=== PATIENT | female | born 1975 | race Caucasian/White ===

== ENCOUNTER 2020-01-22 18:47 | Emergency (ER) | payer OTHER, SELFPAY ==
--- NOTE | ~2020-01-22 | CT_ITS ---
EXAMINATION: CT abdomen pelvis w con DATE: 01/22/2020 20:21 INDICATION: Low abdominal pain. TECHNIQUE: Computed tomography (CT) of the abdomen and pelvis was performed with 100 mL Omnipaque 350 intravenous contrast. Automated exposure control and iterative reconstruction technique were employe d. The dose-length product was 514.52 mGy-cm. COMPARISON: CT abdomen and pelvis 06/04/2015 FINDINGS: The visualized portions of the lung bases demonstrate minimal atelectasis. A calcified righ t lung nodule is consistent with old granulomatous disease. No pleural effusion. The heart size is no rmal. No pericardial effusion. There is a 7 mm cyst in the liver. The gallbladder, spleen, pancreas, adrenal glands, and kidneys are normal. There are no dilated loops of bowel. There are no dilated loo ps of bowel. The appendix is not visualized. There are no pathologically enlarged lymph nodes. There is no free intraperitoneal fluid. Left ovarian vein is enlarged, consistent with pelvic venous insuff iciency. There is mild lumbar spondylosis. There is a chronic compression fracture of T10 vertebral b devyn. IMPRESSION: 1. Pelvic venous insufficiency. Reviewed, dictated and finalized at location A.
[2020-01-22 18:55] VITALS: BP 155/96; PULSE 95; RESP 18; TEMP 36.9; O2SAT 100
[2020-01-22] MEDS: SODIUM CHLORIDE 0.9% IV 1,000 ML 999 ML IV CONT (19:51)
[2020-01-22 19:52] LABS: Basophils Percent Auto 0.3 % (0.2-1.2); Eosinophils Absolute Auto 0.1 K/mm3 (0-0.3); Eosinophils Percent Auto 0.9 % (0-4.4); Hematocrit 36.6 % (37.0-47.0); Hemoglobin 12.2 g/dL (12.0-15.0); Immature Granulocyte Absolute 0.01 K/mm3 (0.00-0.031); Immature Granulocyte Percent A 0.1 % (0-0.5); Lymphocytes Absolute Auto 3.02 K/mm3 (0.9-3.2); Lymphocytes Percent Auto 35.1 % (18.3-44.2); Mean Corpuscular HGB Conc 33.3 g/dl (32-36); Mean Corpuscular Hemoglobin 28.4 pg (26-34); Mean Corpuscular Volume 85.1 fl (80-100); Mean Platelet Volume 11.6 fl (7.4-10.4); Monocytes Absolute Auto 0.5 K/mm3 (0.1-0.6); Monocytes Percent Auto 6.3 % (2.6-8.5); Neutrophils Absolute Auto 4.9 K/mm3 (1.3-6.7); Neutrophils Percent Auto 57.3 % (45.5-73.1); Platelet Count Result 208 k/mm3 (150-375); Red Cell Distribution Width 13.3 % (11.5-14.5); White Blood Count 8.6 K/mm3 (4.5-10.0)
[2020-01-22 20:02] LABS: INR 1.1; Partial Thromboplastin Time 27.4 SECONDS (22.3-36.8); Prothrombin Time 13.6 Seconds (11.1-14.7)
[2020-01-22 20:03] VITALS: BP 118/91; BP 121/82; BP 128/89; PULSE 84; PULSE 89
--- NOTE | 2020-01-22 20:03 | ED.ABDPAIN ---
HPI - Abdominal Pain General Chief Complaint: Vaginal Bleeding Stated Complaint: vag bleeding Time Seen by Provider: 01/22/20 19:03 History of Present Illness HPI narrative: She is currently on her period. Heavier than usual. Going through pad/tampon every 1.5-2 hours. Feeling weak and dizzy. Additionally reports severe lower abdominal pain and dysuria. Related Data Home Medications Medication Instructions Recorded Confirmed No Home Medications 01/22/20 01/22/20 Allergies Allergy/AdvReac Type Severity Reaction Status Date / Time No Known Allergies Allergy Unknown Verified 01/22/20 19:01 Review of Systems Review of Systems: All systems reviewed & are unremarkable except as noted in HPI and below Constitutional: Constitutional: Denies fever(s) ENT: Reports dizziness Cardiovascular: Cardiovascular: Denies chest pain Respiratory: Respiratory: Reports dyspnea Gastrointestinal: Gastrointestinal: Reports abdominal pain and Reports nausea Genitourinary: Genitourinary: Reports abnormal vaginal bleeding and Reports dysuria Neurologic: Reports dizziness PMFSH Family History Family History Other Diabetes mellitus Family history of alcoholism Family history of malignant neoplasm of male breast Family history of mental disorder Hypertension Social History Social History Smoking status: Never smoker Alcohol intake: current Gender identity (if verbalized by the patient): Female Exam Const: General: healthy appearing, no acute distress and alert Nutritional Appearance: well nourished Orientation/consciousness: patient oriented x3 HENMT: Head: normal to inspection Resp: Effort & Inspection: normal respiratory effort Auscultation: clear to auscultation bilaterally Cardio: Rate: regular rate Rhythm: regular rhythm GI: GI Palp: Yes Soft to palpation and Yes Tenderness to palpation present (GI) (suprapubic) Skin: General skin exam: normal color Neuro: General: patient oriented x3 and CN's II-XI intact bilaterally Speech: normal speech Extrem: General: normal to inspection Course Vital Signs Vital signs: Vital Signs Temperature 36.9 C 01/22/20 18:55 Pulse Rate 95 01/22/20 18:55 Respiratory Rate 18 01/22/20 18:55 Blood Pressure 155/96 H 01/22/20 18:55 Pulse Oximetry 100 01/22/20 18:55 Temperature 36.9 C 01/22/20 18:55 Pulse Rate 64 01/22/20 23:34 Respiratory Rate 18 01/22/20 23:34 Blood Pressure 98/34 L 01/22/20 23:34 Pulse Oximetry 99 01/22/20 23:34 MDM - Abdominal Pain Lab Data Result diagrams: 01/22/20 19:46 01/22/20 19:46 Labs: Lab Results 01/22/20 01/22/20 01/22/20 Range/Units 19:46 19:46 19:46 WBC 8.6 (4.5-10.0) K/mm3 RBC 4.30 (4.2-5.4) M/mm3 Hgb 12.2 (12.0-15.0) g/dL Hct 36.6 L (37.0-47.0) % MCV 85.1 (80-100) fl MCH 28.4 (26-34) pg MCHC 33.3 (32-36) g/dl RDW 13.3 (11.5-14.5) % Plt Count 208 (150-375) k/mm3 MPV 11.6 H (7.4-10.4) fl Immature Gran % (Auto) 0.1 (0-0.5) % Neut % (Auto) 57.3 (45.5-73.1) % Lymph % (Auto) 35.1 (18.3-44.2) % Dane % (Auto) 6.3 (2.6-8.5) % Eos % (Auto) 0.9 (0-4.4) % Baso % (Auto) 0.3 (0.2-1.2) % Lymph # (Auto) 3.02 (0.9-3.2) K/mm3 Dane # (Auto) 0.5 (0.1-0.6) K/mm3 Eos # (Auto) 0.1 (0-0.3) K/mm3 Baso # (Auto) 0.0 (0.0-0.1) K/mm3 Abs Immat Gran (auto) 0.01 (0.00-0.031) K/mm3 Absolute Neuts (auto) 4.9 (1.3-6.7) K/mm3 Absolute Nucleated RBC 0.0 (0.0-0.012) K/mm3 Nucleated RBC % 0.0 (0.0-0.2) % PT 13.6 (11.1-14.7) Seconds INR 1.1 APTT 27.4 (22.3-36.8) SECONDS Sodium 136 L (137-145) mmol/L Potassium 3.8 (3.4-5.0) mmol/L Chloride 106 (98-107) mmol/L Carbon Dioxide 25 (22-30) mmol/L BUN 11 (7-17) mg/dL Creat
[2020-01-22 20:04] LABS: Blood Urea Nitrogen 11 mg/dL (7-17); Calcium 8.9 mg/dL (8.4-10.2); Carbon Dioxide 25 mmol/L (22-30); Chloride 106 mmol/L (98-107); Estimated CRCL calculation 71 ml/min; Estimated Glomerular Filt Rate > 60; Glucose 96 mg/dL (65-105); Potassium 3.8 mmol/L (3.4-5.0); Sodium 136 mmol/L (137-145)
[2020-01-22] MEDS: KETOROLAC 30 MG/ML VIAL (*BKC) IV PUSH (20:07)
[2020-01-22 20:23] LABS: Add Urine Microscopic? YES; Amorphous Sediment Urine Moderate; Appearance Urine Cloudy (Clear); Bacteria Urine 1+ /hpf; Bilirubin Urine Negative (Negative); Blood Urine 2+ (Negative); Color Urine Yellow (Yellow); Glucose Urine UA Negative (Negative); Ketones Urine Negative (Negative); Leukocyte Esterase Ur Trace LEU/UL (Negative); Mucus Urine Rare /lpf; Nitrate Urine Positive (Negative); Protein Urine Negative (Negative); RBC Urine 21-50 /hpf (0-2); Specific Grav Ur 1.018 (1.001-1.035); Squamous Epithelial Cell Urine Few /hpf (Few); Urobilinogen Urine Negative mg/dL (<2.0); WBC Urine 16-20 /hpf
[2020-01-22] MEDS: NITROFURANTOIN MONOHYD MACROCR 100 MG CAP PO (20:51)
[2020-01-22] MEDS: ACETAMINOPHEN 500 MG TABLET 1000 MG PO (23:24)
[2020-01-22] MEDS: PHENAZOPYRIDINE HCL 100 MG TABLET 200 MG PO (23:24)
[2020-01-22 23:34] VITALS: BP 98/34; PULSE 64; RESP 18; O2SAT 99
== END 2020-01-22 23:35 | disposition home or self-care (01) ==
PROVIDERS: Emergency Provider Emergency Medicine
DX: N39.0 Urinary tract infection, site not specified (principal)
CPT/HCPCS: 36415; 74177; 80048; 81001; 81025; 85025; 85610; 85730; 87077; 87086; 87088; 87186; 96361; 96374; 99284; A9270; J1885; J7030; Q9967

== ENCOUNTER 2020-06-30 19:10 | Emergency (ER) | payer OTHER, SELFPAY ==
--- NOTE | ~2020-06-30 | CT_ITS ---
EXAMINATION: CT abdomen pelvis wo con DATE: 06/30/2020 20:39 INDICATION: Right flank pain and right-sided abdominal pain. TECHNIQUE: Computed tomography (CT) of the abdomen and pelvis was performed without intravenous contr ast. Automated exposure control and iterative reconstruction technique were employed. The dose-length product was 484.85 mGy-cm. COMPARISON: 01/22/2020 FINDINGS: Calcified right lower lobe nodule consistent with old granulomatous disease. Heart size is normal. No pericardial or pleural effusion. A couple calcified gallstones in the normal decompressed gallbladde r. No gallbladder wall thickening or pericholecystic inflammatory change to suggest acute cholecystit is. Liver, spleen, pancreas, bilateral adrenal glands and kidneys are normal. No stones seen at the k idneys or along the bilateral ureters. Bladder is normal. Retroverted uterus and bilateral adnexa are unremarkable. Normal appendix. There is mild fatty infiltration of the wall of the terminal ileum wh ich could represent response to chronic inflammation such as in the setting of Crohn's disease. No luis wel obstruction, other evident bowel wall thickening or surrounding inflammatory stranding. Small moe unt of likely physiologic free fluid in the cul-de-sac. No abscess or free intraperitoneal gas. No pa thologically enlarged abdominal or pelvic lymphadenopathy. IMPRESSION: 1. No acute intra-abdominal/pelvic process. 2. Mild fatty infiltration of the wall of the terminal ileum which can be seen as response to chronic inflammation such as in the setting of Crohn's disease. Correlate with clinical history. 3. Cholelithiasis. Reviewed, dictated and finalized at location . ESTATE INVESTOR
[2020-06-30 19:10] VITALS: BP 113/68; PULSE 59; RESP 26; TEMP 36.9; O2SAT 97
--- NOTE | 2020-06-30 19:22 | ED.ABDPAIN ---
HPI - Abdominal Pain General Chief Complaint: Abdominal Pain Stated Complaint: pain in side, and back Time Seen by Provider: 06/30/20 19:12 Source: patient Mode of arrival: ambulatory Limitations: no limitations History of Present Illness HPI narrative: Alpa is a 44F with a PMH of IBS, endometriosis, UTI and an ectopic that required tubal surgery that presented to the ED with right flank and suprapubic pain. She has had pain off and on for 3 days in her flank. Shortly before coming she went to the bathroom and had suprapubic pain. She now has constant suprapubic pain. She admits nausea but no vomiting, diarrhea or constipation. She is currently on her menses but no purulent discharge. Related Data Home Medications Medication Instructions Recorded Confirmed No Home Medications 01/22/20 06/30/20 Allergies Allergy/AdvReac Type Severity Reaction Status Date / Time No Known Allergies Allergy Unknown Verified 01/22/20 19:01 Review of Systems Constitutional: Constitutional: Denies chills, Denies fever(s) and Denies weakness Eyes: Eyes: Reports no additional eye complaints ENT: Reports system reviewed and no additional complaints, except as documented Cardiovascular: Cardiovascular: Denies chest pain and Denies rapid heart rate Respiratory: Respiratory: Reports no additional respiratory complaints Gastrointestinal: Gastrointestinal: Reports abdominal pain, Denies constipation, Denies diarrhea, Reports nausea and Denies vomiting Genitourinary: Genitourinary: Reports as per HPI Musculoskeletal: Musculoskeletal: Reports no additional musculoskeletal complaints Integumentary/Breasts: Skin/Breast: Reports system reviewed and no additional complaints, except as docu Neurologic: Reports system reviewed and no additional complaints, except as documented Psychiatric: Psychiatric: Reports no additional psychiatric complaints Endocrine: Endocrine: Reports no additional endocrine complaints Hematologic/Lymphatic: Hematologic/Lymphatic: Reports no additional hematologic/lymphatic complaints Allergic/Immunologic: Allergic/Immunologic: Reports no additional allergic/immunologic complaints [facility] Family History Family History Other Diabetes mellitus Family history of alcoholism Family history of malignant neoplasm of male breast Family history of mental disorder Hypertension Social History Social History Smoking status: Never smoker Alcohol intake: current Gender identity (if verbalized by the patient): Female Exam Const: Orientation/consciousness: patient oriented x3 Other: In mild to moderate distress HENMT: Head: normal to inspection Other: atraumatic Eyes: Conjunctivae: conjunctivae normal Pupils: Equal, round and reactive pupils present Neck: Neck: normal visual inspection Chest: Chest palpation & inspection: normal inspection of the chest Resp: Effort & Inspection: normal respiratory effort Auscultation: clear to auscultation bilaterally Cardio: Rate: regular rate Rhythm: regular rhythm Heart sounds: no murmurs GI: Inspection: non-distended GI Palp: Yes Soft to palpation, Yes Tenderness to palpation present (GI) (Tender in the RLQ ), No Guarding due to palpation present (GI) and No Rigid due to palpation : Other: No CVA tenderness. Severe suprapubic tenderness was present Skin: General skin exam: normal color Rashes: no rashes Neuro: General: patient oriented x3 and moves all extremities Extrem: General: normal to inspection Psych: Appearance: grossly normal Mental Status: mental status grossly normal Course Course Emergency Course: Alpa was evaluated. She was given 4mg of morphine for pain and 30mg of Toradol. Labs, UA, and urine HCG. EXAMINATION: CT abdomen pelvis wo con DATE: 06/30/2020 20:39 INDICATION: Right flank pain and right-sided abdominal
[2020-06-30] MEDS: ONDANSETRON INJ 4 MG/2 ML VIAL IV PUSH (19:23)
[2020-06-30] MEDS: MORPHINE SULFATE (*CRX) 4 MG/ML INJ IV PUSH ×2 (19:24→21:00)
[2020-06-30] MEDS: KETOROLAC 30 MG/ML VIAL (*BKC) (19:40)
[2020-06-30 19:42] LABS: Basophils Absolute Auto 0.03 K/mm3 (0.00-0.10); Basophils Percent Auto 0.4 % (0.0-1.0); Eosinophils Absolute Auto 0.06 K/mm3 (0.02-0.50); Eosinophils Percent Auto 0.7 % (1.0-6.0); Hematocrit 35.4 % (35.0-49.0); Hemoglobin 11.6 g/dL (12.0-15.0); Immature Granulocyte Absolute 0.02 K/mm3 (0.00-0.00); Immature Granulocyte Percent A 0.2 % (0.0-0.0); Lymphocytes Absolute Auto 2.57 K/mm3 (1.10-4.50); Lymphocytes Percent Auto 30.7 % (18.0-42.0); Mean Corpuscular HGB Conc 32.8 g/dL (32.0-36.0); Mean Corpuscular Hemoglobin 26.7 pg (27.0-31.0); Mean Corpuscular Volume 81.4 fL (78.0-102.0); Mean Platelet Volume 11.7 fl (9.2-11.8); Monocytes Absolute Auto 0.64 K/mm3 (0.10-0.90); Monocytes Percent Auto 7.6 % (2.0-11.0); Neutrophils Absolute Auto 5.1 K/mm3 (1.7-7.2); Neutrophils Percent Auto 60.4 % (50.0-70.0); Platelet Count Result 252 K/mm3 (150-420); Red Blood Count 4.35 M/mm3 (4.20-5.40); Red Cell Distribution Width 14.7 % (11.6-14.4); White Blood Count 8.4 K/mm3 (4.8-10.8)
[2020-06-30 19:54] LABS: INR 1.1; Prothrombin Time 11.4 Seconds (9.64-11.0)
[2020-06-30 20:01] LABS: Lactic Acid Reflex 1.7 mmol/L (0.4-2.0)
[2020-06-30 20:03] LABS: Add Urine Microscopic? YES; Appearance Urine Clear (Clear); Bilirubin Urine Negative (Negative); Blood Urine 3+ (Negative); Color Urine Yellow (Yellow); Glucose Urine UA Negative (Negative); Ketones Urine Negative (Negative); Leukocyte Esterase Ur Negative (Negative); Nitrate Urine Negative (Negative); Protein Urine Negative (Negative); Urobilinogen Urine 0.2 mg/dL (0.2-1.0); pH Urine 7.5 (5.0-8.0)
[2020-06-30 20:08] LABS: Alanine Aminotransferase 18 U/L (14-59); Albumin Level 3.6 g/dL (3.4-5.0); Alkaline Phosphatase 67 U/L (46-116); Anion Gap 13 mmol/L (8-16); Aspartate Amino Transferase 10 U/L (15-37); Bilirubin,Total 0.2 mg/dL (0.00-1.00); Blood Urea Nitrogen 12 mg/dL (7-18); Carbon Dioxide 23 mmol/L (21-32); Chloride 104 mmol/L (98-108); Estimated CRCL calculation 53 ml/min; Estimated Glomerular Filt Rate 55; Glucose 97 mg/dL (70-99); Lipase 136 U/L (73-393); Osmolality Calculated 289 mOsm/kg (285-295); Potassium 3.7 mmol/L (3.5-5.1); Sodium 140 mmol/L (136-145); Total Protein 7.3 g/dL (6.4-8.2)
[2020-06-30 20:11] LABS: Squamous Epithelial Cell Urine Rare /hpf (Few); WBC Urine 0-3 /hpf (0-3)
[2020-06-30 20:12] LABS: Bacteria Urine Trace /hpf; Pregnancy On Board Control Positive; Urine Pregnancy Test Negative
--- NOTE | 2020-06-30 21:49 | PC.NURSE ---
PT INSTRUCTED TO GO TO [facility] FOR ULTRASOUND (SUSPECTED R OVARIAN TORSION) RN GAVE REPORT TO [facility], RN
[2020-06-30 21:51] VITALS: BP 107/63; PULSE 75; RESP 14; O2SAT 100
== END 2020-06-30 21:53 | disposition short-term general hospital (02) ==
PROVIDERS: Emergency Provider Family Medicine
DX: R10.9 Unspecified abdominal pain (principal)
CPT/HCPCS: 36415; 74176; 80053; 81001; 81025; 83605; 83690; 85025; 85610; 86850; 86900; 86901; 96374; 96375; 96376; 99283; 99284; J1885; J2270; J2405

== ENCOUNTER 2020-06-30 23:00 | Inpatient (IN) | payer OTHER, SELFPAY ==
--- NOTE | ~2020-06-30 | US_ITS ---
EXAMINATION: US pelvic complete w TV DATE: 07/01/2020 00:02 INDICATION: Pelvic pain TECHNIQUE: Multiple transabdominal and endovaginal sonographic images of the pelvis were obtained. COMPARISON: CT dated 06/30/2020 FINDINGS: The uterus measures 7.5 x 5.7 x 7.4 cm. The endometrial complex measures 6 mm in thickness. There ar e couple 6 7 7 mm hypoechoic lesions at the left and right uterine fundus which could represent small uterine fibroids. The right ovary measures 2.1 x 1.5 x 1.9 cm. The left ovary measures 3.0 x 1.5 x 2 .3 cm. There is normal vascular flow in the ovaries. There is no free fluid in the pelvis. IMPRESSION: 1. A couple subcentimeter hypoechoic lesions in the uterine fundus most likely uterine fibroids. Othe rwise normal pelvic ultrasound. Reviewed, dictated and finalized at [facility]. E OB IMPRESSION: 1. A couple subcentimeter hypoechoic lesions in the uterine fundus most likely uterine fibroids. Otherwise normal pelvic ultrasound.
--- NOTE | ~2020-06-30 | US_ITS ---
EXAMINATION: US venous doppler LE EXAM DATE: 07/02/2020 11:55 INDICATION: TECHNIQUE: Multiple grayscale, color flow and Doppler images of the lower extremity deep venous syste ms bilaterally were obtained and reviewed. There is no prior study for comparison. FINDINGS: Right side: The right common femoral, femoral and profunda veins demonstrate normal color flow, respi ratory variation, augmentation and compressibility. Compressibility, color flow confirmed within the right popliteal, posterior tibial, peroneal, and greater saphenous veins. Left side: The left common femoral, femoral and profunda veins demonstrate normal color flow, respira tory variation, augmentation and compressibility. Compressibility, color flow confirmed within the l eft popliteal, posterior tibial, peroneal, and greater saphenous veins. IMPRESSION: 1. No lower extremity deep venous thrombosis bilaterally. Reviewed, dictated and finalized at location A. [place] HELPER
--- NOTE | ~2020-06-30 | NM_ITS ---
EXAMINATION: NM hepatobiliary w pharm EXAM DATE: 07/02/2020 15:50 INDICATION: pain, cholelithiasis TECHNIQUE: 5.4 mCi Tc-99m mebrofenin (Choletec) was administered intravenously. Scintigraphic image s of the abdomen were obtained for one hour. At the 1 hour time point, 1.6 mcg sincalide (Kinevac) wa s administered by slow intravenous infusion, and imaging was continued for 30 minutes. Gallbladder ej ection fraction was calculated by the technologist after 1.5 hour delay. Correlation is made to CT ab harvinder 06/30/2020. FINDINGS: There is normal clearance of radiotracer from the blood pool. There is homogeneous tracer u ptake by the liver. Activity progresses to the gallbladder and bowel. The gallbladder ejection fract ion (GBEF) is 8 % (most patients with gallbladder dysfunction have GBEF < 35%, but there is overlap w ith the normal range of 10-90%). IMPRESSION: Gallbladder ejection fraction 8%, consistent with gallbladder dysfunction and/or chronic cholecystitis. Reviewed, dictated and finalized at location A. APPLICATIONS SPECIALIST IMPRESSION: Gallbladder ejection fraction 8%, consistent with gallbladder dysf unction and/or chronic cholecystitis.
--- NOTE | ~2020-06-30 | US_ITS ---
EXAMINATION: US right upper quadrant DATE: 07/01/2020 09:09 INDICATION: Right upper quadrant abdominal pain. TECHNIQUE: Multiple grayscale and Doppler ultrasound images of the abdomen were obtained. COMPARISON: CT abdomen and pelvis 06/30/2020 FINDINGS: The visualized portions of the head, body, and tail of the pancreas are normal. The liver i s normal without focal lesion. There is normal flow in main portal vein. The gallbladder is contracte d and contains gallstones. No gallbladder wall thickening. The common duct is normal and measures 2 m m. Right kidney is normal. IMPRESSION: 1. Cholelithiasis. No evidence of acute cholecystitis. Reviewed, dictated and finalized at location A. NCE BROKER
[2020-06-30 23:05] VITALS: BP 122/64; PULSE 85; RESP 18; TEMP 36; O2SAT 100
--- NOTE | 2020-06-30 23:32 | ED.ABDPAIN ---
HPI - Abdominal Pain General Chief Complaint: Recheck/Abnormal Lab/Rx <Marissa Deleon PA-C - Last Filed: 07/01/20 01:15> Stated Complaint: HERE FOR PELVIC US <ANA MARÍA Steward Last Filed: 07/01/20 01:15> Time Seen by Provider: 06/30/20 23:13 <ANA MARÍA Steward Last Filed: 07/01/20 01:15> Source: patient <ANA MARÍA Steward Last Filed: 07/01/20 01:15> Mode of arrival: ambulatory <ANA MARÍA Steward Last Filed: 07/01/20 01:15> Limitations: no limitations <AAN MARÍA Steward Last Filed: 07/01/20 01:15> History of Present Illness HPI narrative: This is a 44-year-old female that presents to the emergency department for right-sided pelvic pain that started tonight. Reports she has had pelvic cramping for the last 3 days. She has been on her menstrual cycle for the last 5 days. Reports she does have history of endometriosis and heavy periods. She used to see Dr. Ellison, but has not seen him in some time. Reports tonight she started to have worsening pelvic pain on the right side. She was seen at [facility] for this and sent here for further evaluation. Denies fever, vomiting, or dysuria. <ANA MARÍA Steward Last Filed: 07/01/20 01:15> Related Data Home Medications: Home Medications Medication Instructions Recorded Confirmed [id number]-cgo-qtco-FA-vit K 1 tablet PO DAILY 07/01/20 07/01/20 [Adults Multivitamin] <ANA MARÍA Steward Last Filed: 07/01/20 01:15> Allergies/Adverse Reactions: Allergies Allergy/AdvReac Type Severity Reaction Status Date / Time No Known Allergies Allergy Unknown Verified 06/30/20 23:02 <ANA MARÍA Steward Last Filed: 07/01/20 01:15> Review of Systems Review of Systems: Narrative: CONSTITUTIONAL: Denies fever GASTROINTESTINAL: Reports abdominal/pelvic pain, nausea. Denies vomiting GENITOURINARY: Denies dysuria <Marissa Deleon PA-C - Last Filed: 07/01/20 01:15> All systems reviewed & are unremarkable except as noted in HPI and below <Marissa Deleon PA-C - Last Filed: 07/01/20 01:15> COUNT INCLUDES THE [facility] Past Medical History Medical History: Medical History (Updated 07/01/20 @ 00:42 by Marissa Deleon PA-C) History of endometriosis History of irritable bowel syndrome <Marissa Deleon PA-C - Last Filed: 07/01/20 01:15> Family History Family History: Family History Other Diabetes mellitus Family history of alcoholism Family history of malignant neoplasm of male breast Family history of mental disorder Hypertension <Marissa Deleon PA-C - Last Filed: 07/01/20 01:15> Social History Social History: Social History Smoking status: Never smoker Alcohol intake: current Gender identity (if verbalized by the patient): Female <Marissa Deleon PA-C - Last Filed: 07/01/20 01:15> Exam Narrative: Exam Narrative: GENERAL: Well-appearing, well-nourished, and in no acute distress. HEAD: Normocephalic, atraumatic. EYES: EOMI. CHEST: Clear to auscultation. No respiratory distress. No wheezes rales or rhonchi HEART: Regular rate and rhythm. No murmur heard. Normal peripheral pulses. ABDOMEN: Soft, nondistended, normal active bowel sounds. No CVA tenderness. Tender to palpation in the RLQ, without guarding EXTREMITIES: Normal range of motion. No edema. SKIN: Warm, dry, no rash. NEURO: No focal deficits. Alert and oriented x3. PSYCH: Normal mood and affect PELVIC: Normal external genitalia. Normal appearing cervix. Small-moderate amount of dark blood in the vaginal vault. 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
[2020-06-30] MEDS: MORPHINE SULFATE (*CRX) 4 MG/ML INJ IV PUSH (23:40)
[2020-07-01] VITALS (14 sets, daily range): BP systolic 92–121; BP diastolic 55–87; PULSE 65–93; RESP 10–20; TEMP 36.1–37.3; O2SAT 95–100; BMI 29.5
[2020-07-01] MEDS: FAMOTIDINE 20 MG/2 ML VIAL IV PUSH (00:23)
[2020-07-01] MEDS: KETOROLAC 15 MG/ML VIAL (*BKC) IV PUSH (01:42)
[2020-07-01] MEDS: LORazepam INJ (*CRX) 2 MG/ML VIAL 0.5 MG IV PUSH ×2 (01:42→12:45)
--- NOTE | 2020-07-01 02:15 | ADMGEN ---
This patient, Alpa Echevarria, was admitted to Medical Room 249-01. Patient/family oriented to hospital policies and general routines including ID bracelet, bed and alarms, visiting hours, pain management, procedures, bathroom and other care routines, personal items, smoking policy, room service/diet, and visiting hours. Information on how to activate the Rapid Response Team has been discussed. Patient/Family are encouraged to report perceived risks to care and to ask questions if they do not understand what they are told or what they should do.
[2020-07-01] MEDS: MORPHINE SULFATE (*CRX) 4 MG/ML INJ IV PUSH ×2 (02:49→10:51)
--- NOTE | 2020-07-01 07:50 | PM.IMHP ---
H&P: HPI History of Present Illness Date/Time: 07/01/20 07:50 Chief complaint: Pelvic pain Narrative: Alpa Echevarria is a 44 year old female who initially presented to [facility] with sudden onset pelvic pain. Transferred to [place] [facility] for pelvic US evaluation. She states the pain started suddenly after going to have a bowel movement yesterday. Pain initially started in the mid pelvis where it felt like menstrual cramping. She is currently on her period. However, pain radiated over to the right side where it became a sharp stabbing pain both in the lower and upper abdomen, radiating to her back. 10/10 on pain scale. Pain was intermittent and would come and go about every 2 minutes. Pain is worsened by movement. Associated with nausea and diarrhea. She has IBS so she alternates between diarrhea and constipation. Pain is improved this morning, now 1-2/10 at rest. She has had multiple laparoscopies for endometriosis and a history of left ectopic with left salpingectomy. Review of Systems Constitutional: Constitutional: Denies chills, Denies fever(s) and Reports poor appetite Cardiovascular: Cardiovascular: Reports no additional cardiovascular complaints Respiratory: Respiratory: Reports no additional respiratory complaints Gastrointestinal: Gastrointestinal: Reports as per HPI, Reports abdominal pain, Reports diarrhea and Reports nausea Genitourinary: Genitourinary: Reports as per HPI Musculoskeletal: Musculoskeletal: Reports no additional musculoskeletal complaints Neurologic: Reports restless legs Psychiatric: Psychiatric: Reports no additional psychiatric complaints Endocrine: Endocrine: Reports no additional endocrine complaints Hematologic/Lymphatic: Hematologic/Lymphatic: Reports no additional hematologic/lymphatic complaints Allergic/Immunologic: Allergic/Immunologic: Reports no additional allergic/immunologic complaints [facility] Past Medical History Medical History History of endometriosis History of irritable bowel syndrome , ectopic, tubal Surgical History Surgical History History of laparoscopy History of shoulder surgery History of tonsillectomy History of unilateral salpingectomy Family History Family History Father Diabetes mellitus Family history of alcoholism Family history of malignant neoplasm of male breast Family history of mental disorder Mother Hypertension Social History Social History (Reviewed 07/01/20 @ 08:37 by BETTY Salmeron Smoking packs per day: 0.5 Smoking cigarettes per day: 10.0 Years smoked: 30 Smoking pack-years: 15.00 Smoking status: Current every day smoker Tobacco type: cigarettes Alcohol intake: never Substance use: never Gender identity (if verbalized by the patient): Female Spiritual care concerns: No Meds Home Medications and Allergies Home Medications Medication Instructions Recorded Confirmed Type mhvhuifkozth-dmp-vaip-FA-vit K 1 tablet PO DAILY 07/01/20 07/01/20 History [Adults Multivitamin] Allergies Allergy/AdvReac Type Severity Reaction Status Date / Time No Known Allergies Allergy Unknown Verified 07/01/20 02:21 Vital Signs Vital Signs - 24 hr 06/30/20 23:05 07/01/20 01:53 07/01/20 02:24 Temperature 36.0 C L 36.4 C 36.4 C L Pulse Rate 85 74 80 Respiratory Rate 18 18 20 Blood Pressure 122/64 121/76 106/67 Pulse Oximetry 100 99 100 07/01/20 06:00 Temperature 36.3 C L Pulse Rate 79 Respiratory Rate 18 Blood Pressure 101/66 Pulse Oximetry 100 Exam Const: General: cooperative, well developed, alert, awake and uncomfortable Nutritional Appearance: average body habitus Orientation/consciousness: oriented to person, oriented to place, oriented to time and patient oriented x3 HENMT: Head: normal to inspection,
[2020-07-01] MEDS: LACTATED RINGERS 1,000 ML 125 ML IV CONT (10:51)
[2020-07-01] MEDS: NICOTINE (*PBKC) 14 MG PATCH 1 PATCH TRANSDERM (12:07)
--- NOTE | 2020-07-01 13:09 | SUR.PREOP ---
[id number]- CONTACTED DR. BONILLA AND EXPLAINED THAT PT IS CONFUSED D/T ALZHEIMER'S AND DEMENTIA. PT WILL NOT TOLERATE FLUIDS BEING HOOKED TO IV. PT WILL PULL OUT. EXPLAINED PT CAN NOT GET VANCOMYCIN PRE OP. HE ALSO STATED DELAY START TIME. SITTER AT BEDSIDE WITH PT IN PRE OP.
--- NOTE | 2020-07-01 14:13 | WPDHPUPDATE1 ---
History and Physical Update Update Date/Time: 07/01/20 14:13 History and Physical has been reviewed, including an updated exam of the patient. Pain control is still not adequate, pain is back and is 7/10. Discussed diagnostic laparoscopy. Risks, benefits, and alternatives have been discussed and questions answered. Patient agrees to proceed with procedure.
--- NOTE | 2020-07-01 17:17 | WPDANESEPPF ---
Anes - Initial Pre Proc Eval Procedure: Operation Date: 07/01/20 17:00 Proposed Procedures p Diagnostic Laparoscopy - Dino Munoz DO Date/Time: 07/01/20 17:17 Surgeon: Dino Munoz DO Pre Op Diagnosis: Pelvic pain Patient Data Age: 44 Gender: F Height: 5 ft 5 in Weight: 80.3 kg Last Vital Signs Temp 37.3 C 07/01/20 16:48 Pulse 77 07/01/20 16:48 Resp 14 07/01/20 16:48 BP 99/55 L 07/01/20 16:48 Pulse Ox 100 07/01/20 16:48 Allergies Allergy/AdvReac Type Severity Reaction Status Date / Time No Known Allergies Allergy Unknown Verified 07/01/20 02:21 Home Medications Medication Instructions Recorded Confirmed Type blumkjhwzbdk-rvi-hymt-FA-vit K 1 tablet PO DAILY 07/01/20 07/01/20 History [Adults Multivitamin] Laboratory Tests 07/01/20 07/01/20 00:32 00:32 C.trachomatis RNA (TMA) Pending N.gonorrhoeae RNA (TMA) Pending Trichomonas Direct ID Negative (Negative) Patient hx anesthesia problems: post op nausea/vomiting Family hx anesthesia problems: none PMFSH Past Medical History Medical History Anxiety History of endometriosis History of irritable bowel syndrome , ectopic, tubal Smoker Surgical History Surgical History History of laparoscopy History of shoulder surgery History of tonsillectomy History of unilateral salpingectomy Family History Family History Father Diabetes mellitus Family history of alcoholism Family history of malignant neoplasm of male breast Family history of mental disorder Mother Hypertension Social History Social History Smoking packs per day: 0.5 Smoking cigarettes per day: 10.0 Years smoked: 30 Smoking pack-years: 15.00 Smoking status: Current every day smoker Tobacco type: cigarettes Alcohol intake: never Substance use: never Gender identity (if verbalized by the patient): Female Spiritual care concerns: No Anes - Eval Final PreProcedure Day of Procedure 07/01/20 17:17 Patient weight: overweight Heart: regular rate and rhythm Lungs: decreased breath sounds Airway: Mallampati scale class II Neurological: alert and oriented Last oral intake: >/= 8 hours ASA classification: II Emergent: yes Anesthetic plan: proceed Anesthesia type and monitoring: general ETT and standard monitoring Informed Consent: The patient's anesthetic plan and its attendant risks and benefits were discussed with the patient/family/POA. Questions were solicited and answers provided to the satisfaction of the patient/family/POA.
[2020-07-01] MEDS: MIDAZOLAM HCL (*CRX) 2 MG/2 ML VIAL IV PUSH (17:26)
[2020-07-01] MEDS: SCOPOLAMINE 1.5 MG PATCH TRANSDERM (17:26)
[2020-07-01] MEDS: LACTATED RINGERS 1,000 ML 30 ML IV CONT ×2 (17:28→19:49)
--- NOTE | 2020-07-01 19:03 | PM.OP ---
Procedure Note - Brief Procedure Note - Brief Date of procedure: 07/01/20 Pre-op diagnosis: Pelvic pain Pelvic Pain Abdominal Pain Post-op diagnosis: same Description of procedure: Diagnostic Laparoscopy Anesthesia: RUA Surgeon: Dino Munoz DO Estimated blood loss (mL): 5 Urine output (mL): 50 Drains: No Packing: No Pathology: none sent Complications: No immediate complications Condition: stable Disposition: floor Findings: Small amount of blood tinged fluid in posterior cul-de-sac Normal appearing bilateral ovaries - NO ovarian torsion Evidence of past left salpingectomy Filmy adhesions in left adnexa/sidewall Filmy adhesions in right abdominal side wall Normal appearing appendix
--- NOTE | 2020-07-01 19:13 | P.OP_ITS ---
Procedure Note - Detailed Date of procedure: 07/01/20 Pre-op diagnosis: Pelvic pain Pelvic pain Abdominal pain Post-op diagnosis: same Procedure performed: Diagnostic Laparoscopy Description of procedure: The patient was moved to the OR table after adequate anesthesia was established, patient was placed in dorsal lithotomy position with Osbaldo stirrups for support. Patient's abdomen was prepped using chlorhexidine in vagina and perineum prepped using Betadine. The patient was then draped in the usual sterile fashion. A time-out was performed identifying the correct patient and procedure. Attention was turned to the vagina a speculum was inserted into into the vagina the cervix was visualized anterior lip of the cervix was grasped using single-tooth tenaculum. Cervix was then dilated. A Zumi uterine manipulator device was inserted into the uterus. Attention was then turned to the abdomen at the inferior aspect of the umbilicus a small skin incision was made with a scalpel. The laparoscope was inserted into the intra- abdominal cavity under direct visualization using the true laparoscopic trocar. The patient was placed in Trendelenburg position. Another skin incision was made on the left side of her abdomen for another laparoscopic trocar this was inserted under direct visualization. A blunt probe was used to sweep the bowel. Survey of the pelvic cavity was performed no evidence of ovarian torsion on either side was noted. Normal-appearing bilateral ovaries. Evidence of past left salpingectomy noted. There is a small amount of blood-tinged fluid in the posterior cul-de-sac. There was no evidence of endometriosis lesions on the pelvic wall or otherwise. There were some mild filmy adhesions of the left adnexa to the pelvic sidewall on that side. The appendix was visualized and appeared normal. There was also some mild filmy adhesions on the right side of the abdomen which in loosely involved the colon. At this point there was no obvious pathology that would explain her pelvic pain and decision was made to discontinue the procedure. All laparoscopic instruments were removed from the abdomen, CO2 gas was allowed to escape, trocars were removed. The skin was reap proximated using 4 Monocryl and Dermabond. All instrumentation was removed from the uterus and vagina good hemostasis noted. All instrument and sponge counts were correct at the end the procedure and patient tolerated the procedure well was transferred to the recovery room in stable condition. Anesthesia: GETA Surgeon: Dino Munoz DO Estimated blood loss (mL): 5 Urine output (mL): 50 Drains: No Packing: No Pathology: none sent Complications: No immediate complications Condition: stable Disposition: floor Findings: Small amount of blood tinged fluid in posterior cul-de-sac Normal appearing bilateral ovaries - NO ovarian torsion Evidence of past left salpingectomy Filmy adhesions in left adnexa/sidewall Filmy adhesions in right abdominal side wall Normal appearing appendix No evidence of endometriosis lesions
[2020-07-01] MEDS: HYDROmorphone HCL INJ (*CRX) 1 MG/ML SYR 0.5 MG IV PUSH ×2 (19:37→19:49)
--- NOTE | 2020-07-01 20:40 | PC.NURSE ---
Returned from OR per [kelly]. Report received from [Staci CESAR].
[2020-07-01] MEDS: KETOROLAC 30 MG/ML VIAL (*BKC) IV PUSH (21:47)
--- NOTE | 2020-07-01 22:50 | PM.IMCN ---
Assessment and Plan Assessment and plan (1) Pelvic pain: Code(s): R10.2 - Pelvic and perineal pain Status: Acute Assessment and Plan: Patient had laparoscopic surgery today. See her surgical report. She has a history of inflammatory process near the ileum. The patient could possibly have irritable bowel syndrome. I offered her Bentyl. GI consult to follow-up. Patient has tried multiple laxatives without any relief. I also ordered for Mylicon. (2) Cholelithiasis: Code(s): K80.20 - Calculus of gallbladder without cholecystitis without obstruction Status: Acute Assessment and Plan: Without signs and symptoms of cholecystitis. I did consult surgery for future references. She said she is not having any right upper quadrant pain at this time. However she states that she does have bouts of attacks. (3) Irritable bowel syndrome: Code(s): K58.9 - Irritable bowel syndrome without diarrhea Status: Chronic Assessment and Plan: The patient stated that he is she is very anxious at times and that she feels that is due to her nerves in that she had something to relaxer might help her. However her blood pressure is soft at this time. I did order some p.r.n. Ativan but were going to hold her Ativan if her blood pressures less than 100/60. (4) Tobacco abuse: Code(s): Z72.0 - Tobacco use Status: Chronic Assessment and Plan: Is been recommended that the patient stop smoking. She is currently on a nicotine patch. HPI Data of Consult Consult date: 07/01/20 Requesting Physician: Dino Munoz DO Primary Care Provider: STRIPER PHYSICIAN Consult Narrative Narrative: Alpa Echevarria is a 44 year old female who has a history of irritable bowel syndrome and pelvic pain. The patient was seen on 06/30 in the emergency room for abdominal pain. She was complaining of some pelvic pain. She had been seen in the past it looks like in January in the emergency room was treated for UTI. The patient stated that she has been having heavy periods history of endometriosis as well. She did have abdominal pelvis CT on the . Which was read as no acute intra-abdominal pelvic process. Mild fatty infiltration of the wall the terminal ileum which can be seen is responsive chronic inflammatory disease such as Crohn's disease and cholelithiasis. She also had a right upper quadrant ultrasound which was read as cholelithiasis as well. Pelvic transvaginal ultrasound was read as a couple subcentimeter hypo echogenic lesions in the uterine fundus most likely uterine fibroids. Patient states that she deals with constipation. She states that she has gone as far as 3 weeks without having a bowel movement. She has tried various laxatives which did not seem to help her. The patient has had a tubal in the past which led to an oophorectomy. Cervix cultures are still pending. Patient underwent a diagnostic laparoscopic surgery today. The patient told me that she has had several laparoscopic surgeries in the past. The patient still continues to complain of some right lower quadrant abdominal pain. My collaborative stated that he spoke with the OBGYN. It is recommended that the patient see a GI specialist. The patient stated she had a endoscopy upper and lower approximately 15 years ago but did not find anything. Date of consult 07/01/2020 the patient is listed as observation status Review of Systems Review of Systems: All systems reviewed & are unremarkable except as noted in HPI and below Constitutional: Constitutional: Reports as per HPI and Reports no additional constitutional complaints Eyes: Eyes: Reports as per HPI and Reports no additional eye complaints ENT: Reports system reviewed and no additional complaints, except as documented and Reports Normal hearing present Cardiovascular: Cardiovascular: Reports no additional cardiovascular complaints Respiratory: Respiratory: Reports no ad
[2020-07-02] VITALS (8 sets, daily range): BP systolic 90–111; BP diastolic 49–70; PULSE 71–94; RESP 16–20; TEMP 36.1–36.9; O2SAT 98–100
[2020-07-02] MEDS: SODIUM CHLORIDE 0.9% IV 1,000 ML 125 ML IV CONT ×3 (01:30→17:50)
--- NOTE | 2020-07-02 08:28 | PM.CNGS ---
Assessment and Plan Assessment and plan (1) Cholelithiasis: Code(s): K80.20 - Calculus of gallbladder without cholecystitis without obstruction Status: Acute Assessment and Plan: will get HIDA scan for further assessment, can be done as outpt, low fat diet, ok to dc from surgical standpoint c followup as outpt (2) Abdominal pain: Code(s): R10.9 - Unspecified abdominal pain Status: Acute Assessment and Plan: seemingly improved, multifactorial (3) Pelvic pain: Code(s): R10.2 - Pelvic and perineal pain Status: Acute Assessment and Plan: s/p neg lap, largely unchanged (4) Tobacco abuse: Code(s): Z72.0 - Tobacco use Status: Chronic Assessment and Plan: cessation (5) Irritable bowel syndrome: Code(s): K58.9 - Irritable bowel syndrome without diarrhea Status: Chronic Assessment and Plan: GI referral History of Present Illness Consult details Consult date: 07/02/20 Reason for consult: abdominal pain Requesting physician: Appel Carlson NP Narrative: Pt is a 44 y/o F that presented c severe R sided abd/pelvic pain on 07/01. Pt reports she has had similar sx in the past but this was just much worse in severity. Pt reports pain started after eating fried chicken sandwich. Pt reports previous episodes also correlate after eating fried or fatty food. Pt underwent diagnostic laparoscopy yest c essentially negative findings. Pt had U/S c/w cholelithiasis. Pt reports pain is assoc c bloating, nausea. Review of Systems Constitutional: Constitutional: Denies chills, Reports fatigue, Denies fever(s), Denies headache(s), Denies lethargy, Reports malaise, Reports poor appetite, Reports weakness, Denies weight gain and Denies weight loss Eyes: Eyes: Reports no additional eye complaints ENT: Reports system reviewed and no additional complaints, except as documented Cardiovascular: Cardiovascular: Reports no additional cardiovascular complaints Respiratory: Respiratory: Reports no additional respiratory complaints Gastrointestinal: Gastrointestinal: Reports abdominal pain, Reports belching, Reports bloating, Denies change in bowel habits, Denies constipation, Reports GI cramping, Reports early satiety, Reports heartburn, Denies diarrhea, Reports nausea and Denies vomiting Genitourinary: Genitourinary: Reports menorrhagia Musculoskeletal: Musculoskeletal: Reports no additional musculoskeletal complaints Integumentary/Breasts: Skin/Breast: Reports system reviewed and no additional complaints, except as docu Neurologic: Reports system reviewed and no additional complaints, except as documented Psychiatric: Psychiatric: Reports no additional psychiatric complaints Endocrine: Endocrine: Reports no additional endocrine complaints Hematologic/Lymphatic: Hematologic/Lymphatic: Reports no additional hematologic/lymphatic complaints Allergic/Immunologic: Allergic/Immunologic: Reports no additional allergic/immunologic complaints PMFSH Past Medical History Medical History Anxiety History of endometriosis History of irritable bowel syndrome Irritable bowel syndrome Mixed , ectopic, tubal Restless leg syndrome Smoker Tobacco abuse Surgical History Surgical History History of laparoscopy Several last 1 being today 07/01/2020 History of shoulder surgery History of tonsillectomy History of unilateral salpingectomy Family History Family History Father Diabetes mellitus Family history of alcoholism Family history of mental disorder Mother Hypertension Sibling Breast cancer Social History Social History Social History: The patient has 1 daughter. She has had a tubal in the past. She currently is
[2020-07-02] MEDS: NICOTINE (*PBKC) 14 MG PATCH 1 PATCH TRANSDERM (08:42)
[2020-07-02] MEDS: SIMETHICONE 80 MG TAB.CHEW PO ×3 (08:43→20:34)
--- NOTE | 2020-07-02 09:24 | PM.IMPN ---
Progress Note: A&P Assessment and Plan (1) Right sided abdominal pain: Code(s): R10.9 - Unspecified abdominal pain Status: Acute Assessment and Plan: Etiology unclear. She underwent diagnostic laparoscopy 07/[address] Munoz which was unrevealing for an etiology for her pain. CT abd/pelvis demonstrated cholelithiasis and mild fatty infiltration of the wall of the terminal ileum. HIDA was ordered per general surgery and I will order inflammatory bowel disease panel. Lipase was normal at admission and I will repeat this. She also has a hx of constipation-predominant IBS and may benefit from additional treatment if pain is functional due to IBS. GI is following and input is appreciated. Bentyl is available as needed. General surgery is following for cholelithiasis. Await HIDA results. Continue analgesics as needed for pain and antiemetics as needed for nausea/vomiting. (2) Cholelithiasis: Code(s): K80.20 - Calculus of gallbladder without cholecystitis without obstruction Status: Acute Assessment and Plan: The patient reports RUQ abdominal pain. Pain started after eating fried chicken. Pain radiates to the back. RUQ US demonstrated cholelithiasis without wall thickening or other evidence of acute cholecystitis. WBC is normal and she is afebrile. General surgery was consulted and input is appreciated. Plan for HIDA scan today. Management per general surgery. (3) Irritable bowel syndrome: Code(s): K58.9 - Irritable bowel syndrome without diarrhea Status: Chronic Assessment and Plan: Continue supportive care. She is not on any pharmacotherapy at this time. She reports that she generally has constipation-predominant IBS. GI input is appreciated. (4) Tobacco abuse: Code(s): Z72.0 - Tobacco use Status: Chronic Assessment and Plan: The patient needs to stop smoking immediately. Smoking cessation has been encouraged. (5) Leg pain: Code(s): M79.606 - Pain in leg, unspecified Status: Acute Assessment and Plan: Venous doppler US was ordered as pt complains of intermittent leg swelling although she does not have any significant edema on exam today. Subjective Date/time seen: 07/02/20 09:24 Mrs. Echevarria is a 44 y.o. female with PMH significant for IBS, endometriosis, anxiety, restless leg syndrome, and tobacco dependence who is seen in follow-up for right sided abdominal pain for 3 days. She underwent diagnostic laparoscopy by Dr. Munoz 07/01 which was unrevealing for an obvious pathology for her pain. She continues to complain of right upper/mid abdominal pain which radiates to the back. She reports that pain is constant and sharp in nature. Pain started after a fatty meal. Positional changes do not affect pain. She reports no urinary symptoms. She has no chest pain or shortness of breath. She does note occasional leg swelling and venous doppler US was ordered and is pending. She has associated nausea but no vomiting. She reports that she had a loose stool around the time her pain started but generally has constipation. She has not had any bowel movements for 2 days. Review of Systems Review of Systems: All systems reviewed & are unremarkable except as noted in HPI and below Exam Narrative: Exam Narrative: General: Well-developed and well-nourished 44 y.o. female lying supine in bed in no acute distress. HEENT: Normocephalic and atraumatic. Conjunctivae without injection or exudate. EOMI. Oral mucosa tacky. Neck: Supple without lymphadenopathy or masses. Cardiac: Regular rate and rhythm. S1 and S2 normal. No murmur appreciated. Chest: Lungs: Effort normal. Lungs are clear to auscultation bilaterally. Abdomen: 2 Trochar incisions well-approximated and no surrounding erythema. Soft. Bowel sounds are normoactive. Abdomen is soft, mildly distended, and tender throughout with pain primarily localized to the RUQ and epigastrium. She does
--- NOTE | 2020-07-02 10:37 | WPDGICN ---
Assessment and Plan Assessment and plan (1) Right sided abdominal pain: Code(s): R10.9 - Unspecified abdominal pain Status: Acute (2) Cholelithiasis: Code(s): K80.20 - Calculus of gallbladder without cholecystitis without obstruction Status: Acute Assessment and Plan: Patient was identified as having gallstones. She indeed does have right upper quadrant tenderness described today agree with HIDA scan which should be ordered. (3) Abdominal pain: Code(s): R10.9 - Unspecified abdominal pain Status: Acute Assessment and Plan: Patient has various abdominal pains including pelvic suprapubic pain and right upper quadrant pain. Differential diagnosis is quite broad. PID should be considered. I understand cultures are in progress. Because of the concern over irritable bowel some high-fiber diet stool softeners are encouraged as some of these pains could be related to constipation. The present time no other testing anticipated. Although elective colonoscopy and endoscopy could be performed as an outpatient should pain persisted as an outpatient (4) Pelvic pain: Code(s): R10.2 - Pelvic and perineal pain Status: Acute Assessment and Plan: gynecology service following patient for pelvic pain I understand cultures are in progress to exclude PID. She has had endometriosis in past. (5) History of endometriosis: Code(s): Z87.42 - Personal history of other diseases of the female genital tract Status: Chronic GI Consult Note Consult date/time: 07/02/20 10:37 HPI: Alpa Echevarria is a 44 year old female I am asked to see at the request of the hospitalist service. Patient has a history of endometriosis. Has had intermittent abdominal pain for many years. It is felt some of this may be related to irritable bowel syndrome. Because of her history of endometriosis when she complained rather severe suprapubic pain laparoscopic appy was performed yesterday. This revealed some minor adhesions. Patient additionally complains of intermittent right upper quadrant abdominal pain. She states often her various pains are severe but usually brief. Sometimes they will last for several hours. She states that is not necessarily related to diet period and not necessarily related to bowel habits. Her family history is noncontributory. She denies any bleeding or weight loss. She does report constipation and sometimes goes a week or more between bowel movements. Review of Systems Review of Systems: All systems reviewed & are unremarkable except as noted in HPI and below PMFSH Past Medical History Medical History Anxiety History of endometriosis History of irritable bowel syndrome Irritable bowel syndrome Mixed , ectopic, tubal Restless leg syndrome Smoker Tobacco abuse Surgical History Surgical History History of laparoscopy Several last 1 being today 07/01/2020 History of shoulder surgery History of tonsillectomy History of unilateral salpingectomy Family History Family History Father Diabetes mellitus Family history of alcoholism Family history of mental disorder Mother Hypertension Sibling Breast cancer Social History Social History Social History: The patient has 1 daughter. She has had a tubal in the past. She currently is unemployed. She resides with her boyfriend. She does not have a durable power trademark attorney for healthcare but is a full code. She smokes about half pack a cigarettes a day. She does smoke marijuana at night to help her rest. She denies any alcohol or other street drugs. Smoking packs per day: 0.5 Smoking cigarettes per day: 10.0 Years smoked: 30 Smoking pack-years: 15.00 Smoking status
[2020-07-02] MEDS: LORazepam INJ (*CRX) 2 MG/ML VIAL 0.5 MG IV PUSH ×2 (11:06→20:38)
[2020-07-02 11:08] LABS: Lipase 33 U/L (23-300)
--- NOTE | 2020-07-02 11:45 | PC.NURSE ---
Patient to [place] and US per wheelchair.
--- NOTE | 2020-07-02 12:20 | PC.NURSE ---
Patient return from ultrasound
--- NOTE | 2020-07-02 13:30 | PC.NURSE ---
Patient to [facility].
--- NOTE | 2020-07-02 15:49 | PC.NURSE ---
Patient returns from [place].
[2020-07-02] MEDS: MORPHINE SULFATE (*CRX) 4 MG/ML INJ IV PUSH ×2 (16:08→20:32)
[2020-07-02] MEDS: calcium polycarbophiL 625 MG TABLET 1250 MG PO (16:09)
[2020-07-02] MEDS: polyethylene glycoL 3350 17 GM POWD.PACK PO (16:12)
--- NOTE | 2020-07-02 17:12 | WPDANESPN ---
Anes - Prog Note Post-Op Date/Time: 07/02/20 17:12 Cardiovascular status: normal Respiratory status: normal Airway patency: baseline Mental status: baseline Post-Op hydration status: normal Vital Signs: Last Vital Signs Temp 36.9 C 07/02/20 15:55 Pulse 94 07/02/20 15:55 Resp 16 07/02/20 15:55 BP 106/66 07/02/20 15:55 Pulse Ox 98 07/02/20 15:55 Pain Score (VAS): 0 I/O: Intake & Output 07/02/20 07/02/20 07/02/20 07:59 15:59 23:59 Intake Total 450 1000 Output Total 550 50 Balance -100 950 07/02/20 07/02/20 10:29 10:29 Lipase 33 ANCA Screen Pending Proteinase 3 (PR3) Ab Pending Myeloperoxidase Ab Pending S.cerevisiae IgG Ab Pending S.cerevisiae IgA Ab Pending Microbiology 07/01/20 00:32 Cervix Genital Culture - Final Group B Streptococcus isolated Post-procedural complaints: none Patient Feedback: Patient satisfied with anesthetic care.
[2020-07-02] MEDS: DICYCLOMINE HCL 10 MG CAPSULE 20 MG PO (17:50)
[2020-07-02] MEDS: KETOROLAC 30 MG/ML VIAL (*BKC) IV PUSH (22:39)
[2020-07-03] VITALS (7 sets, daily range): BP systolic 81–105; BP diastolic 49–71; PULSE 63–89; RESP 16–22; TEMP 36.5–36.9; O2SAT 94–100
[2020-07-03] MEDS: SODIUM CHLORIDE 0.9% IV 1,000 ML 125 ML IV CONT (02:47)
[2020-07-03 05:53] LABS: Basophils Percent Auto 0.3 % (0.2-1.2); Eosinophils Absolute Auto 0.1 K/mm3 (0-0.3); Eosinophils Percent Auto 0.8 % (0-4.4); Hematocrit 27.7 % (37.0-47.0); Immature Granulocyte Absolute 0.02 K/mm3 (0.00-0.031); Immature Granulocyte Percent A 0.3 % (0-0.5); Lymphocytes Absolute Auto 2.73 K/mm3 (0.9-3.2); Lymphocytes Percent Auto 37.3 % (18.3-44.2); Mean Corpuscular HGB Conc 32.5 g/dl (32-36); Mean Corpuscular Hemoglobin 26.9 pg (26-34); Mean Corpuscular Volume 82.9 fl (80-100); Mean Platelet Volume 11.8 fl (7.4-10.4); Monocytes Absolute Auto 0.4 K/mm3 (0.1-0.6); Neutrophils Percent Auto 55.3 % (45.5-73.1); Platelet Count Result 166 k/mm3 (150-375); Red Blood Count 3.34 M/mm3 (4.2-5.4); Red Cell Distribution Width 15.3 % (11.5-14.5); White Blood Count 7.3 K/mm3 (4.5-10.0)
[2020-07-03 06:08] LABS: Alanine Aminotransferase 16 U/L (4-35); Albumin Level 2.6 g/dL (3.5-5.1); Alkaline Phosphatase 50 U/L (38-126); Anion Gap 2 mmol/L (8-16); Aspartate Amino Transferase 24 U/L (14-36); Bilirubin,Total 0.1 mg/dL (0.2-1.3); Blood Urea Nitrogen 11 mg/dL (7-17); Calcium 7.7 mg/dL (8.4-10.2); Carbon Dioxide 24 mmol/L (22-30); Chloride 112 mmol/L (98-107); Estimated CRCL calculation 83 ml/min; Estimated Glomerular Filt Rate > 60; Glucose 95 mg/dL (65-105); Potassium 3.8 mmol/L (3.4-5.0); Sodium 138 mmol/L (137-145)
--- NOTE | 2020-07-03 06:23 | PC.NURSE ---
0300 unable to get pt something else for pain due to soft BP 104/53. Went in to discuss this with the patient and the pt was sleeping.
--- NOTE | 2020-07-03 08:29 | WPDGIPROGNO ---
Progress Note: A&P Assessment and Plan (1) Right sided abdominal pain: Code(s): R10.9 - Unspecified abdominal pain Status: Acute Assessment and Plan: Patient quite tender in the right upper quadrant. HIDA scan reveals a low ejection fraction consistent with cholecystitis. Given her known gallstones seen on ultrasound would recommend surgical follow-up for possible cholecystectomy. (2) Cholelithiasis: Code(s): K80.20 - Calculus of gallbladder without cholecystitis without obstruction Status: Acute (3) History of endometriosis: Code(s): Z87.42 - Personal history of other diseases of the female genital tract Status: Chronic Subjective Date/time seen: 07/03/20 08:29 Patient continues to complain pain primarily right upper quadrant pain. She states she was unable to sleep much last night. Review of Systems Review of Systems: All systems reviewed & are unremarkable except as noted in HPI and below Exam Narrative: Exam Narrative: On physical exam patient remains tender especially in the right upper quadrant. Currently anicteric. Lungs are clear. Abdomen is otherwise soft tender in the right upper quadrant no masses palpable. Objective Data Vital Signs Vital Signs: Vital Signs - 24 hr 07/02/20 10:00 07/02/20 15:55 07/02/20 18:00 Temperature 98.4 F 98.4 F 98.4 F Pulse Rate 81 94 92 Respiratory Rate 16 16 18 Blood Pressure 101/70 106/66 93/53 L Pulse Oximetry 100 98 100 07/02/20 22:00 07/03/20 02:00 07/03/20 06:00 Temperature 97.3 F L 98.3 F 98.0 F Pulse Rate 90 78 72 Respiratory Rate 20 20 21 H Blood Pressure 111/49 L 104/53 L 96/53 L Pulse Oximetry 99 98 100 Intake/Output Intake/Output: Intake & Output 06/30/20 07/01/20 07/02/20 07/03/20 23:59 23:59 23:59 23:59 Intake Total 500 3370 1400 Output Total 350 800 350 Balance 150 2570 1050 Meds/Results Medications: Active Medications Generic Name Dose Route Start Last Admin Trade Name Freq PRN Reason Stop Dose Admin Calcium Polycarbophil 1,250 mg 07/02/20 17:00 07/02/20 16:09 Calcium Polycarbophil 625 Mg Tablet PO 1,250 mg BID BARRY Administration Dicyclomine HCl 20 mg 07/01/20 22:46 07/02/20 17:50 Dicyclomine Hcl 10 Mg Capsule PO 20 mg QID PRN Administration Abdominal Cramping Ketorolac Tromethamine 30 mg 07/01/20 00:47 07/02/20 22:39 Ketorolac 30 Mg/Ml Vial (*Bkc) IV PUSH 07/06/20 00:48 30 mg Q6H PRN Administration Pain Rated 4-6 Lorazepam 0.5 mg 07/01/20 22:49 07/02/20 20:38 Lorazepam Inj (*Crx) 2 Mg/Ml Vial IV PUSH 0.5 mg Q6H PRN Administration Anxiety Morphine Sulfate 4 mg 07/01/20 00:47 07/02/20 20:32 Morphine Sulfate (*Crx) 4 Mg/Ml Inj IV PUSH 4 mg Q4H PRN Administration Pain Rated 7-10 Nicotine 1 patch 07/01/20 09:00 07/02/20 08:42 Nicotine (*Pbkc) 14 Mg Patch TRANSDERM 1 patch QAM BARRY Administration Ondansetron HCl 4 mg 07/01/20 00:47 Ondansetron Inj 4 Mg/2 Ml Vial IV PUSH Q4H PRN Nausea Polyethylene Glycol 17 gm 07/02/20 10:41 07/02/20 16:12 Polyethylene Glycol 3350 17 Gm Powd.Pack PO 17 gm QAM PRN Administration Constipation Simethicone 80 mg 07/02/20 09:00 07/02/20 20:34 Simethicone 80 Mg Tab.Chew PO 80 mg QID BARRY Administration Radiology Results: ITS Impressions Pelvic/Transvag US 07/01/20 00:09 IMPRESSION: 1. A couple subcentimeter hypoechoic lesions in the uterine fundus most likely uterine fibroids. Otherwise normal pelvic ultrasound. Upper Quadrant Ultrasound 07/01/20 09:10 IMPRESSION: 1. Cholelithiasis. No evidence of acute cholecystitis. Venous Doppler Study 07/02/20 12:01 IMPRESSION: 1. No lower extremity deep venous thrombosis bilaterally. Hepatobiliary Scan Nuclear Medicine 07/02/20 15:52 IMPRESSION: Gallbladder ejection fraction 8%, consistent with gallbladder dysfunction and/or chronic cholecystitis.
[2020-07-03] MEDS: calcium polycarbophiL 625 MG TABLET 1250 MG PO ×2 (08:39→16:32)
[2020-07-03] MEDS: NICOTINE (*PBKC) 14 MG PATCH 1 PATCH TRANSDERM (08:39)
[2020-07-03 08:41] LABS: Iron 16 ug/dL (37-170)
--- NOTE | 2020-07-03 08:41 | PM.IMPN ---
Progress Note: A&P Assessment and Plan (1) Right sided abdominal pain: Code(s): R10.9 - Unspecified abdominal pain Status: Acute Assessment and Plan: Etiology unclear. She underwent diagnostic laparoscopy 07/[address] Munoz which was unrevealing for an etiology for her pain. CT abd/pelvis demonstrated cholelithiasis and mild fatty infiltration of the wall of the terminal ileum. Inflammatory bowel disease panel is pending. Lipase is normal. She also has a hx of constipation-predominant IBS and may benefit from additional treatment if pain is functional due to IBS. GI is following and input is appreciated. Bentyl is available as needed. General surgery is following for cholelithiasis. HIDA was ordered per general surgery and demonstrates gallbladder dysfunction. Continue analgesics as needed for pain and antiemetics as needed for nausea/vomiting. Post-op care per DELIVER DRIVER including post-op pain management, DVT prophylaxis, and incision care. (2) Cholelithiasis: Code(s): K80.20 - Calculus of gallbladder without cholecystitis without obstruction Status: Acute Assessment and Plan: The patient reports RUQ abdominal pain. Pain started after eating fried chicken. Pain radiates to the back. RUQ US demonstrated cholelithiasis without wall thickening or other evidence of acute cholecystitis. HIDA scan demonstrated gallbladder ejection fraction 8%, consistent with gallbladder dysfunction and/or chronic cholecystitis. She continues to have RUQ pain. WBC is normal and she is afebrile. Management per general surgery. (3) Anemia: Code(s): D64.9 - Anemia, unspecified Status: Acute Assessment and Plan: Hb decreased to 9.0 07/03 from 11.6 06/30. She has no evidence of ongoing blood loss. This may be due to blood loss from surgery. Check iron studies, vitamin B12, and folate. Order guaiac stool testing. Continue to monitor. She can have further evaluation and follow-up outpatient per her PCP. (4) Dysfunctional gallbladder: Code(s): K82.8 - Other specified diseases of gallbladder Status: Acute Assessment and Plan: HIDA scan demonstrated gallbladder ejection fraction 8%, consistent with gallbladder dysfunction and/or chronic cholecystitis. Management per general surgery. She continues to have RUQ pain. (5) Irritable bowel syndrome: Code(s): K58.9 - Irritable bowel syndrome without diarrhea Status: Chronic Assessment and Plan: Continue supportive care. She is not on any pharmacotherapy at this time. She reports that she generally has constipation-predominant IBS. GI input is appreciated. (6) Tobacco abuse: Code(s): Z72.0 - Tobacco use Status: Chronic Assessment and Plan: The patient needs to stop smoking immediately. Smoking cessation has been encouraged. (7) Leg pain: Code(s): M79.606 - Pain in leg, unspecified Status: Acute Assessment and Plan: Venous doppler US was ordered as pt complains of intermittent leg swelling and is negative for DVT. Subjective Date/time seen: 07/03/20 08:41 Mrs. Echevarria is a 44 y.o. female with PMH significant for IBS, endometriosis, anxiety, restless leg syndrome, and tobacco dependence who is seen in follow-up for right sided abdominal pain for 3 days. She underwent diagnostic laparoscopy by Dr. Munoz 07/01 which was unrevealing for an obvious pathology for her pain. She continues to complain of right-sided abdominal pain. She ate yesterday and reports no significant issues. She denies nausea and vomiting. She denies subjective fever and chills. She has not had a bowel movement yet. Review of Systems Review of Systems: All systems reviewed & are unremarkable except as noted in HPI and below Exam Narrative: Exam Narrative: General: Well-developed and well-nourished 44 y.o. female lying supine sleeping in no acute distress. HEENT: Normocephalic and atraum
[2020-07-03 08:51] LABS: Percent Iron Saturation 5 % (20-50)
[2020-07-03] MEDS: SIMETHICONE 80 MG TAB.CHEW PO ×4 (09:00→20:56)
[2020-07-03] MEDS: KETOROLAC 30 MG/ML VIAL (*BKC) IV PUSH (09:01)
--- NOTE | 2020-07-03 09:33 | PM.PNGS ---
Progress Note: A&P Assessment and Plan (1) Dysfunctional gallbladder: Onset Date: ~06/2020 Code(s): K82.8 - Other specified diseases of gallbladder Status: Acute Assessment and Plan: If patient's pain can be controlled the plan is to allow her to go home on a low-fat diet followed by follow-up in the office with planned elective laparoscopic cholecystectomy. Ejection fraction was a%. Patient did not have any pain with either injection during the study yesterday. Patient is also significantly constipated not having a bowel movement since entering the hospital and for several days prior to hospitalization. (2) Cholelithiasis: Onset Date: Unknown Code(s): K80.20 - Calculus of gallbladder without cholecystitis without obstruction Status: Acute Assessment and Plan: This is noted on ultrasound without signs of acute cholecystitis. As noted above gallbladder Thatch ejection fraction is abnormal but the gallbladder does fill indicating that there is not acute cholecystitis. (3) Abdominal pain: Onset Date: ~06/2020 Code(s): R10.9 - Unspecified abdominal pain Status: Acute Assessment and Plan: Patient is now abdominal pain continues. Possibly allergy is chronic cholecystitis. She has been able to keep some liquids down. She is on a low-fat diet will try to switch her to oral Fowler alternating with Toradol and have her get up and move. Will check back with her later in the day to see if we can have her be able to be discharged with this regimen and follow-up with Dr. Rubi as an outpatient for planning for her elective laparoscopic cholecystectomy. (4) History of endometriosis: Code(s): Z87.42 - Personal history of other diseases of the female genital tract Status: Chronic (5) Tobacco abuse: Code(s): Z72.0 - Tobacco use Status: Chronic (6) Anemia: Onset Date: Unknown Code(s): D64.9 - Anemia, unspecified Status: Acute Assessment and Plan: Unknown etiology, patient has had a very heavy menstrual period. Further workup with lab tests pending. Subjective Subjective Date/Time Seen: 07/03/20 09:33 Patient lying in bed complaining of mild upper abdominal pain but no nausea when I talked to her. She has been requiring CIS 4 mg of morphine fairly frequently for the nurses overnight. Patient has not had a bowel movement for several days but states this is not unusual for her. Positive flatus occasionally. Patient was able to get up and walk some last night. Review of Systems Constitutional: Constitutional: Reports no additional constitutional complaints ENT: Reports other (Mucous Membranes moist.) Cardiovascular: Cardiovascular: Denies dyspnea Respiratory: Respiratory: Denies pain on inspiration and Denies dyspnea Gastrointestinal: Gastrointestinal: Reports as per HPI, Denies bloating, Denies diarrhea, Denies loose stools and Denies nausea Comments: Patient states that she is often constipated and sometimes goes on his 1 week between bowel movements. Many with our Sheldon or laxatives cause her significant cramping pain, but MiraLax has worked for her in the past. Musculoskeletal: Musculoskeletal: Reports other (No calf swelling or edema) Integumentary/Breasts: Skin/Breast: Reports system reviewed and no additional complaints, except as docu Exam Const: General: cooperative, no acute distress, alert and awake Orientation/consciousness: patient oriented x3 HENMT: Mouth: Yes moist mucous membranes Neck: Neck: normal visual inspection Chest: Chest palpation & inspection: normal inspection of the chest Resp: Effort & Inspection: normal respiratory effort Auscultation: clear to auscultation bilaterally Cardio: Jugular venous distension: no JVD Rate: regular rate Rhythm: regular rhythm GI: Inspection: normal to inspection and incision (Left lower quadrant and periumbilical incisions clean and dry.) GI Palp: N
[2020-07-03] MEDS: polyethylene glycoL 3350 17 GM POWD.PACK PO ×2 (10:34→16:32)
[2020-07-03 11:18] LABS: Folic Acid 11.3 ng/mL (2.76->20)
[2020-07-03] MEDS: HYDROcodone/acetaminophen (*CRX) 5-325 MG TABLET 1 TAB PO ×2 (11:44→18:11)
[2020-07-03] MEDS: PANTOPRAZOLE 40 MG TABLET PO ×2 (11:45→20:56)
[2020-07-03] MEDS: MORPHINE SULFATE (*CRX) 4 MG/ML INJ IV PUSH (14:56)
--- NOTE | 2020-07-03 17:07 | PM.GYNPNOP ---
OPHTHALMIC TECH - A/P Postoperative Procedures: Procedures Further plan at this point will be directed by General surgery in regards to gallbladder. Nothing further acutely from a gynecologic standpoint will be necessary. Long-term we will need to address her heavy bleeding and anemia which we have discussed options for that today. Operation Date: 07/01/20 17:00 Actual Procedures Side Surgeon p Diagnostic Laparoscopy Dino Munoz DO Postoperative day: 2 Postoperative status: doing well Postoperative plan: routine post-op care Time Spent With Patient Time: Total time spent is greater than 50% in coordination of care (as documented) at patient's floor/unit and/or counseling patient: Time with patient: 15 - 25 minutes OPHTHALMIC TECH- PN:Subj Post-Op Subjective Date/time seen: 07/03/20 17:07 Patient still complains of a significant amount of right upper quadrant abdominal pain. Is able to tolerate diet without vomiting though is still mildly nauseous. Urine and stool without difficulty. States that discomfort from original laparoscopy has resolved other than itching of the left lateral incision with itching. Review of Systems Review of Systems: All systems reviewed & are unremarkable except as noted in HPI and below Gastrointestinal: Gastrointestinal: Reports abdominal pain, Reports belching and Reports bloating Exam Const: General: cooperative and healthy appearing GI: Inspection: other (Incision well healed) GI Palp: Yes abdominal tenderness (Right upper quadrant) OPHTHALMIC TECH - PN: Obj Data Vital Signs Vital Signs: Vital Signs - 24 hr 07/02/20 18:00 07/02/20 22:00 07/03/20 02:00 Temperature 36.9 C 36.3 C L 36.8 C Pulse Rate 92 90 78 Respiratory Rate 18 20 20 Blood Pressure 93/53 L 111/49 L 104/53 L Pulse Oximetry 100 99 98 07/03/20 06:00 07/03/20 10:05 07/03/20 14:05 Temperature 36.7 C 36.9 C 36.9 C Pulse Rate 72 84 89 Respiratory Rate 21 H 18 16 Blood Pressure 96/53 L 105/71 100/64 Pulse Oximetry 100 99 99 Intake/Output Intake/Output: Intake & Output 06/30/20 07/01/20 07/02/20 07/03/20 23:59 23:59 23:59 23:59 Intake Total 500 3370 1760 Output Total 350 800 350 Balance 150 2570 1410 Meds/Results Medications: Active Medications Generic Name Dose Route Start Last Admin Trade Name Freq PRN Reason Stop Dose Admin Acetaminophen 650 mg 07/03/20 08:43 Acetaminophen 325 Mg Tablet PO Q4H PRN Mild Pain (1-3) or Fever Hydrocodone Bitart/Acetaminophen 1 tab 07/03/20 09:26 07/03/20 11:44 Hydrocodone/Acetaminophen (*Crx) 5-325 Mg Tablet PO 1 tab Q6H PRN Administration Pain Rated 4-6 Bisacodyl 10 mg 07/03/20 09:26 Bisacodyl 10 Mg Suppository RECTAL QAM PRN Constipation Calcium Polycarbophil 1,250 mg 07/02/20 17:00 07/03/20 16:32 Calcium Polycarbophil 625 Mg Tablet PO 1,250 mg BID BARRY Administration Dicyclomine HCl 20 mg 07/01/20 22:46 07/02/20 17:50 Dicyclomine Hcl 10 Mg Capsule PO 20 mg QID PRN Administration Abdominal Cramping Ketorolac Tromethamine 30 mg 07/01/20 00:47 07/03/20 09:01 Ketorolac 30 Mg/Ml Vial (*Bkc) IV PUSH 07/06/20 00:48 30 mg Q6H PRN Administration BREAKTHROUGH PAIN 4-6 Ketorolac Tromethamine 10 mg 07/03/20 09:26 Ketorolac 10 Mg Tablet PO Q6H PRN BREAKTHROUGH PAIN 4-6 Lorazepam 0.5 mg 07/01/20 22:49 07/02/20 20:38 Lorazepam Inj (*Crx) 2 Mg/Ml Vial IV PUSH 0.5 mg Q6H PRN Administration Anxiety Morphine Sulfate 4 mg 07/01/20 00:47 07/03/20 14:56 Morphine Sulfate (*Crx) 4 Mg/Ml Inj IV PUSH 4 mg Q4H PRN Administration Pain Rated 7-10 Nicotine 1 patch 07/01/20 09:00 07/03/20 08:39 Nicotine (*Pbkc) 14 Mg Patch TRANSDERM 1 patch QAM BARRY Administration Ondansetron HCl 4 mg 07/01/20 00:47 Ondansetron Inj 4 Mg/2 Ml Vial IV PUSH Q4H PRN Nausea Pantoprazole Sodium 40 mg 07/03/20 09:00 07/03/20 11:45 Pantoprazole 40 Mg Tablet PO
[2020-07-03] MEDS: LORazepam INJ (*CRX) 2 MG/ML VIAL 0.5 MG IV PUSH (18:13)
[2020-07-03] MEDS: KETOROLAC 10 MG TABLET PO (20:55)
[2020-07-04] VITALS (7 sets, daily range): BP systolic 92–122; BP diastolic 56–79; PULSE 83–90; RESP 16–22; TEMP 36.3–36.7; O2SAT 96–100
[2020-07-04] MEDS: LORazepam INJ (*CRX) 2 MG/ML VIAL 0.5 MG IV PUSH ×2 (06:32→18:11)
[2020-07-04] MEDS: MORPHINE SULFATE (*CRX) 4 MG/ML INJ IV PUSH ×3 (06:33→21:27)
--- NOTE | 2020-07-04 08:45 | WPDGIPROGNO ---
Progress Note: A&P Assessment and Plan (1) Right sided abdominal pain: Code(s): R10.9 - Unspecified abdominal pain Status: Acute Assessment and Plan: Patient has pain in the right upper quadrant. Also ultrasound reveals gallstones. HIDA scan suggest cholecystitis. Surgical follow-up for anticipated cholecystectomy. It is uncertain whether this will be done before discharge or after discharge. Other abdominal pain has abated. Is difficult to assess for irritable bowel syndrome while she has active cholecystitis. (2) Cholelithiasis: Onset Date: Unknown Code(s): K80.20 - Calculus of gallbladder without cholecystitis without obstruction Status: Acute (3) Anemia: Onset Date: Unknown Code(s): D64.9 - Anemia, unspecified Status: Acute Assessment and Plan: Patient has chronic anemia. Likely related to menstrual blood loss. Gynecological service is following. (4) Constipation: Code(s): K59.00 - Constipation, unspecified Status: Acute Assessment and Plan: Patient has had a tendency to constipation. Stool softeners are advised. MiraLax suggested daily as needed. Subjective Date/time seen: 07/04/20 08:45 Patient continues to complain of right upper quadrant pain. States that continues to be rather uncomfortable. Denies any additional pain at this time. Review of Systems Review of Systems: All systems reviewed & are unremarkable except as noted in HPI and below Exam Narrative: Exam Narrative: Physical exam reveals patient to be alert. Her vital signs are stable. Currently afebrile and anicteric. Lungs are clear. Heart without murmur. Abdomen bowel sounds are present soft tender in the right upper quadrant. Objective Data Vital Signs Vital Signs: Vital Signs - 24 hr 07/03/20 10:05 07/03/20 14:05 07/03/20 18:00 Temperature 98.5 F 98.5 F 97.8 F Pulse Rate 84 89 82 Respiratory Rate 18 16 18 Blood Pressure 105/71 100/64 100/66 Pulse Oximetry 99 99 99 07/03/20 20:00 07/03/20 20:20 07/04/20 02:00 Temperature 97.7 F 97.7 F 97.3 F L Pulse Rate 63 80 84 Respiratory Rate 22 H 20 18 Blood Pressure 81/49 L 92/52 L 100/62 Pulse Oximetry 97 94 96 07/04/20 06:00 Temperature 97.8 F Pulse Rate 86 Respiratory Rate 18 Blood Pressure 113/79 Pulse Oximetry 96 Intake/Output Intake/Output: Intake & Output 07/01/20 07/02/20 07/03/20 07/04/20 23:59 23:59 23:59 23:59 Intake Total 500 3370 2250 650 Output Total 944 510 5655 800 Balance 150 2570 850 -150 Meds/Results Medications: Active Medications Generic Name Dose Route Start Last Admin Trade Name Freq PRN Reason Stop Dose Admin Acetaminophen 650 mg 07/03/20 08:43 Acetaminophen 325 Mg Tablet PO Q4H PRN Mild Pain (1-3) or Fever Hydrocodone Bitart/Acetaminophen 1 tab 07/03/20 09:26 07/03/20 18:11 Hydrocodone/Acetaminophen (*Crx) 5-325 Mg Tablet PO 1 tab Q6H PRN Administration Pain Rated 4-6 Bisacodyl 10 mg 07/03/20 09:26 Bisacodyl 10 Mg Suppository RECTAL QAM PRN Constipation Calcium Polycarbophil 1,250 mg 07/02/20 17:00 07/03/20 16:32 Calcium Polycarbophil 625 Mg Tablet PO 1,250 mg BID BARRY Administration Dicyclomine HCl 20 mg 07/01/20 22:46 07/02/20 17:50 Dicyclomine Hcl 10 Mg Capsule PO 20 mg QID PRN Administration Abdominal Cramping Ferrous Sulfate 324 mg 07/04/20 09:00 Ferrous Sulfate 324 Mg Tablet PO DAILY BARRY Ketorolac Tromethamine 30 mg 07/01/20 00:47 07/03/20 09:01 Ketorolac 30 Mg/Ml Vial (*Bkc) IV PUSH 07/06/20 00:48 30 mg Q6H PRN Administration BREAKTHROUGH PAIN 4-6 Ketorolac Tromethamine 10 mg 07/03/20 09:26 07/03/20 20:55 Ketorolac 10 Mg Tablet PO 10 mg Q6H PRN Administration BREAKTHROUGH PAIN 4-6 Lorazepam 0.5 mg 07/01/20 22:49 07/04/20 06:32 Lorazepam Inj (*Crx) 2 Mg/Ml Vial IV PUSH 0.5 mg Q6H PRN Administration Anxiety
--- NOTE | 2020-07-04 09:12 | PM.IMPN ---
Progress Note: A&P Assessment and Plan (1) Right sided abdominal pain: Code(s): R10.9 - Unspecified abdominal pain Status: Acute Assessment and Plan: Etiology unclear. She underwent diagnostic laparoscopy 07/[address] Munoz which was unrevealing for an etiology for her pain. CT abd/pelvis demonstrated cholelithiasis and mild fatty infiltration of the wall of the terminal ileum. Inflammatory bowel disease panel is pending. Lipase is normal. She also has a hx of constipation-predominant IBS and may benefit from additional treatment if pain is functional due to IBS. GI is following and input is appreciated. Bentyl is available as needed. General surgery is following for cholelithiasis. HIDA was ordered per general surgery and demonstrates gallbladder dysfunction. Continue analgesics as needed for pain and antiemetics as needed for nausea/vomiting. Post-op care per MICROCOMPUTER TECHNICIAN including post-op pain management, DVT prophylaxis, and incision care. (2) Cholelithiasis: Onset Date: Unknown Code(s): K80.20 - Calculus of gallbladder without cholecystitis without obstruction Status: Acute Assessment and Plan: The patient reports RUQ abdominal pain. Pain started after eating fried chicken. Pain radiates to the back. RUQ US demonstrated cholelithiasis without wall thickening or other evidence of acute cholecystitis. HIDA scan demonstrated gallbladder ejection fraction 8%, consistent with gallbladder dysfunction and/or chronic cholecystitis. She continues to have RUQ pain. Management per general surgery. Appreciate input. (3) Anemia: Onset Date: Unknown Code(s): D64.9 - Anemia, unspecified Status: Acute Assessment and Plan: Hb decreased to 9.0 07/03 from 11.6 06/30. She has no evidence of ongoing blood loss. She is currently on her menstrual cycle and reports menorrhagia. She will follow-up with MICROCOMPUTER TECHNICIAN for long-term management. Iron studies demonstrate iron deficiency and iron will be supplemented with PO ferrous sulfate. Vitamin B12 is on the lower limit of normal and will be supplemented with PO cyanocobalamin. Folate is normal. Stool guaiac testing ordered and pending. Repeat CBC is pending for today. Continue to monitor and recommend outpatient follow-up. (4) Dysfunctional gallbladder: Onset Date: ~06/2020 Code(s): K82.8 - Other specified diseases of gallbladder Status: Acute Assessment and Plan: HIDA scan demonstrated gallbladder ejection fraction 8%, consistent with gallbladder dysfunction and/or chronic cholecystitis. Management per general surgery. She continues to have RUQ pain. (5) Irritable bowel syndrome: Code(s): K58.9 - Irritable bowel syndrome without diarrhea Status: Chronic Assessment and Plan: Continue supportive care. She is not on any pharmacotherapy at this time. She reports that she generally has constipation-predominant IBS. GI input is appreciated. (6) Tobacco abuse: Code(s): Z72.0 - Tobacco use Status: Chronic Assessment and Plan: The patient needs to stop smoking immediately. Smoking cessation has been encouraged. (7) Leg pain: Code(s): M79.606 - Pain in leg, unspecified Status: Acute Assessment and Plan: Venous doppler US was ordered as pt complains of intermittent leg swelling and is negative for DVT. Subjective Date/time seen: 07/04/20 09:12 Mrs. Echevarria is a 44 y.o. female with PMH significant for IBS, endometriosis, anxiety, restless leg syndrome, and tobacco dependence who is seen in follow-up for right sided abdominal pain for 3 days. She underwent diagnostic laparoscopy by Dr. Munoz 07/01 which was unrevealing for an obvious pathology for her pain. She has cholelithiasis with gallbladder dysfunction and EF 8% on HIDA. General surgery is following. She continues to complain of RUQ pain. She states that she did not eat much yesterday due to t
[2020-07-04] MEDS: NICOTINE (*PBKC) 14 MG PATCH 1 PATCH TRANSDERM (09:33)
[2020-07-04] MEDS: PANTOPRAZOLE 40 MG TABLET PO ×2 (09:34→21:04)
[2020-07-04] MEDS: calcium polycarbophiL 625 MG TABLET 1250 MG PO ×2 (09:34→16:33)
[2020-07-04] MEDS: SIMETHICONE 80 MG TAB.CHEW PO ×4 (09:34→21:04)
[2020-07-04] MEDS: polyethylene glycoL 3350 17 GM POWD.PACK PO ×2 (09:35→16:33)
[2020-07-04] MEDS: HYDROcodone/acetaminophen (*CRX) 5-325 MG TABLET 1 TAB PO (09:38)
[2020-07-04] MEDS: CYANOCOBALAMIN 1,000 MCG TABLET 1000 MCG PO (09:54)
--- NOTE | 2020-07-04 10:13 | PM.PNGS ---
Progress Note: A&P Assessment and Plan (1) Dysfunctional gallbladder: Onset Date: ~06/2020 Code(s): K82.8 - Other specified diseases of gallbladder Status: Acute Assessment and Plan: She has reviewed the information regarding laparoscopic cholecystectomy and is willing to proceed since she is not improving does not seem to be able to get off of art IV narcotics I believe we should probably proceed with the procedure during this hospitalization. Will try to schedule her for tomorrow afternoon. The risks, benefits and possible complications of a laparoscopic cholecystectomy with intraoperative cholangiogram have been discussed with her and she seems understand wished to proceed if possible tomorrow. (2) Cholelithiasis: Onset Date: Unknown Code(s): K80.20 - Calculus of gallbladder without cholecystitis without obstruction Status: Acute (3) Abdominal pain: Onset Date: ~06/2020 Code(s): R10.9 - Unspecified abdominal pain Status: Acute (4) Tobacco abuse: Code(s): Z72.0 - Tobacco use Status: Chronic (5) Constipation: Code(s): K59.00 - Constipation, unspecified Status: Acute Subjective Subjective Date/Time Seen: 07/04/20 10:13 Patient is still miserable. Complaining of right upper quadrant pain. No bowel movement yet. I encouraged her to take a Dulcolax suppository today. She did take MiraLax twice yesterday and will take again this morning. She did have small amount of food for a low-fat diet yesterday and this did not seem to extubate her pain. She is complaining that none of the pain medicines tried including oral narcotics and IV narcotics a Yasmin along with Toradol are not helping. I will try put in her on IV Tylenol Q 6 hours as backup or baseline pain medication and still let her take the [place] or morphine. She has reviewed the information regarding laparoscopic cholecystectomy and is willing to proceed since she is not improving does not seem to be able to get off of art IV narcotics I believe we should probably proceed with the procedure during this hospitalization. Will try to schedule her for tomorrow afternoon. Review of Systems Constitutional: Constitutional: Reports no additional constitutional complaints, Denies chills, Reports fatigue, Denies fever(s), Denies headache(s), Denies lethargy, Reports malaise, Reports poor appetite, Reports weakness, Denies weight gain and Denies weight loss Eyes: Eyes: Reports no additional eye complaints ENT: Reports system reviewed and no additional complaints, except as documented, Denies headache(s) and Reports other (Mucous Membranes moist.) Cardiovascular: Cardiovascular: Reports no additional cardiovascular complaints and Denies dyspnea Respiratory: Respiratory: Reports no additional respiratory complaints, Denies pain on inspiration and Denies dyspnea Gastrointestinal: Gastrointestinal: Reports as per HPI, Reports abdominal pain, Reports belching, Denies bloating, Denies change in bowel habits, Denies constipation, Reports GI cramping, Reports early satiety, Reports heartburn (Slightly improved with Protonix), Denies diarrhea, Denies loose stools, Denies nausea and Denies vomiting Comments: Still without a bowel movement since entering the hospital. Perhaps will try a Dulcolax suppository today. Genitourinary: Genitourinary: Reports menorrhagia Musculoskeletal: Musculoskeletal: Reports no additional musculoskeletal complaints and Reports other (No calf swelling or edema) Integumentary/Breasts: Skin/Breast: Reports system reviewed and no additional complaints, except as docu Neurologic: Reports system reviewed and no additional complaints, except as documented, Denies headache(s) and Reports weakness Psychiatric: Psychiatric: Reports no additional psychiatric complaints Endocrine: Endocrine: Reports no additional endocrine complaints and Reports fatigue Hematologic/Lymphatic: Hematologic
[2020-07-04 10:23] LABS: Hematocrit 30.4 % (37.0-47.0); Hemoglobin 9.9 g/dL (12.0-15.0); Mean Corpuscular HGB Conc 32.6 g/dl (32-36); Mean Corpuscular Hemoglobin 26.7 pg (26-34); Mean Corpuscular Volume 81.9 fl (80-100); Mean Platelet Volume 11.4 fl (7.4-10.4); Platelet Count Result 170 k/mm3 (150-375); Red Blood Count 3.71 M/mm3 (4.2-5.4); Red Cell Distribution Width 14.8 % (11.5-14.5)
[2020-07-04 10:40] LABS: Alanine Aminotransferase 38 U/L (4-35); Albumin Level 3.1 g/dL (3.5-5.1); Alkaline Phosphatase 58 U/L (38-126); Anion Gap 5 mmol/L (8-16); Aspartate Amino Transferase 33 U/L (14-36); Bilirubin,Total 0.2 mg/dL (0.2-1.3); Blood Urea Nitrogen 9 mg/dL (7-17); Calcium 8.2 mg/dL (8.4-10.2); Carbon Dioxide 27 mmol/L (22-30); Chloride 108 mmol/L (98-107); Estimated CRCL calculation 83 ml/min; Estimated Glomerular Filt Rate > 60; Glucose 89 mg/dL (65-105); Potassium 3.9 mmol/L (3.4-5.0); Sodium 140 mmol/L (137-145)
[2020-07-04] MEDS: ONDANSETRON INJ 4 MG/2 ML VIAL IV PUSH ×2 (14:19→18:14)
--- NOTE | 2020-07-04 16:06 | PM.GYNPNOP ---
MICROWAVE ENGINEER - A/P Postoperative Procedures: 1. Nothing significant had from a gynecologic perspective 2. Upon discharge will follow up in office to further evaluate any gynecologic issues. 3. Further plan at this point to be directed by General surgery who has patient scheduled for a cholecystectomy tomorrow. Time Spent With Patient Time: Total time spent is greater than 50% in coordination of care (as documented) at patient's floor/unit and/or counseling patient: Time with patient: less than 15 minutes MICROWAVE ENGINEER- PN:Subj Post-Op Subjective Date/time seen: 07/04/20 16:06 Patient is still a fair amount of abdominal discomfort and headache. Note from General surgery noted and planned removal of gallbladder for tomorrow. MICROWAVE ENGINEER - PN: Obj Data Vital Signs Vital Signs: Vital Signs - 24 hr 07/03/20 18:00 07/03/20 20:00 07/03/20 20:20 Temperature 36.6 C 36.5 C 36.5 C Pulse Rate 82 63 80 Respiratory Rate 18 22 H 20 Blood Pressure 100/66 81/49 L 92/52 L Pulse Oximetry 99 97 94 07/04/20 02:00 07/04/20 06:00 07/04/20 09:44 Temperature 36.3 C L 36.6 C 36.6 C Pulse Rate 84 86 90 Respiratory Rate 18 18 16 Blood Pressure 100/62 113/79 114/77 Pulse Oximetry 96 96 98 07/04/20 13:43 Temperature 36.7 C Pulse Rate 89 Respiratory Rate 16 Blood Pressure 98/56 L Pulse Oximetry 100 Intake/Output Intake/Output: Intake & Output 07/01/20 07/02/20 07/03/20 07/04/20 23:59 23:59 23:59 23:59 Intake Total 500 3370 2250 890 Output Total 567 255 8788 800 Balance 150 2570 850 90 Meds/Results Medications: Active Medications Generic Name Dose Route Start Last Admin Trade Name Freq PRN Reason Stop Dose Admin Acetaminophen 650 mg 07/03/20 08:43 Acetaminophen 325 Mg Tablet PO Q4H PRN Mild Pain (1-3) or Fever Hydrocodone Bitart/Acetaminophen 1 tab 07/03/20 09:26 07/04/20 09:38 Hydrocodone/Acetaminophen (*Crx) 5-325 Mg Tablet PO 1 tab Q6H PRN Administration Pain Rated 4-6 Hydrocodone Bitart/Acetaminophen 1 tab 07/04/20 10:00 Hydrocodone/Acetaminophen (*Crx) 7.5-325 Mg Tablet PO Q6H PRN Pain Rated 7-10 Bisacodyl 10 mg 07/03/20 09:26 Bisacodyl 10 Mg Suppository RECTAL QAM PRN Constipation Calcium Polycarbophil 1,250 mg 07/02/20 17:00 07/04/20 09:34 Calcium Polycarbophil 625 Mg Tablet PO 1,250 mg BID BARRY Administration Cyanocobalamin 1,000 mcg 07/04/20 09:15 07/04/20 09:54 Cyanocobalamin 1,000 Mcg Tablet PO 1,000 mcg QAM BARRY Administration Dicyclomine HCl 20 mg 07/01/20 22:46 07/02/20 17:50 Dicyclomine Hcl 10 Mg Capsule PO 20 mg QID PRN Administration Abdominal Cramping Enoxaparin Sodium 40 mg 07/04/20 21:00 Enoxaparin 40 Mg/0.4 Ml Syringe SUB-Q HS BARRY Lorazepam 0.5 mg 07/01/20 22:49 07/04/20 06:32 Lorazepam Inj (*Crx) 2 Mg/Ml Vial IV PUSH 0.5 mg Q6H PRN Administration Anxiety Morphine Sulfate 4 mg 07/01/20 00:47 07/04/20 12:10 Morphine Sulfate (*Crx) 4 Mg/Ml Inj IV PUSH 4 mg Q4H PRN Administration Pain Rated 7-10 Morphine Sulfate 2 mg 07/04/20 10:00 Morphine Sulfate (*Crx) 2 Mg/Ml Inj IV PUSH Q4H PRN Pain Rated 4-6 Nicotine 1 patch 07/01/20 09:00 07/04/20 09:33 Nicotine (*Pbkc) 14 Mg Patch TRANSDERM 1 patch QAM BARRY Administration Ondansetron HCl 4 mg 07/01/20 00:47 07/04/20 14:19 Ondansetron Inj 4 Mg/2 Ml Vial IV PUSH 4 mg Q4H PRN Administration Nausea Pantoprazole Sodium 40 mg 07/03/20 09:00 07/04/20 09:34 Pantoprazole 40 Mg Tablet PO 40 mg Q12HR BARRY Administration Polyethylene Glycol 17 gm 07/02/20 10:41 07/02/20 16:12 Polyethylene Glycol 3350 17 Gm Powd.Pack PO 17 gm QAM PRN Administration Constipation Polyethylene Glycol 17 gm 07/03/20 09:00 07/04/20 09:35 Polyethylene Glycol 3350 17 Gm Powd.Pack PO 17 gm BID BARRY Administration Simethicone 80 mg 07/02/20 09:00 07/04/20 12:10 Simethicone
--- NOTE | 2020-07-04 16:40 | PC.NURSE ---
Patient crying stating her head is pounding, shes nauseated and wants Ativan. Checked BP and it is currently 92/56. Per parameters, ativan only to be given with pressures above 100/60. Educated patient again in regards to this and the effects of narcotics/ativan. Patient keeps her eyes closed when trying to converse and educate her. Offered patient ice for her neck/head, and tylenol. Patient agreeable at this time to tylenol. However, when I went to give it to her she states she won't be able to swallow and is requesting a dose IV. Called to hospitalist to obtain order. Received order for X1 Ofirmev dose from Dr. Oliver. Patient still crying, tearful at bedside. Unmotivated and unwilling to be receptive to staff education. Patient still has not had a BM today regardless of medications administered. I have discussed multiple times with her that having a BM may improve her abdominal cramping she is experiencing. However, she refuses to get out of the bed and ambulate, refuses to finish all of Miralax that was administered. Offered to obtain order for suppository in which she could administer to herself if willing, she refuses. Will continue to try to educate patient.
--- NOTE | 2020-07-04 18:29 | PC.NURSE ---
Spoke with patient in regards to suppository in order to try and have BM prior to surgery tomorrow as discussed with Dr. Ybarra. Patient refusing suppository at this time. She would like to try evening dose of miralax and see how it helps.
--- NOTE | 2020-07-04 20:09 | WPDANESEPP ---
Anes - Eval Pre Procedure Procedure: Operation Date: 07/01/20 17:00 Proposed Procedures Laparoscopic cholecystectomy Date/Time: 07/04/20 20:09 Pre Op Diagnosis: Cholecystitis Patient Data Age: 44 Gender: F Height: 5 ft 5 in Weight: 80.3 kg Last Vital Signs Temp 97.7 F 07/04/20 17:00 Pulse 83 07/04/20 17:00 Resp 22 H 07/04/20 17:00 BP 103/65 07/04/20 18:05 Pulse Ox 98 07/04/20 17:00 Allergies Allergy/AdvReac Type Severity Reaction Status Date / Time No Known Allergies Allergy Unknown Verified 07/01/20 02:21 Home Medications Medication Instructions Recorded Confirmed Type [id number] K 1 tablet PO DAILY 07/01/20 07/01/20 History [Adults Multivitamin] Laboratory Tests 07/01/20 07/04/20 07/04/20 00:32 10:09 10:09 WBC 8.0 K/mm3 K/mm3 (4.5-10.0) RBC 3.71 M/mm3 L M/mm3 (4.2-5.4) Hgb 9.9 g/dL L g/dL (12.0-15.0) Hct 30.4 % L % (37.0-47.0) MCV 81.9 fl fl (80-100) MCH 26.7 pg pg (26-34) MCHC 32.6 g/dl g/dl (32-36) RDW 14.8 % H % (11.5-14.5) Plt Count 170 k/mm3 k/mm3 (150-375) MPV 11.4 fl H fl (7.4-10.4) Sodium 140 mmol/L mmol/L (137-145) Potassium 3.9 mmol/L mmol/L (3.4-5.0) Chloride 108 mmol/L H mmol/L (98-107) Carbon Dioxide 27 mmol/L mmol/L (22-30) Anion Gap 5 mmol/L L mmol/L (8-16) BUN 9 mg/dL mg/dL (7-17) Creatinine 0.80 mg/dL mg/dL (0.7-1.0) Estim Creat Clear Calc 83 ml/min ml/min Estimated GFR > 60 (59 - ) Glucose 89 mg/dL mg/dL (65-105) Calcium 8.2 mg/dL L mg/dL (8.4-10.2) Total Bilirubin 0.2 mg/dL mg/dL (0.2-1.3) Direct Bilirubin 0.0 mg/dL mg/dL (0-0.3) AST 33 U/L U/L (14-36) ALT 38 U/L H U/L (4-35) Alkaline Phosphatase 58 U/L U/L (38-126) Total Protein 6.0 g/dL L g/dL (6.3-8.2) Albumin 3.1 g/dL L g/dL (3.5-5.1) C.trachomatis RNA (TMA) Not detected (Not Detected) N.gonorrhoeae RNA (TMA) Not detected (Not Detected) Patient hx anesthesia problems: post op nausea/vomiting Family hx anesthesia problems: none PMFSH Past Medical History Medical History (Updated 07/04/20 @ 20:11 by Domingo Brown CRNA) Anxiety Cholelithiasis (Unknown) Constipation Dysfunctional gallbladder (~06/2020) History of endometriosis History of irritable bowel syndrome Irritable bowel syndrome Mixed Leg pain Marijuana smoker , ectopic, tubal Restless leg syndrome Right sided abdominal pain Smoker Tobacco abuse Surgical History Surgical History History of laparoscopy Several last 1 being today 07/01/2020 History of shoulder surgery History of tonsillectomy History of unilateral salpingectomy Family History Family History Father Diabetes mellitus Family history of alcoholism Family history of mental disorder Mother Hypertension Sibling Breast cancer Social History Social History Social History: The patient has 1 daughter. She has had a tubal in the past. She currently is unemployed. She resides with her boyfriend. 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 She smokes about half pack a cigarettes a day. She does smoke marijuana at night to help her rest. She denies any alcohol or other street drugs. Smoking packs per day: 0.5 Smoking cigarettes per day: 10.0 Years smoked: 30 Smoking pack-years: 15.00 Smoking status: Current every day smoker Tobacco type: cigarettes Alcohol intake: never Substance use: current Substance use type: marijuana Living arrangements: with
[2020-07-04] MEDS: ENOXAPARIN 40 MG/0.4 ML SYRINGE SUB-Q (21:05)
[2020-07-05] VITALS (15 sets, daily range): BP systolic 98–119; BP diastolic 60–89; PULSE 77–98; RESP 11–20; TEMP 36.4–37; O2SAT 92–99
[2020-07-05] MEDS: MORPHINE SULFATE (*CRX) 4 MG/ML INJ IV PUSH ×3 (02:30→20:50)
[2020-07-05 05:15] LABS: Alanine Aminotransferase 36 U/L (4-35); Alkaline Phosphatase 63 U/L (38-126); Anion Gap 4 mmol/L (8-16); Aspartate Amino Transferase 28 U/L (14-36); Bilirubin,Total 0.2 mg/dL (0.2-1.3); Blood Urea Nitrogen 8 mg/dL (7-17); Calcium 8.4 mg/dL (8.4-10.2); Carbon Dioxide 27 mmol/L (22-30); Chloride 108 mmol/L (98-107); Estimated CRCL calculation 74 ml/min; Estimated Glomerular Filt Rate > 60; Glucose 89 mg/dL (65-105); Lipase 30 U/L (23-300); Potassium 3.8 mmol/L (3.4-5.0); Sodium 139 mmol/L (137-145)
[2020-07-05] MEDS: CHLORHEXIDINE GLUCONATE 4% SOL 120 ML BTL 1 APPLIC TOPICAL (05:40)
--- NOTE | 2020-07-05 08:10 | WPDGIPROGNO ---
Progress Note: A&P Additional Plan Patient continues to complain of right upper quadrant pain. Anxious to have surgery anticipated today. Physical exam reveals patient to be alert. Vital signs stable. She is anicteric. Lungs are clear. Heart without murmur. Abdomen soft mild tenderness in the right upper quadrant. No masses elicited. Impression 1. Right upper quadrant pain. 2. Cholelithiasis. Abnormal HIDA scan suggest cholecystitis. Agree with plans for surgical resection of gallbladder. Subjective Date/time seen: 07/05/20 08:10 Objective Data Vital Signs Vital Signs: Vital Signs - 24 hr 07/04/20 09:44 07/04/20 13:43 07/04/20 17:00 Temperature 97.8 F 98.0 F 97.7 F Pulse Rate 90 89 83 Respiratory Rate 16 16 22 H Blood Pressure 114/77 98/56 L 92/59 L Pulse Oximetry 98 100 98 07/04/20 18:05 07/04/20 22:00 07/05/20 02:00 Temperature 98.0 F 97.8 F Pulse Rate 90 77 Respiratory Rate 20 20 Blood Pressure 103/65 122/69 107/66 Pulse Oximetry 98 99 07/05/20 06:00 Temperature 97.5 F L Pulse Rate 81 Respiratory Rate 20 Blood Pressure 105/72 Pulse Oximetry 98 Intake/Output Intake/Output: Intake & Output 07/02/20 07/03/20 07/04/20 07/05/20 23:59 23:59 23:59 23:59 Intake Total 3370 2250 1505 Output Total 800 1400 1900 1200 Balance 2570 178 -395 1200 Meds/Results Medications: Active Medications Generic Name Dose Route Start Last Admin Trade Name Freq PRN Reason Stop Dose Admin Hydrocodone Bitart/Acetaminophen 1 tab 07/03/20 09:26 07/04/20 09:38 Hydrocodone/Acetaminophen (*Crx) 5-325 Mg Tablet PO 1 tab Q6H PRN Administration Pain Rated 4-6 Hydrocodone Bitart/Acetaminophen 1 tab 07/04/20 10:00 Hydrocodone/Acetaminophen (*Crx) 7.5-325 Mg Tablet PO Q6H PRN Pain Rated 7-10 Bisacodyl 10 mg 07/03/20 09:26 Bisacodyl 10 Mg Suppository RECTAL QAM PRN Constipation Calcium Polycarbophil 1,250 mg 07/02/20 17:00 07/04/20 16:33 Calcium Polycarbophil 625 Mg Tablet PO 1,250 mg BID BARRY Administration Cyanocobalamin 1,000 mcg 07/04/20 09:15 07/04/20 09:54 Cyanocobalamin 1,000 Mcg Tablet PO 1,000 mcg QAM BARRY Administration Dicyclomine HCl 20 mg 07/01/20 22:46 07/02/20 17:50 Dicyclomine Hcl 10 Mg Capsule PO 20 mg QID PRN Administration Abdominal Cramping Enoxaparin Sodium 40 mg 07/04/20 21:00 07/04/20 21:05 Enoxaparin 40 Mg/0.4 Ml Syringe SUB-Q 40 mg HS BARRY Administration Acetaminophen 650 mg in 65 mls @ 260 mls/hr 07/04/20 23:00 07/05/20 05:38 Ofirmev 650 Mg Ivpb IVPB 07/05/20 23:01 250 mls/hr Q6H BARRY Administration Sodium Chloride 1,000 mls @ 100 mls/hr 07/05/20 05:40 Normal Saline Iv IV CONT .Q10H BARRY Lorazepam 0.5 mg 07/01/20 22:49 07/04/20 18:11 Lorazepam Inj (*Crx) 2 Mg/Ml Vial IV PUSH 0.5 mg Q6H PRN Administration Anxiety Morphine Sulfate 4 mg 07/01/20 00:47 07/05/20 02:30 Morphine Sulfate (*Crx) 4 Mg/Ml Inj IV PUSH 4 mg Q4H PRN Administration Pain Rated 7-10 Morphine Sulfate 2 mg 07/04/20 10:00 Morphine Sulfate (*Crx) 2 Mg/Ml Inj IV PUSH Q4H PRN Pain Rated 4-6 Nicotine 1 patch 07/01/20 09:00 07/04/20 09:33 Nicotine (*Pbkc) 14 Mg Patch TRANSDERM 1 patch QAM BARRY Administration Ondansetron HCl 4 mg 07/01/20 00:47 07/04/20 18:14 Ondansetron Inj 4 Mg/2 Ml Vial IV PUSH 4 mg Q4H PRN Administration Nausea Pantoprazole Sodium 40 mg 07/03/20 09:00 07/04/20 21:04 Pantoprazole 40 Mg Tablet PO 40 mg Q12HR BARRY Administration Polyethylene Glycol 17 gm 07/02/20 10:41 07/02/20 16:12 Polyethylene Glycol 3350 17 Gm Powd.Pack PO 17 gm QAM PRN Administration Constipation Polyethylene Glycol 17 gm 07/03/20 09:00 07/04/20 16:33 Polyethylene Glycol 3350 17 Gm Powd.Pack PO 17 gm BID BARRY Administration Simethicone 80 mg 07/02/20 09:00 07/04/20 21:04 Simethicone 80 Mg Ta
[2020-07-05] MEDS: SODIUM CHLORIDE 0.9% IV 1,000 ML 100 ML IV CONT (08:23)
[2020-07-05] MEDS: NICOTINE (*PBKC) 14 MG PATCH 1 PATCH TRANSDERM (08:31)
--- NOTE | 2020-07-05 08:59 | WPDHPUPDATE1 ---
History and Physical Update Update Date/Time: 07/05/20 08:59 History and Physical has been reviewed, including an updated exam of the patient. There are changes in the patient's condition. The pt. continues to have RUQ abdominal pain that is requiring significant pain medications to control the pain. Her HIDA scan on last Sun. was abnormal with only a 8 % ejection fraction. Risks, benefits, and alternatives of a laparoscopic cholecystectomy, possible intra-operative cholangiogram, open cholecystetomy have been discussed and questions answered. Patient agrees to proceed with procedure.
--- NOTE | 2020-07-05 09:33 | PM.IMPN ---
Progress Note: A&P Assessment and Plan (1) Right sided abdominal pain: Code(s): R10.9 - Unspecified abdominal pain Status: Acute Assessment and Plan: Etiology unclear. She underwent diagnostic laparoscopy 07/[address] Munoz which was unrevealing for an etiology for her pain. CT abd/pelvis demonstrated cholelithiasis and mild fatty infiltration of the wall of the terminal ileum. Inflammatory bowel disease panel is pending. Lipase is normal. She also has a hx of constipation-predominant IBS and may benefit from additional treatment if pain is functional due to IBS. GI is following and input is appreciated. Bentyl is available as needed. General surgery is following for cholelithiasis. HIDA was ordered per general surgery and demonstrates gallbladder dysfunction. Continue analgesics as needed for pain and antiemetics as needed for nausea/vomiting. Post-op care per ACID OPERATOR including post-op pain management, DVT prophylaxis, and incision care. Cholecystectomy is planned for today. (2) Cholelithiasis: Onset Date: Unknown Code(s): K80.20 - Calculus of gallbladder without cholecystitis without obstruction Status: Acute Assessment and Plan: The patient reports RUQ abdominal pain. Pain started after eating fried chicken. Pain radiates to the back. RUQ US demonstrated cholelithiasis without wall thickening or other evidence of acute cholecystitis. HIDA scan demonstrated gallbladder ejection fraction 8%, consistent with gallbladder dysfunction and/or chronic cholecystitis. She continues to have RUQ pain. Cholecystectomy is planned for today. (3) Anemia: Onset Date: Unknown Code(s): D64.9 - Anemia, unspecified Status: Acute Assessment and Plan: Hb decreased to 9.0 07/03 from 11.6 06/30. She has no evidence of ongoing blood loss. She is currently on her menstrual cycle and reports menorrhagia. She will follow-up with ACID OPERATOR for long-term management. Iron studies demonstrate iron deficiency and iron can be supplemented post-op. Iron will be held for now given anticipated surgery and constipation. Vitamin B12 is on the lower limit of normal and will be supplemented with PO cyanocobalamin which she can continue at discharge. Folate is normal. Stool guaiac testing ordered and pending. Continue to monitor and recommend outpatient follow-up with ACID OPERATOR for menorrhagia. (4) Dysfunctional gallbladder: Onset Date: ~06/2020 Code(s): K82.8 - Other specified diseases of gallbladder Status: Acute Assessment and Plan: HIDA scan demonstrated gallbladder ejection fraction 8%, consistent with gallbladder dysfunction and/or chronic cholecystitis. Management per general surgery. She continues to have RUQ pain. Plan is for cholecystectomy today. (5) Irritable bowel syndrome: Code(s): K58.9 - Irritable bowel syndrome without diarrhea Status: Chronic Assessment and Plan: Continue supportive care. She is not on any pharmacotherapy at this time. She reports that she generally has constipation-predominant IBS. GI input is appreciated. (6) Tobacco abuse: Code(s): Z72.0 - Tobacco use Status: Chronic Assessment and Plan: The patient needs to stop smoking immediately. Smoking cessation has been encouraged. Nicoderm patch is available while inpatient. I discussed adverse effects including adverse cardiovascular outcomes and risk for cancer. She verbalized understanding. I discussed that she could continue nicoderm patch at discharge. She is going to consider this. (7) Leg pain: Code(s): M79.606 - Pain in leg, unspecified Status: Acute Assessment and Plan: Venous doppler US was ordered as pt complains of intermittent leg swelling and was negative for DVT. Subjective Date/time seen: 07/05/20 09:33 Mrs. Echevarria is a 44 y.o. female with PMH significant for IBS, endometriosis, anxiety, restless leg syndrome
[2020-07-05] MEDS: LORazepam INJ (*CRX) 2 MG/ML VIAL 0.5 MG IV PUSH ×2 (09:41→22:15)
--- NOTE | 2020-07-05 12:44 | PM.GYNPNOP ---
HISTOLOGY SPECIALIST - A/P Assessment and plan (1) Pelvic pain: Code(s): R10.2 - Pelvic and perineal pain Status: Acute Assessment and Plan: s/p Diagnostic lap, no acid plant helper pathology noted (2) Abdominal pain: Onset Date: ~06/2020 Code(s): R10.9 - Unspecified abdominal pain Status: Acute Assessment and Plan: History of IBS. CT shows mild fatty infiltration of terminal ileum. (3) Cholelithiasis: Onset Date: Unknown Code(s): K80.20 - Calculus of gallbladder without cholecystitis without obstruction Status: Acute (4) Dysfunctional gallbladder: Onset Date: ~06/2020 Code(s): K82.8 - Other specified diseases of gallbladder Status: Acute Assessment and Plan: Scheduled for cholecystectomy with gen surg today Postoperative Procedures: Procedures Operation Date: 07/01/20 17:00 Actual Procedures Side Surgeon p Diagnostic Laparoscopy Dino Munoz DO Operation Date: 07/05/20 16:00 <No data on this case meets the specified criteria> Time Spent With Patient Time: Total time spent is greater than 50% in coordination of care (as documented) at patient's floor/unit and/or counseling patient: Time with patient: 15 - 25 minutes HISTOLOGY SPECIALIST- PN:Subj Post-Op Subjective Date/time seen: 07/05/20 12:44 Patient scheduled for cholecystectomy this afternoon. She continues to have abdominal pain. Incisional pain from diagnostic lap is ok, some soreness when she moved around to take a shower this morning. Exam Const: General: cooperative, healthy appearing, well developed, alert, awake and uncomfortable Nutritional Appearance: average body habitus Orientation/consciousness: oriented to person, oriented to place, oriented to time and patient oriented x3 HENMT: Head: normal to inspection, normocephalic and atraumatic Resp: Effort & Inspection: normal respiratory effort, able to speak in complete sentences, normal respiratory pattern, no audible wheezes, no cough and respiratory effort not decreased Cardio: Rate: regular rate Rhythm: regular rhythm Heart sounds: S1 normal heart sound present and S2 normal heart sound present GI: Inspection: normal to inspection, non-distended and other (Incision well healed) Auscultation: normal bowel sounds Skin: General skin exam: normal color and no rashes or lesions noted Neuro: General: oriented to person, oriented to place, oriented to time and patient oriented x3 Speech: normal speech Psych: Appearance: grossly normal Mental Status: mental status grossly normal Affect: normal affect Attitude: cooperative Thought process: Normal thought process present HISTOLOGY SPECIALIST - PN: Obj Data Vital Signs Vital Signs: Vital Signs - 24 hr 07/04/20 13:43 07/04/20 17:00 07/04/20 18:05 Temperature 36.7 C 36.5 C Pulse Rate 89 83 Respiratory Rate 16 22 H Blood Pressure 98/56 L 92/59 L 103/65 Pulse Oximetry 100 98 07/04/20 22:00 07/05/20 02:00 07/05/20 06:00 Temperature 36.7 C 36.6 C 36.4 C L Pulse Rate 90 77 81 Respiratory Rate 20 20 20 Blood Pressure 122/69 107/66 105/72 Pulse Oximetry 98 99 98 07/05/20 08:00 07/05/20 12:00 Temperature 36.6 C 36.8 C Pulse Rate 84 86 Respiratory Rate 16 18 Blood Pressure 119/89 111/64 Pulse Oximetry 98 95 Intake/Output Intake/Output: Intake & Output 07/02/20 07/03/20 07/04/20 07/05/20 23:59 23:59 23:59 23:59 Intake Total 3370 2250 1505 65 Output Total 800 1400 1900 1200 Balance 5580 433 -448 -1086 Meds/Results Medications: Active Medications Generic Name Dose Route Start Last Admin Trade Name Freq PRN Reason Stop Dose Admin Hydrocodone Bitart/Acetaminophen 1 tab 07/03/20 09:26 07/04/20 09:38 Hydrocodone/Acetaminophen (*Crx) 5-325 Mg Tablet PO 1 tab Q6H PRN Administration Pain Rated 4-6 Hydrocodone Bitart/Acetaminophen 1 tab 07/04/20 10:00 Hydrocodone/Acetaminophen (*Crx) 7.5-325 Mg Tablet PO Q6H PRN Pain Rated 7-10 Bisacodyl 10 mg 07/03/20 09:
[2020-07-05] MEDS: LACTATED RINGERS 1,000 ML 30 ML IV CONT ×2 (13:30→17:10)
--- NOTE | 2020-07-05 14:19 | WPDANESEFPP ---
Anes - Eval Final PreProcedure Day of Procedure 07/05/20 14:19 Patient weight: overweight Heart: regular rate and rhythm Lungs: clear to auscultation Airway: Mallampati scale class II Neurological: alert and oriented Last oral intake: >/= 8 hours ASA classification: III Emergent: no Anesthetic plan: proceed Anesthesia type and monitoring: general ETT and standard monitoring Informed Consent: The patient's anesthetic plan and its attendant risks and benefits were discussed with the patient/family/POA. Questions were solicited and answers provided to the satisfaction of the patient/family/POA.
[2020-07-05] MEDS: MIDAZOLAM HCL (*CRX) 2 MG/2 ML VIAL IV PUSH (14:29)
[2020-07-05] MEDS: fentaNYL CITRATE INJ (*CRX) 100 MCG/2 ML VIAL 25 MCG IV PUSH ×9 (14:29→17:52)
--- NOTE | 2020-07-05 14:46 | SUR.PREOP ---
Offered patient a chance to use the bathroom. She declined. Denies any benefit from pain medication or versed.
--- NOTE | 2020-07-05 15:04 | SUR.PREOP ---
Up to bathroom.
[2020-07-05] MEDS: ceFAZolin 2 GM/D5W 50 ML 2 GM/50 ML BAG IVPB (15:12)
--- NOTE | 2020-07-05 17:04 | PM.PROC ---
Procedure Note - Detailed Date of procedure: 07/05/20 Pre-op diagnosis: Cholecystitis Subacute cholecystitis overlying chronic cholecystitis with cholelithiasis Post-op diagnosis: same Procedure performed: Laparoscopic cholecystectomy Description of procedure: Patient was seen preoperatively in the holding area and risks, benefits and alternatives confirmed. Patient was taken to the operating room and general anesthesia was induced. A time out was then preformed with the surgery team confirming patient and site of surgery. The abdomen was prepped and draped in the usual sterile fashion. Incision was made just below the umbilicus with an 11 blade knife. I placed 2 stay sutures of O- Vicryl on either side of the mid-line fascia beneath the umbilicus and was then able to slide in the Santacruz cannula through the fascial defect into the peritoneum. First under low flow and then under high flow the abdomen was insufflated with carbon dioxide never exceeding a pressure of 14. Three 5 mm trocars were then introduced under direct vision. The following trocars were introduced under direct vision: a 5 mm in the epigastrium and two 5 mm trocars along the right costal margin laterally in the subcostal area. There were no significant adhesions to the gallbladder except in the area of the triangle of Calot. I then carefully used the L-shaped cautery, lap scissors, and the [place] dissector to dissect out the triangle of Calot. I then was able to dissect out both the cystic duct and cystic artery and identify a window of safety. In this situation there was also an anterior lying branch of the cystic artery that we could easily be seen going right up onto the gallbladder. The gall bladder was grasped and the cystic duct and artery were dissected free and clipped with an 5 mm endo-clip olericulturist. The aforementioned anterior branch of the cystic artery was also clipped with 2 clips on the patient's side 1 on the gallbladder side and then cut. The cystic duct and artery were clipped with use of 2 clips on the patient's side 1 on the gallbladder side utilizing a 5 mm endoclip-olericulturist. The cystic duct was then transected. The posteroir branch of the cystic artery was also transected at this point. The gall bladder was removed using electrocautery and then removed from the abdomen using a large 10 mm grasper via the umbilical incision. In order to get the large stone out of the abdomen within the gallbladder I did make the fascial defect slightly larger with Marshall scissors. The trocars were removed visualizing hemostasis and the remaining gas evacuated. The large trocar site at the umbilicus was closed with use of the 2 stay sutures of 0 Vicryl mentioned above and also a figure of eight O-Vicryl suture. The 2 stay sutures mentioned above on either side of the fascia were also tied together to help approximate this midline fascia. I also placed 1 subcutaneous 2 0 Vicryl suture to better approximate the subcu tissues under the transverse umbilical incision. Further local anesthetic was placed into each incision for postop pain control. The skin incisions were closed with subcuticular suture of 4-0 Monocryl. Surgical glue then was applied to all the incisions. Patient tolerated the procedure well was taken to the recovery room in good condition. Anesthesia: RUA Surgeon: Shawn Ybarra MD Simulation Analyst: Julio C CESAR, OR first aid trainer Estimated blood loss (mL): 25 Drains: No Packing: No Pathology: yes (Gallbladder) Complications: No immediate complications Condition: stable Disposition: PACU Findings: Gallbladder was whitish blue in color that was densely adhered to the liver bed on the backside. Upon removal there were 2 palpable stones within the gallbladder. A small amount of bile was spilled from the gallbladder as we removed it from the umbilicus. The perineum was irrigated and rinsed with approximately a L of saline at the end of the procedure to dilute any bile the drip
[2020-07-05] MEDS: HYDROmorphone HCL INJ (*CRX) 1 MG/ML SYR 0.5 MG IV PUSH ×4 (17:50→18:10)
[2020-07-05] MEDS: HYDROcodone/acetaminophen (*CRX) 7.5-325 MG TABLET 1 TAB PO (19:32)
[2020-07-05] MEDS: calcium polycarbophiL 625 MG TABLET 1250 MG PO (19:33)
[2020-07-05] MEDS: SIMETHICONE 80 MG TAB.CHEW PO ×2 (19:33→20:51)
[2020-07-05] MEDS: polyethylene glycoL 3350 17 GM POWD.PACK PO (19:34)
[2020-07-05] MEDS: PANTOPRAZOLE 40 MG TABLET PO (20:51)
[2020-07-06] VITALS (12 sets, daily range): BP systolic 86–120; BP diastolic 54–76; PULSE 85–99; RESP 16–22; TEMP 36.6–37.2; O2SAT 93–99
[2020-07-06] MEDS: MORPHINE SULFATE (*CRX) 4 MG/ML INJ IV PUSH ×2 (01:37→09:06)
[2020-07-06] MEDS: HYDROcodone/acetaminophen (*CRX) 7.5-325 MG TABLET 1 TAB PO ×2 (05:33→11:28)
[2020-07-06 05:55] LABS: Hematocrit 30.8 % (37.0-47.0); Hemoglobin 10.3 g/dL (12.0-15.0); Mean Corpuscular HGB Conc 33.4 g/dl (32-36); Mean Corpuscular Hemoglobin 26.8 pg (26-34); Mean Platelet Volume 12.1 fl (7.4-10.4); Platelet Count Result 198 k/mm3 (150-375); Red Blood Count 3.85 M/mm3 (4.2-5.4); Red Cell Distribution Width 14.6 % (11.5-14.5); White Blood Count 11.5 K/mm3 (4.5-10.0)
[2020-07-06 06:11] LABS: Alanine Aminotransferase 90 U/L (4-35); Albumin Level 3.3 g/dL (3.5-5.1); Alkaline Phosphatase 74 U/L (38-126); Anion Gap 5 mmol/L (8-16); Aspartate Amino Transferase 97 U/L (14-36); Bilirubin,Total 0.3 mg/dL (0.2-1.3); Blood Urea Nitrogen 9 mg/dL (7-17); Calcium 8.5 mg/dL (8.4-10.2); Carbon Dioxide 27 mmol/L (22-30); Chloride 106 mmol/L (98-107); Estimated CRCL calculation 74 ml/min; Estimated Glomerular Filt Rate > 60; Glucose 93 mg/dL (65-105); Potassium 4.3 mmol/L (3.4-5.0); Sodium 138 mmol/L (137-145)
[2020-07-06] MEDS: LORazepam INJ (*CRX) 2 MG/ML VIAL 0.5 MG IV PUSH ×3 (07:25→18:58)
[2020-07-06] MEDS: NICOTINE (*PBKC) 14 MG PATCH 1 PATCH TRANSDERM (09:05)
[2020-07-06] MEDS: calcium polycarbophiL 625 MG TABLET 1250 MG PO ×2 (09:05→16:49)
[2020-07-06] MEDS: ENOXAPARIN 40 MG/0.4 ML SYRINGE SUB-Q (09:05)
[2020-07-06] MEDS: CYANOCOBALAMIN 1,000 MCG TABLET 1000 MCG PO (09:05)
[2020-07-06] MEDS: SIMETHICONE 80 MG TAB.CHEW PO ×4 (09:06→20:35)
[2020-07-06] MEDS: PANTOPRAZOLE 40 MG TABLET PO ×2 (09:06→20:35)
[2020-07-06] MEDS: polyethylene glycoL 3350 17 GM POWD.PACK PO ×2 (09:13→16:50)
--- NOTE | 2020-07-06 10:20 | PM.IMPN ---
Progress Note: A&P Assessment and Plan (1) Chronic cholecystitis: Code(s): K81.1 - Chronic cholecystitis Status: Acute Assessment and Plan: Noted on HIDA scan -ejection fraction was 8% -Underwent surgery 07/05 with no complications -she is eating and drinking well and passing gas. No acute abdominal exam findings -pain out of proportion of exam. I spoke with the nursing staff who is going to give her more pain medication to see if this helps -await surgeries recommendations (2) Right sided abdominal pain: Code(s): R10.9 - Unspecified abdominal pain Status: Acute Assessment and Plan: Likely due to above -underwent an exploratory laparoscopy 07/[address] Munoz which was unrevealing for an etiology for her pain - CT abd/pelvis demonstrated cholelithiasis and mild fatty infiltration of the wall of the terminal ileum. Inflammatory bowel disease panel is pending. -Lipase is normal. She also has a hx of constipation-predominant IBS and may benefit from additional treatment if pain is functional due to IBS. -GI is following and input is appreciated. Bentyl is available as needed. -HIDA scan showing chronic cholecystitis (3) Cholelithiasis: Onset Date: Unknown Code(s): K80.20 - Calculus of gallbladder without cholecystitis without obstruction Status: Acute Assessment and Plan: Noted on imaging and in sx -no obstructing stone suspected as the bilirubin is normal -liver enzymes slightly elevated, likely due to recent surgery (4) Anemia: Onset Date: Unknown Code(s): D64.9 - Anemia, unspecified Status: Acute Assessment and Plan: Hemoglobin today 10.3 -will need iron and B12 at discharge -likely iron deficient due to menorrhagia (5) Dysfunctional gallbladder: Onset Date: ~06/2020 Code(s): K82.8 - Other specified diseases of gallbladder Status: Acute Assessment and Plan: As above (6) Irritable bowel syndrome: Code(s): K58.9 - Irritable bowel syndrome without diarrhea Status: Chronic Assessment and Plan: Continue supportive care. She is not on any pharmacotherapy at this time. She reports that she generally has constipation-predominant IBS. GI input is appreciated. (7) Tobacco abuse: Code(s): Z72.0 - Tobacco use Status: Chronic Assessment and Plan: The patient needs to stop smoking as it is better health. Smoking cessation has been encouraged and nicotine patch available as needed. I discussed adverse effects including adverse cardiovascular outcomes and risk for cancer. She verbalized understanding. (8) Leg pain: Code(s): M79.606 - Pain in leg, unspecified Status: Acute Assessment and Plan: Improved -no signs of DVT Time Spent With Patient Time with patient: 25 - 35 minutes Subjective Date/time seen: 07/06/20 10:20 Interval history: Pt is a 44-year-old female here with abdominal pain likely due to chronic cholecystitis. Patient was seen today and states she is having significant pain. She rates her pain a 9/10 and states she was not given pain medication throughout the night. Consistently and had trouble with her IV. She is not happy with the nursing staff. She states the abdominal pain is all over and cannot pinpoint 1 area. She is been able to eat and is passing gas. She denies chest pain, shortness of breath, fever, chills, nausea, vomiting or leg swelling. Review of Systems Review of Systems: All systems reviewed & are unremarkable except as noted in HPI and below Exam Narrative: Exam Narrative: General: Well developed well nourished patient in NAD HEENT: normocephalic Neck: supple Neuro: Alert and oriented x4 CV:RRR Resp:CTA Abd: Soft, non distended. Pain to palpation with light and deep palpation to all areas of the abdomen. Incision sites clean and dry without dehiscence, bleeding, or discharge
--- NOTE | 2020-07-06 10:57 | WPDGIPROGNO ---
Progress Note: A&P Assessment and Plan (1) Chronic cholecystitis: Code(s): K81.1 - Chronic cholecystitis Status: Acute Assessment and Plan: Patient stat status post lap choly yesterday. Continues to have abdominal discomfort today. Surgical follow-up anticipated. This likely postoperative discomfort. (2) Abdominal pain: Onset Date: ~06/2020 Code(s): R10.9 - Unspecified abdominal pain Status: Acute Assessment and Plan: Patient is a long history of intermittent abdominal pain attributed to endometriosis. Irritable bowel syndrome cannot be excluded. She is status post acute cholecystitis and cholecystectomy yesterday. Continue supportive care for now. (3) History of endometriosis: Code(s): Z87.42 - Personal history of other diseases of the female genital tract Status: Chronic Subjective Date/time seen: 07/06/20 10:57 Patient complains of abdominal bloating diffuse discomfort this morning. Had lap choly yesterday. Review of Systems Review of Systems: All systems reviewed & are unremarkable except as noted in HPI and below Exam Narrative: Exam Narrative: Physical exam reveals patient to be somewhat anxious this morning HEENT exam reveals no icterus. Lungs are clear. Heart without murmur. Abdomen bowel sounds are present soft some incisional tenderness noted. Objective Data Vital Signs Vital Signs: Vital Signs - 24 hr 07/05/20 12:00 07/05/20 13:48 07/05/20 17:10 Temperature 98.2 F 98.5 F 98.3 F Pulse Rate 86 80 91 Respiratory Rate 18 16 14 Blood Pressure 111/64 108/75 101/61 Pulse Oximetry 95 97 94 07/05/20 17:25 07/05/20 17:40 07/05/20 17:55 Temperature 98.4 F 98.3 F 98.3 F Pulse Rate 98 91 81 Respiratory Rate 17 13 11 L Blood Pressure 112/71 108/65 103/60 Pulse Oximetry 96 95 92 07/05/20 18:10 07/05/20 18:26 07/05/20 18:41 Temperature 98 F 97.7 F 98.6 F Pulse Rate 83 84 80 Respiratory Rate 16 16 16 Blood Pressure 98/63 L 108/67 108/64 Pulse Oximetry 98 97 99 07/05/20 19:11 07/05/20 20:00 07/05/20 20:11 Temperature 98.5 F 98.5 F 98.4 F Pulse Rate 85 85 88 Respiratory Rate 18 18 18 Blood Pressure 116/67 116/67 113/67 Pulse Oximetry 97 97 97 07/06/20 00:00 07/06/20 00:11 07/06/20 04:00 Temperature 98.7 F 98.7 F 98.4 F Pulse Rate 85 85 87 Respiratory Rate 18 18 20 Blood Pressure 106/67 106/67 105/63 Pulse Oximetry 93 93 96 07/06/20 04:11 07/06/20 09:03 Temperature 98.4 F Pulse Rate 87 Respiratory Rate 20 Blood Pressure 105/63 120/76 Pulse Oximetry 96 Intake/Output Intake/Output: Intake & Output 07/03/20 07/04/20 07/05/20 07/06/20 23:59 23:59 23:59 23:59 Intake Total 2250 1505 1265 360 Output Total 1400 1900 1675 400 Balance 850 -395 -410 -40 Meds/Results Medications: Active Medications Generic Name Dose Route Start Last Admin Trade Name Freq PRN Reason Stop Dose Admin Acetaminophen 500 mg 07/05/20 18:26 Acetaminophen 500 Mg Tablet PO Q6H PRN Mild Pain (1-3) or Fever Hydrocodone Bitart/Acetaminophen 1 tab 07/03/20 09:26 07/04/20 09:38 Hydrocodone/Acetaminophen (*Crx) 5-325 Mg Tablet PO 1 tab Q6H PRN Administration Pain Rated 4-6 Hydrocodone Bitart/Acetaminophen 1 tab 07/04/20 10:00 07/06/20 05:33 Hydrocodone/Acetaminophen (*Crx) 7.5-325 Mg Tablet PO 1 tab Q6H PRN Administration Pain Rated 7-10 Bisacodyl 10 mg 07/03/20 09:26 Bisacodyl 10 Mg Suppository RECTAL QAM PRN Constipation Calcium Polycarbophil 1,250 mg 07/02/20 17:00 07/06/20 09:05 Calcium Polycarbophil 625 Mg Tablet PO 1,250 mg BID BARRY Administration Cyanocobalamin 1,000 mcg 07/04/20 09:15 07/06/20 09:05 Cyanocobalamin 1,000 Mcg Tablet PO 1,000 mcg QAM BARRY Administration Diphenhydramine HCl 25 mg 07/05/20 18:26 Diphenhydramine Hcl Inj 50 Mg/Ml Vial IV PUSH Q6H PRN Itching Enoxaparin Sodium 40 mg 07/06/20 09:00 07/06/20 09:0
--- NOTE | 2020-07-06 11:01 | WPDANESPN ---
Anes - Prog Note Post-Op Date/Time: 07/06/20 11:01 Cardiovascular status: normal Respiratory status: normal Airway patency: baseline Mental status: baseline Post-Op hydration status: normal Vital Signs: Last Vital Signs Temp 36.9 C 07/06/20 04:11 Pulse 87 07/06/20 04:11 Resp 20 07/06/20 04:11 BP 120/76 07/06/20 09:03 Pulse Ox 96 07/06/20 04:11 Pain Score (VAS): 6 I/O: Intake & Output 07/05/20 07/06/20 07/06/20 23:59 07:59 15:59 Intake Total 1200 120 240 Output Total 475 400 Balance 725 -280 240 Laboratory Tests 07/06/20 05:23 07/06/20 05:23 07/06/20 07/06/20 05:23 05:23 WBC 11.5 H RBC 3.85 L Hgb 10.3 L Hct 30.8 L MCV 80.0 MCH 26.8 MCHC 33.4 RDW 14.6 H Plt Count 198 MPV 12.1 H Sodium 138 Potassium 4.3 Chloride 106 Carbon Dioxide 27 Anion Gap 5 L BUN 9 Creatinine 0.90 Estim Creat Clear Calc 74 Estimated GFR > 60 Glucose 93 Calcium 8.5 Total Bilirubin 0.3 AST 97 H ALT 90 H Alkaline Phosphatase 74 Total Protein 6.0 L Albumin 3.3 L Post-procedural complaints: none Patient Feedback: Patient satisfied with anesthetic care.
--- NOTE | 2020-07-06 13:47 | PM.PNGS ---
Progress Note: A&P Assessment and Plan (1) Dysfunctional gallbladder: Onset Date: ~06/2020 Code(s): K82.8 - Other specified diseases of gallbladder Status: Acute Assessment and Plan: POD#1 after laparoscopic cholecystectomy and patient is having issues with pain control. I discussed with Dr. Ybarra and will adjust her Dickson, discontinue the IV Morphine, and add oral Toradol to alternate with the Dickson. VS stable and her labs today are unremarkable. Some of her upper mid back pain could be due to post-operative gas pains from the CO2 insufflation. I instructed the patient to try walking the halls when she is able to tolerate this. Her abdominal pain is likely post-op related and seems to be exacerbated by her anxiety. If her pain is controlled with oral medications later this afternoon, then it is okay from a surgical standpoint to discharge the patient home. She states she is comfortable with discharge. Would have her follow-up in our office with Dr. Ybarra in two weeks and call sooner with any concerns. We recommend continuing the oral Protonix for 2 weeks. (2) Cholelithiasis: Onset Date: Unknown Code(s): K80.20 - Calculus of gallbladder without cholecystitis without obstruction Status: Acute (3) Abdominal pain: Onset Date: ~06/2020 Code(s): R10.9 - Unspecified abdominal pain Status: Acute (4) Tobacco abuse: Code(s): Z72.0 - Tobacco use Status: Chronic (5) Constipation: Code(s): K59.00 - Constipation, unspecified Status: Acute Additional Plan Discussed the patient's case and plan of care with Dr. Ybarra. Subjective Subjective Date/Time Seen: 07/06/20 12:05 Post Op day: 1 (lap saima) Patient reports: still having pain, tolerating a regular diet, voiding w/o difficulty and flatus Interval history: Patient seen and examined. Reports she is still having abdominal pain in the RUQ, which is now near her incisions. She reports that it is no longer the Sharp pain she was experiencing prior to surgery but now a soreness . She has received Morphine today for pain along with the hydrocodone 7.5 mg tablet, with little relief. She reports that her pain was uncontrolled through the night but has improved this morning. She also states she is very anxious because she has not slept and cannot get comfortable. She also reports some mid upper back/neck pain. Denies shortness of breath, chest pain, or other complaints. Review of Systems Review of Systems: All systems reviewed & are unremarkable except as noted in HPI and below Constitutional: Constitutional: Reports as per HPI, Reports no additional constitutional complaints, Reports body ache(s), Reports chills and Denies fever(s) Cardiovascular: Cardiovascular: Reports as per HPI, Reports no additional cardiovascular complaints, Denies chest pain and Denies pedal edema Respiratory: Respiratory: Reports as per HPI, Reports no additional respiratory complaints, Denies cough and Denies dyspnea on exertion Gastrointestinal: Gastrointestinal: Reports as per HPI and Reports no additional gastrointestinal complaints Exam Const: General: no acute distress, alert, awake and uncomfortable Orientation/consciousness: patient oriented x3 Resp: Effort & Inspection: normal respiratory effort and able to speak in complete sentences Auscultation: clear to auscultation bilaterally Cardio: Rate: regular rate Rhythm: regular rhythm GI: Inspection: non-distended and incision (Trochar incisions clean/dry with surgical glue intact, no drainage) GI Palp: Yes Soft to palpation, Yes Tenderness to palpation present (GI) (in RUQ near incisions), No Guarding due to palpation present (GI), No Hernia present and No Rebound tenderness present Auscultation: normal bowel sounds Skin: General skin exam: normal color Rashes: no rashes Neuro: General: patient oriented x3 and moves all extremities Cranial nerves: Yes CN's II-XII intact
[2020-07-06] MEDS: HYDROcodone/acetaminophen (*CRX) 10-325 MG TABLET 1 TAB PO (16:48)
[2020-07-06] MEDS: KETOROLAC 10 MG TABLET PO (17:59)
--- NOTE | 2020-07-06 18:08 | PC.NURSE ---
Patient crying and stating she is in pain. States she feels like she can't catch her breath because of the pain. VSS - Temp 98.1, HR 95, pulse ox 99% on room air, B/P (manual) 102/58. Assessment unchanged otherwise. Gave patient po Toradol as ordered. Offered emotional support and a wet washcloth. Will continue to monitor.
[2020-07-06 20:40] LABS: ANCA Screen Negative (Negative); Myeloperoxidase Ab <1.0 AI (<1.0); Proteinase-3 Ab <1.0 AI (<1.0); S cerevisiae Ab (IgA) 6.7 U (<=20.0); S cerevisiae Ab (IgG) 16.1 U (<=20.0)
[2020-07-07] MEDS: HYDROcodone/acetaminophen (*CRX) 10-325 MG TABLET 1 TAB PO ×2 (01:52→07:28)
[2020-07-07] MEDS: LORazepam INJ (*CRX) 2 MG/ML VIAL 0.5 MG IV PUSH (01:56)
[2020-07-07 06:00] VITALS: BP 110/64; PULSE 85; RESP 16; TEMP 36.7; O2SAT 94
--- NOTE | 2020-07-07 08:08 | PM.DS ---
DS: Admitting Diagnosis Admitting Diagnosis Admitting Diagnosis: Pelvic Pain Abdominal Pain DS: Discharge Diagnosis Discharge Diagnosis (1) Chronic cholecystitis: Code(s): K81.1 - Chronic cholecystitis Status: Acute (2) Right sided abdominal pain: Code(s): R10.9 - Unspecified abdominal pain Status: Acute (3) Leg pain: Code(s): M79.606 - Pain in leg, unspecified Status: Acute (4) Cholelithiasis: Onset Date: Unknown Code(s): K80.20 - Calculus of gallbladder without cholecystitis without obstruction Status: Acute (5) Dysfunctional gallbladder: Onset Date: ~06/2020 Code(s): K82.8 - Other specified diseases of gallbladder Status: Acute (6) Constipation: Code(s): K59.00 - Constipation, unspecified Status: Acute (7) Anemia: Onset Date: Unknown Code(s): D64.9 - Anemia, unspecified Status: Acute (8) Irritable bowel syndrome: Code(s): K58.9 - Irritable bowel syndrome without diarrhea Status: Chronic (9) Tobacco abuse: Code(s): Z72.0 - Tobacco use Status: Chronic (10) History of endometriosis: Code(s): Z87.42 - Personal history of other diseases of the female genital tract Status: Chronic (11) Restless leg syndrome: Code(s): G25.81 - Restless legs syndrome Status: Chronic (12) Abdominal pain: Onset Date: ~06/2020 Code(s): R10.9 - Unspecified abdominal pain Status: Acute (13) Pelvic pain: Code(s): R10.2 - Pelvic and perineal pain Status: Acute DS: Summary Hospital Course Reason for hospitalization: Pelvic and abdominal pain Hospital Course: Patient was initially transferred from [facility] ER for right sided pelvic pain with concerns for ovarian torsion on 11. Pelvic US at [place] showed bilateral blood flow to ovaries, no edematous ovaries. She was kept for pain control and observation. CT showed cholelithiasis without acute cholecystitis and inflammatory changes at the distal ileum. On HD#1, she continued to have severe right sided pelvic and abdominal pain, so decision was made to proceed with diagnostic laparoscopy which was uneventful from a [employer] standpoint. Bilateral ovaries appeared normal without torsion, no endometriosis deposits. On HD#2, Hospitalist, General Surgery, and GI were consulted. She has bouts of diarrhea and constipation and she was constipated during her stay and was placed on a bowel regimen. She also had issues with anxiety, which was partly due to her frustration with her boyfriend not being able to visit due to COVID restrictions. HIDA scan was done and showed a gallbladder EF of about 8%. General surgery performed a laparoscopic cholecystectomy on HD#5. Postoperative pain control was difficult on postop day #1, but she did continue to improve. Pain is improved, she is ambulating, tolerating a diet, and is having BMs. Time spent discussing smoking cessation with patient: more than 10 minutes Status at Discharge Functional status at discharge: independent ambulation Overall status at discharge: patient is progressing back to baseline Time Spent with Patient Time attestation: Total time spent providing and/or coordinating discharge services: Exam Const: General: cooperative, healthy appearing, comfortable, no acute distress, well developed, alert and awake Nutritional Appearance: average body habitus Orientation/consciousness: oriented to person, oriented to place, oriented to time and patient oriented x3 HENMT: Head: normal to inspection, normocephalic and atraumatic Resp: Effort & Inspection: normal respiratory effort, able to speak in complete sentences, normal respiratory pattern, no audible wheezes, no cough and respiratory effort not decreased Cardio: Rate: regular rate Rhythm: regular rhythm Heart sounds: S1 normal heart sound present and S2 normal heart sound present GI: Inspection: normal to i
[2020-07-07] MEDS: CYANOCOBALAMIN 1,000 MCG TABLET 1000 MCG PO (08:13)
[2020-07-07] MEDS: calcium polycarbophiL 625 MG TABLET 1250 MG PO (08:13)
[2020-07-07] MEDS: SIMETHICONE 80 MG TAB.CHEW PO (08:13)
[2020-07-07] MEDS: ENOXAPARIN 40 MG/0.4 ML SYRINGE SUB-Q (08:14)
[2020-07-07] MEDS: PANTOPRAZOLE 40 MG TABLET PO (08:14)
[2020-07-07] MEDS: polyethylene glycoL 3350 17 GM POWD.PACK PO (08:15)
--- NOTE | 2020-07-07 09:02 | PM.IMPN ---
Progress Note: A&P Assessment and Plan (1) Chronic cholecystitis: Code(s): K81.1 - Chronic cholecystitis Status: Acute Assessment and Plan: Noted on HIDA scan -ejection fraction was 8% -Underwent surgery 07/05 with no complications -she is eating and drinking well and passing gas. No acute abdominal exam findings -pain more well controlled, okay with discharge (2) Right sided abdominal pain: Code(s): R10.9 - Unspecified abdominal pain Status: Acute Assessment and Plan: Likely due to above -underwent an exploratory laparoscopy 07/[address] Munoz which was unrevealing for an etiology for her pain - CT abd/pelvis demonstrated cholelithiasis and mild fatty infiltration of the wall of the terminal ileum. Inflammatory bowel disease panel is pending. -Lipase is normal. She also has a hx of constipation-predominant IBS and may benefit from additional treatment if pain is functional due to IBS. -GI is following and input is appreciated. Bentyl is available as needed. -HIDA scan showing chronic cholecystitis (3) Cholelithiasis: Onset Date: Unknown Code(s): K80.20 - Calculus of gallbladder without cholecystitis without obstruction Status: Acute Assessment and Plan: Noted on imaging and in sx -no obstructing stone suspected as the bilirubin is normal -liver enzymes slightly elevated, likely due to recent surgery (4) Anemia: Onset Date: Unknown Code(s): D64.9 - Anemia, unspecified Status: Acute Assessment and Plan: Hemoglobin stable -will need iron and B12 at discharge -likely iron deficient due to menorrhagia (5) Dysfunctional gallbladder: Onset Date: ~06/2020 Code(s): K82.8 - Other specified diseases of gallbladder Status: Acute Assessment and Plan: As above (6) Irritable bowel syndrome: Code(s): K58.9 - Irritable bowel syndrome without diarrhea Status: Chronic Assessment and Plan: Continue supportive care. She is not on any pharmacotherapy at this time. She reports that she generally has constipation-predominant IBS. Follow-up with primary care physician or GI (7) Tobacco abuse: Code(s): Z72.0 - Tobacco use Status: Chronic Assessment and Plan: The patient needs to stop smoking as it is better health. Smoking cessation has been encouraged and nicotine patch available as needed. I discussed adverse effects including adverse cardiovascular outcomes and risk for cancer. She verbalized understanding. (8) Leg pain: Code(s): M79.606 - Pain in leg, unspecified Status: Acute Assessment and Plan: Improved -no signs of DVT (9) Anxiety: Code(s): F41.9 - Anxiety disorder, unspecified Status: Acute Assessment and Plan: Chronic and ongoing -as stated above, the patient requested Ativan. She has no primary care physician and has no follow-up. I do not think it is a good idea to give addictive medications someone who has no follow-up. I have given her [facility] information. They are a primary care service who specializes in anxiety and other mental health disorders. They can usually get patients in the same day or next day and I encouraged her to reach out. She is to call 911 and come back to emergency room for any suicidal or homicidal ideations Subjective Date/time seen: 07/07/20 09:02 Interval history: Pt is a 44-year-old female here with abdominal pain likely due to chronic cholecystitis. Patient was seen today and states her pain is much better and the pain medications are helping. She is ready to go home. She asked for Ativan since she has anxiety. She says she has battled anxiety her whole life. She has no thoughts of harming herself or others. The OBGYN she sees said no but the surgeon said yes and she would like some. I explained to her that she does not have a primary care physic
--- NOTE | 2020-07-07 13:12 | PM.PNGS ---
Progress Note: A&P Assessment and Plan (1) Dysfunctional gallbladder: Onset Date: ~06/2020 Code(s): K82.8 - Other specified diseases of gallbladder Status: Acute Assessment and Plan: POD#2 after laparoscopic cholecystectomy and patient is no longer having issues with pain control. She feels like her anxiety is still sort of ramped up. Her abdominal pain is likely post-op related and seems to be exacerbated by her anxiety. I will let the hospitalist service discuss possible short-term use of oral lorazepam poor this anxiety as an outpatient or referral to a mental health specialist. It is okay from a surgical standpoint to discharge the patient home. She states she is comfortable with discharge. Would have her follow-up in our office with Dr. Ybarra in two weeks and call sooner with any concerns. We recommend continuing the oral Protonix for 2 weeks. (2) Cholelithiasis: Onset Date: Unknown Code(s): K80.20 - Calculus of gallbladder without cholecystitis without obstruction Status: Acute Assessment and Plan: This is resolved at this time and pathology is pending. (3) Abdominal pain: Onset Date: ~06/2020 Code(s): R10.9 - Unspecified abdominal pain Status: Acute (4) Tobacco abuse: Code(s): Z72.0 - Tobacco use Status: Chronic (5) Constipation: Code(s): K59.00 - Constipation, unspecified Status: Acute Assessment and Plan: Would encourage use of MiraLax p.r.n. if needed. Additional Plan I did see Dr. Tammy mirza today and discussed her situation with him. Subjective Subjective Date/Time Seen: 07/07/20 13:12 Post Op day: 2 ( Significantly improved from yesterday.) Patient reports: other ( Feels like her anxiety is worse than her pain now.) Interval history: Patient is sitting up getting ready breakfast when I came by this morning. She states her pain is well controlled at this time. She states that she was able to sleep some last night but still is anxious. Feels like she is doing well if she alternates between pain medication and lorazapam. She states she did have 2 bowel movements in the last 24 hours. Review of Systems Review of Systems: All systems reviewed & are unremarkable except as noted in HPI and below Constitutional: Constitutional: Reports as per HPI, Reports no additional constitutional complaints, Reports body ache(s), Reports chills, Reports fatigue, Denies fever(s), Denies headache(s), Denies lethargy, Reports malaise, Reports poor appetite, Reports weakness, Denies weight gain and Denies weight loss Eyes: Eyes: Reports no additional eye complaints ENT: Reports system reviewed and no additional complaints, except as documented, Denies headache(s) and Reports other (Mucous Membranes moist.) Cardiovascular: Cardiovascular: Reports as per HPI, Reports no additional cardiovascular complaints, Denies chest pain, Denies pedal edema, Denies dyspnea and Denies dyspnea on exertion Respiratory: Respiratory: Reports as per HPI, Reports no additional respiratory complaints, Denies cough, Denies pain on inspiration, Denies dyspnea and Denies dyspnea on exertion Gastrointestinal: Gastrointestinal: Reports as per HPI, Reports no additional gastrointestinal complaints, Reports abdominal pain, Reports belching, Denies bloating, Denies change in bowel habits, Denies constipation, Reports GI cramping, Reports early satiety, Reports heartburn (Slightly improved with Protonix), Denies diarrhea, Denies loose stools, Denies nausea and Denies vomiting Genitourinary: Genitourinary: Reports menorrhagia Musculoskeletal: Musculoskeletal: Reports no additional musculoskeletal complaints and Reports other (No calf swelling or edema) Integumentary/Breasts: Skin/Breast: Reports system reviewed and no additional complaints, except as docu Exam Const: General: cooperative, no acute distress, alert, awake, Physically active and uncomforta
== END 2020-07-07 09:48 | disposition home or self-care (01) | DRG 263 ==
LOC: ANHED 07-01 00:42 → ANH2MED 07-01 01:32
PROVIDERS: Physician Assistant; Admitting Provider Surgery; Emergency Provider Emergency Medicine; Visit Provider Obstetrics & Gynecology
PROC: 0WJJ4ZZ Inspection of Pelvic Cavity, Percutaneous Endoscopic Approach (ICD-10-PCS; CPT 49320; principal; 2020-07-01 17:00)
PROC: 0FT44ZZ Resection of Gallbladder, Percutaneous Endoscopic Approach (ICD-10-PCS; CPT 47562; principal; 2020-07-05 16:00)
DX: K80.10 Calculus of gallbladder with chronic cholecystitis without obstruction (principal); K82.8 Other specified diseases of gallbladder; R10.2 Pelvic and perineal pain; D64.9 Anemia, unspecified; K58.1 Irritable bowel syndrome with constipation; F17.210 Nicotine dependence, cigarettes, uncomplicated; F41.9 Anxiety disorder, unspecified; M79.606 Pain in leg, unspecified; G25.81 Restless legs syndrome; Z87.42 Personal history of other diseases of the female genital tract; Z90.79 Acquired absence of other genital organ(s)
CPT/HCPCS: 36415; 76705; 76830; 76856; 78227; 80053; 82248; 82607; 82728; 82746; 83540; 83550; 83690; 85025; 85027; 86021; 86671; 86850; 86900; 86901; 87070; 87147; 87491; 87591; 87808; 88304; 93970; 96361; 96365; 96374; 96375; 96376; 99285; A9270; A9537; G0378; G0379; J0131; J0330; J0690; J1100; J1170; J1650; J1885; J2060; J2250; J2270; J2405; J2704; J2805; J3010; J7030; J7120

== ENCOUNTER 2021-01-23 12:02 | Emergency (ER) | payer OTHER, SELFPAY ==
--- NOTE | ~2021-01-23 | CT_ITS ---
EXAMINATION: CT abdomen pelvis w con EXAM DATE: 01/23/2021 14:08 INDICATION: Rebound tenderness with low abdominal pain. TECHNIQUE: Spiral CT of the abdomen and pelvis was performed following intravenous injection of 100 m L Omnipaque 350. Axial, coronal and sagittal images of the abdomen and pelvis were reviewed. The do se-length product (DLP) for this examination was 475.51 mGy-cm. The exposure was tailored according to patient size (auto mA exposure control), and iterative reconstruction (ASIR) was used as additiona l dose reduction technique. Comparison is made to prior examination from 06/30/2020. FINDINGS: The liver, spleen, adrenal glands and pancreas are unremarkable. There are cholecystectomy clips. Portal and splenic veins are patent. Kidneys enhance symmetrically. There is no hydronephr osis. The uterus is retroverted and ovaries are morphologically normal. Trace free pelvic fluid li solitario recently ruptured ovarian follicle. The bladder is unremarkable. There is no retroperitoneal or pelvic lymphadenopathy. Possible identification of an unremarkable appendix. No pericecal inflammation. The stomach and smal l bowel are unremarkable. There is expected amount of colonic stool. No free intraperitoneal gas. The heart is normal in size. There are no pericardial or pleural effusions. The lung bases are un remarkable. There are no osteoblastic or osteolytic lesions identified. IMPRESSION: 1. No acute intra-abdominal findings. 2. Trace physiologic free pelvic fluid, probably from recently ruptured ovarian follicle. Ovaries ar e morphologically normal. Reviewed, dictated and finalized at location A. IMPRESSION: 1. No acute intra-abdominal findings. 2. Trace physiologic free pelvic fluid, probably from recently ruptured ovaria n follicle. Ovaries are morphologically normal.
[2021-01-23 12:10] VITALS: BP 115/89; PULSE 76; RESP 20; TEMP 36.5; O2SAT 98
--- NOTE | 2021-01-23 12:54 | ED.ABDPAIN ---
HPI - Abdominal Pain General Chief Complaint: Abdominal Pain Stated Complaint: leg pain and abdomen pain Time Seen by Provider: 01/23/21 12:45 Source: patient, family and other (notified of patient arrival at 12:45) Mode of arrival: ambulatory Limitations: no limitations History of Present Illness HPI narrative: Patient present with abdominal pain, ongoing for the past few hours. This has been crampy, sharp, colicky, moderately severe to severe, and ongoing. she denies fever and chills. She is currently on her period and thinks part of her pain is from this. She has a history of endometriosis and believes she has pain from this. MD elicited complaint: abdominal pain Pertinent past history: other (endometriosis) Onset (ago): day(s) Pain Consistency: intermittent and colicky Location: diffuse Severity: moderate Quality: cramping Migration to: other (diffuse into abdomen) Relieving factors: nothing Context: confirms other Associated symptoms: denies other symptoms Treatments prior to arrival: NSAIDs Related Data Allergies Allergy/AdvReac Type Severity Reaction Status Date / Time No Known Allergies Allergy Unknown Verified 07/22/20 15:11 Review of Systems Constitutional: Constitutional: Reports no additional constitutional complaints Eyes: Eyes: Reports no additional eye complaints ENT: Reports system reviewed and no additional complaints, except as documented Cardiovascular: Cardiovascular: Reports no additional cardiovascular complaints Respiratory: Respiratory: Reports no additional respiratory complaints Gastrointestinal: Gastrointestinal: Reports abdominal pain Genitourinary: Genitourinary: Reports pelvic pain Comments: menstrual pain Musculoskeletal: Musculoskeletal: Reports myalgias Integumentary/Breasts: Skin/Breast: Reports system reviewed and no additional complaints, except as docu Neurologic: Reports system reviewed and no additional complaints, except as documented Psychiatric: Psychiatric: Reports depression Endocrine: Endocrine: Reports no additional endocrine complaints Hematologic/Lymphatic: Hematologic/Lymphatic: Reports no additional hematologic/lymphatic complaints Allergic/Immunologic: Allergic/Immunologic: Reports no additional allergic/immunologic complaints [facility] Past Medical History Medical History (Updated 01/23/21 @ 15:15 by Julio C Tucker MD) Anxiety Cholelithiasis (Unknown) Constipation Dysfunctional gallbladder (~06/2020) History of endometriosis History of irritable bowel syndrome Irritable bowel syndrome Mixed Leg pain Marijuana smoker , ectopic, tubal Restless leg syndrome Right sided abdominal pain Smoker Tobacco abuse Surgical History Surgical History (Updated 01/23/21 @ 12:56 by Julio C Tucker MD) History of cholecystectomy History of laparoscopy Several last 1 being today 07/01/2020 History of shoulder surgery History of tonsillectomy History of unilateral salpingectomy Family History Family History Father Diabetes mellitus Family history of alcoholism Family history of mental disorder Mother Hypertension Sibling Breast cancer Social History Social History Social History: The patient has 1 daughter. She has had a tubal in the past. She currently is unemployed. She resides with her boyfriend. She does not have a durable power contracts attorney for healthcare but is a full code. She smokes about half pack a cigarettes a day. She does smoke marijuana at night to help her rest. She denies any alcohol or other street drugs. Smoking packs per day: 0.5 Smoking cigarettes per day: 10.0 Years smoked: 30 Smoking pack-years: 15.00 Smoking status: Current every day smoker Tobacco type: cigarettes Alcohol intake: never Substance use: current Substance use type: marijuana Gender identity (if verbalized by the patient
[2021-01-23] MEDS: HYDROmorphone HCL INJ (*CRX) 2 MG/ML VIAL 0.5 MG IV PUSH ×2 (12:58→13:19)
[2021-01-23] MEDS: ONDANSETRON INJ 4 MG/2 ML VIAL IV PUSH (12:59)
[2021-01-23] MEDS: SODIUM CHLORIDE 0.9% IV 1,000 ML 250 ML IV CONT (12:59)
[2021-01-23 13:08] LABS: Basophils Absolute Auto 0.04 K/mm3 (0.00-0.10); Basophils Percent Auto 0.5 % (0.0-1.0); Eosinophils Absolute Auto 0.11 K/mm3 (0.02-0.50); Eosinophils Percent Auto 1.3 % (1.0-6.0); Hematocrit 30.9 % (35.0-49.0); Hemoglobin 9.7 g/dL (12.0-15.0); Immature Granulocyte Absolute 0.04 K/mm3 (0.00-0.00); Immature Granulocyte Percent A 0.5 % (0.0-0.0); Lymphocytes Absolute Auto 1.57 K/mm3 (1.10-4.50); Lymphocytes Percent Auto 18.3 % (18.0-42.0); Mean Corpuscular HGB Conc 31.4 g/dL (32.0-36.0); Mean Corpuscular Hemoglobin 23.1 pg (27.0-31.0); Mean Corpuscular Volume 73.6 fL (78.0-102.0); Mean Platelet Volume 12.2 fl (9.2-11.8); Monocytes Absolute Auto 0.48 K/mm3 (0.10-0.90); Monocytes Percent Auto 5.6 % (2.0-11.0); Neutrophils Absolute Auto 6.3 K/mm3 (1.7-7.2); Neutrophils Percent Auto 73.8 % (50.0-70.0); Platelet Count Result 226 K/mm3 (150-420); Red Cell Distribution Width 15.5 % (11.6-14.4); White Blood Count 8.6 K/mm3 (4.8-10.8)
[2021-01-23 13:18] LABS: Appearance Urine Clear (Clear); Bilirubin Urine Negative (Negative); Blood Urine 3+ (Negative); Glucose Urine UA Negative (Negative); Ketones Urine Negative (Negative); Leukocyte Esterase Ur Negative LEU/UL (Negative); Nitrate Urine Negative (Negative); Protein Urine Negative (Negative); Specific Grav Ur <= 1.005 (1.010-1.020); Urobilinogen Urine 0.2 mg/dL (0.2-1.0); pH Urine 6.5 (5.0-8.0)
[2021-01-23 13:24] LABS: Alanine Aminotransferase 12 U/L (14-59); Albumin Level 3.4 g/dL (3.4-5.0); Alkaline Phosphatase 76 U/L (46-116); Amylase 60 U/L (25-115); Anion Gap 11 mmol/L (8-16); Aspartate Amino Transferase 13 U/L (15-37); Bilirubin,Total 0.2 mg/dL (0.00-1.00); Blood Urea Nitrogen 9 mg/dL (7-18); Calcium 8.9 mg/dL (8.5-10.1); Carbon Dioxide 23 mmol/L (21-32); Chloride 104 mmol/L (98-108); Estimated Glomerular Filt Rate > 60; Glucose 96 mg/dL (70-99); Lipase 70 U/L (73-393); Osmolality Calculated 284 mOsm/kg (285-295); Potassium 3.9 mmol/L (3.5-5.1); Sodium 138 mmol/L (136-145); Total Protein 7.6 g/dL (6.4-8.2)
[2021-01-23 13:24] LABS: Add Urine Microscopic? YES; Color Urine Straw (Yellow)
[2021-01-23 13:25] LABS: Bacteria Urine Trace /hpf; Squamous Epithelial Cell Urine Rare /hpf (Few); WBC Urine 0-3 /hpf (0-3)
[2021-01-23 13:27] LABS: D Dimer 0.76 mg/L (0.19-0.50)
[2021-01-23 13:29] LABS: Lactic Acid Reflex 0.7 mmol/L (0.4-2.0)
[2021-01-23 13:37] LABS: Pregnancy On Board Control Positive; Urine Pregnancy Test Negative
[2021-01-23] MEDS: KETOROLAC 30 MG/ML VIAL (*BKC) IV PUSH (13:48)
[2021-01-23] MEDS: DICYCLOMINE HCL INJ 20 MG/2 ML VIAL IM (15:06)
[2021-01-23 15:35] VITALS: BP 104/58; PULSE 84; O2SAT 100
== END 2021-01-23 15:40 | disposition home or self-care (01) ==
PROVIDERS: Emergency Provider Emergency Medicine
DX: N83.209 Unspecified ovarian cyst, unspecified side (principal); L03.90 Cellulitis, unspecified
CPT/HCPCS: 36415; 74177; 80053; 81001; 81025; 82150; 83605; 83690; 85025; 85380; 87040; 96361; 96365; 96372; 96375; 99283; 99284; J0500; J0696; J1170; J1885; J2405; J7030; Q9967

== ENCOUNTER 2021-09-17 04:27 | Emergency (ER) | payer OTHER, SELFPAY ==
--- NOTE | ~2021-09-17 | CT_ITS ---
EXAMINATION: CT abdomen pelvis w con DATE: 09/17/2021 06:26 INDICATION: Left flank pain TECHNIQUE: Computed tomography (CT) of the abdomen and pelvis was performed with 100 cc Omnipaque 350 intravenous contrast. The dose-length product was 604.24 mGy-cm. Automated exposure control and iterative reconstruction technique were employed. COMPARISON: CT dated 01/23/2021. FINDINGS: There is bibasilar dependent atelectasis. No significant pleural or pericardial effusion. N o free air or free fluid. Status post cholecystectomy. Nonobstructive bowel gas pattern. The liver, spleen, pancreas, adrenal glands and kidneys are unremarkable. No free air or free fluid. Uterus is enlarged and heterogeneous, likely due to fibroid changes. No significant vascular abnormal ity. No lymphadenopathy. IMPRESSION: 1. No acute abdominal abnormality. Reviewed, dictated and finalized at location A. [employer] MANAGER
--- NOTE | 2021-09-17 04:45 | ECG_ITS ---
Measurements Intervals [place] Rate: 71 P: 26 NC: 110 QRS: 63 QRSD: 85 T: 49 QT: 414 QTc: 453 Interpretive Statements SINUS RHYTHM WITH SHORT NC INTERVAL MINIMAL Q WAVES- ANTEROLAT/INF LEADS BORDERLINE T WAVE ABNORMALITY- ANTERIOR LEADS BASELINE ARTIFACT- V3 BORDERLINE ECG Electronically Signed On 09-17-2021 7:13:27 [employer] by Brice Garcia D.O.
[2021-09-17] MEDS: SODIUM CHLORIDE 0.9% IV 1,000 ML 999 ML IV CONT (04:56)
[2021-09-17] MEDS: PANTOPRAZOLE SODIUM IV 40 MG VIAL IV PUSH (04:56)
[2021-09-17] MEDS: KETOROLAC 30 MG/ML VIAL (*BKC) IV PUSH (04:56)
[2021-09-17 04:58] VITALS: BP 119/70; PULSE 92; RESP 20; TEMP 36.6; O2SAT 96
--- NOTE | 2021-09-17 05:03 | ED.ABDPAIN ---
HPI - Abdominal Pain General Chief Complaint: Abdominal Pain Stated Complaint: abd/back pain Time Seen by Provider: 09/17/21 04:29 Source: patient, family and RN notes reviewed Mode of arrival: ambulatory Limitations: no limitations History of Present Illness MD elicited complaint: abdominal pain Pertinent past history: constipation Onset (ago): hour(s) (24) Pain Consistency: constant and colicky Location: L flank and suprapubic Severity: moderate Pain scale (0-10): 8 Quality: cramping, aching and fullness Migration to: no migration Exacerbating factors: nothing Relieving factors: nothing Associated symptoms: nausea and constipation Related Data Home Medications Medication Instructions Recorded Confirmed triamterene-hydrochlorothiazid See Rx Instructions .ROUTE .COMPLEX 09/17/21 09/17/21 Allergies Allergy/AdvReac Type Severity Reaction Status Date / Time No Known Allergies Allergy Unknown Verified 07/22/20 15:11 Review of Systems Review of Systems: All systems reviewed & are unremarkable except as noted in HPI and below Gastrointestinal: Gastrointestinal: Reports abdominal pain PMFSH Past Medical History Medical History Anxiety Cholelithiasis (Unknown) Constipation Dysfunctional gallbladder (~06/2020) History of endometriosis History of irritable bowel syndrome Irritable bowel syndrome Mixed Leg pain Marijuana smoker , ectopic, tubal Restless leg syndrome Right sided abdominal pain Smoker Tobacco abuse Surgical History Surgical History History of cholecystectomy History of laparoscopy Several last 1 being today 07/01/2020 History of shoulder surgery History of tonsillectomy History of unilateral salpingectomy Family History Family History Father Diabetes mellitus Family history of alcoholism Family history of mental disorder Mother Hypertension Sibling Breast cancer Social History Social History Social History: The patient has 1 daughter. She has had a tubal in the past. She currently is unemployed. She resides with her boyfriend. She does not have a durable power title attorney for healthcare but is a full code. She smokes about half pack a cigarettes a day. She does smoke marijuana at night to help her rest. She denies any alcohol or other street drugs. Smoking packs per day: 0.5 Smoking cigarettes per day: 10.0 Years smoked: 30 Smoking pack-years: 15.00 Smoking status: Current every day smoker Tobacco type: cigarettes Alcohol intake: never Substance use: current Substance use type: marijuana Gender identity (if verbalized by the patient): Female Spiritual care concerns: No Exam Const: General: no acute distress and alert Nutritional Appearance: well nourished Orientation/consciousness: patient oriented x3 Limitations: no limitations HENMT: Head: normal to inspection Ears: external ears normal, TM's normal bilaterally and EAC's normal General nose exam: Normal external nose present and Normal nares present Face and sinus: normal facial exam and sinuses nontender Mouth: Yes lip normal and Yes moist mucous membranes Teeth and gingiva: dentition normal Throat: posterior oropharynx normal Eyes: Conjunctivae: conjunctivae normal Pupils: Equal, round and reactive pupils present EOM: EOMs intact bilaterally Neck: Neck: normal visual inspection Chest: Chest palpation & inspection: normal inspection of the chest Resp: Effort & Inspection: normal respiratory effort Auscultation: clear to auscultation bilaterally Cardio: Rate: regular rate Rhythm: regular rhythm GI: GI Palp: Yes Soft to palpation and Yes Tenderness to palpation present (GI) (minimally tender left flank to suprapubic abdomen. no acute CVA te
[2021-09-17 05:13] LABS: Basophils Absolute Auto 0.02 K/mm3 (0.00-0.10); Basophils Percent Auto 0.4 % (0.0-1.0); Eosinophils Absolute Auto 0.09 K/mm3 (0.02-0.50); Eosinophils Percent Auto 1.6 % (1.0-6.0); Hematocrit 29.6 % (35.0-49.0); Hemoglobin 8.7 g/dL (12.0-15.0); Immature Granulocyte Absolute 0.01 K/mm3 (0.00-0.00); Immature Granulocyte Percent A 0.2 % (0.0-0.0); Lymphocytes Percent Auto 39.3 % (18.0-42.0); Mean Corpuscular HGB Conc 29.4 g/dL (32.0-36.0); Mean Corpuscular Hemoglobin 20.7 pg (27.0-31.0); Mean Corpuscular Volume 70.5 fL (78.0-102.0); Mean Platelet Volume 10.9 fl (9.2-11.8); Monocytes Absolute Auto 0.54 K/mm3 (0.10-0.90); Monocytes Percent Auto 9.6 % (2.0-11.0); Neutrophils Absolute Auto 2.7 K/mm3 (1.7-7.2); Neutrophils Percent Auto 48.9 % (50.0-70.0); Platelet Count Result 246 K/mm3 (150-420); Red Cell Distribution Width 17.4 % (11.6-14.4); White Blood Count 5.6 K/mm3 (4.8-10.8)
[2021-09-17 05:29] LABS: Alanine Aminotransferase 17 U/L (14-59); Albumin Level 3.2 g/dL (3.4-5.0); Alkaline Phosphatase 70 U/L (46-116); Anion Gap 11 mmol/L (8-16); Aspartate Amino Transferase 11 U/L (15-37); Bilirubin,Total 0.2 mg/dL (0.00-1.00); Blood Urea Nitrogen 10 mg/dL (7-18); Calcium 8.7 mg/dL (8.5-10.1); Carbon Dioxide 25 mmol/L (21-32); Chloride 101 mmol/L (98-108); Estimated CRCL calculation 65 ml/min; Estimated Glomerular Filt Rate > 60; Glucose 97 mg/dL (70-99); Osmolality Calculated 283 mOsm/kg (285-295); Potassium 3.2 mmol/L (3.5-5.1); Sodium 137 mmol/L (136-145); Total Protein 6.8 g/dL (6.4-8.2)
[2021-09-17 05:31] LABS: SARS-CoV-2 Ag Negative (Negative)
[2021-09-17 05:33] LABS: Lactic Acid Reflex 2.4 mmol/L (0.4-2.0)
[2021-09-17 05:50] VITALS: BP 118/70; PULSE 88; RESP 20; O2SAT 97
[2021-09-17 05:53] LABS: Add Urine Microscopic? YES; Appearance Urine Clear (Clear); Bilirubin Urine Negative (Negative); Blood Urine 2+ (Negative); Color Urine Light Yellow (Yellow); Glucose Urine UA Negative (Negative); Ketones Urine Negative (Negative); Leukocyte Esterase Ur Negative LEU/UL (Negative); Nitrate Urine Negative (Negative); Protein Urine Negative (Negative); Specific Grav Ur 1.025 (1.010-1.020); Urobilinogen Urine 0.2 mg/dL (0.2-1.0)
[2021-09-17 05:55] LABS: Pregnancy On Board Control Positive; Urine Pregnancy Test Negative
[2021-09-17 06:00] LABS: Bacteria Urine 1+ /hpf; Squamous Epithelial Cell Urine Few /hpf (Few); WBC Urine 0-3 /hpf (0-3)
[2021-09-17 06:55] VITALS: BP 118/70; PULSE 90; RESP 20; TEMP 36.1; O2SAT 98
[2021-09-17] MEDS: POTASSIUM CHLORIDE 20 MEQ TABLET 40 MEQ PO (07:49)
--- NOTE | 2021-09-17 07:50 | PC.NURSE ---
Pt states at this time she is still having abd pain and SINGER. RN will ask ERP for more medication. Pt is recieved IV abx infusion then will be d/c'd.
[2021-09-17 08:10] LABS: Reflex Lactic Acid Yes or No Add Lactic
[2021-09-17 08:38] VITALS: BP 102/65; PULSE 78; RESP 18; O2SAT 99
[2021-09-17 08:46] LABS: Lactic Acid 0.6 mmol/L (0.4-2.0)
== END 2021-09-17 08:35 | disposition home or self-care (01) ==
PROVIDERS: Emergency Provider Emergency Medicine
DX: E87.6 Hypokalemia (principal); R10.32 Left lower quadrant pain; D25.9 Leiomyoma of uterus, unspecified; N39.0 Urinary tract infection, site not specified; Z20.822 Contact with and (suspected) exposure to COVID-19
CPT/HCPCS: 36415; 74177; 80053; 81001; 81025; 83605; 85025; 87426; 93005; 96361; 96365; 96375; 99284; A9270; C9113; C9803; J0696; J1885; J7030; Q9967

== ENCOUNTER 2021-12-02 17:18 | Emergency (ER) | payer OTHER, SELFPAY ==
[2021-12-02 17:30] VITALS: BP 107/61; PULSE 88; RESP 20; TEMP 36.5; O2SAT 97
[2021-12-02 18:21] LABS: Basophils Absolute Auto 0.03 K/mm3 (0.00-0.10); Basophils Percent Auto 0.3 % (0.0-1.0); Eosinophils Absolute Auto 0.09 K/mm3 (0.02-0.50); Hematocrit 28.3 % (35.0-49.0); Hemoglobin 8.4 g/dL (12.0-15.0); Immature Granulocyte Absolute 0.04 K/mm3 (0.00-0.00); Immature Granulocyte Percent A 0.5 % (0.0-0.0); Lymphocytes Absolute Auto 2.62 K/mm3 (1.10-4.50); Lymphocytes Percent Auto 30.2 % (18.0-42.0); Mean Corpuscular HGB Conc 29.7 g/dL (32.0-36.0); Mean Corpuscular Hemoglobin 20.3 pg (27.0-31.0); Mean Corpuscular Volume 68.5 fL (78.0-102.0); Mean Platelet Volume 11.3 fl (9.2-11.8); Monocytes Absolute Auto 0.76 K/mm3 (0.10-0.90); Monocytes Percent Auto 8.8 % (2.0-11.0); Neutrophils Absolute Auto 5.1 K/mm3 (1.7-7.2); Neutrophils Percent Auto 59.2 % (50.0-70.0); Platelet Count Result 245 K/mm3 (150-420); Red Blood Count 4.13 M/mm3 (4.20-5.40); White Blood Count 8.7 K/mm3 (4.8-10.8)
[2021-12-02] MEDS: ENOXAPARIN 100 MG/ML SYRINGE (18:23)
[2021-12-02] MEDS: IBUPROFEN 400 MG TABLET 800 MG PO (18:27)
[2021-12-02 18:39] LABS: Lactic Acid Reflex 0.6 mmol/L (0.4-2.0)
[2021-12-02 18:45] LABS: Alanine Aminotransferase 14 U/L (14-59); Albumin Level 3.2 g/dL (3.4-5.0); Alkaline Phosphatase 77 U/L (46-116); Anion Gap 6 mmol/L (8-16); Aspartate Amino Transferase 12 U/L (15-37); Bilirubin,Total 0.1 mg/dL (0.00-1.00); Blood Urea Nitrogen 11 mg/dL (7-18); Calcium 8.5 mg/dL (8.5-10.1); Carbon Dioxide 26 mmol/L (21-32); Chloride 105 mmol/L (98-108); Estimated CRCL calculation 61 ml/min; Estimated Glomerular Filt Rate > 60; Glucose 89 mg/dL (70-99); Osmolality Calculated 282 mOsm/kg (285-295); Potassium 3.3 mmol/L (3.5-5.1); Sodium 137 mmol/L (136-145); Total Protein 7.1 g/dL (6.4-8.2)
[2021-12-02] MEDS: FUROSEMIDE INJ 100 MG/10 ML VIAL 80 MG IV PUSH (18:52)
--- NOTE | 2021-12-02 18:56 | ED.EXTPRO ---
HPI - Extremity Problem General Chief complaint: Extremity Problem,Nontraumatic Stated complaint: swelling in legs, red and itchy Time Seen by Provider: 12/02/21 17:20 Source: patient and RN notes reviewed Mode of arrival: ambulatory Limitations: no limitations History of Present Illness Complaint: extremity swelling Onset (ago): week(s) (1) Pain Consistency: constant and other Location: left and lower extremity Severity scale (1-10): 4 Quality: aching and dull Radiation: none Relieving factors: nothing Exacerbating factors: nothing Associated symptoms: denies other symptoms Related Data Home Medications Medication Instructions Recorded Confirmed No Home Medications 12/02/21 12/02/21 Allergies Allergy/AdvReac Type Severity Reaction Status Date / Time No Known Allergies Allergy Unknown Verified 07/22/20 15:11 Review of Systems Review of Systems: All systems reviewed & are unremarkable except as noted in HPI and below PMFSH Past Medical History Medical History Anxiety Cellulitis Cholelithiasis (Unknown) Constipation Dysfunctional gallbladder (~06/2020) Edema History of endometriosis History of irritable bowel syndrome Irritable bowel syndrome Mixed Leg pain Marijuana smoker , ectopic, tubal Restless leg syndrome Right sided abdominal pain Smoker Tobacco abuse Surgical History Surgical History History of cholecystectomy History of laparoscopy Several last 1 being today 07/01/2020 History of shoulder surgery History of tonsillectomy History of unilateral salpingectomy Family History Family History Father Diabetes mellitus Family history of alcoholism Family history of mental disorder Mother Hypertension Sibling Breast cancer Social History Social History Social History: The patient has 1 daughter. She has had a tubal in the past. She currently is unemployed. She resides with her boyfriend. She does not have a durable power security installer for healthcare but is a full code. She smokes about half pack a cigarettes a day. She does smoke marijuana at night to help her rest. She denies any alcohol or other street drugs. Smoking packs per day: 0.5 Smoking cigarettes per day: 10.0 Years smoked: 30 Smoking pack-years: 15.00 Smoking status: Current every day smoker Tobacco type: cigarettes Alcohol intake: never Substance use: current Substance use type: marijuana Gender identity (if verbalized by the patient): Female Spiritual care concerns: No Exam Const: General: no acute distress and alert Nutritional Appearance: well nourished Orientation/consciousness: patient oriented x3 Limitations: no limitations HENMT: Head: normal to inspection Ears: external ears normal, TM's normal bilaterally and EAC's normal General nose exam: Normal external nose present and Normal nares present Face and sinus: normal facial exam and sinuses nontender Eyes: Conjunctivae: conjunctivae normal Pupils: Equal, round and reactive pupils present EOM: EOMs intact bilaterally Neck: Neck: normal visual inspection and no lymphadenopathy Chest: Chest palpation & inspection: normal inspection of the chest Resp: Effort & Inspection: normal respiratory effort Auscultation: clear to auscultation bilaterally Cardio: Rate: regular rate Rhythm: regular rhythm GI: GI Palp: Yes Soft to palpation and No Tenderness to palpation present (GI) Auscultation: normal bowel sounds : General: Yes bladder normal to palpation and Yes no CVA tenderness Back/Spine/Pelvis: Back: no CVA tenderness Skin: General skin exam: normal color Neuro: General: patient oriented x3, moves all extremities, no meningeal signs, no focal motor deficits and CN's II-XI intac
--- NOTE | 2021-12-02 19:23 | PC.NURSE ---
appt for ultrasound arranged at [facility] at 730 am on 12.03.21. pt agrees. order and facesheet sent with pt and faxed to radiology dept at number [phone].
--- NOTE | 2021-12-02 19:27 | PC.NURSE ---
report to TALI chao
[2021-12-02 19:34] VITALS: BP 122/80; PULSE 72; RESP 18; TEMP 37; O2SAT 94
[2021-12-02] MEDS: POTASSIUM CHLORIDE 20 MEQ TABLET 40 MEQ PO (19:39)
--- NOTE | 2021-12-05 14:45 | PC.NURSE ---
[facility] CALLED STATES PATIENT HAS NOT SHOWN UP FOR VENOUS DOPPLER, PCP MADE AWARE.
== END 2021-12-02 19:44 ==
PROVIDERS: Emergency Provider Emergency Medicine; PCP Family Medicine
DX: M79.605 Pain in left leg (principal); R60.0 Localized edema; I82.409 Acute embolism and thrombosis of unspecified deep veins of unspecified lower extremity
CPT/HCPCS: 36415; 80053; 83605; 85025; 96365; 96372; 96375; 99284; A9270; J0696; J1650; J1940

== ENCOUNTER 2022-07-10 00:29 | Emergency (ER) | payer OTHER, SELFPAY ==
--- NOTE | ~2022-07-10 | US_ITS ---
EXAMINATION: US venous doppler [facility] DATE: 07/10/2022 07:57 INDICATION: Lower limb pain and swelling. TECHNIQUE: Grayscale ultrasound images without and with compression and Doppler ultrasound images of the bilateral lower extremity veins were obtained. COMPARISON: Ultrasound 07/02/2020 FINDINGS: The visualized portions of right common femoral vein, profunda (deep) femoral vein, femoral vein, pop liteal vein, peroneal veins, posterior tibial veins, and greater saphenous vein outflow are patent. The visualized portions of left common femoral vein, profunda femoral vein, femoral vein, popliteal v ein, peroneal veins, posterior tibial veins, and greater saphenous vein outflow are patent. IMPRESSION: 1. No deep venous thrombosis. Reviewed, dictated and finalized at location A. SORTER PROCESSOR
--- NOTE | ~2022-07-10 | XR_ITS ---
EXAMINATION: XR chest 2V DATE: 07/10/2022 06:37 INDICATION: Shortness of breath. Cough. TECHNIQUE: Frontal and lateral views of the chest were obtained. COMPARISON: Chest 2 views 05/14/2017 FINDINGS: The chest demonstrates clear lungs without pneumonia, pleural effusion, or pneumothorax. Th e heart size is normal. IMPRESSION: 1. No acute cardiopulmonary disease. Reviewed, dictated and finalized at location A. RAFT RIVETER
[2022-07-10 00:35] VITALS: BP 124/72; PULSE 95; RESP 18; TEMP 36.6; O2SAT 100
[2022-07-10 03:55] VITALS: BP 108/81; PULSE 82; RESP 16; O2SAT 100
[2022-07-10 05:02] VITALS: PULSE 78; RESP 16; O2SAT 100
--- NOTE | 2022-07-10 05:26 | ED.GENADULT ---
HPI - General Adult General Chief complaint: Extremity Problem,Nontraumatic <Sirena Garza MD - Last Filed: 07/13/22 20:03> Stated complaint: Bilateral ankle swelling <Sirena Garza MD - Last Filed: 07/13/22 20:03> Time Seen by Provider: 07/10/22 04:57 <Sirena Garza MD - Last Filed: 07/13/22 20:03> History of Present Illness HPI narrative: Patient is a 46-year-old female presenting with lower extremity swelling. Patient states that for the last couple of years she has had intermittent bilateral lower extremity swelling. States that it seemed to be doing better until about 3 days ago and they again became swollen and very painful. States that they are very tender to the touch. States that they also look slightly red and feel warm. Patient also complains of a cough and some shortness of breath. She denies chest pain. Reports subjective fevers. Patient also complains that she has had very heavy menstrual periods for the last several years. States that sometimes she feels lightheaded. No headache, numbness, weakness, diarrhea, dysuria. <Sirena Garza MD - Last Filed: 07/13/22 20:03> Related Data Home medications: Home Medications Medication Instructions Recorded Confirmed No Home Medications 12/02/21 12/02/21 <Sirena Garza MD - Last Filed: 07/13/22 20:03> Allergies/adverse reactions: Allergies Allergy/AdvReac Type Severity Reaction Status Date / Time No Known Allergies Allergy Unknown Verified 07/10/22 03:38 <Sirena Garza MD - Last Filed: 07/13/22 20:03> Review of Systems Review of Systems: All systems reviewed & are unremarkable except as noted in HPI and below <Sirena Garza MD - Last Filed: 07/13/22 20:03> PMF Past Medical History Medical History: Medical History Anxiety Cellulitis Cholelithiasis (Unknown) Constipation Dysfunctional gallbladder (~06/2020) Edema History of endometriosis History of irritable bowel syndrome Irritable bowel syndrome Mixed Leg pain Marijuana smoker , ectopic, tubal Restless leg syndrome Right sided abdominal pain Smoker Tobacco abuse <Sirena Garza MD - Last Filed: 07/13/22 20:03> Surgical History Surgical History: Surgical History History of cholecystectomy History of laparoscopy Several last 1 being today 07/01/2020 History of shoulder surgery History of tonsillectomy History of unilateral salpingectomy <Sirena Garza MD - Last Filed: 07/13/22 20:03> Family History Family History: Family History Father Diabetes mellitus Family history of alcoholism Family history of mental disorder Mother Hypertension Sibling Breast cancer <Sirena Garza MD - Last Filed: 07/13/22 20:03> Social History Social History: Social History Social History: The patient has 1 daughter. She has had a tubal in the past. She currently is unemployed. She resides with her boyfriend. She does not have a durable power contract attorney for healthcare but is a full code. She smokes about half pack a cigarettes a day. She does smoke marijuana at night to help her rest. She denies any alcohol or other street drugs. Smoking packs per day: 0.5 Smoking cigarettes per day: 10.0 Years smoked: 30 Smoking pack-years: 15.00 Smoking status: Current every day smoker Tobacco type: cigarettes Alcohol intake: never Substance use: current Substance use type: marijuana Gender identity (if verbalized by the patient): Female Spiritual care concerns: No <Sirena Garza MD - Last Filed: 07/13/22 20:03> Exam Narrative: GENERAL: Well-appearing, well-nourished, and in no acute distress. HEAD: Normocephalic, atra
--- NOTE | 2022-07-10 05:29 | ECG_ITS ---
Measurements Intervals [place] Rate: 67 P: 19 VA: 121 QRS: 67 QRSD: 80 T: 49 QT: 404 QTc: 427 Interpretive Statements SINUS RHYTHM NORMAL ECG COMPARED TO ECG 09/17/2021 05:24:44 NO SIGNIFICANT CHANGES Electronically Signed On 07-10-2022 10:49:41 ULTRASOUND APPLICATIONS SPECIALIST by Brice Garcia D.O.
[2022-07-10] MEDS: SODIUM CHLORIDE 0.9% IV 1,000 ML 999 ML IV CONT ×2 (05:43→07:57)
[2022-07-10] MEDS: KETOROLAC 15 MG/ML VIAL (*BKC) IV PUSH (05:44)
[2022-07-10 05:53] LABS: Basophils Percent Auto 0.7 % (0.2-1.2); Eosinophils Absolute Auto 0.1 K/mm3 (0-0.3); Eosinophils Percent Auto 2.2 % (0-4.4); Hematocrit 26.4 % (37.0-47.0); Hemoglobin 7.5 g/dL (12.0-15.0); Immature Granulocyte Absolute 0.01 K/mm3 (0.00-0.031); Immature Granulocyte Percent A 0.2 % (0-0.5); Lymphocytes Percent Auto 32.7 % (18.3-44.2); Mean Corpuscular HGB Conc 28.4 g/dl (32-36); Mean Corpuscular Hemoglobin 20.2 pg (26-34); Mean Platelet Volume 11.6 fl (7.4-10.4); Monocytes Absolute Auto 0.6 K/mm3 (0.1-0.6); Monocytes Percent Auto 10.4 % (2.6-8.5); Neutrophils Percent Auto 53.8 % (45.5-73.1); Platelet Count Result 265 k/mm3 (150-375); Red Blood Count 3.72 M/mm3 (4.2-5.4); Red Cell Distribution Width 17.4 % (11.5-14.5); White Blood Count 5.5 K/mm3 (4.5-10.0)
[2022-07-10 05:57] LABS: Appearance Urine Clear (Clear); Bilirubin Urine Negative (Negative); Blood Urine Trace-lysed (Negative); Color Urine Yellow (Yellow); Glucose Urine UA Negative (Negative); Ketones Urine Negative (Negative); Leukocyte Esterase Ur 1+ LEU/UL (Negative); Nitrate Urine Negative (Negative); Protein Urine Negative (Negative); Urobilinogen Urine 0.2 mg/dL (<2.0); pH Urine 6.5 (5.0-9.0)
[2022-07-10 06:00] LABS: Mucus Urine Rare /lpf; RBC Urine 0-2 /hpf (0-2); Squamous Epithelial Cell Urine Rare /hpf (Few); WBC Urine 0-3 /hpf
[2022-07-10 06:01] LABS: Pregnancy On Board Control Positive; Urine Pregnancy Test Negative
[2022-07-10 06:02] LABS: Add Urine Microscopic? YES
[2022-07-10 06:06] LABS: Alanine Aminotransferase 14 U/L (6-35); Albumin Level 3.9 g/dL (3.5-5.1); Alkaline Phosphatase 64 U/L (38-126); Anion Gap 8 mmol/L (8-16); Aspartate Amino Transferase 20 U/L (14-36); Bilirubin,Total 0.2 mg/dL (0.2-1.3); Blood Urea Nitrogen 10 mg/dL (7-17); Calcium 8.8 mg/dL (8.4-10.2); Carbon Dioxide 27 mmol/L (22-30); Chloride 104 mmol/L (98-107); Estimated Glomerular Filt Rate > 60; Glucose 101 mg/dL (65-110); Potassium 3.9 mmol/L (3.4-5.0); Sodium 139 mmol/L (137-145)
[2022-07-10 06:15] LABS: Platelet Estimate Adequate (Adequate)
[2022-07-10 06:16] LABS: Anisocytosis 2+ (NORMAL); Hypochromasia 2+ (NORMAL); Ovalocytes 2+ (NORMAL); Schistocytes None Seen (NORMAL); Stomatocytes 1+ (NORMAL); Tear Drop Cells 1+ (NORMAL)
[2022-07-10 06:20] LABS: NT Pro B Type Natriuretic Pept 54 pg/mL (5-100); Troponin I < 0.012 ng/mL (0.000-0.034)
[2022-07-10 06:36] LABS: Influenza A QL RT-PCR Negative (Negative); Influenza B QL RT-PCR Negative (Negative); SARS-CoV-2 RNA PCR Negative
[2022-07-10 08:01] VITALS: BP 93/60; PULSE 77; RESP 18; O2SAT 100
[2022-07-10 09:02] VITALS: BP 100/68; PULSE 71; RESP 18; O2SAT 99
[2022-07-10 09:23] LABS: Troponin I < 0.012 ng/mL (0.000-0.034)
== END 2022-07-10 09:20 | disposition home or self-care (01) ==
PROVIDERS: Emergency Medicine; Emergency Provider Family Medicine
DX: R60.0 Localized edema (principal); D50.0 Iron deficiency anemia secondary to blood loss (chronic); Z20.822 Contact with and (suspected) exposure to COVID-19; K58.2 Mixed irritable bowel syndrome; N80.9 Endometriosis, unspecified; G25.81 Restless legs syndrome; Z90.79 Acquired absence of other genital organ(s); F17.210 Nicotine dependence, cigarettes, uncomplicated
CPT/HCPCS: 36415; 71046; 80053; 81001; 81025; 83880; 84484; 85025; 85380; 87636; 93005; 93970; 96361; 96374; 99284; J1885; J7030

== ENCOUNTER 2022-07-30 02:11 | Emergency (ER) | payer OTHER, SELFPAY ==
--- NOTE | ~2022-07-30 | CT_ITS ---
EXAMINATION: CT abdomen pelvis w con INDICATION: Abdominal pain TECHNIQUE: Computed tomographic images of the abdomen and pelvis were obtained after the administrati on of 100 cc of Omnipaque 350 intravenous contrast. The dose-length product (DLP) was 558.34 mGy-cm. Automated exposure control and iterative reconstruction technique were employed. COMPARISON: 09/17/2021 FINDINGS: The lung bases are clear. The heart size is normal. The gallbladder is surgically absent. T here is a 9 mm cyst left hepatic lobe. Punctate calcifications in an otherwise normal spleen likely r epresent healed granulomatous disease. The pancreas, and adrenal glands are normal the kidneys are un remarkable. No pathologically enlarged abdominal or pelvic lymph nodes are identified. There is a lar ge volume of stool in the cecum. The terminal ileum is upper limits of normal in caliber. There is a small volume of free fluid in the pelvis, physiologic. There is no free intraperitoneal gas. Trace fo ci of gas are present in the urinary bladder. IMPRESSION: 1. Large volume of impacted stool in the cecum. Reviewed, dictated and finalized at location A. O FLOATER
[2022-07-30 02:11] VITALS: BP 125/80; PULSE 97; RESP 20; TEMP 36.7; O2SAT 100
--- NOTE | 2022-07-30 02:17 | ED.ABDPAIN ---
HPI - Abdominal Pain General Chief Complaint: Abdominal Pain Stated Complaint: Severe Cramping Time Seen by Provider: 07/30/22 02:17 Source: patient Mode of arrival: ambulatory History of Present Illness HPI narrative: 41-year-old female marijuana use endometriosis status post multiple diagnostic laparoscopy, people pregnancies status post tubal ligation, cholecystitis/ gallstones status post cholecystectomy, IBS, chronic leg swelling, chronic anemia presents to the ER with an 8 hour history of -- lower abdominal pain. The pain is a continuous without any exacerbating or relieving factors. No dysuria or hematuria. -- Multiple loose stools over the past one day. No fever. No nausea/ vomiting. MD elicited complaint: abdominal pain Onset (ago): hour(s) ( Started 8 hours ago with some resolution. Pain recurred 2 hours ago.) Pain Consistency: constant Location: diffuse and suprapubic Severity: severe Quality: aching Radiation: suprapubic Migration to: no migration Exacerbating factors: nothing Relieving factors: nothing Associated symptoms: nausea and diarrhea Related Data Date of Last Menstrual Period: 07/29/22 Patient : No Allergies Allergy/AdvReac Type Severity Reaction Status Date / Time No Known Allergies Allergy Unknown Verified 07/30/22 02:16 Review of Systems Review of Systems: All systems reviewed & are unremarkable except as noted in HPI and below Constitutional: Constitutional: Reports as per HPI and Reports no additional constitutional complaints Eyes: Eyes: Reports as per HPI and Reports no additional eye complaints ENT: Reports system reviewed and no additional complaints, except as documented and Reports as per HPI Cardiovascular: Cardiovascular: Reports as per HPI and Reports no additional cardiovascular complaints Respiratory: Respiratory: Reports as per HPI and Reports no additional respiratory complaints Gastrointestinal: Gastrointestinal: Reports as per HPI, Reports no additional gastrointestinal complaints, Reports abdominal pain, Reports diarrhea and Reports nausea Genitourinary: Genitourinary: Reports no additional female genitourinary complaints and Reports as per HPI Musculoskeletal: Musculoskeletal: Reports no additional musculoskeletal complaints and Reports as per HPI Integumentary/Breasts: Skin/Breast: Reports system reviewed and no additional complaints, except as docu and Reports as per HPI Neurologic: Reports system reviewed and no additional complaints, except as documented and Reports as per HPI Psychiatric: Psychiatric: Reports no additional psychiatric complaints and Reports as per HPI Endocrine: Endocrine: Reports no additional endocrine complaints and Reports as per HPI Hematologic/Lymphatic: Hematologic/Lymphatic: Reports no additional hematologic/lymphatic complaints and Reports as per HPI Allergic/Immunologic: Allergic/Immunologic: Reports no additional allergic/immunologic complaints and Reports as per HPI PMFSH Past Medical History Medical History Anxiety Cellulitis Cholelithiasis (Unknown) Constipation Dysfunctional gallbladder (~06/2020) Edema History of endometriosis History of irritable bowel syndrome Irritable bowel syndrome Mixed Leg pain Marijuana smoker , ectopic, tubal Restless leg syndrome Right sided abdominal pain Smoker Tobacco abuse Surgical History Surgical History History of cholecystectomy History of laparoscopy Several last 1 being today 07/01/2020 History of shoulder surgery History of tonsillectomy History of unilateral salpingectomy Family History Family History Father Diabetes mellitus Family history of alcoholism Family history of mental disorder Mother Hypertension Sibling Breast cancer Social History Social History (Reviewed 07/13
[2022-07-30] MEDS: LACTATED RINGERS 1,000 ML 999 ML IV CONT (02:45)
[2022-07-30] MEDS: HYDROmorphone HCL INJ (*CRX) 2 MG/ML VIAL 0.5 MG IV PUSH ×2 (02:47→04:05)
[2022-07-30] MEDS: ONDANSETRON INJ 4 MG/2 ML VIAL IV PUSH (02:48)
[2022-07-30 02:52] LABS: Basophils Absolute Auto 0.04 K/mm3 (0.00-0.10); Basophils Percent Auto 0.4 % (0.0-1.0); Eosinophils Absolute Auto 0.13 K/mm3 (0.02-0.50); Eosinophils Percent Auto 1.3 % (1.0-6.0); Hematocrit 25.4 % (35.0-49.0); Hemoglobin 7.3 g/dL (12.0-15.0); Immature Granulocyte Absolute 0.04 K/mm3 (0.00-0.00); Immature Granulocyte Percent A 0.4 % (0.0-0.0); Lymphocytes Percent Auto 24.1 % (18.0-42.0); Mean Corpuscular HGB Conc 28.7 g/dL (32.0-36.0); Mean Corpuscular Hemoglobin 19.9 pg (27.0-31.0); Mean Corpuscular Volume 69.2 fL (78.0-102.0); Mean Platelet Volume 11.7 fl (9.2-11.8); Monocytes Absolute Auto 0.83 K/mm3 (0.10-0.90); Neutrophils Absolute Auto 6.9 K/mm3 (1.7-7.2); Neutrophils Percent Auto 65.8 % (50.0-70.0); Platelet Count Result 255 K/mm3 (150-420); Red Blood Count 3.67 M/mm3 (4.20-5.40); Red Cell Distribution Width 16.6 % (11.6-14.4); White Blood Count 10.4 K/mm3 (4.8-10.8)
[2022-07-30 03:03] LABS: Prothrombin Time 11.4 Seconds (9.50-12.10)
[2022-07-30 03:09] LABS: Alanine Aminotransferase 12 U/L (14-59); Albumin Level 3.2 g/dL (3.4-5.0); Alkaline Phosphatase 62 U/L (46-116); Anion Gap 8 mmol/L (8-16); Aspartate Amino Transferase < 10 U/L (15-37); Bilirubin,Total 0.2 mg/dL (0.00-1.00); Blood Urea Nitrogen 9 mg/dL (7-18); Calcium 8.1 mg/dL (8.5-10.1); Carbon Dioxide 24 mmol/L (21-32); Chloride 106 mmol/L (98-108); Estimated CRCL calculation 69 ml/min; Estimated Glomerular Filt Rate > 60; Glucose 116 mg/dL (70-99); Lipase 73 U/L (16-77); Osmolality Calculated 285 mOsm/kg (285-295); Potassium 3.6 mmol/L (3.5-5.1); Sodium 138 mmol/L (136-145); Total Protein 6.8 g/dL (6.4-8.2)
[2022-07-30 03:10] LABS: Troponin I < 4.0 ng/L (0.00-60.4)
[2022-07-30 03:34] LABS: Add Urine Microscopic? YES; Appearance Urine Clear (Clear); Bilirubin Urine Negative (Negative); Blood Urine 2+ (Negative); Color Urine Light Yellow (Yellow); Glucose Urine UA Negative (Negative); Ketones Urine Negative (Negative); Leukocyte Esterase Ur Trace LEU/UL (Negative); Nitrate Urine Negative (Negative); Protein Urine Negative (Negative); Urobilinogen Urine 0.2 mg/dL (0.2-1.0)
[2022-07-30 03:43] VITALS: BP 106/74; PULSE 73; RESP 18; O2SAT 99
[2022-07-30 03:44] LABS: Amorphous Sediment Urine Few; Bacteria Urine 1+ /hpf; Mucus Urine Moderate /lpf; Squamous Epithelial Cell Urine Many /hpf (Few); WBC Urine 0-3 /hpf (0-3)
--- NOTE | 2022-07-30 03:59 | PC.NURSE ---
X-ray tech called asking for a test. Pt states she had a tubal to her left side but not her right side. RN calls ERP. ERP orders a urine test. RN confirms order and places.
[2022-07-30 04:09] LABS: Pregnancy On Board Control Positive; Urine Pregnancy Test Negative
[2022-07-30 05:08] VITALS: BP 107/70; PULSE 75; RESP 20; TEMP 36.3; O2SAT 98
== END 2022-07-30 05:12 | disposition home or self-care (01) ==
PROVIDERS: Emergency Provider Internal Medicine Critical Care Medicine
DX: D50.8 Other iron deficiency anemias (principal); R10.30 Lower abdominal pain, unspecified; N80.9 Endometriosis, unspecified; F17.210 Nicotine dependence, cigarettes, uncomplicated; Z90.49 Acquired absence of other specified parts of digestive tract
CPT/HCPCS: 36415; 74177; 80053; 81001; 81025; 83605; 83690; 84484; 85025; 85610; 96361; 96374; 96375; 96376; 99284; J1170; J2405; J7120; Q9967

== ENCOUNTER 2023-02-08 11:45 | Outpatient (CLI) | payer OTHER, SELFPAY ==
[2023-02-08 12:00] LABS: Basophils Absolute Auto 0.07 K/mm3 (0.00-0.10); Basophils Percent Auto 0.9 % (0.0-1.0); Eosinophils Absolute Auto 0.35 K/mm3 (0.02-0.50); Eosinophils Percent Auto 4.4 % (1.0-6.0); Hematocrit 29.8 % (35.0-49.0); Hemoglobin 8.4 g/dL (12.0-15.0); Immature Granulocyte Absolute 0.02 K/mm3 (0.00-0.00); Immature Granulocyte Percent A 0.3 % (0.0-0.0); Lymphocytes Absolute Auto 1.78 K/mm3 (1.10-4.50); Lymphocytes Percent Auto 22.5 % (18.0-42.0); Mean Corpuscular HGB Conc 28.2 g/dL (32.0-36.0); Mean Corpuscular Hemoglobin 19.8 pg (27.0-31.0); Mean Corpuscular Volume 70.3 fL (78.0-102.0); Mean Platelet Volume 10.8 fl (9.2-11.8); Monocytes Percent Auto 6.3 % (2.0-11.0); Neutrophils Absolute Auto 5.2 K/mm3 (1.7-7.2); Neutrophils Percent Auto 65.6 % (50.0-70.0); Platelet Count Result 313 K/mm3 (150-420); Red Blood Count 4.24 M/mm3 (4.20-5.40); Red Cell Distribution Width 19.1 % (11.6-14.4); White Blood Count 7.9 K/mm3 (4.8-10.8)
[2023-02-08 12:29] LABS: Creatinine Urine 166.64 mg/dL (40-278); MALB Creatinine Ratio 13.6 mg/g (0-30); Microalbumin Urine Random 22.8 mg/L
[2023-02-08 12:58] LABS: Alanine Aminotransferase 17 U/L (14-59); Alkaline Phosphatase 63 U/L (46-116); Anion Gap 10 mmol/L (8-16); Aspartate Amino Transferase 18 U/L (15-37); Bilirubin,Total 0.2 mg/dL (0.00-1.00); Blood Urea Nitrogen 11 mg/dL (7-18); Calcium 8.6 mg/dL (8.5-10.1); Carbon Dioxide 25 mmol/L (21-32); Chloride 105 mmol/L (98-108); Estimated Glomerular Filt Rate > 60; Ferritin 3 ng/mL (8-252); Glucose 100 mg/dL (70-99); Iron 11 ug/dL (50-170); Osmolality Calculated 289 mOsm/kg (285-295); Percent Iron Saturation 3 % (12-57); Potassium 3.9 mmol/L (3.5-5.1); Sodium 140 mmol/L (136-145); Total Protein 8.2 g/dL (6.4-8.2)
== END 2023-02-08 11:46 | disposition home or self-care (01) ==
LOC: CHSLAB 11:47
PROVIDERS: PCP Family Medicine; Visit Provider Family Medicine
DX: R60.0 Localized edema (principal); D50.0 Iron deficiency anemia secondary to blood loss (chronic)
CPT/HCPCS: 36415; 80053; 82043; 82728; 83540; 83550; 85025

== ENCOUNTER 2023-02-21 13:48 | Outpatient (CLI) | payer OTHER, SELFPAY ==
--- NOTE | 2023-02-21 13:55 | PC.NURSE ---
Here for OP iron infusion, taken to 202, call light given
[2023-02-21 14:00] VITALS: BP 109/66; PULSE 80; RESP 18; TEMP 36.2; O2SAT 95
[2023-02-21] MEDS: IRON SUCROSE COMPLEX 200 MG in SODIUM CHLORIDE 0.9% IV 250 ML 250 MG IVPB (14:07)
--- NOTE | 2023-02-21 14:10 | PC.NURSE ---
iron infusion, running at lower rate per patient choice, states worried if goes in too fast, advised we would monitor her for any reactions
--- NOTE | 2023-02-21 16:59 | PC.NURSE ---
Patient sleeping soundly in chair when nurse came in to check on her and IV fluids running. IV fluids completed. IV site flushed without difficulty. IV removed intact. Pressure applied to site until no active bleeding observed. Dressing applied to site and instructions on care given. Patient ambulated to car without difficulty.
== END 2023-02-21 13:49 | disposition home or self-care (01) ==
LOC: CHSTREATRM 13:49
PROVIDERS: PCP Family Medicine; Visit Provider Family Medicine
DX: D50.9 Iron deficiency anemia, unspecified (principal)
CPT/HCPCS: 96365; 96366; J1756; J7050

== ENCOUNTER 2023-02-26 13:29 | Outpatient (CLI) | payer OTHER, SELFPAY ==
--- NOTE | 2023-02-26 13:41 | PC.NURSE ---
Here for op infusion, to room 202
[2023-02-26 13:49] VITALS: BP 106/64; PULSE 70; RESP 18; TEMP 36.1; O2SAT 95
[2023-02-26] MEDS: IRON SUCROSE COMPLEX 200 MG in SODIUM CHLORIDE 0.9% IV 250 ML 250 MG IVPB (14:00)
[2023-02-26 14:06] VITALS: BMI 26.0
--- NOTE | 2023-02-26 17:12 | PC.NURSE ---
IV infusion completed. IV discontinued intact, no redness, swelling observed. Patient tolerated well. Ambulated without difficulty to vehicle.
== END 2023-02-26 13:30 | disposition home or self-care (01) ==
LOC: CHSLAB 13:32 → CHSTREATRM 13:34
PROVIDERS: PCP Family Medicine; Visit Provider Family Medicine
DX: D50.9 Iron deficiency anemia, unspecified (principal)
CPT/HCPCS: 96365; J1756; J7050

== ENCOUNTER 2023-03-03 03:07 | Emergency (ER) | payer OTHER, SELFPAY ==
[2023-03-03 03:07] VITALS: BP 140/92; PULSE 100; RESP 20; TEMP 36.6; O2SAT 99
--- NOTE | 2023-03-03 03:23 | ED.DENTAL ---
HPI - Dental/Oral General Chief complaint: Dental/Oral Stated complaint: pain Time Seen by Provider: 03/03/23 03:23 Source: patient and RN notes reviewed Mode of arrival: ambulatory Limitations: no limitations History of Present Illness Complaint: tooth pain Location: Tooth # (27, 28) Onset (ago): day(s) (2) Duration: constant Severity: moderate Relieving factors: nothing Exacerbating factors: chewing Context: history of dental caries Associated symptoms: gum swelling Treatment prior to arrival: none Related Data Allergies Allergy/AdvReac Type Severity Reaction Status Date / Time No Known Allergies Allergy Unknown Verified 02/08/23 07:57 Review of Systems Review of Systems: All systems reviewed & are unremarkable except as noted in HPI and below PMFSH Past Medical History Medical History Anxiety Cellulitis Cholelithiasis (Unknown) Constipation Dysfunctional gallbladder (~06/2020) Edema History of endometriosis History of irritable bowel syndrome Irritable bowel syndrome Mixed Leg pain Marijuana smoker , ectopic, tubal Restless leg syndrome Right sided abdominal pain Smoker Tobacco abuse Surgical History Surgical History History of cholecystectomy History of laparoscopy Several last 1 being today 07/01/2020 History of shoulder surgery History of tonsillectomy History of unilateral salpingectomy Family History Family History Father Diabetes mellitus Family history of alcoholism Family history of mental disorder Mother Hypertension Sibling Breast cancer Social History Social History Social History: The patient has 1 daughter. She has had a tubal in the past. She currently is unemployed. She resides with her boyfriend. She does not have a durable power securities attorney for healthcare but is a full code. She smokes about half pack a cigarettes a day. She does smoke marijuana at night to help her rest. She denies any alcohol or other street drugs. Smoking packs per day: 0.5 Smoking cigarettes per day: 10.0 Years smoked: 30 Smoking pack-years: 15.00 Smoking status: Current every day smoker Tobacco type: cigarettes Alcohol intake: never Substance use: current Substance use type: marijuana Living arrangements: with friend(s) Occupation/Education: unemployed Gender identity (if verbalized by the patient): Female Spiritual care concerns: No Exam Const: General: healthy appearing Nutritional Appearance: well nourished and obese Orientation/consciousness: patient oriented x3 Limitations: no limitations Other: female nurse in room during examination. HENMT: Head: normal to inspection Ears: external ears normal Face/Nose/Sinus: Normal external nose present and edema ( Right mandible) Mouth: Yes moist mucous membranes Teeth and gingiva: caries and poor dentition Teeth image: 1. broken teeth with dental caries surrounding edema of the gumline 2. broken tooth with surrounding edema erythema no abscess collection Throat: posterior oropharynx normal Eyes: Conjunctivae: conjunctivae normal Pupils: Equal, round and reactive pupils present EOM: EOMs intact bilaterally Neck: Neck: normal visual inspection and no lymphadenopathy Resp: Effort & Inspection: normal respiratory effort Auscultation: clear to auscultation bilaterally Cardio: Rate: regular rate Rhythm: regular rhythm GI: Auscultation: normal bowel sounds Back/Spine/Pelvis: Cervical Spine: cervical ROM normal Thoracic/Lumbar Spine: thoraco-lumbar ROM normal Skin: General skin exam: normal color Rashes: no rashes Neuro: General: patient oriented x3, moves all extremities, no focal motor deficits and CN's II-XI intact bilaterally Speech: normal speech Gait e
[2023-03-03] MEDS: AMOXICILLIN 500 MG CAPSULE PO (03:25)
[2023-03-03] MEDS: KETOROLAC (*BKC) 60 MG/2 ML VIAL IM (03:25)
[2023-03-03 03:43] VITALS: BP 140/78; PULSE 88; RESP 20; TEMP 37.2; O2SAT 96
== END 2023-03-03 03:44 | disposition home or self-care (01) ==
PROVIDERS: Emergency Provider Emergency Medicine; PCP Family Medicine
DX: K04.7 Periapical abscess without sinus (principal)
CPT/HCPCS: 96372; 99283; A9270; J1885

== ENCOUNTER 2023-04-02 07:49 | Outpatient (CLI) | payer OTHER, SELFPAY ==
--- NOTE | 2023-04-02 07:53 | ECHO_ITS ---
Patient Info Name: Alpa Echevarria Age: 47 years : 1975 Gender: Female Ht: 65 in Wt: 155 lbs BSA: 1.81 m2 HR: 69 bpm BP: 117 / 75 mmHg Heart Rhythm: Sinus Rhythm Technical Quality: Fair Exam Date: 04/02/2023 7:45 AM Exam Location: [facility] Patient Status: Outpatient Admit Date: 04/02/2023 Staff Ordering Physician: Robert Dodge DO Cashier Payments Received: Alis Faye RDCS Attending Provider: Robert Dodge DO Referring Physician: Echo CHILDS; Exam Type: CA echo doppler color flow Study Info Indications - other cardiac sounds Complete two-dimensional, color flow and Doppler transthoracic echocardiogram is performed. Summary 1. Complete two-dimensional, color flow and Doppler transthoracic echocardiogram is performed. 2. Left ventricular chamber dimension is normal. 3. Left ventricular systolic function is normal, estimated at 60-65%. 4. The left ventricular diastolic function is normal. 5. E/e' 9 is minimally elevated. 6. There is trace tricuspid valve regurgitation. 7. No pulmonary hypertension, estimated pulmonary arterial systolic pressure is 21 mmHg. Left Ventricle E/e' 9 is minimally elevated. Left ventricular chamber dimension is normal. Left ventricular systolic function is normal, estimated at 60-65%. The left ventricular diastolic function is normal. Right Ventricle Right ventricular systolic function is normal and with normal TAPSE 2.2 cm. Right ventricular chamber dimension is normal. Left Atria Left atrial chamber dimension is normal. Right Atria Right atrial chamber dimension is normal. Aortic Valve The aortic valve is trileaflet. There is no aortic valve stenosis. There is no aortic valve regurgitation. Pulmonic Valve There is no pulmonic regurgitation. Mitral Valve There is no mitral valve stenosis. There is no mitral valve regurgitation. Tricuspid Valve There is trace tricuspid valve regurgitation. No pulmonary hypertension, estimated pulmonary arterial systolic pressure is 21 mmHg. Pericardium/Pleural There is no pericardial effusion. Inferior Vena Cava Normal inferior vena cava with >50% collapse upon inspiration consistent with normal right atrial pressure, 5 mmHg. Aorta The aortic root size at the sinus of Valsalva is normal. Left Ventricular Outflow Tract Name Value Normal LVOT 2D LVOT Diameter 2.0 cm LVOT Doppler LVOT Peak Velocity 117 cm/s LVOT Peak Gradient 5 mmHg LVOT Mean Gradient 3 mmHg LVOT VTI 23 cm LVOT VTI/AV VTI Ratio 0.8 LVOT Stroke Volume 70 ml Pulmonic Valve Name Value Normal RVOT Doppler RVOT Peak Gradient 2 mmHg PV Doppler PV Peak Velocity 85 cm/s PV Peak Grad
== END 2023-04-02 07:50 | disposition home or self-care (01) ==
LOC: CHSIMG 07:50
PROVIDERS: PCP Family Medicine; Visit Provider Family Medicine
DX: R01.2 Other cardiac sounds (principal)
CPT/HCPCS: 93306

== ENCOUNTER 2023-10-29 23:35 | Emergency (ER) | payer OTHER, SELFPAY ==
[2023-10-29 23:50] VITALS: BP 115/68; PULSE 88; RESP 16; TEMP 36.3; O2SAT 100
[2023-10-30 01:03] LABS: Basophils Percent Auto 0.6 % (0.2-1.2); Eosinophils Absolute Auto 0.1 K/mm3 (0-0.3); Eosinophils Percent Auto 1.3 % (0-4.4); Hematocrit 31.2 % (37.0-47.0); Hemoglobin 8.8 g/dL (12.0-15.0); Immature Granulocyte Absolute 0.02 K/mm3 (0.00-0.031); Immature Granulocyte Percent A 0.3 % (0-0.5); Immature Platelet Fraction Pct 8.9 % (0.9-11.2); Lymphocytes Absolute Auto 2.05 K/mm3 (0.9-3.2); Lymphocytes Percent Auto 30.6 % (18.3-44.2); Mean Corpuscular HGB Conc 28.2 g/dl (32-36); Mean Corpuscular Volume 67.4 fl (80-100); Monocytes Absolute Auto 0.6 K/mm3 (0.1-0.6); Monocytes Percent Auto 8.3 % (2.6-8.5); Neutrophils Percent Auto 58.9 % (45.5-73.1); Platelet Count Result 254 k/mm3 (150-375); Red Blood Count 4.63 M/mm3 (4.2-5.4); Red Cell Distribution Width 18.7 % (11.5-14.5); White Blood Count 6.7 K/mm3 (4.5-10.0)
[2023-10-30 01:11] LABS: Anion Gap 4 mmol/L (8-16); Blood Urea Nitrogen 13 mg/dL (7-17); Calcium 9.3 mg/dL (8.4-10.2); Carbon Dioxide 27 mmol/L (22-30); Chloride 106 mmol/L (98-107); Estimated CRCL calculation 77 ml/min; Estimated Glomerular Filt Rate > 60; Glucose 102 mg/dL (65-110); Sodium 137 mmol/L (137-145)
[2023-10-30 01:16] LABS: INR 1.1
[2023-10-30 01:29] LABS: Hypochromasia 1+; Large Platelets Present; Ovalocytes 1+; Platelet Estimate Adequate (Adequate); Poikilocytosis 1+; Schistocytes None Seen
[2023-10-30 01:30] LABS: D Dimer 0.29 ug/mL (<0.48)
--- NOTE | 2023-10-30 02:24 | ED.EXTPRO ---
HPI - Extremity Problem General Chief complaint: Extremity Problem,Nontraumatic Stated complaint: right leg swelling/warmth/pain Time Seen by Provider: 10/30/23 02:13 Source: patient Mode of arrival: ambulatory Limitations: no limitations History of Present Illness HPI Narrative: This is a 48-year-old female with PMH of endometriosis, anemia who presents to the ED with chief complaint of right lower extremity redness and swelling for the past couple of days. Reports she had cellulitis in past this feels similar. She is here to make sure it is. Reports redness that is spreading the lateral ankle to the [place] calf. States the area is quite tender and to touch. Denies fevers, chills, nausea, vomiting, chest pain, shortness of breath. Related Data Allergies Allergy/AdvReac Type Severity Reaction Status Date / Time No Known Allergies Allergy Unknown Verified 05/11/23 10:49 Review of Systems Review of Systems: All systems as dictated in HPI PMFSH Past Medical History Medical History Anxiety Cellulitis Cholelithiasis (Unknown) Constipation Dysfunctional gallbladder (~06/2020) Edema History of endometriosis History of irritable bowel syndrome Irritable bowel syndrome Mixed Leg pain Marijuana smoker , ectopic, tubal Restless leg syndrome Right sided abdominal pain Smoker Tobacco abuse Surgical History Surgical History H/O LEEP History of cholecystectomy History of hysteroscopy (06/17/15) History of laparoscopy Several last 1 being today 07/01/2020/ 05/13/2015 Laparoscopy - endocx polyp, right ovarian cys History of shoulder surgery (04/13/13) right shoulder History of tonsillectomy History of unilateral salpingectomy Family History Family History Father Diabetes mellitus Family history of alcoholism Family history of mental disorder Mother Hypertension Sibling Breast cancer Social History Social History (Updated 05/11/23 @ 10:53 by EVE Gonzalez) Social History: The patient has 1 daughter. She has had a tubal in the past. She currently is unemployed. She resides with her boyfriend. She does not have a durable power assistant county attorney for healthcare but is a full code. She smokes about half pack a cigarettes a day. She does smoke marijuana at night to help her rest. She denies any alcohol or other street drugs. Smoking packs per day: 0.5 Smoking cigarettes per day: 10.0 Years smoked: 30 Smoking pack-years: 15.00 Smoking status: Current every day smoker Tobacco type: cigarettes Alcohol intake: never Substance use: current Substance use type: marijuana Lack of Transportation: No Lack of Food: Sometimes True Current Housing: I Do Not Have Housing Concerned About Future Housing: No Difficulty Paying Gas/Electric Bills: YES Difficulty Paying for Meds: No Currently Unemployed: YES Education: High School Diploma/GED Difficulty w/ Childcare or Family Care: No Living arrangements: with friend(s) Additional living arrangements comments: single Occupation/Education: unemployed Gender identity (if verbalized by the patient): Female Sexual Orientation (if Verbalized by the Patient): Straight or Heterosexual Spiritual care concerns: No Exam Narrative: GENERAL: Well-appearing, well-nourished, and in no acute distress. HEAD: Normocephalic, atraumatic. EYES: PERRLA and EOMI. ENT: Nares clear, no rhinorrhea or epistaxis. Mucous membranes moist. Oropharynx without tonsillar hypertrophy exudate or other lesions. NECK: Supple. No adenopathy or masses. CHEST: No respiratory distress. Clear to auscultation. No wheezes rales or rhonchi HEART: Regular rate and rhythm. No murmur heard. Normal peripheral pulses. ABDOMEN: Soft, nontender, nondistended, normal active bowel soun
[2023-10-30] MEDS: CEPHALEXIN 500 MG CAPSULE PO (02:58)
[2023-10-30] MEDS: DOXYCYCLINE HYCLATE 100 MG TABLET PO (02:58)
[2023-10-30 03:23] VITALS: BP 114/72; PULSE 85; RESP 14; O2SAT 99
== END 2023-10-30 03:25 | disposition home or self-care (01) ==
PROVIDERS: Emergency Medicine; Emergency Provider Physician Assistant; PCP Family Medicine
DX: L03.115 Cellulitis of right lower limb (principal); K58.9 Irritable bowel syndrome, unspecified; K58.2 Mixed irritable bowel syndrome; G25.81 Restless legs syndrome; F17.210 Nicotine dependence, cigarettes, uncomplicated; Z90.79 Acquired absence of other genital organ(s); Z90.49 Acquired absence of other specified parts of digestive tract
CPT/HCPCS: 36415; 80048; 85025; 85055; 85380; 85610; 85730; 99283; A9270

== ENCOUNTER 2024-01-22 18:56 | Outpatient (CLI) | payer OTHER, SELFPAY ==
[2024-01-22 19:11] LABS: Basophils Absolute Auto 0.03 K/mm3 (0.00-0.10); Basophils Percent Auto 0.5 % (0.0-1.0); Eosinophils Absolute Auto 0.06 K/mm3 (0.02-0.50); Hematocrit 26.8 % (35.0-49.0); Hemoglobin 7.4 g/dL (12.0-15.0); Immature Granulocyte Absolute 0.01 K/mm3 (0.00-0.00); Immature Granulocyte Percent A 0.2 % (0.0-0.0); Immature Platelet Fraction Pct 5.5 % (1.0-7.0); Lymphocytes Absolute Auto 2.22 K/mm3 (1.10-4.50); Lymphocytes Percent Auto 35.4 % (18.0-42.0); Mean Corpuscular HGB Conc 27.6 g/dL (32-36); Mean Corpuscular Hemoglobin 18.4 pg (27.0-31.0); Mean Corpuscular Volume 66.5 fL (78.0-102.0); Mean Platelet Volume 10.8 fl (9.2-11.8); Monocytes Absolute Auto 0.55 K/mm3 (0.10-0.90); Monocytes Percent Auto 8.8 % (2.0-11.0); Neutrophils Absolute Auto 3.41 K/mm3 (1.70-7.20); Neutrophils Percent Auto 54.1 % (50.0-70.0); Platelet Count Result 287 K/mm3 (150-420); Red Blood Count 4.03 M/mm3 (4.20-5.40); Red Cell Distribution Width 17.8 % (11.6-14.4); White Blood Count 6.3 K/mm3 (4.8-10.8)
[2024-01-22 20:06] LABS: Appearance Urine Clear (Clear); Bilirubin Urine Negative (Negative); Blood Urine 2+ (Negative); Color Urine Light Yellow (Yellow); Glucose Urine UA Negative (Negative); Ketones Urine Negative (Negative); Leukocyte Esterase Ur Negative (Negative); Nitrate Urine Negative (Negative); Protein Urine Negative (Negative); Urobilinogen Urine 0.2 mg/dL (0.2-1.0); pH Urine 6.5 (5.0-8.0)
[2024-01-22 20:12] LABS: Creatinine Urine 103.34 mg/dL (40-278); MALB Creatinine Ratio 12.5 mg/g (0-30); Microalbumin Urine Random < 13.0 mg/L
[2024-01-22 20:15] LABS: Add Urine Microscopic? YES; RBC Urine 0-2 /hpf (0-2); Squamous Epithelial Cell Urine Rare /hpf (Few); WBC Urine 0-3 /hpf (0-3)
[2024-01-22 20:16] LABS: Bacteria Urine Trace /hpf
[2024-01-22 20:20] LABS: Alanine Aminotransferase 17 U/L (14-59); Albumin Level 3.3 g/dL (3.4-5.0); Alkaline Phosphatase 67 U/L (46-116); Anion Gap 5 mmol/L (4-12); Aspartate Amino Transferase 13 U/L (15-37); Bilirubin,Total 0.2 mg/dL (0.00-1.00); Blood Urea Nitrogen 15 mg/dL (7-18); Calcium 8.7 mg/dL (8.5-10.1); Carbon Dioxide 31 mmol/L (21-32); Chloride 102 mmol/L (98-108); Estimated Glomerular Filt Rate > 60; Ferritin 4 ng/mL (8-252); Glucose 91 mg/dL (70-99); Iron 14 ug/dL (50-170); Osmolality Calculated 286 mOsm/kg (285-295); Percent Iron Saturation 4 % (12-57); Potassium 4.2 mmol/L (3.5-5.1); Sodium 138 mmol/L (136-145); Total Protein 7.1 g/dL (6.4-8.2)
[2024-01-25 10:54] LABS: ANA Cascade Screen NEGATIVE (NEGATIVE)
== END 2024-01-22 18:57 | disposition home or self-care (01) ==
PROVIDERS: PCP Family Medicine; Visit Provider Family Medicine
DX: D50.9 Iron deficiency anemia, unspecified (principal); R60.0 Localized edema; M79.642 Pain in left hand; M79.641 Pain in right hand
CPT/HCPCS: 36415; 80053; 81001; 82043; 82728; 83516; 83540; 83550; 85025; 85055; 86038; 86225; 86235

== ENCOUNTER 2024-02-07 08:38 | Outpatient (CLI) | payer OTHER, SELFPAY ==
[2024-02-07 08:50] VITALS: BP 121/72; PULSE 78; RESP 18; TEMP 36.1; O2SAT 95
--- NOTE | 2024-02-07 08:59 | PC.NURSE ---
Here for OP services for IV iron infusion, states at work and noted tooth pain at 0300, pain is a 9/10, hasn't had time to find a dentist yet, no other complaints noted
[2024-02-07 09:01] VITALS: BMI 25.7
[2024-02-07] MEDS: IRON SUCROSE COMPLEX 100 MG in SODIUM CHLORIDE 0.9% IV 100 ML IVPB (09:16)
--- NOTE | 2024-02-07 09:22 | PC.NURSE ---
iron infusing, warm blanket given, napping at times, site clear
[2024-02-07 10:20] VITALS: BP 109/66; TEMP 36.1; O2SAT 95
--- NOTE | 2024-02-07 10:26 | PC.NURSE ---
discharge home with discharge instructions, reviewed side effects of medication, printed sheet given, leeann schmid oriented and understood instrucrtions given
== END 2024-02-07 10:21 | disposition home or self-care (01) ==
PROVIDERS: PCP Family Medicine; Visit Provider Family Medicine
DX: D50.9 Iron deficiency anemia, unspecified (principal)
CPT/HCPCS: 96365; J1756

== ENCOUNTER 2024-02-12 08:42 | Outpatient (CLI) | payer OTHER, SELFPAY ==
[2024-02-12 08:53] VITALS: BP 118/76; PULSE 77; RESP 16; TEMP 36; O2SAT 99; BMI 26.7
[2024-02-12] MEDS: IRON SUCROSE COMPLEX 100 MG in SODIUM CHLORIDE 0.9% IV 100 ML IVPB (09:13)
[2024-02-12 10:19] VITALS: BP 100/78; PULSE 66; RESP 16; TEMP 36.1; O2SAT 100
--- NOTE | 2024-02-12 10:25 | PC.NURSE ---
Patient ambulated from room without difficulty and to the elevator. Discharge completed.
== END 2024-02-12 08:43 | disposition home or self-care (01) ==
LOC: CHSTREATRM 08:44
PROVIDERS: PCP Family Medicine; Visit Provider Family Medicine
DX: D50.9 Iron deficiency anemia, unspecified (principal)
CPT/HCPCS: 96365; J1756

== ENCOUNTER 2024-02-15 10:12 | Outpatient (CLI) | payer OTHER, SELFPAY ==
[2024-02-15 10:25] VITALS: BP 105/65; PULSE 84; RESP 16; TEMP 35.8; O2SAT 100; BMI 26.7
[2024-02-15] MEDS: IRON SUCROSE COMPLEX 100 MG in SODIUM CHLORIDE 0.9% IV 100 ML IVPB (10:41)
[2024-02-15 11:35] VITALS: BP 113/70; PULSE 70; RESP 18; TEMP 35.9; O2SAT 95
[2024-02-15 12:23] LABS: Thyroid Stimulating Hormone Reflex 1.28 u/IU/mL (0.36-3.74)
== END 2024-02-15 11:40 | disposition home or self-care (01) ==
PROVIDERS: PCP Family Medicine; Visit Provider Family Medicine
DX: D50.9 Iron deficiency anemia, unspecified (principal); E03.9 Hypothyroidism, unspecified
CPT/HCPCS: 36415; 84443; 96365; J1756

== ENCOUNTER 2024-04-02 17:40 | Emergency (ER) | payer OTHER, SELFPAY ==
[2024-04-02 17:45] VITALS: BP 128/74; PULSE 90; RESP 20; TEMP 36.4; O2SAT 100
--- NOTE | 2024-04-02 18:23 | ED.FEMALEGU ---
HPI - Female Genitourinary General Chief complaint: Vaginal Bleeding Stated complaint: Menstrual Cramping/Heavy Bleeding Time Seen by Provider: 04/02/24 18:24 Focused HPI: Pt is a 48-year-old female who presents to the ER with heavy menstrual bleeding and cramping. She reports this pain is the worst it's ever been. Pt reports she has an OBGYN and they are trying to get her in for hysterectomy. She reports she has a history of a fibroid tumor and endometriosis. Pt has never had an ablation, but had endometrial surgery with the last one being in 2020. She endorses bloating. Pt uses tampons and pads. She reports she has been bleeding through at least two pads/hour. Pt denies any other urinary symptoms. She reports she has a history of low hgb and recently had an iron infusion. GENERAL: Well-appearing, well-nourished, and in no acute distress. HEAD: Normocephalic, atraumatic. CHEST: Clear to auscultation. ?No respiratory distress. HEART: Regular rate and rhythm.? ABDOMEN: Pt is guarding and tender with palpation, L side is more tender than R, BS x 4 quadrants NEURO: ?Alert and oriented x3. Patient screened in triage and initial orders placed.? ?Additional care and disposition to be based upon?diagnostic testing and treatment. Related Data Allergies Allergy/AdvReac Type Severity Reaction Status Date / Time No Known Allergies Allergy Unknown Verified 01/17/24 07:03 [facility] Past Medical History Medical History Anxiety Cellulitis Cholelithiasis (Unknown) Constipation Dysfunctional gallbladder (~06/2020) Edema History of endometriosis History of irritable bowel syndrome Irritable bowel syndrome Mixed Leg pain Marijuana smoker , ectopic, tubal Restless leg syndrome Right sided abdominal pain Smoker Tobacco abuse Surgical History Surgical History H/O LEEP History of cholecystectomy History of hysteroscopy (06/17/15) History of laparoscopy Several last 1 being today 07/01/2020/ 05/13/2015 Laparoscopy - endocx polyp, right ovarian cys History of shoulder surgery (04/13/13) right shoulder History of tonsillectomy History of unilateral salpingectomy Family History Family History Father Diabetes mellitus Family history of alcoholism Family history of mental disorder Mother Hypertension Sibling Breast cancer Social History Social History (Updated 05/11/23 @ 10:53 by EVE Gonzalez) Social History: The patient has 1 daughter. She has had a tubal in the past. She currently is unemployed. She resides with her boyfriend. She does not have a durable power real estate associate attorney for healthcare but is a full code. She smokes about half pack a cigarettes a day. She does smoke marijuana at night to help her rest. She denies any alcohol or other street drugs. Smoking packs per day: 0.5 Smoking cigarettes per day: 10.0 Years smoked: 30 Smoking pack-years: 15.00 Smoking status: Current every day smoker Tobacco type: cigarettes Alcohol intake: never Substance use: current Substance use type: marijuana Lack of Transportation: No Lack of Food: Sometimes True Current Housing: I Do Not Have Housing Concerned About Future Housing: No Difficulty Paying Gas/Electric Bills: YES Difficulty Paying for Meds: No Currently Unemployed: YES Education: High School Diploma/GED Difficulty w/ Childcare or Family Care: No Living arrangements: with friend(s) Additional living arrangements comments: single Occupation/Education: unemployed Gender identity (if verbalized by the patient): Female Sexual Orientation (if Verbalized by the Patient): Straight or Heterosexual Spiritual care concerns: No Course Vital Signs Vital signs: Vital Signs Temperature 36.4 C L 04/02/24 17:45 Pulse Rate 90
--- NOTE | 2024-04-02 20:50 | PC.NURSE ---
PT NOT FOUND IN WAITING ROOM WHEN CALLED.
--- NOTE | 2024-04-02 21:00 | PC.NURSE ---
PT NOT IN WAITING ROOM
--- NOTE | 2024-04-02 21:15 | PC.NURSE ---
PT NOT IN WAITING ROOM.
== END 2024-04-02 20:50 | disposition left against medical advice (07) ==
LOC: ANHED 04-03 05:33
PROVIDERS: Emergency Provider Registered Nurse; PCP Family Medicine
DX: N93.9 Abnormal uterine and vaginal bleeding, unspecified (principal); N80.9 Endometriosis, unspecified; K58.2 Mixed irritable bowel syndrome; G25.81 Restless legs syndrome; F17.210 Nicotine dependence, cigarettes, uncomplicated; Z90.49 Acquired absence of other specified parts of digestive tract; Z90.79 Acquired absence of other genital organ(s)
CPT/HCPCS: 99281

== ENCOUNTER 2024-04-10 05:09 | Emergency (ER) | payer OTHER, SELFPAY ==
[2024-04-10 05:11] VITALS: BP 135/90; PULSE 98; RESP 18; TEMP 36.3; O2SAT 100
--- NOTE | 2024-04-10 05:18 | ED.EAR ---
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 Decreased hearing. The patient has put water, peroxide and tried to clean out her ear. No ear discharge. the patient had leftover Augmentin which she has been taking for the past 2 days. -- has chills without any fever -- Has increased vaginal discharge which has improved but continues to have some vaginal discharge. She had iron deficiency anemia from the discharge and received injectable iron. no cough or shortness of breath no nausea/vomiting. Had minimal diarrhea. MD Complaint: ear pain and decreased hearing Location: right ear Duration: constant Severity: mild Relieving factors: nothing Exacerbating factors: nothing Discharge from ear: Reports no Associated symptoms ear: decreased hearing Treatment prior to arrival: eardrops, attempt at ear wax removal and oral analgesic Related Data Allergies Allergy/AdvReac Type Severity Reaction Status Date / Time No Known Allergies Allergy Unknown Verified 01/17/24 07:03 Review of Systems Review of Systems: All systems reviewed & are unremarkable except as noted in HPI and below Constitutional: Constitutional: Reports as per HPI and Reports no additional constitutional complaints Eyes: Eyes: Reports as per HPI and Reports no additional eye complaints ENT: Reports nasal congestion Comments: right ear pain with decreased hearing Cardiovascular: Cardiovascular: Reports as per HPI and Reports no additional cardiovascular complaints Respiratory: Respiratory: Reports as per HPI and Reports no additional respiratory complaints Gastrointestinal: Gastrointestinal: Reports as per HPI and Reports no additional gastrointestinal complaints Genitourinary: Genitourinary: Reports no additional female genitourinary complaints, Reports as per HPI and Reports abnormal vaginal bleeding Comments: ongoing vaginal bleeding. Patient has a history of fibroid and she stated that she had endometriosis Musculoskeletal: Musculoskeletal: Reports no additional musculoskeletal complaints and Reports as per HPI Integumentary/Breasts: Skin/Breast: Reports system reviewed and no additional complaints, except as docu and Reports as per HPI Neurologic: Reports system reviewed and no additional complaints, except as documented and Reports as per HPI Psychiatric: Psychiatric: Reports no additional psychiatric complaints and Reports as per HPI Endocrine: Endocrine: Reports no additional endocrine complaints and Reports as per HPI Hematologic/Lymphatic: Hematologic/Lymphatic: Reports no additional hematologic/lymphatic complaints and Reports as per HPI Allergic/Immunologic: Allergic/Immunologic: Reports no additional allergic/immunologic complaints and Reports as per HPI [facility] Past Medical History Medical History Anxiety Cellulitis Cholelithiasis (Unknown) Constipation Dysfunctional gallbladder (~06/2020) Edema History of endometriosis History of irritable bowel syndrome Irritable bowel syndrome Mixed Leg pain Marijuana smoker , ectopic, tubal Restless leg syndrome Right sided abdominal pain Smoker Tobacco abuse Surgical History Surgical History H/O LEEP History of cholecystectomy History of hysteroscopy (06/17/15) History of laparoscopy Several last 1 being today 07/01/2020/ 05/13/2015 Laparoscopy - endocx polyp, right ovarian cys History of shoulder surgery (04/13/13) right shoulder Hist
--- NOTE | 2024-04-10 05:23 | PC.NURSE ---
Dr Polanco at the bedside
--- NOTE | 2024-04-10 05:46 | PC.NURSE ---
covid swab taken to lab by robert wong. patient in the bathroom giving urine sample.
[2024-04-10] MEDS: LORATADINE 10 MG TABLET PO (05:51)
[2024-04-10] MEDS: AMOXICILLIN/CLAVULANATE K 875-125 MG TAB 1 TABLET PO (05:51)
--- NOTE | 2024-04-10 05:54 | PC.NURSE ---
lab on the way down to draw blood.
[2024-04-10 05:56] LABS: Add Urine Microscopic? YES; Appearance Urine Clear (Clear); Bilirubin Urine Negative (Negative); Blood Urine 3+ (Negative); Color Urine Yellow (Yellow); Glucose Urine UA Negative (Negative); Ketones Urine Negative (Negative); Leukocyte Esterase Ur Negative LEU/UL (Negative); Nitrate Urine Negative (Negative); Protein Urine 2+ (Negative); Specific Grav Ur >= 1.030 (1.010-1.020); Urobilinogen Urine 0.2 mg/dL (0.2-1.0)
[2024-04-10 06:01] LABS: Bacteria Urine 1+ /hpf; Squamous Epithelial Cell Urine Moderate /hpf (Few); WBC Urine 0-3 /hpf (0-3)
[2024-04-10 06:02] LABS: Mucus Urine Heavy /lpf; Pregnancy On Board Control Positive; Urine Pregnancy Test Negative
[2024-04-10 06:09] LABS: Basophils Absolute Auto 0.02 K/mm3 (0.00-0.10); Basophils Percent Auto 0.3 % (0.0-1.0); Eosinophils Absolute Auto 0.01 K/mm3 (0.02-0.50); Eosinophils Percent Auto 0.2 % (1.0-6.0); Hematocrit 26.8 % (35.0-49.0); Hemoglobin 7.8 g/dL (12.0-15.0); Immature Granulocyte Absolute 0.02 K/mm3 (0.00-0.00); Immature Granulocyte Percent A 0.3 % (0.0-0.0); Lymphocytes Absolute Auto 1.36 K/mm3 (1.10-4.50); Lymphocytes Percent Auto 20.8 % (18.0-42.0); Mean Corpuscular HGB Conc 29.1 g/dL (32-36); Mean Corpuscular Hemoglobin 19.5 pg (27.0-31.0); Mean Corpuscular Volume 66.8 fL (78.0-102.0); Mean Platelet Volume 10.6 fl (9.2-11.8); Monocytes Absolute Auto 0.55 K/mm3 (0.10-0.90); Monocytes Percent Auto 8.4 % (2.0-11.0); Neutrophils Absolute Auto 4.59 K/mm3 (1.70-7.20); Platelet Count Result 220 K/mm3 (150-420); Red Blood Count 4.01 M/mm3 (4.20-5.40); Red Cell Distribution Width 18.9 % (11.6-14.4); White Blood Count 6.6 K/mm3 (4.8-10.8)
[2024-04-10 06:20] LABS: INR 1.1; Partial Thromboplastin Time 26.9 Sec (23.9-30.70); Prothrombin Time 12.1 Seconds (9.50-12.1)
[2024-04-10 06:25] LABS: Influenza A QL RT-PCR Negative (Negative); Influenza B QL RT-PCR Negative (Negative); RSV RNA, RT-PCR Negative (Negative); SARS-CoV-2 RNA PCR Positive (Negative)
[2024-04-10 06:27] LABS: Lactic Acid Reflex 0.8 mmol/L (0.4-2.0)
[2024-04-10 06:33] LABS: Alanine Aminotransferase 11 U/L (14-59); Albumin Level 3.2 g/dL (3.4-5.0); Alkaline Phosphatase 61 U/L (46-116); Anion Gap 9 mmol/L (4-12); Aspartate Amino Transferase < 10 U/L (15-37); Bilirubin,Total 0.3 mg/dL (0.00-1.00); Blood Urea Nitrogen 13 mg/dL (7-18); Calcium 8.9 mg/dL (8.5-10.1); Carbon Dioxide 28 mmol/L (21-32); Chloride 100 mmol/L (98-108); Estimated CRCL calculation 73 ml/min; Estimated Glomerular Filt Rate > 60; Glucose 102 mg/dL (70-99); Lipase 22 U/L (16-77); Osmolality Calculated 284 mOsm/kg (285-295); Potassium 3.1 mmol/L (3.5-5.1); Sodium 137 mmol/L (136-145); Total Protein 7.1 g/dL (6.4-8.2)
[2024-04-10 06:58] VITALS: BP 132/80; PULSE 88; RESP 16; O2SAT 98
== END 2024-04-10 06:58 | disposition home or self-care (01) ==
PROVIDERS: Emergency Provider Internal Medicine Critical Care Medicine; PCP Family Medicine
DX: U07.1 COVID-19 (principal); D50.0 Iron deficiency anemia secondary to blood loss (chronic); H66.90 Otitis media, unspecified, unspecified ear; N92.1 Excessive and frequent menstruation with irregular cycle; F17.210 Nicotine dependence, cigarettes, uncomplicated
CPT/HCPCS: 36415; 80053; 81001; 81025; 83605; 83690; 85025; 85055; 85610; 85730; 87637; 99283; A9270

== ENCOUNTER 2024-04-29 11:22 | Emergency (ER) | payer OTHER, SELFPAY ==
--- NOTE | ~2024-04-29 | CT_ITS ---
CT abdomen pelvis w con Ordering provider: Sarmad Barroso MD History: 48 years Female with . pelvic cramping, vaginal bleeding X 4 days . Comparison: None. Technique: CT abdomen and pelvis with IV and without oral contrast. Automated exposure control and it erative reconstruction technique were employed. The dose-length product was 374.20 mGy-cm. 100 mL Omn ipaque 350 was given IV. Findings: VISUALIZED LOWER CHEST: Normal. UPPER ABDOMINAL ORGANS: Liver: Tiny cyst measuring 1 cm in the left lobe posteriorly Gallbladder: Status post cholecystectomy. Spleen: Normal. Stomach/duodenum: Normal. Pancreas: Normal. Adrenals: Normal. Kidneys: Normal. PELVIC ORGANS: The bladder is underfilled. Bulky uterus. Hypodensity in the uterine cavity is seen wh ich may be blood clot. BOWEL AND MESENTERY: Colon: No evidence of diverticulitis. Normal appendix. Small Bowel: Normal. No obstruction. Peritoneum/mesentery: No free air. Minimal free fluid seen in the pelvis. No mesenteric lymphadenopat hy. RETROPERITONEUM: Normal aorta. No retroperitoneal lymphadenopathy. Lymph nodes with the largest measuring 1.1 cm. MUSCULOSKELETAL: Superficial soft tissues: The superficial soft tissues are normal. Bones: Normal spine. IMPRESSION: 1. Bulky uterus with hypodensity in the uterine cavity which may be blood clot. Clinical and further evaluation advised. 2. Minimal fluid in the pelvis. Fracture cyst is possible. Reviewed, dictated and finalized at location A. IMPRESSION: 1. Bulky uterus with hypodensity in the uterine cavity which may be blood clot . Clinical and further evaluation advised. 2. Minimal fluid in the pelvis. Fracture cyst is possible.
[2024-04-29 11:30] VITALS: BP 139/90; PULSE 77; RESP 22; TEMP 36.3; O2SAT 100
--- NOTE | 2024-04-29 11:44 | ED.ABDPAIN ---
HPI - Abdominal Pain General Chief Complaint: Abdominal Pain Stated Complaint: abd pain Time Seen by Provider: 04/29/24 11:25 Source: patient Mode of arrival: ambulatory Limitations: no limitations History of Present Illness HPI narrative: 48 year old female presents to the Emergency Department complaining of pain to left lower abdomen/ suprapubic region. Patient states began 5 days ago. Has heavy vaginal bleeding. Patient was seen at [facility] Emergency Department 04/25 and diagnosed with endometriosis. Has history of same. Was supposed to follow up with [employer], but has not called. States going through a tampon every hour. MD elicited complaint: abdominal pain Pertinent past history: other (endometriosis, vaginal bleeding) Onset (ago): day(s) (5) Pain Consistency: constant Location: LLQ Severity: severe Quality: cramping Radiation: none Exacerbating factors: nothing Relieving factors: nothing Related Data Patient : No Allergies Allergy/AdvReac Type Severity Reaction Status Date / Time No Known Allergies Allergy Unknown Verified 04/29/24 11:33 Review of Systems Review of Systems: All systems reviewed & are unremarkable except as noted in HPI and below Constitutional: Constitutional: Reports as per HPI Eyes: Eyes: Reports as per HPI ENT: Reports system reviewed and no additional complaints, except as documented Cardiovascular: Cardiovascular: Reports as per HPI and Denies chest pain Respiratory: Respiratory: Reports as per HPI and Denies dyspnea Gastrointestinal: Gastrointestinal: Reports as per HPI and Reports abdominal pain Genitourinary: Genitourinary: Reports no additional female genitourinary complaints and Reports abnormal vaginal bleeding Musculoskeletal: Musculoskeletal: Reports no additional musculoskeletal complaints Integumentary/Breasts: Skin/Breast: Reports system reviewed and no additional complaints, except as docu Neurologic: Reports system reviewed and no additional complaints, except as documented [facility] Past Medical History Medical History Anxiety Cellulitis Cholelithiasis (Unknown) Constipation Dysfunctional gallbladder (~06/2020) Edema History of endometriosis History of irritable bowel syndrome Irritable bowel syndrome Mixed Leg pain Marijuana smoker , ectopic, tubal Restless leg syndrome Right sided abdominal pain Smoker Tobacco abuse Surgical History Surgical History H/O LEEP History of cholecystectomy History of hysteroscopy (11/05/15) History of laparoscopy Several last 1 being today 07/01/2020/ 05/13/2015 Laparoscopy - endocx polyp, right ovarian cys History of shoulder surgery (04/13/13) right shoulder History of tonsillectomy History of unilateral salpingectomy Family History Family History Father Diabetes mellitus Family history of alcoholism Family history of mental disorder Mother Hypertension Sibling Breast cancer Social History Social History Social History: The patient has 1 daughter. She has had a tubal in the past. She currently is unemployed. She resides with her boyfriend. She does not have a durable power workers compensation attorney for healthcare but is a full code. She smokes about half pack a cigarettes a day. She does smoke marijuana at night to help her rest. She denies any alcohol or other street drugs. Smoking packs per day: 0.5 Smoking cigarettes per day: 10.0 Years smoked: 30 Smoking pack-years: 15.00 Smoking status: Current every day smoker Tobacco type: cigarettes Alcohol intake: never Substance use: current Substance use type: marijuana Lack of Transportation: No Lack of Food: Sometimes True Current Housing: I Do Not Have Housing Concerned About Future Housing: No
[2024-04-29 11:49] LABS: Basophils Absolute Auto 0.02 K/mm3 (0.00-0.10); Basophils Percent Auto 0.2 % (0.0-1.0); Eosinophils Absolute Auto 0.06 K/mm3 (0.02-0.50); Eosinophils Percent Auto 0.7 % (1.0-6.0); Hematocrit 28.1 % (35.0-49.0); Immature Granulocyte Absolute 0.03 K/mm3 (0.00-0.00); Immature Granulocyte Percent A 0.3 % (0.0-0.0); Lymphocytes Absolute Auto 1.54 K/mm3 (1.10-4.50); Lymphocytes Percent Auto 17.1 % (18.0-42.0); Mean Corpuscular HGB Conc 28.5 g/dL (32-36); Mean Corpuscular Hemoglobin 19.2 pg (27.0-31.0); Mean Corpuscular Volume 67.5 fL (78.0-102.0); Mean Platelet Volume 10.5 fl (9.2-11.8); Monocytes Absolute Auto 0.41 K/mm3 (0.10-0.90); Monocytes Percent Auto 4.5 % (2.0-11.0); Neutrophils Absolute Auto 6.97 K/mm3 (1.70-7.20); Neutrophils Percent Auto 77.2 % (50.0-70.0); Platelet Count Result 294 K/mm3 (150-420); Red Blood Count 4.16 M/mm3 (4.20-5.40); Red Cell Distribution Width 18.4 % (11.6-14.4)
[2024-04-29 11:50] LABS: Add Urine Microscopic? YES; Bilirubin Urine Negative (Negative); Blood Urine 3+ (Negative); Color Urine Red (Yellow); Glucose Urine UA Negative (Negative); Ketones Urine Negative (Negative); Leukocyte Esterase Ur Negative (Negative); Nitrate Urine Negative (Negative); Protein Urine 2+ (Negative); Specific Grav Ur >= 1.030 (1.010-1.020); Urobilinogen Urine 0.2 mg/dL (0.2-1.0); pH Urine 5.5 (5.0-8.0)
[2024-04-29] MEDS: KETOROLAC 30 MG/ML VIAL (*BKC) IV PUSH (11:52)
[2024-04-29 11:54] LABS: Pregnancy On Board Control Positive; Urine Pregnancy Test Negative
[2024-04-29 11:56] LABS: Appearance Urine Cloudy (Clear); Bacteria Urine Trace /hpf; RBC Urine >75 /hpf (0-2); Squamous Epithelial Cell Urine Rare /hpf (Few); WBC Urine None seen /hpf (0-3)
[2024-04-29 12:11] LABS: Alanine Aminotransferase 15 U/L (14-59); Albumin Level 3.4 g/dL (3.4-5.0); Alkaline Phosphatase 69 U/L (46-116); Amylase 41 U/L (25-115); Anion Gap 12 mmol/L (4-12); Aspartate Amino Transferase < 10 U/L (15-37); Bilirubin,Total 0.3 mg/dL (0.00-1.00); Blood Urea Nitrogen 10 mg/dL (7-18); Calcium 8.4 mg/dL (8.5-10.1); Carbon Dioxide 22 mmol/L (21-32); Chloride 104 mmol/L (98-108); Estimated CRCL calculation 67 ml/min; Estimated Glomerular Filt Rate > 60; Glucose 103 mg/dL (70-99); Lipase 25 U/L (16-77); Osmolality Calculated 285 mOsm/kg (285-295); Potassium 3.4 mmol/L (3.5-5.1); Sodium 138 mmol/L (136-145); Total Protein 7.1 g/dL (6.4-8.2)
[2024-04-29 12:14] LABS: Lactic Acid Reflex 1.2 mmol/L (0.4-2.0)
[2024-04-29 12:20] VITALS: BP 136/88; PULSE 101; RESP 20; O2SAT 100
--- NOTE | 2024-04-29 12:20 | PC.NURSE ---
Spoke with HIM at [facility] to have records from visit on 04/25/24 at [place] sent over. Release of information obtained.
[2024-04-29] MEDS: HYDROmorphone HCL INJ (*CRX) 2 MG/ML VIAL 1 MG IV PUSH (12:36)
[2024-04-29] MEDS: ONDANSETRON INJ 4 MG/2 ML VIAL IV PUSH (12:36)
[2024-04-29 13:10] VITALS: BP 121/70; PULSE 82; RESP 18; O2SAT 99
[2024-04-29 13:45] VITALS: BP 119/68; PULSE 80; RESP 20; TEMP 36.5; O2SAT 99
== END 2024-04-29 13:45 | disposition home or self-care (01) ==
PROVIDERS: Emergency Provider Emergency Medicine; PCP Family Medicine
DX: R10.32 Left lower quadrant pain (principal); N93.9 Abnormal uterine and vaginal bleeding, unspecified; F17.210 Nicotine dependence, cigarettes, uncomplicated
CPT/HCPCS: 36415; 74177; 80053; 81001; 81025; 82150; 83605; 83690; 85025; 96374; 96375; 99284; J1170; J1885; J2405; Q9967

== ENCOUNTER 2024-11-17 20:50 | Observation (INO) | payer OTHER, SELFPAY ==
--- NOTE | ~2024-11-17 | CT_ITS ---
CT of the Abdomen and Pelvis: Indication: Vaginal bleeding, fibroids Technique: 2.5 mm axial scans were obtained through the abdomen and pelvis following intravenous adm inistration of 100 cc of Omnipaque 350. Dose reduction technique was used on this scan by utilizing a utomated exposure control and iterative reconstruction technique. The dose-length product (DLP) was 3 71.45 mGy-cm. COMPARISON: 04/29/2024 Findings: Scans through the lung bases are unremarkable. Small left hepatic lobe cyst present. Cholecystectomy clips are present. The spleen, pancreas, adrena ls and kidneys are within normal limits. No evidence of aortic aneurysm. No lymphadenopathy. No bowel obstruction or bowel wall thickening. There is no evidence to suggest acute appendicitis. Images through the pelvis were performed. Urinary bladder unremarkable. Possible central fibroid ernst uring approximately 6 cm in diameter. Small amount of pelvic ascites present. Impression: Probable 6 cm uterine fibroid. Small amount of pelvic ascites. Reviewed, dictated and finalized at [facility]. Impression: Probable 6 cm uterine fibroid. Small amount of pelvic ascites.
--- OUTSIDE RECORDS SUMMARY | 2024-11-17 20:52 | XMS_ITS | Clinical Summary ---
Author Organization [facility] [employer] Address [address] [place] [address] Care Team Providers Care Welder Plastic Name Role Phone Unavailable Primary Care Provider Unavailabl e Source Comments [facility],non-owned Affiliates and Associated Physician Practices is amultiple site organization consisting of ambulatory clinics and hospital sitesin [place], [place], [place] and [place]. This disclosure is being madepursuant to the Care Everywhere program and may not contain all information available regarding this patient. Last updated 18.[facility] [employer] Allergies No known active allergies Medications * Be aware that medications may not be up to date on this document. Alwaysverify current medications with the patient. Medication Sig Dispensed Refills Start Date End Date Status Cefdinir (OMNICEF PO) Take by mouth. Active Active Problems Problem Noted Date Diagnosed Date Neck pain 03/15/2010 Social History Tobacco Use Types Packs/Day Years Used Date Smoking Tobacco: Never Alcohol Use Standard Drinks/Week Comments Yes 0 (1 standard drink = 0.6 oz pur e alcohol) occasional Sex and Gender Information Value Date Recorded Sex Assigned at Not on file Gender Identity Not on file Sexual Orientation Not on file Last Filed Vital Signs Vital Sign Reading Time Taken Comments Blood Pressure 93/56 02/03/2013 6:00 PM CDT Pulse 66 02/03/2013 6:00 PM CDT Temperature 36.8 C (98.3 F) 02/03/2013 1:12 PM CDT Respiratory Rate 12 02/03/2013 1:12 PM CDT Oxygen Saturation 98% 02/03/2013 1:12 PM CDT Inhaled Oxygen Concentration - - Weight 72.6 kg (160 lb) 02/03/2013 1:12 PM CDT Height 165.1 cm (5' 5 ) 02/03/2013 1:12 PM CDT Body Mass Index 26.63 02/03/2013 1:12 PM CDT Plan of Treatment Health Maintenance Due Date Last Done Comments COLOGUARD (AGES 45-75) - COL ON CA SCREENING 1976 COLON MONITORING 1976 COLONOSCOPY - COLON CA SCREENING 1976 CT COLONOGRAPHY - COLON CA SCREENING 1976 Colorectal Cancer Screening 1976 FIT - COLON CA SCREENING 1976 FLEX SIG - COLON CA SCREENING 1976 LIPID TESTING 1976 MAMMOGRAM 1976 PAP SMEAR 1976 HIV SCREENING 1991 HEPATITIS C SCREENING 10/04/1994 DTAP/TDAP/TD VACCINES (1 - Tdap) 1995 HEPATITIS B VACCINE (1 of 3 - 19+ 3-dose series) 1995 COVID-19 VACCINE (1 - 2023-2 5 season) 2024 DEPRESSION SCREENING 08/13/2024 INFLUENZA VACCINE (Season Ended) 2025 ZOSTER VACCINE (1 of 2) 2026 HIB VACCINE Aged Out No longer eligi ble based on patient's age to complete this topic HPV VACCINE Aged Out No longer eligi ble based on patient's age to complete this topic MENINGOCOCCAL (Group B) VACC INE SHARED DECISION-MAKING Aged Out No longer eligibl e based on patient's age to complete this topic MENINGOCOCCAL GROUPS A/C/Y/W VACCINE Aged Out No longer eligible b ased on patient's age to complete this topic PNEUMOCOCCAL VACCINE Aged Out No long er eligible based on patient's age to complete this topic
--- OUTSIDE RECORDS SUMMARY | 2024-11-17 20:52 | XMS_ITS | Continuity of Care Document ---
Author Organization [facility] Address [address] [place] [id number] Phone Care Team Providers Care Bottom Liquor Attendant Name Role Phone Van Caraballo MD Unavailable Unavailable Advance Directives Directive Yes / No Effective Date File Name No Information Encounters Encounter Description Practice Location Reason(s) For Visit Diagnoses Date Provider Providers Copied on Encounter [facility], [address] [place], [place], [address], tel:[phone] Van Caraballo No Information Ilya Araujo. [address] [place] [address], [address], [place]. tel:[phone] Referring Provider: Lauro Workman, [address], [place], [id number]. tel:[phone] Family History Family Member Type Diagnosis Age At Onset No Information Payers Payer name Insurance type Covered alliance party ID Authoriza titay(s) [facility] CI [id number] Social History Type Description Quantity Date Captured Comments Sex Female Smoking Status No Information Chief Complaint And Reason For Visit No Information History Of Present Illness Encounter Date Complaint History Of Prese nt Illness No Information Instructions Date Instruction Additional Infor mation No Information Assessments Type Assessment Date No Information
--- OUTSIDE RECORDS SUMMARY | 2024-11-17 20:52 | XMS_ITS | Patient Health Record ---
Author Organization [facility] Address [address] [place] [address] Care Team Providers Care Vegetable Loader Name Role Phone Mark Pickard Primary Care Provider Allergies No Known Allergies Reason For Referral No Information Social History Tobacco Use: Social History Observation Description Date Details (start date - stop date) Current Smoker NA - NA Tobacco Use/Smoking Question Answer Notes Are you a current smoker Plan Of Treatment No Information Insurance Providers Payer Name Payer Address Payer Phone Subscriber Number Group Number Insured Name Patient Relationship to Insured Coverage Start Date Coverage End Date [employer] [address] [address] [place] [phone] [id number] Alpa Echevarria Self - patient is the insured Medical (General) History Medical History History ICD Code anemia fainting/dizzy spells endometriosis sever anxiety Surgical History Surgery Date(Month/Year) gall bladder removed 2020 tonsilectomy
--- OUTSIDE RECORDS SUMMARY | 2024-11-17 20:52 | XMS_ITS | Clinical Summary ---
Author Organization [facility] Address [address] [place] [address] Care Team Providers Care Director Call Name Role Phone Robert Dodge DO Primary Care Provider [phone] Allergies No known active allergies Medications ibuprofen (MOTRIN) 600 MG tablet Take 1 tablet (600 mg total) by mouth every 6 (six) hours as needed for Pain. 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 Gender Identity Not on file Sexual Orientation Not on file Last Filed Vital Signs Vital Sign Reading Time Taken Comments Blood Pressure 104/64 05/20/2024 5:35 PM CDT Pulse 77 05/20/2024 2:35 PM CDT Temperature 36.3 C (97.4 F) 05/20/2024 2:35 PM CDT Respiratory Rate 16 05/20/2024 5:35 PM CDT Oxygen Saturation 100% 05/20/2024 5:35 PM CDT Inhaled Oxygen Concentration - - Weight 68 kg (150 lb) 05/20/2024 2:35 PM CDT Height 165.1 cm (5' 5 ) 05/20/2024 2:35 PM CDT Body Mass Index 24.96 05/20/2024 2:35 PM CDT Plan of Treatment Health Maintenance Due Date Last Done Comments Colorectal Cancer Screening Colonoscopy (10 Years) 1976 Annual Physical 1979 Pneumococcal Vaccine: Pediat rics (0 to 5 Years) and At-Risk Patients (6 to 64 Years) (1 of 2 - PCV) 1982 Hepatitis C 1994 DTaP, Tdap and Td Vaccines ( 1 - Tdap) 1995 Hepatitis B Vaccines (1 of 3 - 19+ 3-dose series) 1995 Cervical Cancer Screening Pa p Smear (Age 30 to 64) Every 3 Years 06/23/2011 06/23/2008 Cervical Cancer Screening Pa p with HPV Testing (Age 30 to 64) Every 5 Years 06/23/2013 06/23/2008 Cervical Cancer Screening with HPV 06/23/2013 Mammogram Screening 2016 COVID-19 Vaccine (2023-2 5 season) 2024 Influenza Adult (#1) 2024 06/27/2017 Meningococcal B Vaccine Aged Out No l onger eligible based on patient's age to complete this topic Meningococcal Vaccine Aged Out No trace gregg eligible based on patient's age to complete this topic RSV Immunizations Under 20 Months Aged Out No longer eligible based on patient's age to complete this topic Insurance Care Teams Director Call Relationship Specialty Start Date End Date Robert Dodge DO [address] [place] [address] PCP - General FAMILY PRACTICE 04/26/24
--- OUTSIDE RECORDS SUMMARY | 2024-11-17 20:52 | XMS_ITS | Encounter Summary ---
Author Organization [facility] Address [address] [place] [address] Care Team Providers Care Recycling Technician Name Role Phone None, Provider Primary Care Provider Sean riley Non-Staff, Provider Primary Care Provider Robert Wheeler DO Primary Care Provider [phone] Encounter Details Date Type Department Care Team (Late st Contact Info) Description 01/18/2019 Abstract SFL CONVERSION [address] [place] [address] , Generic Conversion, Social History Tobacco Use Types Packs/Day Years Used Date Smoking Tobacco: Never Assessed Comments Unknown Sex and Gender Information Value Date Recorded Sex Assigned at Not on file 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
[2024-11-17 20:58] VITALS: BP 125/87; PULSE 85; RESP 18; TEMP 37.1; O2SAT 100
--- NOTE | 2024-11-17 21:52 | PC.NURSE ---
Patient reporting pain and bleeding getting worse. bun icer aware
[2024-11-17 22:45] VITALS: BP 119/63; PULSE 77; RESP 20; O2SAT 100
[2024-11-17 23:00] LABS: Alanine Aminotransferase 14 U/L (6-35); Albumin Level 4.2 g/dL (3.5-5.1); Alkaline Phosphatase 85 U/L (38-126); Anion Gap 10 mmol/L (4-12); Aspartate Amino Transferase 19 U/L (14-36); Bilirubin,Total 0.3 mg/dL (0.2-1.3); Blood Urea Nitrogen 11 mg/dL (7-17); Calcium 8.6 mg/dL (8.4-10.2); Carbon Dioxide 22 mmol/L (22-30); Chloride 103 mmol/L (98-107); Estimated CRCL calculation 75 ml/min; Estimated Glomerular Filt Rate > 60; Glucose 91 mg/dL (65-110); Potassium 3.2 mmol/L (3.4-5.0); Sodium 135 mmol/L (137-145)
[2024-11-17 23:24] LABS: Basophils Absolute Auto 0.1 K/mm3 (0.0-0.1); Basophils Percent Auto 0.5 % (0.2-1.2); Eosinophils Absolute Auto 0.1 K/mm3 (0-0.3); Hematocrit 28.9 % (37.0-47.0); Hemoglobin 7.7 g/dL (12.0-15.0); Immature Granulocyte Absolute 0.05 K/mm3 (0.00-0.031); Immature Granulocyte Percent A 0.5 % (0-0.5); Lymphocytes Absolute Auto 2.19 K/mm3 (0.9-3.2); Lymphocytes Percent Auto 19.8 % (18.3-44.2); Mean Corpuscular HGB Conc 26.6 g/dl (32-36); Mean Corpuscular Hemoglobin 17.9 pg (26-34); Mean Corpuscular Volume 67.4 fl (80-100); Monocytes Absolute Auto 0.6 K/mm3 (0.1-0.6); Monocytes Percent Auto 5.7 % (2.6-8.5); Neutrophils Percent Auto 72.5 % (45.5-73.1); Platelet Count Result 302 k/mm3 (150-375); Red Blood Count 4.29 M/mm3 (4.2-5.4); Red Cell Distribution Width 19.7 % (11.5-14.5); White Blood Count 11.1 K/mm3 (4.5-10.0)
[2024-11-17 23:28] LABS: Anisocytosis 1+; Hypochromasia 1+; Large Platelets Present; Ovalocytes 1+; Platelet Estimate Adequate (Adequate); Schistocytes Rare
[2024-11-18] VITALS (17 sets, daily range): BP systolic 91–126; BP diastolic 50–80; PULSE 62–80; RESP 12–19; TEMP 36.2–36.7; O2SAT 97–100; BMI 26.9
--- OUTSIDE RECORDS SUMMARY | 2024-11-18 00:38 | XMS_ITS | Encounter Summary ---
Author Organization [facility] Address [address] [place] [address] Care Team Providers Care Vp Information Technology Name Role Phone None, Provider Primary Care Provider Sean riley Non-Staff, Provider Primary Care Provider Robert Wheeler DO Primary Care Provider [phone] Encounter Details Date Type Department Care Team (Late st Contact Info) Description 01/18/2019 Abstract SFL CONVERSION [address] [place] [address] , Generic Conversion, Social History Tobacco Use Types Packs/Day Years Used Date Smoking Tobacco: Never Assessed Comments Unknown Sex and Gender Information Value Date Recorded Sex Assigned at Not on file 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
--- OUTSIDE RECORDS SUMMARY | 2024-11-18 00:38 | XMS_ITS | Patient Health Record ---
Author Organization [facility] Address [address] [place] [address] Care Team Providers Care Bed Laborer Name Role Phone Mark Pickard Primary Care [...] Coverage End Date [employer] [address] [address] [place] [address] [id number] Alpa Echevarria Self - patient is the insured Medical (General) History Medical History History ICD Code anemia fainting/dizzy spells endometriosis sever anxiety Surgical History Surgery Date(Month/Year) gall bladder removed 2020 tonsilectomy
--- OUTSIDE RECORDS SUMMARY | 2024-11-18 00:38 | XMS_ITS | Continuity of Care Document ---
Author Organization [facility] Address [address] [place] [address] Phone Care Team Providers Care Color Strainer Name Role Phone Van Caraballo MD Unavailable Unavailable Advance Directives Directive Yes / No Effective Date File Name No Information Encounters Encounter Description Practice Location Reason(s) For Visit Diagnoses Date Provider Providers Copied on Encounter [facility], [address], [place], [address], tel:[phone] Van Caraballo No Information Ilya Araujo. [address] [place] [address], [address], [place]. tel:[phone] Referring Provider: Lauro Workman, [address], [place], [id number]. tel:[phone] Family History Family Member Type Diagnosis Age At Onset No Information Payers Payer name Insurance type Covered constitution party ID Authoriza titay(s) [facility] CI [id number] Social History Type Description Quantity Date Captured Comments Sex Female Smoking Status No Information Chief Complaint And Reason For Visit No Information History Of Present Illness Encounter Date Complaint History Of Prese nt Illness No Information Instructions Date Instruction Additional Infor mation No Information Assessments Type Assessment Date No Information
--- OUTSIDE RECORDS SUMMARY | 2024-11-18 00:38 | XMS_ITS | Clinical Summary ---
Author Organization [facility] Address [address] [place] [address] Care Team Providers Care Early Childhood Worker Name Role Phone Unavailable Primary Care Provider Unavailabl e Source Comments [facility], formerly [facility],non-owned Affiliates and Associated Physician Practices is amultiple site organization consisting of ambulatory clinics and hospital sitesin [place], [place], [place] and [place]. This disclosure is being madepursuant to the Care Everywhere program and may not contain all information available regarding this patient. Last updated 18.[facility] Allergies No known active allergies Medications * [...]
--- OUTSIDE RECORDS SUMMARY | 2024-11-18 00:38 | XMS_ITS | Clinical Summary ---
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
[2024-11-18] MEDS: MORPHINE SULFATE (*CRX) 4 MG/ML INJ IV PUSH (00:54)
[2024-11-18] MEDS: ONDANSETRON INJ 4 MG/2 ML VIAL IV PUSH (00:54)
[2024-11-18 01:33] LABS: INR 1.2; Prothrombin Time 15.3 Seconds (11.1-14.7)
[2024-11-18] MEDS: HYDROmorphone HCL INJ (*CRX) 1 MG/ML SYR 0.5 MG IV PUSH ×2 (01:53→05:16)
--- NOTE | 2024-11-18 02:43 | ED_ITS ---
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 The patient states she has had bleeding like this off and on for the past several months. She states she was previously advised by her sales trainee to pursue hysterectomy though decided to delay. She denies bleeding from elsewhere. She complains of fatigue, dyspnea on exertion and lightheadedness. She has no other complaints at this time. Related Data Allergies Allergy/AdvReac Type Severity Reaction Status Date / Time No Known Allergies Allergy Unknown Verified 11/17/24 20:51 Review of Systems 2 Review of Systems: All systems reviewed & are unremarkable except as noted in HPI and below PMFSH Past Medical History Medical History Edema Cellulitis Marijuana smoker Constipation Dysfunctional gallbladder (~06/2020) Right sided abdominal pain Leg pain Irritable bowel syndrome Mixed Tobacco abuse Restless leg syndrome Anxiety Smoker Cholelithiasis (Unknown) , ectopic, tubal History of irritable bowel syndrome History of endometriosis Surgical History Surgical History History of hysteroscopy (06/17/15) H/O LEEP History of cholecystectomy History of shoulder surgery (04/13/13) right shoulder History of unilateral salpingectomy History of tonsillectomy History of laparoscopy Several last 1 being today 07/01/2020/ 05/13/2015 Laparoscopy - endocx polyp, right ovarian cys Family History Family History Father Diabetes mellitus Family history of alcoholism Family history of mental disorder Mother Hypertension Sibling Breast cancer Social History Social History Social History: The patient has 1 daughter. She has had a tubal in the past. She currently is unemployed. She resides with her boyfriend. She does not have a durable power assistant prosecuting attorney for healthcare but is a full code. She smokes about half pack a cigarettes a day. She does smoke marijuana at night to help her rest. She denies any alcohol or other street drugs. Smoking packs per day: 0.5 Smoking cigarettes per day: 10.0 Years smoked: 30 Smoking pack-years: 15.00 Smoking status: Current every day smoker Tobacco type: cigarettes Alcohol intake: never Substance use: current Substance use type: marijuana Lack of Transportation: No Lack of Food: Sometimes True Current Housing: I Do Not Have Housing Concerned About Future Housing: No Difficulty Paying Gas/Electric Bills: YES Difficulty Paying for Meds: No Currently Unemployed: YES Education: High School Diploma/GED Difficulty w/ Childcare or Family Care: No Living arrangements: with friend(s) Additional living arrangements comments: single Occupation/Education: unemployed Gender identity (if verbalized by the patient): Female Sexual Orientation (if Verbalized by the Patient): Straight or Heterosexual Spiritual care concerns: No Exam 2 Narrative: GENERAL: Well-developed, well-nourished, and in no acute distress. Pale HEAD: Normocephalic, atraumatic. EYES: PERRLA and EOMI. ENT: Conjunctival pallor. Nares clear, no rhinorrhea or epistaxis. Mucous membranes moist. Oropharynx without tonsillar hypertrophy exudate or other lesions. CHEST: Clear to auscultation. No respiratory distress. No wheezes rales or rhonchi HEART: Regular rate and rhythm. No murmur heard. Normal peripheral pulses. ABDOMEN: Soft, [id number] tenderness in the suprapubic region without mass, rebound or guarding, nondistended, normal active bowel sounds. EXTREMITIES: Normal range of motion. No edema. SKIN: Warm, dry, no rash. NEURO: Alert and oriented x3. No focal deficit. Moving all 4 limbs spontaneously PSYCH: Normal mood and affect. Course Course Emergency Course: 02:21 - CBC demonstrates white blood cell count of 11.1 with hemoglobin of 7.7. Coags demonstrates slightly elevated PT of 15.3 but a normal INR. Chemistries demonstrate mild hyponatremia sodium of 135 and mild hypokalemia with potassium of 3.2 but is otherwise unremarkable. CT abdomen pelvis by STAT Rad interpretation demonstrates ?some free fluid noted in the pelvis. Uterus is enlarged and in homogeneous.? I discussed the patient with electrical installer Dr. Bernard who recommends IV TXA, transfusion as indicated and accepts admission. Repeat hemoglobin pending. 03:00 - Repeat hemoblogin 6.8. Will transfuse. Vital Signs Vital signs: Vital Signs Temperature 98.7 F 11/17/24 20:58 Pulse Rate 85 11/17/24 20:58 Respiratory Rate 18 11/17/24 20:58 Blood Pressure 125/87 11/17/24 20:58 Pulse Oximetry 100 11/17/24 20:58 Oxygen Delivery Room Air 11/17/24 20:58 Temperature 98.7 F 11/17/24 20:58 Pulse Rate 80 11/18/24 01:36 Respiratory Rate 15 11/18/24 01:36 Blood Pressure 111/66 11/18/24 01:36 Pulse Oximetry 99 11/18/24 01:36 Oxygen Delivery Room Air 11/17/24 20:58 MDM - Female Genitourinary MDM Narrative Medical decision making narrative: Plan: Labs, pain control, imaging, Gynecology consultation, reassess Differential Diagnosis Differential diagnosis: Likely dysmenorrhea and other (Uterine fibroids, coagulopathy, anemia, other) Lab Data 11/18/24 02:45 11/17/24 22:25 Labs: Lab Results 11/17/24 11/18/24 Range/Units 22:25 02:45 WBC 11.1 H (4.5-10.0) K/mm3 RBC 4.29 (4.2-5.4) M/mm3 Hgb 7.7 L 6.8 L* (12.0-15.0) g/dL Hct 28.9 L 25.8 L (37.0-47.0) % MCV 67.4 L (80-100) fl MCH 17.9 L (26-34) pg MCHC 26.6 L (32-36) g/dl RDW 19.7 H (11.5-14.5) % Plt Count 302 (150-375) k/mm3 MPV TNP Immature Gran % (Auto) 0.5 (0-0.5) % Neut % (Auto) 72.5 (45.5-73.1) % Lymph % (Auto) 19.8 (18.3-44.2) % [place] % (Auto) 5.7 (2.6-8.5) % Eos % (Auto) 1.0 (0-4.4) % Baso % (Auto) 0.5 (0.2-1.2) % Lymph # (Auto) 2.19 (0.9-3.2) K/mm3 [place] # (Auto) 0.6 (0.1-0.6) K/mm3 Eos # (Auto) 0.1 (0-0.3) K/mm3 Baso # (Auto) 0.1 (0.0-0.1) K/mm3 Abs Immat Gran (auto) 0.05 H (0.00-0.031) K/mm3 Absolute Neuts (auto) 8.0 H (1.3-6.7) K/mm3 Absolute Nucleated RBC 0.000 (0.0-0.012) K/mm3 Band Neutrophils % Not Reportable Nucleated RBC % 0.0 (0.0-0.2) % Platelet Estimate Adequate (Adequate) Large Platelets Present Hypochromasia 1+ Anisocytosis 1+ Ovalocytes 1+ Schistocytes Rare PT 15.3 H (11.1-14.7) Seconds INR 1.2 Sodium 135 L (137-145) mmol/L Potassium 3.2 L (3.4-5.0) mmol/L Chloride 103 (98-107) mmol/L Carbon Dioxide 22 (22-30) mmol/L Anion Gap 10 (4-12) mmol/L BUN 11 (7-17) mg/dL Creatinine 0.71 (0.7-1.0) mg/dL Estim Creat Clear Calc 75 ml/min Estimated GFR > 60 (59 - ) Glucose 91 (65-110) mg/dL Calcium 8.6 (8.4-10.2) mg/dL Total Bilirubin 0.3 (0.2-1.3) mg/dL AST 19 (14-36) U/L ALT 14 (6-35) U/L Alkaline Phosphatase 85 (38-126) U/L Total Protein 8.0 (6.3-8.2) g/dL Albumin 4.2 (3.5-5.1) g/dL Blood Type A Negative Antibody Screen Negative Discharge Plan Discharge Clinical Impression: Abnormal vaginal bleeding, Anemia, Abdominal pain, suprapubic, Acute hypokalemia Patient Disposition: Still a Patient Condition: Serious Patient Language: New Zealander Follow-up/Referrals: Keon Vanegas APRN [Primary Care Provider] -
[2024-11-18 02:57] LABS: Hematocrit 25.8 % (37.0-47.0)
[2024-11-18 02:59] LABS: Hemoglobin 6.8 g/dL (12.0-15.0)
[2024-11-18] MEDS: TRANEXAMIC ACID 1,000MG/ISO100 1,000 MG/100 ML BAG 200 MG IVPB (03:06)
[2024-11-18] MEDS: TUBING, BLOOD SET 1 EACH XX (03:59)
[2024-11-18] MEDS: SODIUM CHLORIDE 0.9% IV 250 ML 30 ML IV CONT (03:59)
--- NOTE | 2024-11-18 05:27 | PC.NURSE ---
RBC transfusion number one complete. No reaction noted. Patient states she feels better, patient and significant other notice more color in patient's face.
--- NOTE | 2024-11-18 05:49 | ADMGEN ---
This patient, Alpa Echevarria, was admitted to [facility] Surg Room 327-01. Patient/family oriented to hospital policies and general routines including ID bracelet, bed and alarms, visiting hours, pain management, procedures, bathroom and other care routines, personal items, smoking policy, room service/diet, and visiting hours. Information on how to activate the Rapid Response Team has been discussed. Patient/Family are encouraged to report perceived risks to care and to ask questions if they do not understand what they are told or what they should do.
[2024-11-18] MEDS: KETOROLAC 15 MG/ML VIAL (*BKC) IV PUSH (10:43)
[2024-11-18] MEDS: HYDROcodone/acetaminophen (*CRX) 5-325 MG TABLET 1 TAB PO ×2 (12:20→16:28)
[2024-11-18 12:21] LABS: Hematocrit 32.9 % (37.0-47.0); Hemoglobin 9.4 g/dL (12.0-15.0)
--- NOTE | 2024-11-18 15:48 | P.HP_ITS ---
H&P: HPI History of Present Illness Date/Time: 11/18/24 15:48 49-year-old 0111 female with known history of fibroids, bleeding, and anemia presents from the emergency room with further complaints of pelvic pain and bleeding. Found to be anemic and admitted. on admission feeling lightheaded and dizzy, and significant amount of discomfort and cramping. CT scan does reveal enlarged uterus with fibroid, which she has had for an extended period of time. Has not been able to have hysterectomy schedule the we have discussed this in the past. Chief Complaint: Menometrorrhagia Review of Systems Review of Systems: All systems reviewed & are unremarkable except as noted in HPI and below [facility] Past Medical History Medical History Edema Cellulitis Marijuana smoker Constipation Dysfunctional gallbladder (~06/2020) Right sided abdominal pain Leg pain Irritable bowel syndrome Mixed Tobacco abuse Restless leg syndrome Anxiety Smoker Cholelithiasis (Unknown) , ectopic, tubal History of irritable bowel syndrome History of endometriosis Surgical History Surgical History History of hysteroscopy (06/17/15) H/O LEEP History of cholecystectomy History of shoulder surgery (04/13/13) right shoulder History of unilateral salpingectomy History of tonsillectomy History of laparoscopy Several last 1 being today 07/01/2020/ 05/13/2015 Laparoscopy - endocx polyp, right ovarian cys Family History Family History Father Diabetes mellitus Family history of alcoholism Family history of mental disorder Mother Hypertension Sibling Breast cancer Social History Social History Social History: The patient has 1 daughter. She has had a tubal in the past. She currently is unemployed. She resides with her boyfriend. She does not have a durable power family law attorney for healthcare but is a full code. She smokes about half pack a cigarettes a day. She does smoke marijuana at night to help her rest. She denies any alcohol or other street drugs. Smoking packs per day: 0.5 Smoking cigarettes per day: 10.0 Years smoked: 30 Smoking pack-years: 15.00 Smoking status: Current every day smoker Tobacco type: cigarettes Alcohol intake: never Substance use: current Substance use type: marijuana Do You Feel Safe in your Home?: Yes Lack of Transportation: No Lack of Food: Sometimes True Current Housing: I Have Housing Concerned About Future Housing: No Difficulty Paying Gas/Electric Bills: YES Difficulty Paying for Meds: YES Currently Unemployed: No Education: Associate Degree Difficulty w/ Childcare or Family Care: No Living arrangements: with friend(s) Additional living arrangements comments: single Occupation/Education: unemployed Gender identity (if verbalized by the patient): Female Sexual Orientation (if Verbalized by the Patient): Straight or Heterosexual Spiritual care concerns: No Meds Home Medications and Allergies Home Medications ?Medication ?Instructions ?Recorded ?Confirmed ?Type hydrocodone 5 mg-acetaminophen 325 1 tablet PO Q4H PRN Pain Rated 4-6 11/18/24 Rx mg tablet #20 tabs Allergies Allergy/AdvReac Type Severity Reaction Status Date / Time No Known Allergies Allergy Unknown Verified 11/17/24 20:51 Vital Signs Vital Signs - 24 hr 11/17/24 20:58 11/17/24 22:45 11/18/24 00:30 Temperature 98.7 F Pulse Rate 85 77 79 Respiratory Rate 18 20 16 Blood Pressure 125/87 119/63 111/65 Pulse Oximetry 100 100 100 Oxygen Delivery Room Air 11/18/24 01:36 11/18/24 03:30 11/18/24 03:58 Temperature 97.6 F Pulse Rate 80 70 70 Respiratory Rate 15 15 16 Blood Pressure 111/66 99/62 L 93/50 L Pulse Oximetry 99 99 99 Oxygen Delivery 11/18/24 04:04 11/18/24 04:09 11/18/24 04:14 Temperature 98.1 F 97.9 F 97.8 F Pulse Rate 69 69 67 Respiratory Rate 15 15 14 Blood Pressure 96/50 L 97/54 L 98/55 L Pulse Oximetry 99 100 100 Oxygen Delivery 11/18/24 04:59 11/18/24 05:14 11/18/24 06:00 Temperature 98 F 98.1 F 98.1 F Pulse Rate 66 70 62 Respiratory Rate 16 12 19 Blood Pressure 109/76 126/80 122/76 Pulse Oximetry 99 100 100 Oxygen Delivery 11/18/24 07:19 11/18/24 07:22 11/18/24 07:38 Temperature 97.3 F L 97.3 F L 97.1 F L Pulse Rate 75 68 68 Respiratory Rate 16 16 16 Blood Pressure 91/56 L 91/56 L 101/50 L Pulse Oximetry 98 97 98 Oxygen Delivery 11/18/24 08:00 11/18/24 08:38 11/18/24 09:38 Temperature 97.1 F L 97.2 F L Pulse Rate 79 65 Respiratory Rate 16 18 Blood Pressure 103/64 106/63 Pulse Oximetry 99 99 Oxygen Delivery Room Air 11/18/24 10:38 11/18/24 14:00 Temperature 97.2 F L 97.2 F L Pulse Rate 72 64 Respiratory Rate 18 18 Blood Pressure 117/75 106/64 Pulse Oximetry 100 100 Oxygen Delivery Exam Narrative: Abdomen: positive bowel sounds soft. Pelvic exam deferred H&P: Results Labs Labs: Short CBC 11/17/24 11/18/24 11/18/24 Range/Units 22:25 02:45 12:09 WBC 11.1 H (4.5-10.0) K/mm3 Hgb 7.7 L 6.8 L* 9.4 L (12.0-15.0) g/dL Hct 28.9 L 25.8 L 32.9 L (37.0-47.0) % Plt Count 302 (150-375) k/mm3 BMP 11/17/24 22:25 Sodium 135 L Potassium 3.2 L Chloride 103 Carbon Dioxide 22 BUN 11 Creatinine 0.71 Glucose 91 Calcium 8.6 Liver Function 11/17/24 Range/Units 22:25 Total Bilirubin 0.3 (0.2-1.3) mg/dL AST 19 (14-36) U/L ALT 14 (6-35) U/L Alkaline Phosphatase 85 (38-126) U/L Albumin 4.2 (3.5-5.1) g/dL Assessment and Plan Assessment and plan (1) Menometrorrhagia: Code(s): N92.1 - Excessive and frequent menstruation with irregular cycle Status: Acute (2) Mass of uterus: Code(s): N85.8 - Other specified noninflammatory disorders of uterus Status: Acute (3) Anemia: Onset Date: Unknown Qualifiers: Anemia type: iron deficiency Iron deficiency anemia type: chronic blood loss Qualified Code(s): D50.0 - Iron deficiency anemia secondary to blood loss (chronic) Code(s): D64.9 - Anemia, unspecified Status: Acute (4) Pelvic pain: Code(s): R10.2 - Pelvic and perineal pain Status: Acute (5) History of endometriosis: Code(s): Z87.42 - Personal history of other diseases of the female genital tract Status: Chronic Plan 1. Patient admitted for TXA for her bleeding, as well as will receive 2units packed red blood cells
--- NOTE | 2024-11-25 11:18 | P.DS_ITS ---
DS: Admitting Diagnosis Discharge Date 11/18/24 Admitting Diagnosis Menometrorrhagia DS: Discharge Diagnosis Discharge Diagnosis (1) Menometrorrhagia: Code(s): N92.1 - Excessive and frequent menstruation with irregular cycle Status: Acute DS: Summary Hospital Course Reason for hospitalization: 49-year-old female admitted for menometrorrhagia and anemia. TXA resolved bleeding, transfused x2 with good response. Patient discharged home and will follow up in the office to schedule hysterectomy. Hospital Course: See above Time Spent with Patient Time attestation: Total time spent providing and/or coordinating discharge services: Discharge Plan Discharge Consulting providers: Myke Cisse Discharging Clinician: Donato Ellison Patient Disposition: Home Activity: no straining, follow weight bearing status and pelvic rest Diet: as tolerated Discharge Instructions: call office 11/19/2024 AM to schedule hysterectomy Patient Language: South Sudanese Follow-up/Referrals: Donato Ellison MD [Physician] - 1 Week Discharge Medications: New ibuprofen 800 mg tablet 800 mg PO TID Qty: 30 0RF hydrocodone-acetaminophen 5-325 mg Tablet 1 tablet PO Q4H PRN (Reason: Pain Rated 4-6) Qty: 20 0RF No Action tranexamic acid 650 mg tablet 1,300 mg PO Q8H Qty: 30 0RF Date of admission: 11/18/24 02:55 Primary Care Provider: Robert Dodge Admitting Provider: Marylou Bernard Attending physician on admission: Donato Ellison Condition: Stable
== END 2024-11-18 17:30 | disposition home or self-care (01) ==
LOC: ANHED 11-18 02:44 → ANH3MEDSUR 11-18 13:51
PROVIDERS: Family Medicine; Admitting Provider Obstetrics & Gynecology; Emergency Provider Preventive Medicine Aerospace Medicine; PCP Family Medicine; Visit Provider Obstetrics & Gynecology
DX: N92.1 Excessive and frequent menstruation with irregular cycle (principal); D50.0 Iron deficiency anemia secondary to blood loss (chronic); N85.8 Other specified noninflammatory disorders of uterus; D25.9 Leiomyoma of uterus, unspecified; Z87.42 Personal history of other diseases of the female genital tract; E87.6 Hypokalemia; F17.210 Nicotine dependence, cigarettes, uncomplicated; K58.2 Mixed irritable bowel syndrome; Z90.49 Acquired absence of other specified parts of digestive tract; Z90.79 Acquired absence of other genital organ(s)
CPT/HCPCS: 36415; 36430; 74177; 80053; 85014; 85018; 85025; 85610; 86850; 86900; 86901; 86923; 96365; 96375; 99285; A9270; G0379; J1171; J1885; J2270; J2405; J7050; P9016; Q9967

== ENCOUNTER 2024-12-10 03:07 | Emergency (ER) | payer OTHER, SELFPAY ==
--- OUTSIDE RECORDS SUMMARY | 2024-12-10 03:10 | XMS_ITS | Clinical Summary ---
Author Organization [facility] Address [address] [place] [address] Care Team Providers Care Systems Librarian Name Role Phone Unavailable Primary Care Provider Unavailabl e Source Comments [facility],non-owned Affiliates and Associated Physician Practices is amultiple site organization consisting of ambulatory clinics and hospital sitesin [place], [place], [place] and [place]. This disclosure is being madepursuant to the Care Everywhere program and may not contain all information available regarding this patient. Last updated 18.[facility] Allergies No known active allergies Medications * Be aware that medications may not be up to date on this document. Alwaysverify current medications with the patient. Cefdinir (OMNICEF PO) Take by mouth. 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
--- OUTSIDE RECORDS SUMMARY | 2024-12-10 03:10 | XMS_ITS | Encounter Summary ---
Author Organization [facility] Address [address] [place] [address] Care Team Providers Care Principal Consultant Name Role Phone None, Provider Primary Care Provider Sean riley Non-Staff, Provider Primary Care Provider Robert Wheeler DO Primary Care Provider [phone] Encounter Details Date Type Department Care Team (Late st Contact Info) Description 01/18/2019 Abstract [facility] CONVERSION [address] [place] [address] , Generic Conversion, Social History Tobacco Use Types Packs/Day Years Used Date Smoking Tobacco: Never Assessed Comments Unknown Sex and Gender Information Value Date Recorded Sex Assigned at Not on file 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
--- OUTSIDE RECORDS SUMMARY | 2024-12-10 03:10 | XMS_ITS | Clinical Summary ---
Author Organization 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
--- OUTSIDE RECORDS SUMMARY | 2024-12-10 03:10 | XMS_ITS | Patient Health Record ---
Author Organization [facility] Address [address] [place] [address] Care Team Providers Care Food Manager Name Role Phone Mark Pickard Primary Care [...] Coverage End Date [employer] [address] [address] [place] [address] [phone] [id number] Alpa Echevarria Self - patient is the insured Medical (General) History Medical History History ICD Code anemia fainting/dizzy spells endometriosis sever anxiety Surgical History Surgery Date(Month/Year) gall bladder removed 2020 tonsilectomy
--- NOTE | 2024-12-10 03:20 | PC.NURSE ---
Pt saturated through her underwear and pants. Chux placed on bed and pt given mesh panty and pad.
[2024-12-10 03:26] VITALS: BP 112/78; PULSE 78; RESP 16; TEMP 37; O2SAT 100
[2024-12-10] MEDS: SODIUM CHLORIDE 0.9% IV 1,000 ML 999 ML IV CONT (03:39)
--- NOTE | 2024-12-10 03:39 | ED_ITS ---
HPI - Female Genitourinary General Chief complaint: Vaginal Bleeding Stated complaint: vaginal bleeding Time Seen by Provider: 12/10/24 03:08 History of Present Illness HPI Narrative: 49-year-old female with a history of menometrorrhagia and anemia. Patient presents to the emergency department for evaluation of persistent vaginal bleeding. Patient has been having this symptom for several weeks and was admitted from the emergency department on 11/18/2024 for severe anemia requiring 2 unit blood transfusion and admission with OBGYN. She follows with Dr. Ellison and is scheduled for elective hysterectomy tomorrow. Patient states that she is having worsening bleeding. Her OBGYN prescribed her progesterone after her insurance declined TXA for her persistent bleeding. She took a single dose with this afternoon. She has been having worsening bleeding, nauseousness and lower abdominal pain that feels similar to when she was admitted last time. Endorses lightheadedness but no syncope. No chest pain or shortness of breath. No new abdominal pain or pelvic pain. States that she is passing large clots numerous times throughout the day. Having to change her pads multiple times throughout the day and soaking through quickly. Patient was told by her OBGYN that if she has any worsening bleeding to proceed to the emergency department. Related Data Allergies Allergy/AdvReac Type Severity Reaction Status Date / Time No Known Allergies Allergy Unknown Verified 12/02/24 09:47 Review of Systems 2 Review of Systems: As reviewed above in HPI [facility] Past Medical History Medical History Uterine fibroid Screening mammogram, encounter for Edema Cellulitis Marijuana smoker Constipation Dysfunctional gallbladder (~06/2020) Right sided abdominal pain Leg pain Irritable bowel syndrome Mixed Tobacco abuse Restless leg syndrome Anxiety Smoker Cholelithiasis (Unknown) , ectopic, tubal History of irritable bowel syndrome History of endometriosis Surgical History Surgical History History of hysteroscopy (06/17/15) H/O LEEP History of cholecystectomy History of shoulder surgery (04/13/13) right shoulder History of unilateral salpingectomy History of tonsillectomy History of laparoscopy Several last 1 being today 07/01/2020/ 05/13/2015 Laparoscopy - endocx polyp, right ovarian cys Family History Family History Father Diabetes mellitus Family history of alcoholism Family history of mental disorder Mother Hypertension Sibling Breast cancer Social History Social History Social History: The patient has 1 daughter. She has had a tubal in the past. She currently is unemployed. She resides with her boyfriend. She does not have a durable power trust and estates attorney for healthcare but is a full code. She smokes about half pack a cigarettes a day. She does smoke marijuana at night to help her rest. She denies any alcohol or other street drugs. Smoking packs per day: 0.5 Smoking cigarettes per day: 10.0 Years smoked: 15 Smoking pack-years: 7.50 Smoking status: Current every day smoker Tobacco type: cigarettes Alcohol intake: never Substance use: current Substance use type: marijuana Other substance usage details: occasional gummy/smoke marijuana for RLS at night Do You Feel Safe in your Home?: Yes Lack of Transportation: No Lack of Food: Sometimes True Current Housing: I Have Housing Concerned About Future Housing: No Difficulty Paying Gas/Electric Bills: YES Difficulty Paying for Meds: YES Currently Unemployed: No Education: Associate Degree Difficulty w/ Childcare or Family Care: No Living arrangements: with friend(s) Additional living arrangements comments: Lives with boyfriend and his sister Occupation/Education: unemployed Gender identity (if verbalized by the patient): Female Sexual Orientation (if Verbalized by the Patient): Straight or Heterosexual Spiritual care concerns: No Exam 2 Narrative: GENERAL: [Well-appearing, well-nourished, and in no acute distress.] HEAD: [Normocephalic, atraumatic.] EYES: [PERRLA and EOMI.] Conjunctiva pallor bilaterally ENT: Nares clear, no rhinorrhea or epistaxis. Mucous membranes dry NECK: Supple. CHEST: [Clear to auscultation. No respiratory distress.] HEART: [Regular rate and rhythm]. No murmur heard. [Normal peripheral pulses.] ABDOMEN: [Soft, nondistended], [nontender], [No rigidity or guarding] EXTREMITIES: Normal range of motion. [No edema.] SKIN: Mottling is seen in the bilateral knees otherwise warm and dry extremities NEURO: [No focal deficits]. Alert and oriented [x3.] PSYCH: [Normal mood and affect.] Course Vital Signs Vital signs: Vital Signs Temperature 37.0 C 12/10/24 03:26 Pulse Rate 78 12/10/24 03:26 Respiratory Rate 16 12/10/24 03:26 Blood Pressure 112/78 12/10/24 03:26 Pulse Oximetry 100 12/10/24 03:26 Temperature 37.0 C 12/10/24 03:26 Pulse Rate 87 12/10/24 04:03 Respiratory Rate 16 12/10/24 04:03 Blood Pressure 117/81 12/10/24 04:03 Pulse Oximetry 100 12/10/24 04:03 MDM - Female Genitourinary MDM Narrative Medical decision making narrative: 49-year-old female with a history of menometrorrhagia and anemia. She is scheduled for a hysterectomy with her OBGYN tomorrow. She states that she is having worsening bleeding. Bleeding has been going on for several weeks and she was admitted 3 weeks ago to OBGYN services after requiring transfusion secondary to significant blood loss anemia. She is not any acute distress but does appear uncomfortable. She has mottling to her knees and lower extremities, conjunctival pallor, appears weak. She reports soaking through her pads frequently and quickly endorses large blood clot passage. Workup was done previously that showed fibroid uterus as the likely source. Will repeat laboratory studies including CBC, CMP. Coag studies and a type and screen ordered. She is given IV TXA, fluid bolus, morphine and Zofran for symptom control. Placed on facility designer and re-evaluated. Based on laboratory studies suspicion is for ongoing hemorrhage, acute anemia, dehydration, electrolyte imbalances and hypokalemia. No present ultrasound capabilities. Workup is very reassuring. No leukocytosis, hemoglobin is stable at 9.0, no interval change compared to her prior levels upon discharge several weeks ago which is reassuring that she is able to compensate for any of the blood loss from her vaginal bleeding. Platelets are normal. Normal coagulation panel. Electrolytes are unremarkable. Normal renal function, normal glucose and LFTs. Patient responded nicely to medications here in the ED and TXA. No present ongoing hemorrhage. Patient can be safely discharged at this time with her scheduled outpatient procedure tomorrow. Patient encouraged to contact her OBGYN this morning to let them know about the ER visit and she was given return precautions which she verbalized understanding. Medical Records Attestation: I reviewed the patient's medical records. Lab Data Attestation: I reviewed the patient's lab results. 12/10/24 03:40 12/10/24 03:40 Labs: Lab Results 12/10/24 Range/Units 03:40 WBC 7.7 (4.5-10.0) K/mm3 RBC 4.40 (4.2-5.4) M/mm3 Hgb 9.0 L (12.0-15.0) g/dL Hct 31.7 L (37.0-47.0) % MCV 72.0 L (80-100) fl MCH 20.5 L (26-34) pg MCHC 28.4 L (32-36) g/dl RDW 23.9 H (11.5-14.5) % Plt Count 238 (150-375) k/mm3 MPV TNP Immature Gran % (Auto) 0.1 (0-0.5) % Neut % (Auto) 60.0 (45.5-73.1) % Lymph % (Auto) 31.8 (18.3-44.2) % [place] % (Auto) 6.4 (2.6-8.5) % Eos % (Auto) 1.2 (0-4.4) % Baso % (Auto) 0.5 (0.2-1.2) % Lymph # (Auto) 2.44 (0.9-3.2) K/mm3 [place] # (Auto) 0.5 (0.1-0.6) K/mm3 Eos # (Auto) 0.1 (0-0.3) K/mm3 Baso # (Auto) 0.0 (0.0-0.1) K/mm3 Abs Immat Gran (auto) 0.01 (0.00-0.031) K/mm3 Absolute Neuts (auto) 4.6 (1.3-6.7) K/mm3 Absolute Nucleated RBC 0.000 (0.0-0.012) K/mm3 Band Neutrophils % 0 (0-6) % Nucleated RBC % 0.0 (0.0-0.2) % Platelet Estimate Adequate (Adequate) % Immature Plt Fraction 7.8 (0.9-11.2) % Ovalocytes 1+ Schistocytes None seen PT 14.1 (11.1-14.7) Seconds INR 1.1 APTT 27.8 (22.3-36.8) Seconds Sodium 138 (137-145) mmol/L Potassium 3.5 (3.4-5.0) mmol/L Chloride 106 (98-107) mmol/L Carbon Dioxide 24 (22-30) mmol/L Anion Gap 8 (4-12) mmol/L BUN 15 (7-17) mg/dL Creatinine 0.89 (0.7-1.0) mg/dL Estim Creat Clear Calc 61 ml/min Estimated GFR > 60 (59 - ) Glucose 114 H (65-110) mg/dL Calcium 8.7 (8.4-10.2) mg/dL Total Bilirubin 0.2 (0.2-1.3) mg/dL AST 16 (14-36) U/L ALT 13 (6-35) U/L Alkaline Phosphatase 69 (38-126) U/L Total Protein 8.0 (6.3-8.2) g/dL Albumin 4.1 (3.5-5.1) g/dL Discharge Plan Discharge Clinical Impression: Menometrorrhagia, Vaginal bleeding Patient Disposition: Home Condition: Stable Instructions: Antibiotic Form Additional Instructions: Your hemoglobin is 9.0 and stable. Follow-up with your OBGYN and your scheduled surgery tomorrow. Return with any emergent concerns such as worsening bleeding, lightheadedness, syncope, worsening pain or symptoms. Contact your OBGYN for other recommendations this morning. Patient Language: Monegasque Prescriptions: No Action progesterone micronized [Prometrium] 200 mg capsule 200 mg PO QHS 30 Days Qty: 30 0RF Patient Comments: provider said to start taking if spotting ibuprofen 800 mg tablet 800 mg PO TID Qty: 30 0RF tranexamic acid 650 mg tablet 1,300 mg PO Q8H Qty: 30 0RF Patient Comments: provider said to start taking if spotting Follow-up/Referrals: Robert Dodge DO [Primary Care Provider] - Time of Disposition: 04:45
[2024-12-10 03:49] LABS: Basophils Percent Auto 0.5 % (0.2-1.2); Eosinophils Absolute Auto 0.1 K/mm3 (0-0.3); Eosinophils Percent Auto 1.2 % (0-4.4); Hematocrit 31.7 % (37.0-47.0); Immature Granulocyte Absolute 0.01 K/mm3 (0.00-0.031); Immature Granulocyte Percent A 0.1 % (0-0.5); Immature Platelet Fraction Pct 7.8 % (0.9-11.2); Lymphocytes Absolute Auto 2.44 K/mm3 (0.9-3.2); Lymphocytes Percent Auto 31.8 % (18.3-44.2); Mean Corpuscular HGB Conc 28.4 g/dl (32-36); Mean Corpuscular Hemoglobin 20.5 pg (26-34); Monocytes Absolute Auto 0.5 K/mm3 (0.1-0.6); Monocytes Percent Auto 6.4 % (2.6-8.5); Neutrophils Absolute Auto 4.6 K/mm3 (1.3-6.7); Platelet Count Result 238 k/mm3 (150-375); Red Cell Distribution Width 23.9 % (11.5-14.5); White Blood Count 7.7 K/mm3 (4.5-10.0)
[2024-12-10] MEDS: MORPHINE SULFATE (*CRX) 4 MG/ML INJ IV PUSH (03:53)
[2024-12-10] MEDS: ONDANSETRON INJ 4 MG/2 ML VIAL IV PUSH (03:54)
[2024-12-10 03:57] LABS: Alanine Aminotransferase 13 U/L (6-35); Albumin Level 4.1 g/dL (3.5-5.1); Alkaline Phosphatase 69 U/L (38-126); Anion Gap 8 mmol/L (4-12); Aspartate Amino Transferase 16 U/L (14-36); Bilirubin,Total 0.2 mg/dL (0.2-1.3); Blood Urea Nitrogen 15 mg/dL (7-17); Calcium 8.7 mg/dL (8.4-10.2); Carbon Dioxide 24 mmol/L (22-30); Chloride 106 mmol/L (98-107); Estimated CRCL calculation 61 ml/min; Estimated Glomerular Filt Rate > 60; Glucose 114 mg/dL (65-110); Potassium 3.5 mmol/L (3.4-5.0); Sodium 138 mmol/L (137-145)
[2024-12-10] MEDS: TRANEXAMIC ACID 1,000MG/ISO100 1,000 MG/100 ML BAG 200 MG IVPB (03:57)
[2024-12-10 04:03] VITALS: BP 117/81; PULSE 87; RESP 16; O2SAT 100
[2024-12-10 04:09] LABS: INR 1.1; Prothrombin Time 14.1 Seconds (11.1-14.7)
[2024-12-10 04:11] LABS: Partial Thromboplastin Time 27.8 Seconds (22.3-36.8)
[2024-12-10 04:18] LABS: Band Neutrophils Percent 0 % (0-6); Platelet Estimate Adequate (Adequate)
--- OUTSIDE RECORDS SUMMARY | 2024-12-10 04:18 | XMS_ITS | Clinical Summary ---
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
--- OUTSIDE RECORDS SUMMARY | 2024-12-10 04:18 | XMS_ITS | Clinical Summary ---
Author Organization [facility] Address [address] [place] [address] Care Team Providers Care Manager Retail Name Role Phone Unavailable Primary Care Provider Unavailabl e Source Comments [facility],non-owned Affiliates and Associated Physician Practices is amultiple site organization consisting of ambulatory clinics and hospital sitesin [place], [place], [place] and [place]. This disclosure is being madepursuant to the Care Everywhere program and may not contain all information available regarding this patient. 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
--- OUTSIDE RECORDS SUMMARY | 2024-12-10 04:18 | XMS_ITS | Encounter Summary ---
Author Organization [facility] Address [address] [place] [address] Care Team Providers Care Data Center Project Manager Name Role Phone None, Provider Primary Care Provider Sean riley Non-Staff, Provider Primary Care Provider Robert Wheeler DO Primary Care Provider [phone] Encounter Details Date Type Department Care Team (Late st Contact Info) Description 01/18/2019 Abstract SFL CONVERSION [address] [place] [address] , Generic Conversion, Social History Tobacco Use Types Packs/Day Years Used Date Smoking Tobacco: Never Assessed Comments Unknown Sex and Gender Information Value Date Recorded Sex Assigned at Not on file 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
[2024-12-10 04:24] LABS: Schistocytes None Seen
[2024-12-10 04:25] LABS: Ovalocytes 1+
[2024-12-10 05:09] VITALS: BP 101/64; PULSE 75; RESP 16; TEMP 36.9; O2SAT 100
--- NOTE | 2024-12-10 05:11 | PC.NURSE ---
Pt given additional mesh panty, pad and paper scrub bottoms to go home in.
== END 2024-12-10 05:14 | disposition home or self-care (01) ==
PROVIDERS: Emergency Provider Student in an Organized Health Care Education/Training Program; PCP Family Medicine
DX: N92.1 Excessive and frequent menstruation with irregular cycle (principal); N80.9 Endometriosis, unspecified; K58.2 Mixed irritable bowel syndrome; G25.81 Restless legs syndrome; F41.9 Anxiety disorder, unspecified; F17.210 Nicotine dependence, cigarettes, uncomplicated; Z90.49 Acquired absence of other specified parts of digestive tract; Z90.79 Acquired absence of other genital organ(s)
CPT/HCPCS: 36415; 80053; 85025; 85055; 85610; 85730; 86850; 86900; 86901; 96365; 96375; 99284; J2270; J2405; J7030

== ENCOUNTER 2024-12-10 16:13 | Observation (INO) | payer OTHER, SELFPAY ==
[2024-12-02 09:53] VITALS: BMI 25.8
--- NOTE | 2024-12-02 10:24 | PC.NURSE ---
Report to the Outpatient Waiting Room, entrance under the green pavilion located off [facility], at time ___729___ on date ___12/11/24___. Planned Procedure Time: ___929___.? Time changes happen often and if your time is changed the preop area will call you the afternoon before. - You and your visitor will be asked to self-screen and do not enter if you have any COVID symptoms. Please call surgeon if you need to reschedule. - A mask is optional within the hospital at this time. Patients may have clear liquids (water, carbonated beverages, clear teas, apple juice) until 3 hours prior to surgery with a maximum of 20 ounces. - No food from midnight until time of surgery and no smoking, or chewing tobacco (or any form of nicotine). No chewing gum, candy or mints. Take only the following medications with a SIP of water on the morning of surgery: ____None DO NOT STOP ANY OF YOUR OTHER PRESCRIPTION MEDICATIONS PRIOR TO SURGERY EXCEPT THE FOLLOWING Hold all vitamins and supplements for 3 days per anesthesiologist. Medications to discontinue per physician please HOLD ibuprofen per surgeon Please no make-up, nail bengali, hairspray, perfume, deodorant, or body powder the day of surgery.? No jewelry (including any body piercings) or valuables the day of surgery, leave them at home.? Please take a shower or bath the night before, or the morning of, surgery with an antibacterial soap.? Wear comfortable, loose fitting clothing.? - Jewelry must be removed prior to entering the operating room.? Rings and piercings that are not removed may be cut off. - The hospital will not accept responsibility for valuables.? - Please leave all valuables, including medications, at home the day of surgery. If you are going home after surgery, a licensed parts delivery driver must drive you home.? - NO public transportation without another adult if you receive anesthesia. - We recommend that an adult stay with you for 24 hours following discharge. - We also recommend that you do not drive, make important decision, drink alcoholic beverages, or take any drugs that were not prescribed by your health care provider for at least 24 hours after your discharge time. Follow any additional instructions given to you from your surgeon. Telephone instructions given to ____Judy____and asked if any additional questions and then verbalized understanding. Patient advised to call surgeon office or pre surgery nurse liaison [phone] if any additional questions.
--- NOTE | ~2024-12-10 | US_ITS ---
US pelvic complete Ordering provider: Karey Alvarenga APRN History: . vaginal bleeding, OB request, hysterectomy tomorro . Comparison: None. Technique: Transabdominal ultrasound of the pelvis (Doppler ultrasound interrogation techniques used as needed for this exam.) FINDINGS: CERVIX: Normal. UTERUS: Measures 13.4x 6.4x 8.6 cm in length which is within normal limits and is anteverted. Fibroi d is noted measuring 6.6 x 5.1 x 6.4 cm.. ENDOMETRIUM: Distorted. CUL DE SAC: No free fluid. RIGHT OVARY: Normal in size measuring 4.4x 1.7x 2.2 cm. Normal echotexture. Doppler vascular flow pre sent. LEFT OVARY: Normal in size measuring 3.5x 2.1x 2.1 cm. Normal echotexture. Doppler vascular flow pres ent. ADNEXA: Normal. No mass. IMPRESSION: Fibroid uterus. Otherwise, normal pelvic ultrasound. Reviewed, dictated and finalized at location A.
--- NOTE | 2024-12-10 14:48 | P.PNAN_ITS ---
Anes - Initial Pre Proc Eval Procedure: Operation Date: 12/11/24 09:30 Proposed Procedures p Robotic Assisted Total Laparoscopic Hysterectomy with Bilateral Salpingectomy - Donato Ellison MD Date/Time: 12/10/24 14:48 Surgeon: Donato Ellison MD Pre Op Diagnosis: uterine fibroids Patient Data Age: 49 Gender: F Height: 1.65 m Weight: 70.5 kg Allergies Allergy/AdvReac Type Severity Reaction Status Date / Time No Known Allergies Allergy Unknown Verified 12/02/24 09:47 Home Medications ?Medication ?Instructions ?Recorded ?Confirmed ?Type ibuprofen 800 mg tablet 800 mg PO TID #30 tabs 11/18/24 12/02/24 Rx tranexamic acid 650 mg tablet 1,300 mg (2 x 650 mg) PO Q8H #30 11/19/24 12/02/24 Rx tabs progesterone micronized 200 mg 200 mg PO QHS 30 days #30 caps 11/26/24 12/02/24 Rx capsule (Prometrium) Results Review: All pre-operative results and documents have been reviewed as part of the pre- operative evaluation. [facility] Past Medical History Medical History (Updated 12/10/24 @ 14:48 by Kevyn Marsh, ) GERD (gastroesophageal reflux disease) Uterine fibroid Screening mammogram, encounter for Edema Cellulitis Marijuana smoker Constipation Dysfunctional gallbladder (~06/2020) Right sided abdominal pain Leg pain Irritable bowel syndrome Mixed Tobacco abuse Restless leg syndrome Anxiety Smoker Cholelithiasis (Unknown) , ectopic, tubal History of irritable bowel syndrome History of endometriosis Surgical History Surgical History History of hysteroscopy (06/17/15) H/O LEEP History of cholecystectomy History of shoulder surgery (04/13/13) right shoulder History of unilateral salpingectomy History of tonsillectomy History of laparoscopy Several last 1 being today 07/01/2020/ 05/13/2015 Laparoscopy - endocx polyp, right ovarian cys Family History Family History Father Diabetes mellitus Family history of alcoholism Family history of mental disorder Mother Hypertension Sibling Breast cancer Social History Social History Social History: The patient has 1 daughter. She has had a tubal in the past. She currently is unemployed. She resides with her boyfriend. She does not have a durable power trademark attorney for healthcare but is a full code. She smokes about half pack a cigarettes a day. She does smoke marijuana at night to help her rest. She denies any alcohol or other street drugs. Smoking packs per day: 0.5 Smoking cigarettes per day: 10.0 Years smoked: 15 Smoking pack-years: 7.50 Smoking status: Current every day smoker Tobacco type: cigarettes Alcohol intake: never Substance use: current Substance use type: marijuana Other substance usage details: occasional gummy/smoke marijuana for RLS at night Do You Feel Safe in your Home?: Yes Lack of Transportation: No Lack of Food: Sometimes True Current Housing: I Have Housing Concerned About Future Housing: No Difficulty Paying Gas/Electric Bills: YES Difficulty Paying for Meds: YES Currently Unemployed: No Education: Associate Degree Difficulty w/ Childcare or Family Care: No Living arrangements: with friend(s) Additional living arrangements comments: Lives with boyfriend and his sister Occupation/Education: unemployed Gender identity (if verbalized by the patient): Female Sexual Orientation (if Verbalized by the Patient): Straight or Heterosexual Spiritual care concerns: No Anes - Eval Final PreProcedure Day of Procedure 12/10/24 14:48 Results Review: All pre-operative results and documents have been reviewed as part of the pre- operative evaluation. Informed Consent: The patient's anesthetic plan and its attendant risks and benefits were discussed with the patient/family/POA. Questions were solicited and answers provided to the satisfaction of the patient/family/POA.
[2024-12-10 16:20] VITALS: BP 120/69; PULSE 79; RESP 18; TEMP 36.6; O2SAT 100
--- OUTSIDE RECORDS SUMMARY | 2024-12-10 16:38 | XMS_ITS | Clinical Summary ---
Author Organization [facility] Address [address] [place] [address] Care Team Providers Care Skein Bleacher Name Role Phone Unavailable Primary Care Provider Unavailabl e Source Comments [facility],non-owned Affiliates and Associated Physician Practices is amultiple site organization consisting of ambulatory clinics and hospital sitesin [place], [place], [place] and [place]. This disclosure is being madepursuant to the Care Everywhere program and may not contain all information available regarding this patient. 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
--- OUTSIDE RECORDS SUMMARY | 2024-12-10 16:38 | XMS_ITS | Clinical Summary ---
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
--- OUTSIDE RECORDS SUMMARY | 2024-12-10 16:38 | XMS_ITS | Encounter Summary ---
Author Organization [facility] Address [address] [place] [address] Care Team Providers Care Small Parts Shaper Operator Name Role Phone None, Provider Primary Care Provider Sean riley Non-Staff, Provider Primary Care Provider Robert Wheeler DO Primary Care Provider [phone] Encounter Details Date Type Department Care Team (Late st Contact Info) Description 01/18/2019 Abstract SFL CONVERSION [address] [place] [address] , Generic Conversion, Social History Tobacco Use Types Packs/Day Years Used Date Smoking Tobacco: Never Assessed Comments Unknown Sex and Gender Information Value Date Recorded Sex Assigned at Not on file 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
--- NOTE | 2024-12-10 18:07 | ED.ABDPAIN ---
HPI - Abdominal Pain General Chief Complaint: Abdominal Pain <Karey Alvarenga APRN - Last Filed: 12/10/24 19:42> Stated Complaint: abd pain, vaginal bleeding <Karey Alvarenga APRN - Last Filed: 12/10/24 19:42> Time Seen by Provider: 12/10/24 18:00 <Karey Alvarenga APRN - Last Filed: 12/10/24 19:42> Focused HPI: Patient is a 49-year-old female who presents to the ER with vaginal bleeding. She reports she was here last night and was given TXA to help stop the bleeding. Patient reports the TXA did not help and she is ?still gushing. She reports she is passing clots that look like chicken wings. Patient reports around 2:00 p.m. this afternoon she started experiencing intense pain. Patient reports the pain is a band across her lower abdomen. She is scheduled for hysterectomy tomorrow but is worried about going home due to the pain and heavy bleeding. Patient denies any urinary symptoms, recent fevers, shortness of breath, or chest pain. She endorses a history of anemia. GENERAL: Ill-appearing, well-nourished, and in mild distress d/t pain. HEAD: Normocephalic, atraumatic. CHEST: Clear to auscultation. ?No respiratory distress. HEART: Regular rate and rhythm.? NEURO: ?Alert and oriented x3. Patient screened in triage and initial orders placed.? ?Additional care and disposition to be based upon?diagnostic testing and treatment. <Karey Alvarenga APRN - Last Filed: 12/10/24 19:42> History of Present Illness HPI narrative: Patient 49-year-old female who presents emergency department chief complaint of vaginal bleeding. Patient reports she was seen in the emergency department earlier this morning where she was still having bleeding and passing clots that look like chicken wings patient reports she was continued to have bleeding patient is scheduled for hysterectomy tomorrow <Umer Molina MD - Last Filed: 12/10/24 19:40> Related Data Allergies/Adverse Reactions: Allergies Allergy/AdvReac Type Severity Reaction Status Date / Time No Known Allergies Allergy Unknown Verified 12/02/24 09:47 <Karey Alvarenga APRN - Last Filed: 12/10/24 19:42> Review of Systems Review of Systems: A 10 system review of systems was completed on the patient and is negative except for what is stated in the HPI. Nursing and ancillary documentation was reviewed. <Umer Molina MD - Last Filed: 12/10/24 19:40> [facility] Past Medical History Medical History: Medical History GERD (gastroesophageal reflux disease) Uterine fibroid Screening mammogram, encounter for Edema Cellulitis Marijuana smoker Constipation Dysfunctional gallbladder (~06/2020) Right sided abdominal pain Leg pain Irritable bowel syndrome Mixed Tobacco abuse Restless leg syndrome Anxiety Smoker Cholelithiasis (Unknown) , ectopic, tubal History of irritable bowel syndrome History of endometriosis <Karey Alvarenga APRN - Last Filed: 12/10/24 19:42> Surgical History Surgical History: Surgical History History of hysteroscopy (06/17/15) H/O LEEP History of cholecystectomy History of shoulder surgery (04/13/13) right shoulder History of unilateral salpingectomy History of tonsillectomy History of laparoscopy Several last 1 being today 07/01/2020/ 05/13/2015 Laparoscopy - endocx polyp, right ovarian cys <Karey Alvaernga APRN - Last Filed: 12/10/24 19:42> Family History Family History: Family History Father Diabetes mellitus Family history of alcoholism Family history of mental disorder Mother Hypertension Sibling Breast cancer <Karey Alvarenga APRN - Last Filed: 12/10/24 19:42> Social History Social History: Social History Social History: The patient has 1 daughter. She has had a tubal in the past. She currently is unemployed. She resides with her boyfriend. She does not have a durable power patent attorney for healthcare but is a full code. She smokes about half pack a cigarettes a day. She does smoke marijuana at night to help her rest. She denies any alcohol or other street drugs. Smoking packs per day: 0.5 Smoking cigarettes per day: 10.0 Years smoked: 15 Smoking pack-years: 7.50 Smoking status: Current every day smoker Tobacco type: cigarettes Alcohol intake: never Substance use: current Substance use type: marijuana Other substance usage details: occasional gummy/smoke marijuana for RLS at night Do You Feel Safe in your Home?: Yes Lack of Transportation: No Lack of Food: Sometimes True Current Housing: I Have Housing Concerned About Future Housing: No Difficulty Paying Gas/Electric Bills: YES Difficulty Paying for Meds: YES Currently Unemployed: No Education: Associate Degree Difficulty w/ Childcare or Family Care: No Living arrangements: with friend(s) Additional living arrangements comments: Lives with boyfriend and his sister Occupation/Education: unemployed Gender identity (if verbalized by the patient): Female Sexual Orientation (if Verbalized by the Patient): Straight or Heterosexual Spiritual care concerns: No <Karey Alvarenga APRN - Last Filed: 12/10/24 19:42> Exam Narrative: GENERAL: Well-appearing, well-nourished, and in no acute distress. HEAD: Normocephalic, atraumatic. EYES: PERRLA and EOMI. ENT: Nares clear, no rhinorrhea or epistaxis. Mucous membranes moist. NECK: Supple. CHEST: Clear to auscultation. No respiratory distress. HEART: Regular rate and rhythm. No murmur heard. Normal peripheral pulses. ABDOMEN: Soft, nontender, nondistended, normal active bowel sounds. EXTREMITIES: Normal range of motion. No edema. SKIN: Warm, dry, no rash. NEURO: No focal deficits. Alert and oriented x3. PSYCH: Normal mood and affect. <Umer Molina MD - Last Filed: 12/10/24 19:40> Course Vital Signs Vital signs: Vital Signs Temperature 36.6 C 12/10/24 16:20 Pulse Rate 79 12/10/24 16:20 Respiratory Rate 18 12/10/24 16:20 Blood Pressure 120/69 12/10/24 16:20 Pulse Oximetry 100 12/10/24 16:20 Temperature 36.6 C 12/10/24 16:20 Pulse Rate 79 12/10/24 16:20 Respiratory Rate 18 12/10/24 16:20 Blood Pressure 120/69 12/10/24 16:20 Pulse Oximetry 100 12/10/24 16:20 <Karey Alvarenga APRN - Last Filed: 12/10/24 19:42> Vital Signs Temperature 36.6 C 12/10/24 16:20 Pulse Rate 79 12/10/24 16:20 Respiratory Rate 18 12/10/24 16:20 Blood Pressure 120/69 12/10/24 16:20 Pulse Oximetry 100 12/10/24 16:20 Temperature 36.6 C 12/10/24 16:20 Pulse Rate 79 12/10/24 16:20 Respiratory Rate 18 12/10/24 16:20 Blood Pressure 120/69 12/10/24 16:20 Pulse Oximetry 100 12/10/24 16:20 <Umer Molina MD - Last Filed: 12/10/24 19:40> MDM - Abdominal Pain MDM Narrative Medical decision making narrative: 1800-Call placed to Dr. Hinojosa who would like a pelvic ultrasound performed. He reports patient can stay overnight hospital for pain control, if needed. Dr. Hinojosa would like pt's complete blood count re-drawn to compare values from yesterday. 1930- Call placed to Dr. Hinojosa. He was in agreement with plan for admitting pt under his service. Dr. Hinojosa requested pt be NPO at midnight. He would like pt to receive LR @ 125/hour. Dr. Hinojosa reports they can call his service if other pain orders or bleeding orders are needed. Plan is for pt to have her scheduled hysterectomy tomorrow morning. <Karey Alvarenga APRN - Last Filed: 12/10/24 19:42> Differential Diagnosis Differential diagnosis: Likely other (Uterine fibroid, vaginal bleeding, anemia, urinary tract infection) <Karey Alvarenga APRN - Last Filed: 12/10/24 19:42> Lab Data Result diagrams: 12/10/24 18:08 12/10/24 18:09 <Karey Alvarenga APRN - Last Filed: 12/10/24 19:42> Labs: Lab Results 04/30/25 04/30/25 Range/Units 18:08 18:09 WBC 10.7 H (4.5-10.0) K/mm3 RBC 4.23 (4.2-5.4) M/mm3 Hgb 8.7 L (12.0-15.0) g/dL Hct 31.1 L (37.0-47.0) % MCV 73.5 L (80-100) fl MCH 20.6 L (26-34) pg MCHC 28.0 L (32-36) g/dl RDW 24.1 H (11.5-14.5) % Plt Count 236 (150-375) k/mm3 MPV TNP Immature Gran % (Auto) 0.4 (0-0.5) % Neut % (Auto) 75.5 H (45.5-73.1) % Lymph % (Auto) 18.7 (18.3-44.2) % [place] % (Auto) 4.3 (2.6-8.5) % Eos % (Auto) 0.7 (0-4.4) % Baso % (Auto) 0.4 (0.2-1.2) % Lymph # (Auto) 2.01 (0.9-3.2) K/mm3 [place] # (Auto) 0.5 (0.1-0.6) K/mm3 Eos # (Auto) 0.1 (0-0.3) K/mm3 Baso # (Auto) 0.0 (0.0-0.1) K/mm3 Abs Immat Gran (auto) 0.04 H (0.00-0.031) K/mm3 Absolute Neuts (auto) 8.1 H (1.3-6.7) K/mm3 Absolute Nucleated RBC 0.000 (0.0-0.012) K/mm3 Band Neutrophils % Not Reportable Nucleated RBC % 0.0 (0.0-0.2) % Platelet Estimate Adequate (Adequate) % Immature Plt Fraction 8.1 (0.9-11.2) % Anisocytosis 1+ Ovalocytes 1+ Schistocytes None seen PT 14.2 (11.1-14.7) Seconds INR 1.1 APTT 27.3 (22.3-36.8) Seconds Sodium 138 (137-145) mmol/L Potassium 3.7 (3.4-5.0) mmol/L Chloride 109 H (98-107) mmol/L Carbon Dioxide 24 (22-30) mmol/L Anion Gap 5 (4-12) mmol/L BUN 13 (7-17) mg/dL Creatinine 0.73 (0.7-1.0) mg/dL Estim Creat Clear Calc 73 ml/min Estimated GFR > 60 (59 - ) Glucose 132 H (65-110) mg/dL Calcium 8.3 L (8.4-10.2) mg/dL Total Bilirubin 0.3 (0.2-1.3) mg/dL AST 18 (14-36) U/L ALT 13 (6-35) U/L Alkaline Phosphatase 71 (38-126) U/L Total Protein 7.0 (6.3-8.2) g/dL Albumin 3.7 (3.5-5.1) g/dL <Karey Alvarenga, GROUND SCHOOL INSTRUCTOR - Last Filed: 12/10/24 19:42> Lab Results 12/10/24 12/10/24 Range/Units 18:08 18:09 WBC 10.7 H (4.5-10.0) K/mm3 RBC 4.23 (4.2-5.4) M/mm3 Hgb 8.7 L (12.0-15.0) g/dL Hct 31.1 L (37.0-47.0) % MCV 73.5 L (80-100) fl MCH 20.6 L (26-34) pg MCHC 28.0 L (32-36) g/dl RDW 24.1 H (11.5-14.5) % Plt Count 236 (150-375) k/mm3 MPV TNP Immature Gran % (Auto) 0.4 (0-0.5) % Neut % (Auto) 75.5 H (45.5-73.1) % Lymph % (Auto) 18.7 (18.3-44.2) % [place] % (Auto) 4.3 (2.6-8.5) % Eos % (Auto) 0.7 (0-4.4) % Baso % (Auto) 0.4 (0.2-1.2) % Lymph # (Auto) 2.01 (0.9-3.2) K/mm3 [place] # (Auto) 0.5 (0.1-0.6) K/mm3 Eos # (Auto) 0.1 (0-0.3) K/mm3 Baso # (Auto) 0.0 (0.0-0.1) K/mm3 Abs Immat Gran (auto) 0.04 H (0.00-0.031) K/mm3 Absolute Neuts (auto) 8.1 H (1.3-6.7) K/mm3 Absolute Nucleated RBC 0.000 (0.0-0.012) K/mm3 Band Neutrophils % Not Reportable Nucleated RBC % 0.0 (0.0-0.2) % Platelet Estimate Adequate (Adequate) % Immature Plt Fraction 8.1 (0.9-11.2) % Anisocytosis 1+ Ovalocytes 1+ Schistocytes None seen PT 14.2 (11.1-14.7) Seconds INR 1.1 APTT 27.3 (22.3-36.8) Seconds Sodium 138 (137-145) mmol/L Potassium 3.7 (3.4-5.0) mmol/L Chloride 109 H (98-107) mmol/L Carbon Dioxide 24 (22-30) mmol/L Anion Gap 5 (4-12) mmol/L BUN 13 (7-17) mg/dL Creatinine 0.73 (0.7-1.0) mg/dL Estim Creat Clear Calc 73 ml/min Estimated GFR > 60 (59 - ) Glucose 132 H (65-110) mg/dL Calcium 8.3 L (8.4-10.2) mg/dL Total Bilirubin 0.3 (0.2-1.3) mg/dL AST 18 (14-36) U/L ALT 13 (6-35) U/L Alkaline Phosphatase 71 (38-126) U/L Total Protein 7.0 (6.3-8.2) g/dL Albumin 3.7 (3.5-5.1) g/dL <Umer Molina MD - Last Filed: 12/10/24 19:40> Imaging Data Radiologist's impression: ITS Impressions Pelvis Ultrasound 12/10/24 19:02 IMPRESSION: Fibroid uterus. Otherwise, normal pelvic ultrasound. <Karey Alvarenga APRN - Last Filed: 12/10/24 19:42> ITS Impressions Pelvis Ultrasound 12/10/24 19:02 IMPRESSION: Fibroid uterus. Otherwise, normal pelvic ultrasound. <Umer Molina MD - Last Filed: 12/10/24 19:40> Discharge Plan Discharge Clinical Impression: Vaginal bleeding <Karey Alvarenga APRN - Last Filed: 12/10/24 19:42> Patient Disposition: Still a Patient <Karey Alvarenga APRN - Last Filed: 12/10/24 19:42> Condition: Stable <Karey Alvarenga APRN - Last Filed: 12/10/24 19:42> Instructions: Antibiotic Form <Karey Alvarenga APRN - Last Filed: 12/10/24 19:42> Patient Language: Serbian <Karey Alvarenga APRN - Last Filed: 12/10/24 19:42> Prescriptions: No Action progesterone micronized [Prometrium] 200 mg capsule 200 mg PO QHS 30 Days Qty: 30 0RF Patient Comments: provider said to start taking if spotting ibuprofen 800 mg tablet 800 mg PO TID Qty: 30 0RF tranexamic acid 650 mg tablet 1,300 mg PO Q8H Qty: 30 0RF Patient Comments: provider said to start taking if spotting <Karey Alvarenga APRN - Last Filed: 12/10/24 19:42> Follow-up/Referrals: Robert Dodge, [Primary Care Provider] - <Karey Alvarenga APRN - Last Filed: 12/10/24 19:42> Time of Disposition: 19:40 <Karey Alvarenga APRN - Last Filed: 12/10/24 19:42> 19:40 <Umer Molina MD - Last Filed: 12/10/24 19:40>
[2024-12-10] MEDS: HYDROcodone/acetaminophen (*CRX) 5-325 MG TABLET 1 TAB PO (18:13)
[2024-12-10 18:16] LABS: Basophils Percent Auto 0.4 % (0.2-1.2); Eosinophils Absolute Auto 0.1 K/mm3 (0-0.3); Eosinophils Percent Auto 0.7 % (0-4.4); Hematocrit 31.1 % (37.0-47.0); Hemoglobin 8.7 g/dL (12.0-15.0); Immature Granulocyte Absolute 0.04 K/mm3 (0.00-0.031); Immature Granulocyte Percent A 0.4 % (0-0.5); Immature Platelet Fraction Pct 8.1 % (0.9-11.2); Lymphocytes Absolute Auto 2.01 K/mm3 (0.9-3.2); Lymphocytes Percent Auto 18.7 % (18.3-44.2); Mean Corpuscular Hemoglobin 20.6 pg (26-34); Mean Corpuscular Volume 73.5 fl (80-100); Monocytes Absolute Auto 0.5 K/mm3 (0.1-0.6); Monocytes Percent Auto 4.3 % (2.6-8.5); Neutrophils Absolute Auto 8.1 K/mm3 (1.3-6.7); Neutrophils Percent Auto 75.5 % (45.5-73.1); Platelet Count Result 236 k/mm3 (150-375); Red Blood Count 4.23 M/mm3 (4.2-5.4); Red Cell Distribution Width 24.1 % (11.5-14.5); White Blood Count 10.7 K/mm3 (4.5-10.0)
[2024-12-10 18:30] LABS: Alanine Aminotransferase 13 U/L (6-35); Albumin Level 3.7 g/dL (3.5-5.1); Alkaline Phosphatase 71 U/L (38-126); Anion Gap 5 mmol/L (4-12); Aspartate Amino Transferase 18 U/L (14-36); Bilirubin,Total 0.3 mg/dL (0.2-1.3); Blood Urea Nitrogen 13 mg/dL (7-17); Calcium 8.3 mg/dL (8.4-10.2); Carbon Dioxide 24 mmol/L (22-30); Chloride 109 mmol/L (98-107); Estimated CRCL calculation 73 ml/min; Estimated Glomerular Filt Rate > 60; Glucose 132 mg/dL (65-110); Potassium 3.7 mmol/L (3.4-5.0); Sodium 138 mmol/L (137-145)
[2024-12-10 18:32] LABS: INR 1.1; Partial Thromboplastin Time 27.3 Seconds (22.3-36.8); Prothrombin Time 14.2 Seconds (11.1-14.7)
[2024-12-10 18:55] LABS: Anisocytosis 1+; Ovalocytes 1+; Platelet Estimate Adequate (Adequate); Schistocytes None Seen
--- OUTSIDE RECORDS SUMMARY | 2024-12-10 19:28 | XMS_ITS | Clinical Summary ---
Author Organization [facility] Address [address] [place] [address] Care Team Providers Care [employer] Advisor Name Role Phone Unavailable Primary Care Provider Unavailabl e Source Comments [facility],non-owned Affiliates and Associated Physician Practices is amultiple site organization consisting of ambulatory clinics and hospital sitesin [place], [place], [place] and [place]. This disclosure is being madepursuant to the Care Everywhere program and may not contain all information available regarding this patient. Last updated 18.[facility] Allergies No known active allergies Medications * [...] on file Legal Sex Female 9:[address] Gender Identity Not on file Sexual Orientation [...] patient's age to complete this topic Insurance [facility]
--- OUTSIDE RECORDS SUMMARY | 2024-12-10 19:28 | XMS_ITS | Clinical Summary ---
Author Organization 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
--- OUTSIDE RECORDS SUMMARY | 2024-12-10 19:28 | XMS_ITS | Encounter Summary ---
Author Organization [facility] Address [address] [place] [address] Care Team Providers Care Prepper Name Role Phone None, Provider Primary Care Provider Sean riley Non-Staff, Provider Primary Care Provider Robert Wheeler DO Primary Care Provider [phone] Encounter Details Date Type Department Care Team (Late st Contact Info) Description 01/18/2019 Abstract SFL CONVERSION [address] [place] [address] , Generic Conversion, Social History Tobacco Use Types Packs/Day Years Used Date Smoking Tobacco: Never Assessed Comments Unknown Sex and Gender Information Value Date Recorded Sex Assigned at Not on file 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
[2024-12-10] MEDS: ONDANSETRON INJ 4 MG/2 ML VIAL IV PUSH (19:48)
[2024-12-10] MEDS: MORPHINE SULFATE (*CRX) 4 MG/ML INJ IV PUSH (19:49)
[2024-12-10] MEDS: SODIUM CHLORIDE 0.9% IV 1,000 ML 999 ML IV CONT (19:49)
[2024-12-10 19:53] VITALS: BP 105/73; PULSE 66; RESP 64; TEMP 36.7; O2SAT 100
[2024-12-10] MEDS: LACTATED RINGERS 1,000 ML 125 ML IV CONT (23:06)
[2024-12-10 23:07] VITALS: BP 91/59; PULSE 62; RESP 14; O2SAT 100
[2024-12-10 23:30] VITALS: BMI 28.0
--- NOTE | 2024-12-10 23:32 | ADMGEN ---
This patient, Alpa Echevarria, was admitted to [facility] Surg Room 320-01. Patient/family oriented to hospital policies and general routines including ID bracelet, bed and alarms, visiting hours, pain management, procedures, bathroom and other care routines, personal items, smoking policy, room service/diet, and visiting hours. Information on how to activate the Rapid Response Team has been discussed. Patient/Family are encouraged to report perceived risks to care and to ask questions if they do not understand what they are told or what they should do.
[2024-12-11] VITALS (21 sets, daily range): BP systolic 93–143; BP diastolic 48–89; PULSE 54–93; RESP 12–18; TEMP 36.2–37.2; O2SAT 94–100
[2024-12-11] MEDS: SODIUM CHLORIDE 0.9% IV 250 ML 30 ML IV CONT (00:20)
[2024-12-11] MEDS: MORPHINE SULFATE (*CRX) 4 MG/ML INJ IV PUSH ×3 (00:23→14:12)
--- OUTSIDE RECORDS SUMMARY | 2024-12-11 02:38 | XMS_ITS | Clinical Summary ---
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
--- OUTSIDE RECORDS SUMMARY | 2024-12-11 02:38 | XMS_ITS | Clinical Summary ---
Author Organization [facility] Address [address] [place] [address] Care Team Providers Care Metallurgical Engineer Name Role Phone Unavailable Primary Care Provider Unavailabl e Source Comments [facility],non-owned Affiliates and Associated Physician Practices is amultiple site organization consisting of ambulatory clinics and hospital sitesin [place], [place], [place] and [place]. This disclosure is being madepursuant to the Care Everywhere program and may not contain all information available regarding this patient. 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
--- OUTSIDE RECORDS SUMMARY | 2024-12-11 02:38 | XMS_ITS | Encounter Summary ---
Author Organization [facility] Address [address] [place] [address] Care Team Providers Care Automation Manager Name Role Phone None, Provider Primary Care Provider Sean riley Non-Staff, Provider Primary Care Provider Robert Wheeler DO Primary Care Provider [phone] Encounter Details Date Type Department Care Team (Late st Contact Info) Description 01/18/2019 Abstract SFL CONVERSION [address] [place] [address] , Generic Conversion, Social History Tobacco Use Types Packs/Day Years Used Date Smoking Tobacco: Never Assessed Comments Unknown Sex and Gender Information Value Date Recorded Sex Assigned at Not on file 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
--- OUTSIDE RECORDS SUMMARY | 2024-12-11 02:39 | XMS_ITS | Patient Health Record ---
Author Organization [facility] Address [address] [place] [address] Care Team Providers Care Bread Stacker Name Role Phone Mark Pickard Primary Care [...] Coverage End Date [employer] [address] [address] [place] [address] [id number] Alpa Echevarria Self - patient is the insured Medical (General) History Medical History History ICD Code anemia fainting/dizzy spells endometriosis sever anxiety Surgical History Surgery Date(Month/Year) gall bladder removed 2020 tonsilectomy
[2024-12-11] MEDS: SODIUM CHLORIDE 0.9% IV 250 ML 30 ML (03:15)
[2024-12-11] MEDS: TUBING, BLOOD PLUM PUMP TUBING 1 EACH XX (06:27)
--- NOTE | 2024-12-11 07:21 | PM.IMHP ---
H&P: HPI History of Present Illness Date/Time: 12/10/24 18:30 Chief Complaint: Abnormal uterine bleeding fibroid uterus Narrative: 49-year-old female who ppresents to the ED with abnormal uterine bleeding. Patient has known uterine fibroids and is scheduled for hysterectomy on 12/11/2024. Patient had presented to the ER the night before with the same complaint. Hemoglobin was noted to be at 9. She was treated with TXA discharged. Patient states she continues to bleed despite TXA. Patient's hemoglobin had dropped to 8. Decision was made to admit patient overnight with pending surgery in the morning. Review of Systems Cardiovascular: Cardiovascular: Denies chest pain, Denies leg edema, Denies palpitations, Denies dyspnea and Denies dyspnea on exertion Respiratory: Respiratory: Denies cough, Denies dyspnea and Denies dyspnea on exertion Gastrointestinal: Gastrointestinal: Denies abdominal pain, Denies constipation, Denies diarrhea, Denies nausea and Denies vomiting Genitourinary: Genitourinary: Denies hematuria, Denies urinary frequency, Denies dysuria, Denies pelvic pain, Denies urinary incontinence and Denies vaginal discharge Neurologic: Reports system reviewed and no additional complaints, except as documented Psychiatric: Psychiatric: Reports no additional psychiatric complaints Endocrine: Endocrine: Denies palpitations [facility] Past Medical History Medical History (Updated 12/11/24 @ 07:24 by Chidi Hinojosa MD) Uterine fibroid GERD (gastroesophageal reflux disease) Screening mammogram, encounter for Edema Cellulitis Marijuana smoker Constipation Dysfunctional gallbladder (~06/2020) Right sided abdominal pain Leg pain Irritable bowel syndrome Mixed Tobacco abuse Restless leg syndrome Anxiety Smoker Cholelithiasis (Unknown) , ectopic, tubal History of irritable bowel syndrome History of endometriosis Surgical History Surgical History History of hysteroscopy (06/17/15) H/O LEEP History of cholecystectomy History of shoulder surgery (04/13/13) right shoulder History of unilateral salpingectomy History of tonsillectomy History of laparoscopy Several last 1 being today 07/01/2020/ 05/13/2015 Laparoscopy - endocx polyp, right ovarian cys Family History Family History Father Diabetes mellitus Family history of alcoholism Family history of mental disorder Mother Hypertension Sibling Breast cancer Social History Social History Social History: The patient has 1 daughter. She has had a tubal in the past. She currently is unemployed. She resides with her boyfriend. She does not have a durable power assistant attorney general for healthcare but is a full code. She smokes about half pack a cigarettes a day. She does smoke marijuana at night to help her rest. She denies any alcohol or other street drugs. Smoking packs per day: 0.5 Smoking cigarettes per day: 10.0 Years smoked: 15 Smoking pack-years: 7.50 Smoking status: Current every day smoker Tobacco type: cigarettes Alcohol intake: never Substance use: current Substance use type: marijuana Other substance usage details: occasional gummy/smoke marijuana for RLS at night Do You Feel Safe in your Home?: Yes Lack of Transportation: No Lack of Food: Never True Current Housing: I Have Housing Concerned About Future Housing: No Difficulty Paying Gas/Electric Bills: No Difficulty Paying for Meds: No Currently Unemployed: No Education: Don't Know Difficulty w/ Childcare or Family Care: No Living arrangements: with friend(s) Additional living arrangements comments: Lives with boyfriend and his sister Occupation/Education: unemployed Gender identity (if verbalized by the patient): Female Sexual Orientation (if Verbalized by the Patient): Straight or Heterosexual Spiritual care concerns: No Meds Home Medications and Allergies Home Medications ?Medication ?Instructions ?Recorded ?Confirmed ?Type ibuprofen 800 mg tablet 800 mg PO TID #30 tabs 11/18/24 12/10/24 Rx tranexamic acid 650 mg tablet 1,300 mg (2 x 650 mg) PO Q8H #30 11/19/24 12/10/24 Rx tabs progesterone micronized 200 mg 200 mg PO QHS 30 days #30 caps 11/26/24 12/10/24 Rx capsule (Prometrium) Allergies Allergy/AdvReac Type Severity Reaction Status Date / Time No Known Allergies Allergy Unknown Verified 12/02/24 09:47 Vital Signs Vital Signs - 24 hr 12/10/24 16:20 12/10/24 19:53 12/10/24 23:07 Temperature 97.8 F 98.1 F Pulse Rate 79 66 62 Respiratory Rate 18 64 H 14 Blood Pressure 120/69 105/73 91/59 L Pulse Oximetry 100 100 100 Oxygen Delivery 12/11/24 00:17 12/11/24 00:31 12/11/24 00:35 Temperature 97.2 F L 97.5 F L Pulse Rate 66 64 Respiratory Rate 16 16 Blood Pressure 102/50 L 102/48 L Pulse Oximetry 100 100 Oxygen Delivery Room Air 12/11/24 01:35 12/11/24 03:36 12/11/24 03:53 Temperature 97.7 F 97.4 F L 97.7 F Pulse Rate 59 L 93 60 Respiratory Rate 16 16 16 Blood Pressure 102/48 L 108/60 102/60 Pulse Oximetry 100 100 100 Oxygen Delivery 12/11/24 05:58 12/11/24 06:00 Temperature 97.7 F 98 F Pulse Rate 58 L 57 L Respiratory Rate 18 16 Blood Pressure 110/62 99/68 L Pulse Oximetry 100 100 Oxygen Delivery Exam Const: General: no acute distress Eyes: EOM: EOMs intact bilaterally Neck: Neck: supple Thyroid: thyroid normal Chest: Breast/axilla inspection: normal inspection of the breasts Breast/axilla palpation: normal palpation of the breasts, normal palpation of the axillae and no axillary lymphadenopathy Resp: Effort & Inspection: normal respiratory effort Auscultation: clear to auscultation bilaterally Cardio: Rate: regular rate Rhythm: regular rhythm GI: Inspection: non-distended GI Palp: Yes Soft to palpation, No Tenderness to palpation present (GI) and No Guarding due to palpation present (GI) Auscultation: normal bowel sounds : General: No bladder normal to palpation External Female Exam: normal external appearance Speculum Exam - Vagina: normal vaginal discharge and No vaginal bleeding Speculum Exam - Cervix: nontender Bimanual exam- vagina & uterus: No bladder normal to palpation and No Cervical tenderness present OB/external & speculum: No vaginal bleeding Skin: General skin exam: normal color and no rashes or lesions noted Neuro: Cognition (Neuro): normal cognition Speech: normal speech Extrem: General: normal to inspection and no edema Psych: Mental Status: mental status grossly normal Affect: normal affect H&P: Results Labs Labs: Short CBC 12/10/24 Range/Units 18:08 WBC 10.7 H (4.5-10.0) K/mm3 Hgb 8.7 L (12.0-15.0) g/dL Hct 31.1 L (37.0-47.0) % Plt Count 236 (150-375) k/mm3 BMP 12/10/24 18:09 Sodium 138 Potassium 3.7 Chloride 109 H Carbon Dioxide 24 BUN 13 Creatinine 0.73 Glucose 132 H Calcium 8.3 L Liver Function 12/10/24 Range/Units 18:09 Total Bilirubin 0.3 (0.2-1.3) mg/dL AST 18 (14-36) U/L ALT 13 (6-35) U/L Alkaline Phosphatase 71 (38-126) U/L Albumin 3.7 (3.5-5.1) g/dL Assessment and Plan Assessment and plan (1) Abnormal vaginal bleeding: Code(s): N93.9 - Abnormal uterine and vaginal bleeding, unspecified Status: Acute Assessment and Plan: 49-year-old female who presents to the ED with abnormal bleeding Patient with known uterine fibroid Hemoglobin 8.7 Patient reports continued bleeding despite TXA Will admit patient overnight for monitoring Will transfuse 2 units of packed red blood cells Patient to be NPO at midnight Patient has scheduled robotic hysterectomy in the morning (2) Uterine fibroid: Qualifiers: Uterine leiomyoma location: unspecified location Qualified Code(s): D25.9 - Leiomyoma of uterus, unspecified Code(s): D25.9 - Leiomyoma of uterus, unspecified Status: Acute (3) Pelvic pain: Code(s): R10.2 - Pelvic and perineal pain Status: Acute
--- NOTE | 2024-12-11 07:48 | PC.NURSE ---
To OR per [ ], IV [ ]. Report given to [MICHELLE ].
[2024-12-11] MEDS: KETOROLAC 15 MG/ML VIAL (*BKC) IV PUSH (08:25)
[2024-12-11] MEDS: ACETAMINOPHEN 500 MG TABLET 1000 MG PO ×3 (08:25→23:34)
[2024-12-11 08:39] LABS: Appearance Urine Turbid (Clear); RBC Urine >100 /hpf (0-2)
[2024-12-11 08:40] LABS: Color Urine Red (Yellow)
[2024-12-11 08:41] LABS: Bilirubin Urine Trace (Negative); Blood Urine 4+ (Negative); Glucose Urine UA Negative (Negative); Ketones Urine Negative (Negative); Nitrate Urine Negative (Negative); Protein Urine 3+ mg/dL (Negative); Specific Grav Ur 1.005 (1.001-1.035)
[2024-12-11 08:42] LABS: Add Urine Microscopic? YES; Bacteria Urine None Seen /hpf; Leukocyte Esterase Ur Trace LEU/UL (Negative); Squamous Epithelial Cell Urine None seen /hpf (Few); Urobilinogen Urine 0.2 mg/dL (<2.0); WBC Urine 0-3 /hpf (0-3)
[2024-12-11] MEDS: fentaNYL CITRATE INJ (*CRX) 100 MCG/2 ML VIAL 25 MCG IV PUSH ×12 (08:50→13:35)
--- NOTE | 2024-12-11 08:54 | P.PNAN_ITS ---
Anes - Initial Pre Proc Eval Procedure: Operation Date: 12/11/24 09:30 Proposed Procedures p Robotic Assisted Total Laparoscopic Hysterectomy with Bilateral Salpingectomy - Donato Ellison MD Date/Time: 12/11/24 08:54 Surgeon: Chidi Hinojosa MD Pre Op Diagnosis: Vaginal bleeding, Abdominal pain Patient Data Age: 49 Gender: F Height: 1.65 m Weight: 76.4 kg Last Vital Signs Temp 36.6 C 12/11/24 06:00 Pulse 57 L 12/11/24 06:00 Resp 16 12/11/24 06:00 BP 99/68 L 12/11/24 06:00 Pulse Ox 100 12/11/24 06:00 O2 Del Method Room Air 12/11/24 00:31 Allergies Allergy/AdvReac Type Severity Reaction Status Date / Time No Known Allergies Allergy Unknown Verified 12/02/24 09:47 Home Medications ?Medication ?Instructions ?Recorded ?Confirmed ?Type ibuprofen 800 mg tablet 800 mg PO TID #30 tabs 11/18/24 12/10/24 Rx tranexamic acid 650 mg tablet 1,300 mg (2 x 650 mg) PO Q8H #30 11/19/24 12/10/24 Rx tabs progesterone micronized 200 mg 200 mg PO QHS 30 days #30 caps 11/26/24 12/10/24 Rx capsule (Prometrium) Laboratory Tests 12/10/24 12/10/24 12/11/24 18:08 18:09 08:02 WBC 10.7 H K/mm3 (4.5-10.0) RBC 4.23 M/mm3 (4.2-5.4) Hgb 8.7 L g/dL (12.0-15.0) Hct 31.1 L % (37.0-47.0) MCV 73.5 L fl (80-100) MCH 20.6 L pg (26-34) MCHC 28.0 L g/dl (32-36) RDW 24.1 H % (11.5-14.5) Plt Count 236 k/mm3 (150-375) MPV TNP Immature Gran % (Auto) 0.4 % (0-0.5) Neut % (Auto) 75.5 H % (45.5-73.1) Lymph % (Auto) 18.7 % (18.3-44.2) [place] % (Auto) 4.3 % (2.6-8.5) Eos % (Auto) 0.7 % (0-4.4) Baso % (Auto) 0.4 % (0.2-1.2) Lymph # (Auto) 2.01 K/mm3 (0.9-3.2) [place] # (Auto) 0.5 K/mm3 (0.1-0.6) Eos # (Auto) 0.1 K/mm3 (0-0.3) Baso # (Auto) 0.0 K/mm3 (0.0-0.1) Abs Immat Gran (auto) 0.04 H K/mm3 (0.00-0.031) Absolute Neuts (auto) 8.1 H K/mm3 (1.3-6.7) Absolute Nucleated RBC 0.000 K/mm3 (0.0-0.012) Band Neutrophils % Not Reportable Nucleated RBC % 0.0 % (0.0-0.2) Platelet Estimate Adequate (Adequate) % Immature Plt Fraction 8.1 % (0.9-11.2) Anisocytosis 1+ Ovalocytes 1+ Schistocytes None seen PT 14.2 Seconds (11.1-14.7) INR 1.1 APTT 27.3 Seconds (22.3-36.8) Sodium 138 mmol/L (137-145) Potassium 3.7 mmol/L (3.4-5.0) Chloride 109 H mmol/L (98-107) Carbon Dioxide 24 mmol/L (22-30) Anion Gap 5 mmol/L (4-12) BUN 13 mg/dL (7-17) Creatinine 0.73 mg/dL (0.7-1.0) Estim Creat Clear Calc 73 ml/min Estimated GFR > 60 (59 - ) Glucose 132 H mg/dL (65-110) Calcium 8.3 L mg/dL (8.4-10.2) Total Bilirubin 0.3 mg/dL (0.2-1.3) AST 18 U/L (14-36) ALT 13 U/L (6-35) Alkaline Phosphatase 71 U/L (38-126) Total Protein 7.0 g/dL (6.3-8.2) Albumin 3.7 g/dL (3.5-5.1) Urine Color Red H (Yellow) Urine Appearance Turbid H (Clear) Urine pH 6.0 (5.0-9.0) Ur Specific Russell 1.005 (1.001-1.035) Urine Protein 3+ H mg/dL (Negative) Urine Glucose (UA) Negative mg/dL (Negative) Urine Ketones Negative mg/dL (Negative) Ur Blood (Man) 4+ H (Negative) Urine Nitrate Negative (Negative) Urine Bilirubin Trace H (Negative) Urine Urobilinogen 0.2 mg/dL (<2.0) Leukocyte Esterase Rfl Trace H GERMÁN/UL (Negative) Urine RBC >100 H /hpf (0-2) Urine WBC 0-3 /hpf (0-3) Ur Squamous Epith Cells None seen /hpf (Few) Urine Bacteria None seen /hpf Crossmatch See Detail Patient hx anesthesia problems: post op nausea/vomiting Family hx anesthesia problems: none Results Review: All pre-operative results and documents have been reviewed as part of the pre- operative evaluation. [facility] Past Medical History Medical History (Updated 12/11/24 @ 07:24 by Chidi Hinojosa MD) GERD (gastroesophageal reflux disease) Uterine fibroid Screening mammogram, encounter for Edema Cellulitis Marijuana smoker Constipation Dysfunctional gallbladder (~06/2020) Right sided abdominal pain Leg pain Irritable bowel syndrome Mixed Tobacco abuse Restless leg syndrome Anxiety Smoker Cholelithiasis (Unknown) , ectopic, tubal History of irritable bowel syndrome History of endometriosis Surgical History Surgical History History of hysteroscopy (06/17/15) H/O LEEP History of cholecystectomy History of shoulder surgery (04/13/13) right shoulder History of unilateral salpingectomy History of tonsillectomy History of laparoscopy Several last 1 being today 07/01/2020/ 05/13/2015 Laparoscopy - endocx polyp, right ovarian cys Family History Family History Father Diabetes mellitus Family history of alcoholism Family history of mental disorder Mother Hypertension Sibling Breast cancer Social History Social History Social History: The patient has 1 daughter. She has had a tubal in the past. She currently is unemployed. She resides with her boyfriend. She does not have a durable power personal injury attorney for healthcare but is a full code. She smokes about half pack a cigarettes a day. She does smoke marijuana at night to help her rest. She denies any alcohol or other street drugs. Smoking packs per day: 0.5 Smoking cigarettes per day: 10.0 Years smoked: 15 Smoking pack-years: 7.50 Smoking status: Current every day smoker Tobacco type: cigarettes Alcohol intake: never Substance use: current Substance use type: marijuana Other substance usage details: occasional gummy/smoke marijuana for RLS at night Do You Feel Safe in your Home?: Yes Lack of Transportation: No Lack of Food: Never True Current Housing: I Have Housing Concerned About Future Housing: No Difficulty Paying Gas/Electric Bills: No Difficulty Paying for Meds: No Currently Unemployed: No Education: Don't Know Difficulty w/ Childcare or Family Care: No Living arrangements: with friend(s) Additional living arrangements comments: Lives with boyfriend and his sister Occupation/Education: unemployed Gender identity (if verbalized by the patient): Female Sexual Orientation (if Verbalized by the Patient): Straight or Heterosexual Spiritual care concerns: No Anes - Eval Final PreProcedure Day of Procedure 12/11/24 08:54 Patient weight: overweight Heart: regular rate and rhythm Lungs: clear to auscultation Airway: Mallampati scale class II Neurological: alert and oriented Last oral intake: >/= 8 hours ASA classification: II Emergent: no Anesthetic plan: proceed Anesthesia type and monitoring: general ETT and standard monitoring Results Review: All pre-operative results and documents have been reviewed as part of the pre- operative evaluation. Informed Consent: The patient's anesthetic plan and its attendant risks and benefits were discussed with the patient/family/POA. Questions were solicited and answers provided to the satisfaction of the patient/family/POA.
[2024-12-11] MEDS: SCOPOLAMINE 1 MG PATCH 1 PATCH TRANSDERM ×2 (09:07→09:10)
[2024-12-11 09:32] LABS: BEDSIDEPREGUCG Negative (Negative)
--- NOTE | 2024-12-11 09:38 | WPDHPUPDATE1 ---
History and Physical Update Update Date/Time: 12/11/24 09:38 Since last seen in the office has been in the emergency room twice again with bleeding pain. Generally her labs have been stable though last night she did have a continued drop in her H&H therefore was given 2units packed cells and kept as observation until surgery today. Also ultrasound was finally performed yesterday, which we asked patient to an outpatient basis for she had not done. This did show 13-14cm uterus with large fibroid. We will proceed with robotic assisted total laparoscopic hysterectomy with bilateral salpingectomy. Possibility of open procedure was also discussed patient. History and Physical has been reviewed, including an updated exam of the patient. There are NO changes in the patient's condition. Risks, benefits, and alternatives have been discussed and questions answered. Patient agrees to proceed with procedure.
--- NOTE | 2024-12-11 11:34 | P.OP_ITS ---
Procedure Note - Detailed Date of Procedure 12/11/24 Pre-op Diagnosis 1. Menometrorrhagia 2. Anemia 3. Fibroid uterus Post-op Diagnosis Same Procedure Performed Robotic assisted total laparoscopic hysterectomy with right salpingectomy (left fallopian tube surgically absent) Surgeon Donato Ellison MD Anesthesia General Findings Enlarged globular uterus with weight of 290grams. Ovaries without abnormality. Left fallopian tube surgically absent. Description of Procedure Patient prepped draped usual manner for this procedure. Cervical in for placed for uterine mobility throughout the case. Abdominal trocar sites were then mar ked and placed under direct visualization, and then attached to the de Carey system. Surgeon moved to the console with findings as noted above. Right mesial salpinx was cauterized and cut and fallopian tube was removed. Round ligaments bilaterally cauterized and cut bladder flap developed without difficulty. Posterior leaf the broad ligament was also incised to skeletonize uterine vessels. Utero-ovarian ligaments were cauterized and cut to allow the ovary to drop out of the operative field. Vessels were then cauterized and cut and the posterior colpotomy incision was made this was carried circumferentially to separate the cervix from the vagina. Uterus was enlarged and bulky and not able to be removed therefore was bivalved and removed in 2 pieces without difficulty. Irrigation was undertaken there was no bleeding. Cuff was then closed using V lock suture from the right angle to midline and from the left angle midline with good approximation hemostasis noted. Irrigation was undertaken and hematoma was placed empirically. Gas was allowed to escape trocars removed and incisions were approximated using 4-0 Monocryl. Patient sent to recovery in stable condition. Estimated Blood Loss 100 Drains No Packing No Pathology Yes Complications No immediate complications Condition Stable Disposition PACU [facility] Billing Surgery - Charge Forward: Surgery Billing
[2024-12-11] MEDS: LACTATED RINGERS 1,000 ML 30 ML IV CONT (11:46)
--- NOTE | 2024-12-11 13:16 | PC.NURSE ---
This patient, Alpa Echevarria, was transferred to [ OB 284] on 12/11/24 at 1315. Personal belongings sent with patient. Report given to [Flavia]. Appropriate documentation sent with patient.
--- NOTE | 2024-12-11 13:51 | ADMGEN ---
This patient, Alpa Echevarria, was admitted to OB 2nd Floor Room 284-00. Patient/family oriented to hospital policies and general routines including ID bracelet, bed and alarms, visiting hours, pain management, procedures, bathroom and other care routines, personal items, smoking policy, room service/diet, and visiting hours. Information on how to activate the Rapid Response Team has been discussed. Patient/Family are encouraged to report perceived risks to care and to ask questions if they do not understand what they are told or what they should do.
[2024-12-11] MEDS: DEXTROSE 5%/0.45% SOD CHL 1,000 ML 125 ML IV CONT ×2 (14:13→23:32)
[2024-12-11] MEDS: oxyCODONE HCL (*CRX) 5 MG TAB IR PO (15:05)
[2024-12-11] MEDS: SIMETHICONE 80 MG TAB.CHEW PO (17:15)
[2024-12-11] MEDS: KETOROLAC 30 MG/ML VIAL (*BKC) IV PUSH ×2 (17:15→23:36)
[2024-12-11] MEDS: oxyCODONE HCL (*CRX) 5 MG TAB IR 10 MG PO (20:05)
[2024-12-12 03:31] VITALS: BP 93/58; PULSE 79; RESP 18; TEMP 37.1; O2SAT 98
[2024-12-12 05:19] LABS: Basophils Percent Auto 0.3 % (0.2-1.2); Eosinophils Absolute Auto 0.2 K/mm3 (0-0.3); Eosinophils Percent Auto 1.5 % (0-4.4); Hematocrit 31.9 % (37.0-47.0); Hemoglobin 9.5 g/dL (12.0-15.0); Immature Granulocyte Absolute 0.05 K/mm3 (0.00-0.031); Immature Granulocyte Percent A 0.4 % (0-0.5); Immature Platelet Fraction Pct 7.8 % (0.9-11.2); Lymphocytes Absolute Auto 1.84 K/mm3 (0.9-3.2); Lymphocytes Percent Auto 15.7 % (18.3-44.2); Mean Corpuscular HGB Conc 29.8 g/dl (32-36); Mean Corpuscular Hemoglobin 22.4 pg (26-34); Mean Corpuscular Volume 75.1 fl (80-100); Monocytes Absolute Auto 0.5 K/mm3 (0.1-0.6); Monocytes Percent Auto 4.5 % (2.6-8.5); Neutrophils Absolute Auto 9.1 K/mm3 (1.3-6.7); Neutrophils Percent Auto 77.6 % (45.5-73.1); Platelet Count Result 195 k/mm3 (150-375); Red Blood Count 4.25 M/mm3 (4.2-5.4); Red Cell Distribution Width 23.3 % (11.5-14.5); White Blood Count 11.7 K/mm3 (4.5-10.0)
[2024-12-12] MEDS: ACETAMINOPHEN 500 MG TABLET 1000 MG PO ×2 (05:40→11:48)
[2024-12-12] MEDS: KETOROLAC 30 MG/ML VIAL (*BKC) IV PUSH (05:41)
[2024-12-12 05:45] LABS: Anisocytosis 1+; Band Neutrophils Percent 0 % (0-6); Hypochromasia 1+; Microcytosis 1+ (NORMAL); Ovalocytes 1+; Platelet Estimate Decreased (Adequate); Schistocytes None Seen
[2024-12-12 07:05] VITALS: BP 86/57; PULSE 67; RESP 16; TEMP 37.2; O2SAT 98
--- NOTE | 2024-12-12 09:23 | WPDANESPN ---
Anes - Prog Note Post-Op Date/Time: 12/12/24 09:23 Cardiovascular status: normal Respiratory status: normal Airway patency: baseline Mental status: baseline Post-Op hydration status: normal Vital Signs: Last Vital Signs Temp 37.1 C 12/12/24 03:31 Pulse 79 12/12/24 03:31 Resp 18 12/12/24 03:31 BP 93/58 L 12/12/24 03:31 Pulse Ox 98 12/12/24 03:31 O2 Del Method Room Air 12/11/24 17:00 O2 Flow Rate 2 12/11/24 14:00 Pain Score (VAS): 10/20 I/O: Intake & Output 12/11/24 12/12/24 12/12/24 23:59 07:59 15:59 Intake Total 1000 Output Total 250 750 Balance 750 -750 Laboratory Tests 12/12/24 04:37 12/10/24 18:09 12/11/24 12/12/24 08:10 04:37 WBC 11.7 H RBC 4.25 Hgb 9.5 L Hct 31.9 L MCV 75.1 L MCH 22.4 L D MCHC 29.8 L RDW 23.3 H Plt Count 195 MPV TNP Immature Gran % (Auto) 0.4 Neut % (Auto) 77.6 H Lymph % (Auto) 15.7 L [place] % (Auto) 4.5 Eos % (Auto) 1.5 Baso % (Auto) 0.3 Lymph # (Auto) 1.84 [place] # (Auto) 0.5 Eos # (Auto) 0.2 Baso # (Auto) 0.0 Abs Immat Gran (auto) 0.05 H Absolute Neuts (auto) 9.1 H Absolute Nucleated RBC 0.000 Band Neutrophils % 0 Nucleated RBC % 0.0 Platelet Estimate Decreased % Immature Plt Fraction 7.8 Hypochromasia 1+ Anisocytosis 1+ Microcytosis 1+ Ovalocytes 1+ Schistocytes None seen POC Urine HCG, Qual Negative Post-procedural complaints: none Patient Feedback: Patient satisfied with anesthetic care.
[2024-12-12] MEDS: DOCUSATE SODIUM 100 MG CAPSULE PO (10:00)
[2024-12-12] MEDS: SIMETHICONE 80 MG TAB.CHEW PO ×2 (10:01→11:48)
[2024-12-12] MEDS: oxyCODONE HCL (*CRX) 5 MG TAB IR PO (10:01)
[2024-12-12] MEDS: IBUPROFEN 600 MG TABLET PO (11:48)
--- NOTE | 2024-12-18 08:30 | PM.DS ---
DS: Admitting Diagnosis Discharge Date 12/12/24 Admitting Diagnosis Symptomatic uterine fibroid DS: Summary Hospital Course Hospital Course: Patient was admitted received 2units of blood. Underwent hysterectomy without complication, see operative note for full details. Discharge home post operative day 1 without issue. Time Spent with Patient Time attestation: Total time spent providing and/or coordinating discharge services: DS: Data Data Completed and Pending Completed studies during hospitalization: Pending at discharge 12/11/24 11:43 Surgical [PTH] Routine Discharge Plan Discharge Attending physician on discharge: Donato Ellison Consulting providers: Karey Alvarenga; Kevyn Marsh; Flor Ellis; Andrey Cornejo Discharging Clinician: Donato Ellison Patient Disposition: Home Activity: no straining, no driving, follow weight bearing status and pelvic rest Diet: as tolerated Wound Care Instructions: incision open to air Patient Instructions: Laparoscopic Hysterectomy (DC) Patient Language: Australian Stand Alone Forms: General Discharge Information Follow-up/Referrals: Donato Ellison MD [Physician] - 2 Weeks Discharge Medications: New oxycodone 5 mg Tablet 5 mg PO Q4H PRN (Reason: Pain Rated 4-6) Qty: 30 0RF Continued ibuprofen 800 mg tablet 800 mg PO TID Qty: 30 0RF Discontinued progesterone micronized [Prometrium] 200 mg capsule 200 mg PO QHS 30 Days Qty: 30 0RF Patient Comments: provider said to start taking if spotting tranexamic acid 650 mg tablet 1,300 mg PO Q8H Qty: 30 0RF Patient Comments: provider said to start taking if spotting Date of admission: 12/10/24 19:32 Primary Care Provider: Robert Dodge Admitting Provider: Chidi Hinojosa Attending physician on admission: Donato Ellison Condition: Stable
== END 2024-12-12 12:00 | disposition home or self-care (01) ==
LOC: ANHED 19:40 → ANH3MEDSUR 12-11 07:21 → ANHOB2 12-11 14:28 → ANH3MEDSUR 12-15 07:26 → ANHOB2 12-15 07:26
PROVIDERS: Registered Nurse; Admitting Provider Student in an Organized Health Care Education/Training Program; Emergency Provider Emergency Medicine; PCP Family Medicine; Visit Provider Obstetrics & Gynecology
PROC: (CPT 58573; principal; 2024-12-11 09:30)
DX: N80.03 Adenomyosis of the uterus (principal); D25.9 Leiomyoma of uterus, unspecified; N72 Inflammatory disease of cervix uteri; R10.2 Pelvic and perineal pain; N92.1 Excessive and frequent menstruation with irregular cycle; D64.9 Anemia, unspecified; F17.210 Nicotine dependence, cigarettes, uncomplicated; K21.9 Gastro-esophageal reflux disease without esophagitis; K58.2 Mixed irritable bowel syndrome; G25.81 Restless legs syndrome; F12.90 Cannabis use, unspecified, uncomplicated; Z90.49 Acquired absence of other specified parts of digestive tract; Z90.79 Acquired absence of other genital organ(s)
CPT/HCPCS: 58573; S2900; 36415; 36430; 76856; 80053; 81001; 85025; 85055; 85610; 85730; 86923; 88307; 96361; 96374; 96375; 96376; 99285; A9270; G0378; G0379; J0690; J1100; J1885; J2003; J2250; J2270; J2371; J2405; J2704; J3010; J7030; J7050; J7120; P9016

== ENCOUNTER 2024-12-18 16:07 | Inpatient (IN) | payer OTHER, SELFPAY ==
[2024-12-18] VITALS (21 sets, daily range): BP systolic 90–115; BP diastolic 42–80; PULSE 73–98; RESP 11–20; TEMP 36.1–37.8; O2SAT 96–100; BMI 27.5
--- NOTE | ~2024-12-18 | CT_ITS ---
EXAMINATION: CT guide absc cath placement DATE: 12/19/2024 14:37 INDICATION: Post hysterectomy pelvic abscess TECHNIQUE: The procedure including the risks and benefits was discussed with the patient. Risks discu ssed included bleeding and infection. The patient understood the risks and benefits and agreed to pro ceed. The patient was confirmed to be receiving appropriate antibiotic coverage. Contrast agent was p rovided with 100 mcg fentanyl and 1 mg Versed IV. The skin overlying the inferior right pelvis/inguin al region was prepped and draped in usual sterile fashion. Anesthetic was administered with 1% lidoc danika subcutaneously. An 18-gauge trochar needle was inserted into the pelvic fluid collection by util izing intermittent CT guidance. 100 mL Omnipaque-350 intravenous contrast was utilized during one of the earlier CT images to better delineate the adjacent anatomy and course of the vessels. Upon enteri ng the abscess cavity the inner stylette was removed with spontaneous reflux of purulent appearing fl uid. A J-wire was advanced into the fluid collection with position confirmed by CT. Utilizing [place] er technique the needle was removed over the wire and the tract serially dilated to 10 Irish. A 10 F rench drainage catheter was then placed over the wire. After position was confirmed by CT the loop wa s formed and locked and the wire and metal stiffener were removed. The catheter was stitched to the s kin with suture. Antibiotic appointment and a sterile dressing were applied. No additional adhesive f ixation device was applied. There were no immediate complications. 50 mL of opaque reddish lima-colore d foul-smelling fluid was aspirated and sent to lab for Gram stain and cultures. The catheter was the n attached to suction drainage and was draining additional purulent fluid at the conclusion of the pr ocedure. The dose-length product was 595.82 mGy-cm. FINDINGS: CT images demonstrate the catheter within the large gas and fluid containing pelvic abscess cavity. 50 mL fluid was aspirated for testing. IMPRESSION: 1. Successful CT-guided pelvic abscess drainage catheter placement. 2. 50 mL fluid was sent for aerobic and anaerobic cultures. 3. The catheter will be managed by Dr. Bernard. Reviewed, dictated and finalized at location A.
--- NOTE | ~2024-12-18 | CT_ITS ---
EXAMINATION: CT pelvis wo/w con DATE: 12/21/2024 09:18 INDICATION: Pelvic abscess follow-up TECHNIQUE: Computed tomography (CT) of the pelvis was performed without and with 100 cc Omnipaque 350 intravenous contrast. The dose-length product was 587.83 mGy-cm. COMPARISON: CT dated 12/18/2024 FINDINGS: There is a pigtail catheter in the pelvis. There is a small curvilinear walled off fluid co llection in the left pelvis which is significantly decreased in size compared with prior examination. Small amount of fluid is in the perirectal and presacral space. Nonobstructive bowel gas pattern. There is mild mesenteric stranding with trace fluid in the paracoli c gutters. No significant vascular abnormality. There is retroperitoneal lymphadenopathy, likely reac tive. IMPRESSION: 1. Significantly decreased size of left pelvic abscess compared with 12/18/2024. Pigtail catheter pre sent. Reviewed, dictated and finalized at location A. IMPRESSION: 1. Significantly decreased size of left pelvic abscess compared with 12/18/2024 . Pigtail catheter present.
--- NOTE | ~2024-12-18 | CT_ITS ---
CLINICAL INDICATION: Abdominal pain and fever post hysterectomy COMPARISON: 11/18/2024. TECHNIQUE: Multiple contiguous axial images of the abdomen and pelvis were performed following the ad ministration of with 100 mL Omnipaque-350 intravenous contrast The dose-length product (DLP) was 344.06 mGy-cm. Automated exposure control and iterative reconstruction technique were employed. FINDINGS/OBSERVATIONS: Visualized lower thorax: The bilateral lung bases are clear. The heart is of normal size, without pericardial effusion. Liver: The liver demonstrates homogeneous enhancement and is not enlarged. Gallbladder and biliary system: The gallbladder is surgically absent. Pancreas: The pancreas enhances homogeneously without ductal dilatation. Spleen: The spleen enhances homogeneously and is not enlarged. Kidneys: The bilateral kidneys enhance symmetrically without hydronephrosis or renal calculi. Adrenal glands: Unremarkable. Gastrointestinal tract: Fecal stasis within the colon. Appendix: The appendix is not definitively visualized. However, no pericecal inflammatory change is identified suggest the presence of acute appendicitis. Vasculature: Unremarkable. Lymph nodes: No pathologically enlarged or morphologically suspicious lymph nodes within the retroperitoneum or at the root of the mesentery. Pelvic structures: The bladder is decompressed, limiting its evaluation. The uterus is surgically absent. Within the uterine bed is a rim-enhancing fluid collection with air measuring 11 x 0.7 x 7 cm (anteri or to posterior x medial to lateral x cranial to caudal dimension) consistent with an abscess. Body wall and musculoskeletal: Small fat-containing umbilical hernia. No significant degenerative disease within the lower thoracic or lumbosacral spine. IMPRESSION: Large pelvic abscess, within the operative bed, as detailed above. Reviewed, dictated and finalized at location A.
--- NOTE | ~2024-12-18 | XR_ITS ---
XR chest 1V portable Ordering provider: Brennon Card MD History: 49 years Female with . post op fever . Comparison: None. FINDINGS: MEDIASTINUM: The cardiac silhouette is not enlarged. LUNGS: No infiltrates, effusions or pneumothorax. OTHER: No free air under the diaphragm. IMPRESSION: No acute cardiopulmonary pathology. Reviewed, dictated and finalized at location A.
--- OUTSIDE RECORDS SUMMARY | 2024-12-18 16:12 | XMS_ITS | Clinical Summary ---
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
--- OUTSIDE RECORDS SUMMARY | 2024-12-18 16:12 | XMS_ITS | Patient Health Record ---
Author Organization [facility] Address [address] [place] [address] Care Team Providers Care Systems Librarian Name Role Phone Mark Pickard Primary Care Provider [phone] Allergies No Known Allergies Reason For Referral [...] Coverage End Date [employer] [address] [address] [place] [address] [id number] Alpa Echevarria Self - patient is the insured Medical (General) History Medical History History ICD Code anemia fainting/dizzy spells endometriosis sever anxiety Surgical History Surgery Date(Month/Year) gall bladder removed 2020 tonsilectomy
--- OUTSIDE RECORDS SUMMARY | 2024-12-18 16:12 | XMS_ITS | Clinical Summary ---
Author Organization [facility] [employer] Address [address] [place] [address] Care Team Providers Care Grappler Name Role Phone Unavailable Primary Care Provider Unavailabl e Source Comments [facility] [employer],non-owned Affiliates and Associated Physician Practices is amultiple site organization consisting of ambulatory clinics and hospital sitesin [place], [place], [place] and [place]. This disclosure is being madepursuant to the Care Everywhere program and may not contain all information available regarding this patient. 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
--- OUTSIDE RECORDS SUMMARY | 2024-12-18 16:12 | XMS_ITS | Encounter Summary ---
Author Organization [facility] Address [address] [place] [address] Care Team Providers Care Component Assembler Supervisor Name Role Phone None, Provider Primary Care Provider Sean riley Non-Staff, Provider Primary Care Provider Robert Wheeler DO Primary Care Provider [phone] Encounter Details Date Type Department Care Team (Late st Contact Info) Description 01/18/2019 Abstract SFL CONVERSION [address] [place] [address] , Generic Conversion, Social History Tobacco Use Types Packs/Day Years Used Date Smoking Tobacco: Never Assessed Comments Unknown Sex and Gender Information Value Date Recorded Sex Assigned at Not on file 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
[2024-12-18 16:45] LABS: Basophils Absolute Auto 0.1 K/mm3 (0.0-0.1); Basophils Percent Auto 0.3 % (0.2-1.2); Eosinophils Absolute Auto 0.2 K/mm3 (0-0.3); Eosinophils Percent Auto 1.2 % (0-4.4); Hematocrit 33.1 % (37.0-47.0); Immature Granulocyte Absolute 0.09 K/mm3 (0.00-0.031); Immature Granulocyte Percent A 0.5 % (0-0.5); Lymphocytes Percent Auto 8.3 % (18.3-44.2); Mean Corpuscular HGB Conc 30.2 g/dl (32-36); Mean Corpuscular Hemoglobin 22.5 pg (26-34); Mean Corpuscular Volume 74.4 fl (80-100); Mean Platelet Volume 10.4 fl (7.4-10.4); Monocytes Absolute Auto 0.9 K/mm3 (0.1-0.6); Monocytes Percent Auto 4.5 % (2.6-8.5); Neutrophils Absolute Auto 16.5 K/mm3 (1.3-6.7); Neutrophils Percent Auto 85.2 % (45.5-73.1); Platelet Count Result 242 k/mm3 (150-375); Red Blood Count 4.45 M/mm3 (4.2-5.4); Red Cell Distribution Width 23.9 % (11.5-14.5); White Blood Count 19.4 K/mm3 (4.5-10.0)
--- OUTSIDE RECORDS SUMMARY | 2024-12-18 16:45 | XMS_ITS | Clinical Summary ---
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
--- OUTSIDE RECORDS SUMMARY | 2024-12-18 16:45 | XMS_ITS | Clinical Summary ---
Author Organization [facility] [employer] Address [address] [place] [address] Care Team Providers Care Sewer Pipe Layer Name Role Phone Unavailable Primary Care Provider Unavailabl e Source Comments [facility] [employer],non-owned Affiliates and Associated Physician Practices is amultiple site organization consisting of ambulatory clinics and hospital sitesin [place], [place], [place] and [place]. This disclosure is being madepursuant to the Care Everywhere program and may not contain all information available regarding this patient. 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 [address] Payer ID:Not on file Group ID:Not on file Type:Self Pay Address: [place], [place]
--- OUTSIDE RECORDS SUMMARY | 2024-12-18 16:45 | XMS_ITS | Encounter Summary ---
Author Organization [facility] Address [address] [place] [address] Care Team Providers Care Spring Coiler Hand Name Role Phone None, Provider Primary Care Provider Sean riley Non-Staff, Provider Primary Care Provider Robert Wheeler DO Primary Care Provider [phone] Encounter Details Date Type Department Care Team (Late st Contact Info) Description 01/18/2019 Abstract SFL CONVERSION [address] [place] [address] , Generic Conversion, Social History Tobacco Use Types Packs/Day Years Used Date Smoking Tobacco: Never Assessed Comments Unknown Sex and Gender Information Value Date Recorded Sex Assigned at Not on file 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
[2024-12-18 16:51] LABS: Add Urine Microscopic? YES; Appearance Urine Cloudy (Clear); Bacteria Urine 3+ /hpf; Bilirubin Urine Negative (Negative); Blood Urine 2+ (Negative); Color Urine Dark Yellow (Yellow); Glucose Urine UA Negative (Negative); Ketones Urine Trace mg/dL (Negative); Leukocyte Esterase Ur Trace LEU/UL (Negative); Nitrate Urine Negative (Negative); Non Pathogenic Casts 0-2; Protein Urine 1+ mg/dL (Negative); Squamous Epithelial Cell Urine Moderate /hpf (Few); pH Urine 6.5 (5.0-9.0)
[2024-12-18 16:56] LABS: Alanine Aminotransferase 46 U/L (6-35); Albumin Level 3.3 g/dL (3.5-5.1); Alkaline Phosphatase 145 U/L (38-126); Anion Gap 6 mmol/L (4-12); Aspartate Amino Transferase 16 U/L (14-36); Bilirubin,Total 0.5 mg/dL (0.2-1.3); Blood Urea Nitrogen 6 mg/dL (7-17); Calcium 8.1 mg/dL (8.4-10.2); Carbon Dioxide 28 mmol/L (22-30); Chloride 100 mmol/L (98-107); Estimated CRCL calculation 94 ml/min; Estimated Glomerular Filt Rate > 60; Glucose 97 mg/dL (65-110); Potassium 3.2 mmol/L (3.4-5.0); Sodium 134 mmol/L (137-145)
[2024-12-18] MEDS: ACETAMINOPHEN 500 MG TABLET 1000 MG PO (17:18)
[2024-12-18] MEDS: LACTATED RINGERS 1,000 ML 999 ML IV CONT ×2 (17:18→18:48)
[2024-12-18 17:21] LABS: Influenza A QL RT-PCR Negative (Negative); Influenza B QL RT-PCR Negative (Negative); RSV RNA, RT-PCR Negative (Negative); SARS-CoV-2 RNA PCR Negative (Negative)
[2024-12-18 17:32] LABS: Band Neutrophils Percent 0 % (0-6); Burr Cells 1+; Ovalocytes 1+; Platelet Estimate Adequate (Adequate); Schistocytes None Seen
--- NOTE | 2024-12-18 17:41 | ED.RECABL ---
HPI - Recheck/Abnormal Lab/Rx General Chief Complaint: Recheck/Abnormal Lab/Rx Stated Complaint: pain post surgery Time Seen by Provider: 12/18/24 16:30 History of Present Illness HPI narrative: 49-year-old female presenting to the emergency department after a laparoscopic hysterectomy with bilateral salpingectomy done with her OBGYN doctor her for less than 1 week ago. Patient was discharged on the 2nd home without any concerns. Patient has been dealing with some abdominal cramping and sharp pains near her pelvis and rectum as well as some burning with urination. Yesterday she noticed that she was having worsening pain and a fever. She called the OB GYNs office and was told to go to the emergency department but she did not go yesterday and came into the department today. She endorses a fever at home and took Tylenol and her pain medications earlier. Does not have any vaginal bleeding or vaginal discharge, no bleeding or drainage from the incision sites, no overlying rash. No difficulty breathing or productive cough. No chest pain shortness a breath. No trauma or injuries. Related Data Allergies Allergy/AdvReac Type Severity Reaction Status Date / Time No Known Allergies Allergy Unknown Verified 12/18/24 16:25 Review of Systems Review of Systems: As reviewed above in HPI [facility] Past Medical History Medical History GERD (gastroesophageal reflux disease) Uterine fibroid Screening mammogram, encounter for Edema Cellulitis Marijuana smoker Constipation Dysfunctional gallbladder (~06/2020) Right sided abdominal pain Leg pain Irritable bowel syndrome Mixed Tobacco abuse Restless leg syndrome Anxiety Smoker Cholelithiasis (Unknown) , ectopic, tubal History of irritable bowel syndrome History of endometriosis Surgical History Surgical History History of robot-assisted laparoscopic hysterectomy (12/11/24) Robotic assisted total laparoscopic hysterectomy with right salpingectomy (left fallopian tube surgically absent) History of hysteroscopy (06/17/15) H/O LEEP History of cholecystectomy History of shoulder surgery (04/13/13) right shoulder History of unilateral salpingectomy History of tonsillectomy History of laparoscopy Several last 1 being today 07/01/2020/ 05/13/2015 Laparoscopy - endocx polyp, right ovarian cys Family History Family History Father Diabetes mellitus Family history of alcoholism Family history of mental disorder Mother Hypertension Sibling Breast cancer Social History Social History Social History: The patient has 1 daughter. She has had a tubal in the past. She currently is unemployed. She resides with her boyfriend. She does not have a durable power ip technology transactions attorney for healthcare but is a full code. She smokes about half pack a cigarettes a day. She does smoke marijuana at night to help her rest. She denies any alcohol or other street drugs. Smoking packs per day: 0.5 Smoking cigarettes per day: 10.0 Years smoked: 15 Smoking pack-years: 7.50 Smoking status: Current every day smoker Tobacco type: cigarettes Second hand tobacco smoke exposure: Yes Alcohol intake: never Substance use: never Substance use type: marijuana Other substance usage details: occasional gummy/smoke marijuana for RLS at night Do You Feel Safe in your Home?: Yes Lack of Transportation: No Lack of Food: Sometimes True Current Housing: I Have Housing Concerned About Future Housing: No Difficulty Paying Gas/Electric Bills: YES Difficulty Paying for Meds: No Currently Unemployed: No Education: High School Diploma/GED Difficulty w/ Childcare or Family Care: No Living arrangements: with friend(s) Additional living arrangements comments: Lives with boyfriend and his sister Occupation/Education: unemployed Gender identity (if verbalized by the patient): Female Sexual Orientation (if Verbalized by the Patient): Straight or Heterosexual Spiritual care concerns: No Exam Narrative: GENERAL: [Well-appearing, well-nourished, and in no acute distress.] HEAD: [Normocephalic, atraumatic.] EYES: [PERRLA and EOMI.] ENT: Nares clear, no rhinorrhea or epistaxis. Mucous membranes moist. NECK: Supple. CHEST: [Clear to auscultation. No respiratory distress.] HEART: [Regular rate and rhythm]. No murmur heard. [Normal peripheral pulses.] ABDOMEN: [Soft, nondistended], tender to palpation without any peritonitis, [No rigidity or guarding] EXTREMITIES: Normal range of motion. [No edema.] SKIN: Warm and flushed, no rash. Incisions appear clean, dry, intact with no overlying cellulitis or palpable fluctuance. NEURO: [No focal deficits]. Alert and oriented [x3.] PSYCH: [Normal mood and affect.] Course Vital Signs Vital signs: Vital Signs Temperature 37.8 C H 12/18/24 16:20 Pulse Rate 94 12/18/24 16:20 Respiratory Rate 11 L 12/18/24 16:20 Blood Pressure 105/63 12/18/24 16:20 Pulse Oximetry 100 12/18/24 16:20 Oxygen Delivery Room Air 12/18/24 16:20 Temperature 36.7 C 12/18/24 22:00 Pulse Rate 73 12/18/24 22:00 Respiratory Rate 13 12/18/24 22:00 Blood Pressure 90/42 L 12/18/24 22:00 Pulse Oximetry 100 12/18/24 22:00 Oxygen Delivery Room Air 12/18/24 21:14 MDM - Recheck/Abnormal Lab/Rx MDM Narrative Medical decision making narrative: 49-year-old female postop day 7 from laparoscopic hysterectomy and bilateral salpingectomy for significant vaginal bleeding and fibroid uterus. Patient presents to the emergency department with complaints of fever for 2 days, worsening abdominal cramping abdominal pain associated some dysuria. She has a soft nondistended abdomen but is tender to palpation very warm to the touch. She is febrile here at 37.8° C. No tachycardia or significant blood pressure concerns she is saturating 100% on room air. No bleeding from the vagina, no overlying skin changes or rash from her incision sites, stitches are clean dry and intact. Given her perioperative period and fever considerations presently are for postoperative infection in the abdomen or pelvis from the laparoscopic procedure, pneumonia from the intubation, urinary tract infection from Andrews catheter. Workup was ordered including viral panel swabs, chest x-ray, CT of the abdomen pelvis, CBC, CMP, urinalysis. Patient was given Tylenol and lactated Ringer's and re-evaluated. Workup shows a leukocytosis of 19.4, hemoglobin of 10.0 which is better than her previous levels, normal platelet count. Normal creatinine, largely unremarkable electrolytes, negative lactic acid, LFTs mildly elevated but not significant. Urinalysis shows some squamous cells and contamination without any convincing urinary infections symptoms but does have white count and red blood cells. 3+ bacteria. Negative viral panel swabs. Chest x-ray shows no acute cardiopulmonary disease. CT scan of the abdomen pelvis shows a large pelvic abscess of 11 x 7 x 0.7 cm with rim enhancing fluid collection on the uterine bed and this is likely the source of patient's fever and pain. I discussed the case with the OBGYN covering for Dr. Kolb, currently Dr. Hussein. We went over patient's imaging studies, clinical exam findings and suspicion for pelvic abscess postoperatively causing patient's symptoms and abnormal labs. Patient was started on Zosyn and vancomycin for broad coverage in GI coverage. Recommendations to admit to the hospital for IR drainage tomorrow. I updated the patient on the plan of care and she was agreeable to the plan. I discussed with the on-call CT staff in the informed that there is no present I radiologist tonight but there will be 1 tomorrow morning for the procedure which OBGYN was made aware of. Patient provided fluid resuscitation with lactated Ringer's, pain control with morphine, p.r.n. medications ordered and she will be admitted to the hospital under of the OBGYN service. Medical Records Attestation: I reviewed the patient's medical records. Lab Data Attestation: I reviewed the patient's lab results. 12/18/24 16:38 12/18/24 16:38 Labs: Lab Results 12/18/24 Range/Units 16:38 WBC 19.4 H (4.5-10.0) K/mm3 RBC 4.45 (4.2-5.4) M/mm3 Hgb 10.0 L (12.0-15.0) g/dL Hct 33.1 L (37.0-47.0) % MCV 74.4 L (80-100) fl MCH 22.5 L (26-34) pg MCHC 30.2 L (32-36) g/dl RDW 23.9 H (11.5-14.5) % Plt Count 242 (150-375) k/mm3 MPV 10.4 (7.4-10.4) fl Immature Gran % (Auto) 0.5 (0-0.5) % Neut % (Auto) 85.2 H (45.5-73.1) % Lymph % (Auto) 8.3 L (18.3-44.2) % [place] % (Auto) 4.5 (2.6-8.5) % Eos % (Auto) 1.2 (0-4.4) % Baso % (Auto) 0.3 (0.2-1.2) % Lymph # (Auto) 1.60 (0.9-3.2) K/mm3 [place] # (Auto) 0.9 H (0.1-0.6) K/mm3 Eos # (Auto) 0.2 (0-0.3) K/mm3 Baso # (Auto) 0.1 (0.0-0.1) K/mm3 Abs Immat Gran (auto) 0.09 H (0.00-0.031) K/mm3 Absolute Neuts (auto) 16.5 H (1.3-6.7) K/mm3 Absolute Nucleated RBC 0.000 (0.0-0.012) K/mm3 Band Neutrophils % 0 (0-6) % Nucleated RBC % 0.0 (0.0-0.2) % Platelet Estimate Adequate (Adequate) Ovalocytes 1+ Radha Cells 1+ Schistocytes None seen Sodium 134 L (137-145) mmol/L Potassium 3.2 L (3.4-5.0) mmol/L Chloride 100 (98-107) mmol/L Carbon Dioxide 28 (22-30) mmol/L Anion Gap 6 (4-12) mmol/L BUN 6 L D (7-17) mg/dL Creatinine 0.63 L (0.7-1.0) mg/dL Estim Creat Clear Calc 94 ml/min Estimated GFR > 60 (59 - ) Glucose 97 (65-110) mg/dL Calcium 8.1 L (8.4-10.2) mg/dL Total Bilirubin 0.5 (0.2-1.3) mg/dL AST 16 (14-36) U/L ALT 46 H (6-35) U/L Alkaline Phosphatase 145 H (38-126) U/L Total Protein 7.0 (6.3-8.2) g/dL Albumin 3.3 L (3.5-5.1) g/dL Urine Color Dark yellow (Yellow) Urine Appearance Cloudy H (Clear) Urine pH 6.5 (5.0-9.0) Ur Specific [place] 1.020 (1.001-1.035) Urine Protein 1+ H (Negative) mg/dL Urine Glucose (UA) Negative (Negative) mg/dL Urine Ketones Trace H (Negative) mg/dL Ur Blood (Man) 2+ H (Negative) Urine Nitrate Negative (Negative) Urine Bilirubin Negative (Negative) Urine Urobilinogen 1.0 (<2.0) mg/dL Leukocyte Esterase Rfl Trace H (Negative) GERMÁN/UL Urine RBC 11-20 H (0-2) /hpf Urine WBC 6-10 H (0-3) /hpf Ur Squamous Epith Cells Moderate (Few) /hpf Urine Bacteria 3+ H /hpf Urine Casts 0-2 Influenza A (RT-PCR) Negative (Negative) Influenza B (RT-PCR) Negative (Negative) RSV (RT-PCR) Negative (Negative) SARS-CoV-2 RNA (RT-PCR) Negative (Negative) Imaging Data Attestation: I personally reviewed and interpreted this imaging study as follows: My impression: Impressions Chest X-Ray 12/18/24 16:57 IMPRESSION: No acute cardiopulmonary pathology. Abdomen/Pelvis CT 12/18/24 18:03 IMPRESSION: Large pelvic abscess, within the operative bed, as detailed above. Critical Care Time Critical Care Time Critical Care Time: Yes Total Critical Care Time: 40 Discharge Plan Discharge Clinical Impression: Postoperative abscess of pelvis in female, Fever Patient Disposition: Still a Patient Condition: Serious
[2024-12-18] MEDS: MORPHINE SULFATE (*CRX) 4 MG/ML INJ IV PUSH (18:48)
[2024-12-18] MEDS: LACTATED RINGERS 1,000 ML 125 ML IV CONT (19:11)
[2024-12-18] MEDS: PIPERACILLIN/TAZ 4.5G/NS 100ML 4.5 GM/100 ML BAG IVPB (19:11)
[2024-12-18 19:13] LABS: Lactic Acid Reflex 1.6 mmol/L (0.7-2.0)
[2024-12-18] MEDS: VANCOMYCIN 1,750 MG/NS 500 ML 1,750 MG/500 ML BAG 250 MG IVPB (19:49)
--- NOTE | 2024-12-18 21:15 | ADMGEN ---
This patient, Alpa Echevarria, was admitted to [facility] Surg Room 327-01. Patient/family oriented to hospital policies and general routines including ID bracelet, bed and alarms, visiting hours, pain management, procedures, bathroom and other care routines, personal items, smoking policy, room service/diet, and visiting hours. Information on how to activate the Rapid Response Team has been discussed. Patient/Family are encouraged to report perceived risks to care and to ask questions if they do not understand what they are told or what they should do.
[2024-12-18] MEDS: HYDROmorphone HCL INJ (*CRX) 2 MG/ML VIAL 0.5 MG IV PUSH (21:52)
[2024-12-18] MEDS: ONDANSETRON INJ 4 MG/2 ML VIAL IV PUSH (21:53)
[2024-12-19] VITALS (22 sets, daily range): BP systolic 99–113; BP diastolic 50–86; PULSE 76–94; RESP 12–18; TEMP 36.1–38.2; O2SAT 98–100
[2024-12-19] MEDS: HYDROmorphone HCL INJ (*CRX) 2 MG/ML VIAL 0.5 MG IV PUSH ×3 (01:26→09:12)
[2024-12-19] MEDS: LACTATED RINGERS 1,000 ML 125 ML IV CONT ×2 (03:16→14:30)
[2024-12-19 06:24] LABS: Estimated CRCL calculation 96 ml/min; Estimated Glomerular Filt Rate > 60
[2024-12-19] MEDS: PIPERACILLN/TAZ 3.375GM/NS50ML 3.375 GM/50 ML BAG IVPB ×3 (09:32→20:50)
[2024-12-19 11:48] LABS: Basophils Percent Auto 0.2 % (0.2-1.2); Eosinophils Absolute Auto 0.2 K/mm3 (0-0.3); Eosinophils Percent Auto 1.4 % (0-4.4); Hematocrit 29.6 % (37.0-47.0); Hemoglobin 8.6 g/dL (12.0-15.0); Immature Granulocyte Absolute 0.07 K/mm3 (0.00-0.031); Immature Granulocyte Percent A 0.4 % (0-0.5); Lymphocytes Absolute Auto 1.25 K/mm3 (0.9-3.2); Lymphocytes Percent Auto 7.4 % (18.3-44.2); Mean Corpuscular HGB Conc 29.1 g/dl (32-36); Mean Corpuscular Hemoglobin 22.6 pg (26-34); Mean Corpuscular Volume 77.7 fl (80-100); Mean Platelet Volume 11.7 fl (7.4-10.4); Monocytes Absolute Auto 0.6 K/mm3 (0.1-0.6); Monocytes Percent Auto 3.4 % (2.6-8.5); Neutrophils Absolute Auto 14.7 K/mm3 (1.3-6.7); Neutrophils Percent Auto 87.2 % (45.5-73.1); Platelet Count Result 207 k/mm3 (150-375); Red Blood Count 3.81 M/mm3 (4.2-5.4); Red Cell Distribution Width 24.1 % (11.5-14.5); White Blood Count 16.9 K/mm3 (4.5-10.0)
[2024-12-19 11:54] LABS: Alanine Aminotransferase 38 U/L (6-35); Albumin Level 2.7 g/dL (3.5-5.1); Alkaline Phosphatase 162 U/L (38-126); Anion Gap 9 mmol/L (4-12); Aspartate Amino Transferase 29 U/L (14-36); Bilirubin,Total 0.3 mg/dL (0.2-1.3); Blood Urea Nitrogen 5 mg/dL (7-17); Calcium 7.7 mg/dL (8.4-10.2); Carbon Dioxide 24 mmol/L (22-30); Chloride 105 mmol/L (98-107); Estimated CRCL calculation 99 ml/min; Estimated Glomerular Filt Rate > 60; Glucose 88 mg/dL (65-110); Potassium 3.3 mmol/L (3.4-5.0); Sodium 138 mmol/L (137-145)
[2024-12-19] MEDS: LORazepam INJ (*CRX) 2 MG/ML VIAL 0.5 MG IV PUSH ×2 (12:02→17:29)
[2024-12-19] MEDS: MORPHINE SULFATE (*CRX) 4 MG/ML INJ IV PUSH ×3 (12:03→20:54)
[2024-12-19 12:15] LABS: Hypochromasia 1+; Platelet Estimate Adequate (Adequate); Schistocytes Rare
[2024-12-19 12:16] LABS: Anisocytosis 1+
--- NOTE | 2024-12-19 12:56 | WPDMODSED ---
Moderate Sedation Note-Pt Data Patient Data Diagnosis: pelvic abscess Present Complaint: pelvic pain/cramping and fever Procedure to be performed/Plan: ct guided abscess drain placement Allergies Allergy/AdvReac Type Severity Reaction Status Date / Time No Known Allergies Allergy Unknown Verified 12/18/24 16:25 Home Medications Medication Instructions Recorded Confirmed Type ibuprofen 800 mg tablet 800 mg PO TID #30 tabs 11/18/24 12/18/24 Rx oxycodone 5 mg tablet 5 mg PO Q4H PRN Pain Rated 4-6 #30 12/12/24 12/18/24 Rx tabs Current Medications: Active Medications Acetaminophen (Acetaminophen 325 Mg Tablet) 650 mg PO Q4H PRN PRN Reason: Mild Pain (1-3) or Fever Hydrocodone Bitart/Acetaminophen (Hydrocodone/Acetaminophen (*Crx) 5-325 Mg Tablet) 1 tab PO Q4H PRN PRN Reason: Pain Rated 4-6 Lactated Ringer's (Lr - Lactated Ringers Iv) 1,000 mls @ 125 mls/hr IV CONT .Q8H [facility] Last Admin: 12/19/24 03:16 Dose: 125 mls/hr Piperacillin/Tazobactam/Dextrose (Zosyn 3.375 Gm/Ns 50 Ml) 3.375 gm in 50 mls @ 100 mls/hr IVPB Q6H [facility] Last Admin: 12/19/24 09:32 Dose: 100 mls/hr Ketorolac Tromethamine (Ketorolac 15 Mg/Ml Vial (*Bkc)) 15 mg IV PUSH Q6H PRN PRN Reason: Pain Rated 4-6 Lorazepam (Lorazepam Inj (*Crx) 2 Mg/Ml Vial) 0.5 mg IV PUSH Q6H PRN PRN Reason: Anxiety Last Admin: 12/19/24 12:02 Dose: 0.5 mg Morphine Sulfate (Morphine Sulfate (*Crx) 4 Mg/Ml Inj) 4 mg IV PUSH Q2H PRN PRN Reason: Pain Rated 7-10 Last Admin: 12/19/24 12:03 Dose: 4 mg Ondansetron HCl (Ondansetron Inj 4 Mg/2 Ml Vial) 4 mg IV PUSH Q4H PRN PRN Reason: Nausea Last Admin: 12/18/24 21:53 Dose: 4 mg Sedation/Anesthesia: No previous sedation/anesthesia problems (including family history). [facility] Past Medical History Medical History GERD (gastroesophageal reflux disease) Uterine fibroid Screening mammogram, encounter for Edema Cellulitis Marijuana smoker Constipation Dysfunctional gallbladder (~06/2020) Right sided abdominal pain Leg pain Irritable bowel syndrome Mixed Tobacco abuse Restless leg syndrome Anxiety Smoker Cholelithiasis (Unknown) , ectopic, tubal History of irritable bowel syndrome History of endometriosis Surgical History Surgical History History of robot-assisted laparoscopic hysterectomy (12/11/24) Robotic assisted total laparoscopic hysterectomy with right salpingectomy (left fallopian tube surgically absent) History of hysteroscopy (06/17/15) H/O LEEP History of cholecystectomy History of shoulder surgery (04/13/13) right shoulder History of unilateral salpingectomy History of tonsillectomy History of laparoscopy Several last 1 being today 07/01/2020/ 05/13/2015 Laparoscopy - endocx polyp, right ovarian cys Family History Family History Father Diabetes mellitus Family history of alcoholism Family history of mental disorder Mother Hypertension Sibling Breast cancer Social History Social History Social History: The patient has 1 daughter. She has had a tubal in the past. She currently is unemployed. She resides with her boyfriend. She does not have a durable power workers compensation attorney for healthcare but is a full code. She smokes about half pack a cigarettes a day. She does smoke marijuana at night to help her rest. She denies any alcohol or other street drugs. Smoking packs per day: 0.5 Smoking cigarettes per day: 10.0 Years smoked: 15 Smoking pack-years: 7.50 Smoking status: Current every day smoker Tobacco type: cigarettes Second hand tobacco smoke exposure: Yes Alcohol intake: never Substance use: never Substance use type: marijuana Other substance usage details: occasional gummy/smoke marijuana for RLS at night Do You Feel Safe in your Home?: Yes Lack of Transportation: No Lack of Food: Sometimes True Current Housing: I Have Housing Concerned About Future Housing: No Difficulty Paying Gas/Electric Bills: YES Difficulty Paying for Meds: No Currently Unemployed: No Education: High School Diploma/GED Difficulty w/ Childcare or Family Care: No Living arrangements: with friend(s) Additional living arrangements comments: Lives with boyfriend and his sister Occupation/Education: unemployed Gender identity (if verbalized by the patient): Female Sexual Orientation (if Verbalized by the Patient): Straight or Heterosexual Spiritual care concerns: No Mod Sed Physical Exam Physical Exam Pre Procedural Exam: Normal: Appearance, Throat, Lungs, Heart Rate and Heart Rhythm Hours since solid foods: 12 Hours since liquid intake: 12 Mallampati Classification: class II Internal Medicine - PN: Obj Da Vital Signs Vital Signs: Vital Signs - 24 hr 12/18/24 16:20 12/18/24 16:28 12/18/24 17:00 Temperature 100.1 F H Pulse Rate 94 98 95 Respiratory Rate 11 L 12 12 Blood Pressure 105/63 Pulse Oximetry 100 100 100 Oxygen Delivery Room Air 12/18/24 17:21 12/18/24 17:22 12/18/24 17:31 Temperature Pulse Rate 94 98 93 Respiratory Rate 11 L 12 14 Blood Pressure 115/80 110/66 Pulse Oximetry 100 100 100 Oxygen Delivery 12/18/24 17:46 12/18/24 18:01 12/18/24 18:16 Temperature Pulse Rate 96 93 92 Respiratory Rate 15 13 11 L Blood Pressure 98/57 L 99/55 L 101/54 L Pulse Oximetry 100 97 100 Oxygen Delivery 12/18/24 18:31 12/18/24 18:46 12/18/24 18:47 Temperature Pulse Rate 93 89 87 Respiratory Rate 19 14 Blood Pressure 98/52 L 93/61 L Pulse Oximetry 97 99 99 Oxygen Delivery 12/18/24 19:17 12/18/24 19:18 12/18/24 19:22 Temperature 98.5 F Pulse Rate 81 82 Respiratory Rate 20 20 Blood Pressure 90/50 L Pulse Oximetry 97 96 Oxygen Delivery 12/18/24 19:31 12/18/24 19:46 12/18/24 20:01 Temperature Pulse Rate 86 86 79 Respiratory Rate 12 16 12 Blood Pressure 93/59 L 96/64 L 97/61 L Pulse Oximetry 98 98 100 Oxygen Delivery 12/18/24 20:16 12/18/24 21:14 12/18/24 21:43 Temperature 96.9 F L Pulse Rate 83 78 Respiratory Rate 17 12 Blood Pressure 96/58 L 90/53 L Pulse Oximetry 98 99 Oxygen Delivery Room Air 12/18/24 22:00 12/19/24 00:00 12/19/24 01:19 Temperature 98.1 F 98.4 F Pulse Rate 73 77 Respiratory Rate 13 Blood Pressure 90/42 L 100/50 L Pulse Oximetry 100 Oxygen Delivery 12/19/24 04:00 12/19/24 06:00 Temperature 100.7 F H Pulse Rate 92 76 Respiratory Rate 17 Blood Pressure 107/64 Pulse Oximetry 98 Oxygen Delivery Intake/Output Intake/Output: Intake & Output 12/16/24 12/17/24 12/18/24 12/19/24 23:59 23:59 23:59 23:59 Intake Total 2600 1100 Balance 2600 1100 Meds/Results Medications: Active Medications Generic Name Dose Route Start Last Admin Trade Name Freq PRN Reason Stop Dose Admin Acetaminophen 650 mg 12/18/24 18:27 Acetaminophen 325 Mg Tablet PO Q4H PRN Mild Pain (1-3) or Fever Hydrocodone Bitart/Acetaminophen 1 tab 12/18/24 18:27 Hydrocodone/Acetaminophen (*Crx) 5-325 Mg Tablet PO Q4H PRN Pain Rated 4-6 Lactated Ringer's 1,000 mls @ 125 mls/hr 12/18/24 18:30 12/19/24 03:16 Lr - Lactated Ringers Iv IV CONT 125 mls/hr .Q8H [facility] Administration Piperacillin/Tazobactam/Dextrose 3.375 gm in 50 mls @ 100 mls/hr 12/19/24 09:00 12/19/24 09:32 Zosyn 3.375 Gm/Ns 50 Ml IVPB 100 mls/hr Q6H [facility] Administration Ketorolac Tromethamine 15 mg 12/19/24 08:02 Ketorolac 15 Mg/Ml Vial (*Bkc) IV PUSH Q6H PRN Pain Rated 4-6 Lorazepam 0.5 mg 12/19/24 11:50 12/19/24 12:02 Lorazepam Inj (*Crx) 2 Mg/Ml Vial IV PUSH 0.5 mg Q6H PRN Administration Anxiety Morphine Sulfate 4 mg 12/19/24 11:49 12/19/24 12:03 Morphine Sulfate (*Crx) 4 Mg/Ml Inj IV PUSH 4 mg Q2H PRN Administration Pain Rated 7-10 Ondansetron HCl 4 mg 12/18/24 18:27 12/18/24 21:53 Ondansetron Inj 4 Mg/2 Ml Vial IV PUSH 4 mg Q4H PRN Administration Nausea Radiology Results: ITS Impressions Chest X-Ray 12/18/24 16:57 IMPRESSION: No acute cardiopulmonary pathology. Abdomen/Pelvis CT 12/18/24 18:03 IMPRESSION: Large pelvic abscess, within the operative bed, as detailed above. Labs 12/19/24 05:49 12/19/24 05:49 Labs: Laboratory Results - last 24 hr 12/18/24 12/18/24 12/19/24 16:38 18:56 05:49 WBC 19.4 H 16.9 H RBC 4.45 3.81 L Hgb 10.0 L 8.6 L Hct 33.1 L 29.6 L MCV 74.4 L 77.7 L MCH 22.5 L 22.6 L MCHC 30.2 L 29.1 L RDW 23.9 H 24.1 H Plt Count 242 207 MPV 10.4 11.7 H Immature Gran % (Auto) 0.5 0.4 Neut % (Auto) 85.2 H 87.2 H Lymph % (Auto) 8.3 L 7.4 L Douglas % (Auto) 4.5 3.4 Eos % (Auto) 1.2 1.4 Baso % (Auto) 0.3 0.2 Lymph # (Auto) 1.60 1.25 Douglas # (Auto) 0.9 H 0.6 Eos # (Auto) 0.2 0.2 Baso # (Auto) 0.1 0.0 Abs Immat Gran (auto) 0.09 H 0.07 H Absolute Neuts (auto) 16.5 H 14.7 H Absolute Nucleated RBC 0.000 0.000 Band Neutrophils % 0 Not Reportable Nucleated RBC % 0.0 0.0 Platelet Estimate Adequate Adequate % Immature Plt Fraction 6.0 Hypochromasia 1+ Anisocytosis 1+ Ovalocytes 1+ Radha Cells 1+ Schistocytes None seen Rare Sodium 134 L 138 Potassium 3.2 L 3.3 L Chloride 100 105 Carbon Dioxide 28 24 Anion Gap 6 9 BUN 6 L D 5 L Creatinine 0.63 L 0.62 L Estim Creat Clear Calc 94 Estimated GFR > 60 Glucose 97 Lactic Acid 1.6 Calcium 8.1 L Total Bilirubin 0.5 AST 16 ALT 46 H Alkaline Phosphatase 145 H Total Protein 7.0 Albumin 3.3 L Urine Color Dark yellow Urine Appearance Cloudy H Urine pH 6.5 Ur Specific [place] 1.020 Urine Protein 1+ H Urine Glucose (UA) Negative Urine Ketones Trace H Ur Blood (Man) 2+ H Urine Nitrate Negative Urine Bilirubin Negative Urine Urobilinogen 1.0 Leukocyte Esterase Rfl Trace H Urine RBC 11-20 H Urine WBC 6-10 H Ur Squamous Epith Cells Moderate Urine Bacteria 3+ H Urine Casts 0-2 Influenza A (RT-PCR) Negative Influenza B (RT-PCR) Negative RSV (RT-PCR) Negative SARS-CoV-2 RNA (RT-PCR) Negative 12/19/24 12/19/24 12/19/24 05:49 05:49 05:49 WBC RBC Hgb Hct MCV MCH MCHC RDW Plt Count MPV Immature Gran % (Auto) Neut % (Auto) Lymph % (Auto) [place] % (Auto) Eos % (Auto) Baso % (Auto) Lymph # (Auto) Douglas # (Auto) Eos # (Auto) Baso # (Auto) Abs Immat Gran (auto) Absolute Neuts (auto) Absolute Nucleated RBC Band Neutrophils % Nucleated RBC % Platelet Estimate % Immature Plt Fraction Hypochromasia Anisocytosis Ovalocytes Radha Cells Schistocytes Sodium Potassium Chloride Carbon Dioxide Anion Gap BUN Creatinine 0.60 L Estim Creat Clear Calc 96 99 Estimated GFR > 60 > 60 Glucose 88 Lactic Acid Calcium 7.7 L Total Bilirubin 0.3 AST 29 ALT 38 H Alkaline Phosphatase 162 H Total Protein 6.0 L Albumin 2.7 L Urine Color Urine Appearance Urine pH Ur Specific [place] Urine Protein Urine Glucose (UA) Urine Ketones Ur Blood (Man) Urine Nitrate Urine Bilirubin Urine Urobilinogen Leukocyte Esterase Rfl Urine RBC Urine WBC Ur Squamous Epith Cells Urine Bacteria Urine Casts Influenza A (RT-PCR) Influenza B (RT-PCR) RSV (RT-PCR) SARS-CoV-2 RNA (RT-PCR) ASA Classification/Sedation ASA Classification/Sedation ASA Class: II Emergent: No Risks: Risks, benefits and alternatives explained and patient/family accepted plan for sedation. Patient re-evaluated immediately prior to sedation.
[2024-12-19] MEDS: MIDAZOLAM HCL (*CRX) 2 MG/2 ML VIAL 1 MG IV PUSH (13:13)
[2024-12-19] MEDS: fentaNYL CITRATE INJ (*CRX) 100 MCG/2 ML VIAL 50 MCG IV PUSH ×2 (13:18→13:31)
--- NOTE | 2024-12-19 15:48 | PM.IMHP ---
H&P: HPI History of Present Illness Date/Time: 12/19/24 15:48 Chief Complaint: pelvic pain and fever after hysterectomy Narrative: 49 yo female who presented to the ER with complaints of pelvic pain and fevers after robotic assisted hysterectomy on 12/11/2024. She denied any vaginal bleeding or discharge. Patient was found have leukocytosis and CT scan suggestive of vaginal cuff abscess. Review of Systems Cardiovascular: Cardiovascular: Denies chest pain, Denies leg edema, Denies palpitations, Denies dyspnea and Denies dyspnea on exertion Respiratory: Respiratory: Denies cough, Denies dyspnea and Denies dyspnea on exertion Gastrointestinal: Gastrointestinal: Denies constipation, Denies diarrhea and Denies vomiting Genitourinary: Genitourinary: Denies hematuria, Denies urinary frequency, Denies urinary incontinence and Denies vaginal discharge Neurologic: Reports system reviewed and no additional complaints, except as documented Psychiatric: Psychiatric: Reports no additional psychiatric complaints Endocrine: Endocrine: Denies palpitations PMFSH Past Medical History Medical History GERD (gastroesophageal reflux disease) Uterine fibroid Screening mammogram, encounter for Edema Cellulitis Marijuana smoker Constipation Dysfunctional gallbladder (~06/2020) Right sided abdominal pain Leg pain Irritable bowel syndrome Mixed Tobacco abuse Restless leg syndrome Anxiety Smoker Cholelithiasis (Unknown) , ectopic, tubal History of irritable bowel syndrome History of endometriosis Surgical History Surgical History History of robot-assisted laparoscopic hysterectomy (12/11/24) Robotic assisted total laparoscopic hysterectomy with right salpingectomy (left fallopian tube surgically absent) History of hysteroscopy (06/17/15) H/O LEEP History of cholecystectomy History of shoulder surgery (04/13/13) right shoulder History of unilateral salpingectomy History of tonsillectomy History of laparoscopy Several last 1 being today 07/01/2020/ 05/13/2015 Laparoscopy - endocx polyp, right ovarian cys Family History Family History Father Diabetes mellitus Family history of alcoholism Family history of mental disorder Mother Hypertension Sibling Breast cancer Social History Social History Social History: The patient has 1 daughter. She has had a tubal in the past. She currently is unemployed. She resides with her boyfriend. She does not have a durable power attorney recruiter for healthcare but is a full code. She smokes about half pack a cigarettes a day. She does smoke marijuana at night to help her rest. She denies any alcohol or other street drugs. Smoking packs per day: 0.5 Smoking cigarettes per day: 10.0 Years smoked: 15 Smoking pack-years: 7.50 Smoking status: Current every day smoker Tobacco type: cigarettes Second hand tobacco smoke exposure: Yes Alcohol intake: never Substance use: never Substance use type: marijuana Other substance usage details: occasional gummy/smoke marijuana for RLS at night Do You Feel Safe in your Home?: Yes Lack of Transportation: No Lack of Food: Sometimes True Current Housing: I Have Housing Concerned About Future Housing: No Difficulty Paying Gas/Electric Bills: YES Difficulty Paying for Meds: No Currently Unemployed: No Education: High School Diploma/GED Difficulty w/ Childcare or Family Care: No Living arrangements: with friend(s) Additional living arrangements comments: Lives with boyfriend and his sister Occupation/Education: unemployed Gender identity (if verbalized by the patient): Female Sexual Orientation (if Verbalized by the Patient): Straight or Heterosexual Spiritual care concerns: No Meds Home Medications and Allergies Home Medications Medication Instructions Recorded Confirmed Type ibuprofen 800 mg tablet 800 mg PO TID #30 tabs 11/18/24 12/18/24 Rx oxycodone 5 mg tablet 5 mg PO Q4H PRN Pain Rated 4-6 #30 12/12/24 12/18/24 Rx tabs Allergies Allergy/AdvReac Type Severity Reaction Status Date / Time No Known Allergies Allergy Unknown Verified 12/18/24 16:25 Vital Signs Vital Signs - 24 hr 12/18/24 16:20 12/18/24 16:28 12/18/24 17:00 Temperature 100.1 F H Pulse Rate 94 98 95 Respiratory Rate 11 L 12 12 Blood Pressure 105/63 Pulse Oximetry 100 100 100 Oxygen Delivery Room Air Oxygen Flow Rate 12/18/24 17:21 12/18/24 17:22 12/18/24 17:31 Temperature Pulse Rate 94 98 93 Respiratory Rate 11 L 12 14 Blood Pressure 115/80 110/66 Pulse Oximetry 100 100 100 Oxygen Delivery Oxygen Flow Rate 12/18/24 17:46 12/18/24 18:01 12/18/24 18:16 Temperature Pulse Rate 96 93 92 Respiratory Rate 15 13 11 L Blood Pressure 98/57 L 99/55 L 101/54 L Pulse Oximetry 100 97 100 Oxygen Delivery Oxygen Flow Rate 12/18/24 18:31 12/18/24 18:46 12/18/24 18:47 Temperature Pulse Rate 93 89 87 Respiratory Rate 19 14 Blood Pressure 98/52 L 93/61 L Pulse Oximetry 97 99 99 Oxygen Delivery Oxygen Flow Rate 12/18/24 19:17 12/18/24 19:18 12/18/24 19:22 Temperature 98.5 F Pulse Rate 81 82 Respiratory Rate 20 20 Blood Pressure 90/50 L Pulse Oximetry 97 96 Oxygen Delivery Oxygen Flow Rate 12/18/24 19:31 12/18/24 19:46 12/18/24 20:01 Temperature Pulse Rate 86 86 79 Respiratory Rate 12 16 12 Blood Pressure 93/59 L 96/64 L 97/61 L Pulse Oximetry 98 98 100 Oxygen Delivery Oxygen Flow Rate 12/18/24 20:16 12/18/24 21:14 12/18/24 21:43 Temperature 96.9 F L Pulse Rate 83 78 Respiratory Rate 17 12 Blood Pressure 96/58 L 90/53 L Pulse Oximetry 98 99 Oxygen Delivery Room Air Oxygen Flow Rate 12/18/24 22:00 12/19/24 00:00 12/19/24 01:19 Temperature 98.1 F 98.4 F Pulse Rate 73 77 Respiratory Rate 13 Blood Pressure 90/42 L 100/50 L Pulse Oximetry 100 Oxygen Delivery Oxygen Flow Rate 12/19/24 04:00 12/19/24 06:00 12/19/24 13:00 Temperature 100.7 F H Pulse Rate 92 76 90 Respiratory Rate 17 12 Blood Pressure 107/64 110/68 Pulse Oximetry 98 100 Oxygen Delivery Nasal Cannula Oxygen Flow Rate 2 12/19/24 13:05 12/19/24 13:10 12/19/24 13:15 Temperature Pulse Rate 87 85 82 Respiratory Rate 12 14 17 Blood Pressure 104/71 108/75 100/74 Pulse Oximetry 100 100 100 Oxygen Delivery Nasal Cannula Nasal Cannula Nasal Cannula Oxygen Flow Rate 2 2 2 12/19/24 13:20 12/19/24 13:25 12/19/24 13:30 Temperature Pulse Rate 91 85 84 Respiratory Rate 16 17 12 Blood Pressure 99/72 L 108/74 109/72 Pulse Oximetry 100 100 100 Oxygen Delivery Nasal Cannula Nasal Cannula Nasal Cannula Oxygen Flow Rate 2 2 2 12/19/24 13:35 12/19/24 13:40 12/19/24 13:45 Temperature Pulse Rate 85 83 84 Respiratory Rate 14 13 14 Blood Pressure 109/71 107/86 105/69 Pulse Oximetry 100 100 100 Oxygen Delivery Nasal Cannula Nasal Cannula Nasal Cannula Oxygen Flow Rate 2 2 2 12/19/24 13:55 12/19/24 14:00 12/19/24 14:01 Temperature 99.9 F H Pulse Rate 86 84 85 Respiratory Rate 16 16 18 Blood Pressure 113/77 112/66 106/70 Pulse Oximetry 100 99 100 Oxygen Delivery Room Air Room Air Oxygen Flow Rate 12/19/24 14:55 Temperature Pulse Rate Respiratory Rate Blood Pressure Pulse Oximetry 100 Oxygen Delivery Room Air Oxygen Flow Rate Exam Eyes: EOM: EOMs intact bilaterally Neck: Neck: supple Thyroid: thyroid normal Chest: Breast/axilla inspection: normal inspection of the breasts Breast/axilla palpation: normal palpation of the breasts, normal palpation of the axillae and no axillary lymphadenopathy Resp: Effort & Inspection: normal respiratory effort Auscultation: clear to auscultation bilaterally Cardio: Rate: regular rate Rhythm: regular rhythm GI: Inspection: non-distended GI Palp: Yes Soft to palpation, No Tenderness to palpation present (GI) and No Guarding due to palpation present (GI) Auscultation: normal bowel sounds : General: No bladder normal to palpation External Female Exam: normal external appearance Speculum Exam - Vagina: normal vaginal discharge and No vaginal bleeding Speculum Exam - Cervix: nontender Bimanual exam- vagina & uterus: No bladder normal to palpation and No Cervical tenderness present OB/external & speculum: No vaginal bleeding Skin: General skin exam: normal color and no rashes or lesions noted Neuro: Cognition (Neuro): normal cognition Speech: normal speech Extrem: General: normal to inspection and no edema Psych: Mental Status: mental status grossly normal Affect: normal affect H&P: Results Labs Labs: Short CBC 12/18/24 12/19/24 Range/Units 16:38 05:49 WBC 19.4 H 16.9 H (4.5-10.0) K/mm3 Hgb 10.0 L 8.6 L (12.0-15.0) g/dL Hct 33.1 L 29.6 L (37.0-47.0) % Plt Count 242 207 (150-375) k/mm3 BMP 12/18/24 12/19/24 12/19/24 16:38 05:49 05:49 Sodium 134 L 138 Potassium 3.2 L 3.3 L Chloride 100 105 Carbon Dioxide 28 24 BUN 6 L D 5 L Creatinine 0.63 L 0.62 L 0.60 L Glucose 97 88 Calcium 8.1 L 7.7 L Liver Function 12/18/24 12/19/24 Range/Units 16:38 05:49 Total Bilirubin 0.5 0.3 (0.2-1.3) mg/dL AST 16 29 (14-36) U/L ALT 46 H 38 H (6-35) U/L Alkaline Phosphatase 145 H 162 H (38-126) U/L Albumin 3.3 L 2.7 L (3.5-5.1) g/dL Urine 12/18/24 Range/Units 16:38 Urine Color Dark yellow (Yellow) Urine Appearance Cloudy H (Clear) Urine pH 6.5 (5.0-9.0) Ur Specific [place] 1.020 (1.001-1.035) Urine Protein 1+ H (Negative) mg/dL Urine Glucose (UA) Negative (Negative) mg/dL Assessment and Plan Assessment and plan (1) Postoperative abscess of pelvis in female: Code(s): T81.49XA - Infection following a procedure, other surgical site, initial encounter; N73.9 - Female pelvic inflammatory disease, unspecified Status: Acute Assessment and Plan: 49-year-old female who presents to the ER with complaint of pelvic pain and fevers Status post robotic hysterectomy on 12/11/2024 CT scan showed fluid collection measuring 11 x 0.7 x 7 cm consistent with abscess WBC 19.4 on admission Currently on Zosyn Received vancomycin in the ER Patient to have CT guided drain placement Will continue to trend WBC Blood cultures been Hydrocodone-acetaminophen and morphine PRN for pain control
[2024-12-19] MEDS: HYDROcodone/acetaminophen (*CRX) 10-325 MG TABLET 1 TAB PO (16:57)
[2024-12-20] VITALS (8 sets, daily range): BP systolic 92–107; BP diastolic 50–71; PULSE 65–101; RESP 13–16; TEMP 36–36.4; O2SAT 95–98
[2024-12-20] MEDS: HYDROcodone/acetaminophen (*CRX) 10-325 MG TABLET 1 TAB PO ×2 (00:48→08:16)
[2024-12-20] MEDS: MORPHINE SULFATE (*CRX) 4 MG/ML INJ IV PUSH ×4 (01:45→19:28)
[2024-12-20] MEDS: PIPERACILLN/TAZ 3.375GM/NS50ML 3.375 GM/50 ML BAG IVPB ×4 (02:42→20:31)
[2024-12-20 07:15] LABS: Basophils Percent Auto 0.2 % (0.2-1.2); Eosinophils Absolute Auto 0.3 K/mm3 (0-0.3); Eosinophils Percent Auto 2.6 % (0-4.4); Hematocrit 29.1 % (37.0-47.0); Hemoglobin 8.6 g/dL (12.0-15.0); Immature Granulocyte Absolute 0.07 K/mm3 (0.00-0.031); Immature Granulocyte Percent A 0.7 % (0-0.5); Immature Platelet Fraction Pct 4.8 % (0.9-11.2); Lymphocytes Absolute Auto 1.24 K/mm3 (0.9-3.2); Lymphocytes Percent Auto 11.9 % (18.3-44.2); Mean Corpuscular HGB Conc 29.6 g/dl (32-36); Mean Corpuscular Hemoglobin 22.4 pg (26-34); Mean Corpuscular Volume 75.8 fl (80-100); Mean Platelet Volume 10.5 fl (7.4-10.4); Monocytes Absolute Auto 0.4 K/mm3 (0.1-0.6); Monocytes Percent Auto 4.2 % (2.6-8.5); Neutrophils Absolute Auto 8.3 K/mm3 (1.3-6.7); Neutrophils Percent Auto 80.4 % (45.5-73.1); Platelet Count Result 209 k/mm3 (150-375); Red Blood Count 3.84 M/mm3 (4.2-5.4); Red Cell Distribution Width 23.8 % (11.5-14.5); White Blood Count 10.4 K/mm3 (4.5-10.0)
[2024-12-20 07:27] LABS: Alanine Aminotransferase 29 U/L (6-35); Albumin Level 2.6 g/dL (3.5-5.1); Alkaline Phosphatase 166 U/L (38-126); Anion Gap 6 mmol/L (4-12); Aspartate Amino Transferase 21 U/L (14-36); Bilirubin,Total 0.5 mg/dL (0.2-1.3); Blood Urea Nitrogen 5 mg/dL (7-17); Calcium 7.6 mg/dL (8.4-10.2); Carbon Dioxide 27 mmol/L (22-30); Chloride 103 mmol/L (98-107); Estimated CRCL calculation 93 ml/min; Estimated Glomerular Filt Rate > 60; Glucose 91 mg/dL (65-110); Potassium 3.1 mmol/L (3.4-5.0); Sodium 136 mmol/L (137-145)
[2024-12-20 07:46] LABS: Anisocytosis 2+; Hypochromasia 2+; Ovalocytes 1+; Platelet Estimate Adequate (Adequate); Schistocytes None Seen; Vancomycin Trough < 5.0 ug/mL (10.0-20.0)
--- NOTE | 2024-12-20 08:35 | PM.GYNPNOP ---
PAROLE HEARING OFFICER - A/P Assessment and plan (1) Pelvic abscess in female: Code(s): N73.9 - Female pelvic inflammatory disease, unspecified Status: Acute Plan - S/p drain placement by IR on 12/19/24 - output: 250cc out since placement - Afebrile (subjective fevers), WBC downtrending - Continue Zosyn 3.375 q6h, - Blood cx: no growth to date - Abscess cx: pending - Pain meds PRN (oxycodone/morphine), ibuprofen/tylenol scheduled - Regular diet, colace, zofran PRN - Heme: Venofer 500mg IV once; labs daily - Ambulation, SCDs, hydration encouraged, ok to go outside - Nicotine patch PRN - Anticipate at least 72 hours of IV antibiotics; will await abscess cx results before selecting oral antibiotics Postoperative Procedures: Procedures Operation Date: 12/19/24 12:00 Actual Procedure Side Surgeon p Computed Tomography Guided Abscess Catheter Placement Rubens Tapia MD Time Spent With Patient Time: Total time spent is greater than 50% in coordination of care (as documented) at patient's floor/unit and/or counseling patient: Time with patient: less than 15 minutes PAROLE HEARING OFFICER- PN:Subj Post-Op Subjective Date/time seen: 12/20/24 08:35 Interval history: Alpa reports just not feeling better; feeling better than yesterday. No issues overnight, drain is having bloody/yellow output. Her pain is not fully controlled with current PO meds. She has tolerated regular diet, but has decreased PO intake. She denies any vaginal bleeding. She has voided. She has passed flatus. She has only ambulated to the bathroom and denies any symptoms of anemia. Stir crazy; wanting to go outside. Does feel like she has had subjective fevers/chills. Review of Systems Review of Systems: All systems reviewed & are unremarkable except as noted in HPI and below (HPI) Constitutional: Constitutional: Reports chills, Reports fever(s), Denies headache(s) and Reports poor appetite Eyes: Eyes: Denies change in vision ENT: Denies dizziness and Denies headache(s) Cardiovascular: Cardiovascular: Denies chest pain and Denies rapid heart rate Respiratory: Respiratory: Denies cough Gastrointestinal: Gastrointestinal: Denies nausea Genitourinary: Genitourinary: Denies abnormal vaginal bleeding, Reports pelvic pain and Denies vaginal discharge Musculoskeletal: Musculoskeletal: Reports back pain (better today) Neurologic: Denies dizziness and Denies headache(s) Exam Const: General: cooperative, healthy appearing, comfortable and no acute distress Orientation/consciousness: patient oriented x3 Resp: Effort & Inspection: normal respiratory effort Auscultation: clear to auscultation bilaterally Cardio: Rate: regular rate GI: Inspection: normal to inspection and incision ( LSC incisions c/d/i) GI Palp: Yes abdominal tenderness (appropriate) and Yes Soft to palpation Auscultation: normal bowel sounds : Other: normal bleeding on pad Skin: General skin exam: normal color Neuro: General: patient oriented x3 Psych: Appearance: grossly normal Affect: normal affect Attitude: cooperative PAROLE HEARING OFFICER - PN: Obj Data Vital Signs Vital Signs: Vital Signs - 24 hr 12/19/24 12:00 12/19/24 13:00 12/19/24 13:05 Temperature Pulse Rate 88 90 87 Respiratory Rate 12 12 Blood Pressure 110/68 104/71 Pulse Oximetry 100 100 Oxygen Delivery Nasal Cannula Nasal Cannula Oxygen Flow Rate 2 2 12/19/24 13:10 12/19/24 13:15 12/19/24 13:20 Temperature Pulse Rate 85 82 91 Respiratory Rate 14 17 16 Blood Pressure 108/75 100/74 99/72 L Pulse Oximetry 100 100 100 Oxygen Delivery Nasal Cannula Nasal Cannula Nasal Cannula Oxygen Flow Rate 2 2 2 12/19/24 13:25 12/19/24 13:30 12/19/24 13:35 Temperature Pulse Rate 85 84 85 Respiratory Rate 17 12 14 Blood Pressure 108/74 109/72 109/71 Pulse Oximetry 100 100 100 Oxygen Delivery Nasal Cannula Nasal Cannula Nasal Cannula Oxygen Flow Rate 2 2 2 12/19/24 13:40 12/19/24 13:45 12/19/24 13:55 Temperature Pulse Rate 83 84 86 Respiratory Rate 13 14 16 Blood Pressure 107/86 105/69 113/77 Pulse Oximetry 100 100 100 Oxygen Delivery Nasal Cannula Nasal Cannula Room Air Oxygen Flow Rate 2 2 12/19/24 14:00 12/19/24 14:01 12/19/24 14:55 Temperature 99.9 F H Pulse Rate 84 85 Respiratory Rate 16 18 Blood Pressure 112/66 106/70 Pulse Oximetry 99 100 100 Oxygen Delivery Room Air Room Air Oxygen Flow Rate 12/19/24 20:00 12/19/24 20:00 12/19/24 21:26 Temperature 96.9 F L Pulse Rate 93 94 Respiratory Rate 13 Blood Pressure 110/56 L Pulse Oximetry 98 Oxygen Delivery Room Air Oxygen Flow Rate 12/20/24 00:00 12/20/24 04:00 12/20/24 05:42 Temperature 97.5 F L Pulse Rate 101 H 74 74 Respiratory Rate 13 Blood Pressure 92/50 L Pulse Oximetry 96 Oxygen Delivery Oxygen Flow Rate 12/20/24 08:00 Temperature Pulse Rate 84 Respiratory Rate Blood Pressure Pulse Oximetry Oxygen Delivery Oxygen Flow Rate Intake/Output Intake/Output: Intake & Output 12/17/24 12/18/24 12/19/24 12/20/24 23:59 23:59 23:59 23:59 Intake Total 2600 2730 100 Output Total 200 50 Balance 2600 2530 50 Meds/Results Medications: Active Medications Generic Name Dose Route Start Last Admin Trade Name Freq PRN Reason Stop Dose Admin Acetaminophen 650 mg 12/18/24 18:27 Acetaminophen 325 Mg Tablet PO Q4H PRN Mild Pain (1-3) or Fever Hydrocodone Bitart/Acetaminophen 1 tab 12/18/24 18:27 Hydrocodone/Acetaminophen (*Crx) 5-325 Mg Tablet PO Q4H PRN Pain Rated 4-6 Hydrocodone Bitart/Acetaminophen 1 tab 12/19/24 16:14 12/20/24 08:16 Hydrocodone/Acetaminophen (*Crx) 10-325 Mg Tablet PO 1 tab Q4H PRN Administration Pain Rated 7-10 Diphenhydramine HCl 25 mg 12/19/24 16:56 Diphenhydramine Hcl Cap 25 Mg Capsule PO Q6H PRN Itching Piperacillin/Tazobactam/Dextrose 3.375 gm in 50 mls @ 100 mls/hr 12/19/24 09:00 12/20/24 08:09 Zosyn 3.375 Gm/Ns 50 Ml IVPB 100 mls/hr Q6H BARRY Administration Iron Sucrose 400 mg/ Iron 275 mls @ 78.571 mls/hr 12/20/24 08:33 Sucrose 100 mg/ Sodium IVPB 12/20/24 12:02 Chloride ONCE ONE Ketorolac Tromethamine 15 mg 12/19/24 08:02 Ketorolac 15 Mg/Ml Vial (*Bkc) IV PUSH Q6H PRN Pain Rated 4-6 Lorazepam 0.5 mg 12/19/24 11:50 12/19/24 17:29 Lorazepam Inj (*Crx) 2 Mg/Ml Vial IV PUSH 0.5 mg Q6H PRN Administration Anxiety Morphine Sulfate 4 mg 12/19/24 11:49 12/20/24 01:45 Morphine Sulfate (*Crx) 4 Mg/Ml Inj IV PUSH 4 mg Q2H PRN Administration Pain Rated 7-10 Ondansetron HCl 4 mg 12/18/24 18:27 12/18/24 21:53 Ondansetron Inj 4 Mg/2 Ml Vial IV PUSH 4 mg Q4H PRN Administration Nausea Radiology Results: ITS Impressions Chest X-Ray 12/18/24 16:57 IMPRESSION: No acute cardiopulmonary pathology. Abdomen/Pelvis CT 12/18/24 18:03 IMPRESSION: Large pelvic abscess, within the operative bed, as detailed above. Catheter Placement CT 12/19/24 14:42 IMPRESSION: 1. Successful CT-guided pelvic abscess drainage catheter placement. 2. 50 mL fluid was sent for aerobic and anaerobic cultures. 3. The catheter will be managed by Dr. Bernard. Labs 12/20/24 07:06 12/20/24 07:06 Labs: Laboratory Results - last 24 hr 12/19/24 12/20/24 05:49 07:06 WBC 16.9 H 10.4 H RBC 3.81 L 3.84 L Hgb 8.6 L 8.6 L Hct 29.6 L 29.1 L MCV 77.7 L 75.8 L MCH 22.6 L 22.4 L MCHC 29.1 L 29.6 L RDW 24.1 H 23.8 H Plt Count 207 209 MPV 11.7 H 10.5 H Immature Gran % (Auto) 0.4 0.7 H Neut % (Auto) 87.2 H 80.4 H Lymph % (Auto) 7.4 L 11.9 L Cloud % (Auto) 3.4 4.2 Eos % (Auto) 1.4 2.6 Baso % (Auto) 0.2 0.2 Lymph # (Auto) 1.25 1.24 Cloud # (Auto) 0.6 0.4 Eos # (Auto) 0.2 0.3 Baso # (Auto) 0.0 0.0 Abs Immat Gran (auto) 0.07 H 0.07 H Absolute Neuts (auto) 14.7 H 8.3 H Absolute Nucleated RBC 0.000 0.000 Band Neutrophils % Not Reportable Not Reportable Nucleated RBC % 0.0 0.0 Platelet Estimate Adequate Adequate % Immature Plt Fraction 6.0 4.8 Hypochromasia 1+ 2+ Anisocytosis 1+ 2+ Ovalocytes 1+ Schistocytes Rare None seen Sodium 138 136 L Potassium 3.3 L 3.1 L Chloride 105 103 Carbon Dioxide 24 27 Anion Gap 9 6 BUN 5 L 5 L Creatinine 0.60 L 0.64 L Estim Creat Clear Calc 99 93 Estimated GFR > 60 > 60 Glucose 88 91 Calcium 7.7 L 7.6 L Total Bilirubin 0.3 0.5 AST 29 21 ALT 38 H 29 Alkaline Phosphatase 162 H 166 H Total Protein 6.0 L 6.0 L Albumin 2.7 L 2.6 L Vancomycin Trough < 5.0 L
[2024-12-20] MEDS: IRON SUCROSE COMPLEX 400 MG, IRON SUCROSE COMPLEX 100 MG in SODIUM CHLORIDE 0.9% IV 250 ML 78.57 MG IVPB (10:44)
[2024-12-20] MEDS: ACETAMINOPHEN 325 MG TABLET 650 MG PO ×4 (10:52→20:30)
[2024-12-20] MEDS: DOCUSATE SODIUM 100 MG CAPSULE PO ×2 (10:52→20:30)
[2024-12-20] MEDS: POTASSIUM PHOS,M-BASIC-D-BASIC 40 MMOL in SODIUM CHLORIDE 0.9% IV 250 ML 43.89 MMOL IVPB (10:53)
[2024-12-20] MEDS: IBUPROFEN 600 MG TABLET PO (12:30)
[2024-12-20] MEDS: oxyCODONE HCL (*CRX) 5 MG TAB IR 10 MG PO (16:23)
[2024-12-20] MEDS: LORazepam INJ (*CRX) 2 MG/ML VIAL 0.5 MG IV PUSH (19:29)
[2024-12-21] VITALS: PULSE 66
[2024-12-21] MEDS: IBUPROFEN 600 MG TABLET PO ×4 (00:45→18:16)
[2024-12-21] MEDS: ACETAMINOPHEN 325 MG TABLET 650 MG PO ×5 (00:45→17:00)
[2024-12-21] MEDS: MORPHINE SULFATE (*CRX) 4 MG/ML INJ IV PUSH ×2 (01:49→20:17)
[2024-12-21] MEDS: LORazepam INJ (*CRX) 2 MG/ML VIAL 0.5 MG IV PUSH ×3 (01:57→20:13)
[2024-12-21] MEDS: PIPERACILLN/TAZ 3.375GM/NS50ML 3.375 GM/50 ML BAG IVPB ×4 (02:54→21:26)
[2024-12-21 04:00] VITALS: BP 110/77; PULSE 69; PULSE 72; RESP 14; TEMP 35.6; O2SAT 94
[2024-12-21 06:08] LABS: Basophils Percent Auto 0.6 % (0.2-1.2); Eosinophils Absolute Auto 0.5 K/mm3 (0-0.3); Hemoglobin 8.4 g/dL (12.0-15.0); Immature Granulocyte Absolute 0.05 K/mm3 (0.00-0.031); Immature Granulocyte Percent A 0.7 % (0-0.5); Lymphocytes Absolute Auto 0.85 K/mm3 (0.9-3.2); Lymphocytes Percent Auto 12.7 % (18.3-44.2); Mean Corpuscular Hemoglobin 22.4 pg (26-34); Mean Corpuscular Volume 77.3 fl (80-100); Mean Platelet Volume 11.2 fl (7.4-10.4); Monocytes Absolute Auto 0.3 K/mm3 (0.1-0.6); Monocytes Percent Auto 4.8 % (2.6-8.5); Neutrophils Percent Auto 74.2 % (45.5-73.1); Platelet Count Result 232 k/mm3 (150-375); Red Blood Count 3.75 M/mm3 (4.2-5.4); Red Cell Distribution Width 23.6 % (11.5-14.5); White Blood Count 6.7 K/mm3 (4.5-10.0)
[2024-12-21 06:13] LABS: Alanine Aminotransferase 43 U/L (6-35); Albumin Level 2.7 g/dL (3.5-5.1); Alkaline Phosphatase 271 U/L (38-126); Anion Gap 5 mmol/L (4-12); Aspartate Amino Transferase 47 U/L (14-36); Bilirubin,Total 0.3 mg/dL (0.2-1.3); Blood Urea Nitrogen 8 mg/dL (7-17); Calcium 7.8 mg/dL (8.4-10.2); Carbon Dioxide 28 mmol/L (22-30); Chloride 105 mmol/L (98-107); Estimated CRCL calculation 104 ml/min; Estimated Glomerular Filt Rate > 60; Glucose 95 mg/dL (65-110); Potassium 3.1 mmol/L (3.4-5.0); Sodium 138 mmol/L (137-145)
[2024-12-21 06:56] LABS: Anisocytosis 2+; Hypochromasia 1+; Ovalocytes 1+; Platelet Estimate Adequate (Adequate); Schistocytes None Seen; Stomatocytes 1+
[2024-12-21 08:00] VITALS: BP 99/62; PULSE 65; PULSE 66; RESP 14; TEMP 35.9; O2SAT 95
--- NOTE | 2024-12-21 08:50 | P.PNOB_ITS ---
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 SUPERVISOR - A/P Assessment and plan (1) Pelvic abscess in female: Code(s): N73.9 - Female pelvic inflammatory disease, unspecified Status: Acute Plan - S/p drain placement by IR on 12/19/24 - output: 250cc out since placement - Afebrile , leukocytosis resolved - Continue Zosyn 3.375 q6h, - Blood cx: no growth to date - Abscess cx: pending - Pain meds PRN (oxycodone/morphine), ibuprofen/tylenol scheduled - Regular diet, colace, zofran PRN - Heme: Venofer 500mg IV once; labs daily - Ambulation, SCDs, hydration encouraged, ok to go outside - Nicotine patch PRN - Anticipate at least 72 hours of IV antibiotics; will await abscess cx results before selecting oral antibiotics -repeat CT scan ordered to assess abscess resolution. If output continues to be minimal and imaging shows resolution of abscess, will consider drain removal. Postoperative Procedures: Procedures Operation Date: 12/19/24 12:00 Actual Procedure Side Surgeon p Computed Tomography Guided Abscess Catheter Placement Rubens Tapia MD Time Spent With Patient Time: Total time spent is greater than 50% in coordination of care (as documented) at patient's floor/unit and/or counseling patient: Time with patient: less than 15 minutes 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 SUPERVISOR- PN:Subj Post-Op Subjective Date/time seen: 12/21/24 08:50 Interval history: Alpa is still uncomfortable this AM. She was asleep when I entered the room. She has had minimal output from her drain overnight. She is tolerating PO. Her only required one dose of IV pain medications overnight. She denies any fevers, chills, nausea, vomiting. She is voiding and passing flatus. She is anxious to be discharged today. Subjective: patient has no complaints Review of Systems 2 Review of Systems: All systems reviewed & are unremarkable except as noted in HPI and below Exam 2 Const: General: cooperative and comfortable Orientation/consciousness: p atient oriented x3 Resp: Effort & Inspection: normal respiratory effort Auscultation: clear to auscultation bilaterally Cardio: Rate: regular rate GI: Inspection: normal to inspection and incision ( C incisions c/d/i) GI Palp: Yes abdominal tenderness (appropriate) and Yes Soft to palpation A uscultation: normal bowel sounds : Other: normal bleeding on pad Skin: General skin exam: normal color Neuro: General: patient oriented x3 Psych: Appearance: grossly normal Affect: normal affect Attitude: c ooperative 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 SUPERVISOR - PN: Obj Data Vital Signs Vital Signs: Vital Signs - 24 hr 12/20/24 12:00 12/20/24 14:27 12/20/24 16:00 Temperature 97 F L Pulse Rate 82 68 67 Respiratory Rate 16 Blood Pressure 107/71 Pulse Oximetry 98 Oxygen Delivery 12/20/24 20:00 12/20/24 20:00 12/20/24 20:00 Temperature 96.8 F L Pulse Rate 65 81 Respiratory Rate 14 Blood Pressure 95/63 L Pulse Oximetry 95 Oxygen Delivery Room Air 12/21/24 00:00 12/21/24 04:00 12/21/24 04:00 Temperature 96.0 F L Pulse Rate 66 69 72 Respiratory Rate 14 Blood Pressure 110/77 Pulse Oximetry 94 Oxygen Delivery Intake/Output Intake/Output: Intake & Output 12/18/24 12/19/24 12/20/24 12/21/24 23:59 23:59 23:59 23:59 Intake Total 2600 2730 280 50 Output Total 200 50 Balance 2600 2530 230 50 Meds/Results Medications: Active Medications Generic Name Dose Route Start Last Admin Trade Name Freq PRN Reason Stop Dose Admin Acetaminophen 650 mg 12/20/24 09:00 12/21/24 05:41 Acetaminophen 325 Mg Tablet PO 650 mg Q4H BARRY Administration Diphenhydramine HCl 25 mg 12/19/24 16:56 Diphenhydramine Hcl Cap 25 Mg Capsule PO Q6H PRN Itching Docusate Sodium 100 mg 12/20/24 09:00 12/20/24 20:30 Docusate Sodium 100 Mg Capsule PO 100 mg Q12HR BARRY Administration Piperacillin/Tazobactam/Dextrose 3.375 gm in 50 mls @ 100 mls/hr 12/19/24 09:00 12/21/24 03:24 Zosyn 3.375 Gm/Ns 50 Ml IVPB Infused Q6H BARRY Infusion Ibuprofen 600 mg 12/20/24 12:00 12/21/24 08:32 Ibuprofen 600 Mg Tablet PO Not Given Q6H BARRY Lorazepam 0.5 mg 12/19/24 11:50 12/21/24 01:57 Lorazepam Inj (*Crx) 2 Mg/Ml Vial IV PUSH 0.5 mg Q6H PRN Administration Anxiety Morphine Sulfate 4 mg 12/19/24 11:49 12/21/24 01:49 Morphine Sulfate (*Crx) 4 Mg/Ml Inj IV PUSH 4 mg Q2H PRN Administration Pain Rated 7-10 Nicotine Polacrilex 4 mg 12/20/24 09:29 Nicotine (*Pbkc) 4 Mg Gum PO PRN PRN Nicotine Cravings Ondansetron HCl 4 mg 12/18/24 18:27 12/18/24 21:53 Ondansetron Inj 4 Mg/2 Ml Vial IV PUSH 4 mg Q4H PRN Administration Nausea Oxycodone HCl 5 mg 12/20/24 09:28 Oxycodone Hcl (*Crx) 5 Mg Tab Ir PO Q4H PRN Pain Rated 4-6 Oxycodone HCl 10 mg 12/20/24 09:28 12/20/24 16:23 Oxycodone Hcl (*Crx) 5 Mg Tab Ir PO 10 mg Q4H PRN Administration Pain Rated 7-10 Radiology Results: ITS Impressions Chest X-Ray 12/18/24 16:57 IMPRESSION: No acute cardiopulmonary pathology. Abdomen/Pelvis CT 12/18/24 18:03 IMPRESSION: Large pelvic abscess, within the operative bed, as detailed above. Catheter Placement CT 12/19/24 14:42 IMPRESSION: 1. Successful CT-guided pelvic abscess drainage catheter placement. 2. 50 mL fluid was sent for aerobic and anaerobic cultures. 3. The catheter will be managed by Dr. Bernard. Labs 12/21/24 05:36 12/21/24 05:36 Labs: Laboratory Results - last 24 hr 12/21/24 05:36 WBC 6.7 RBC 3.75 L Hgb 8.4 L Hct 29.0 L MCV 77.3 L MCH 22.4 L MCHC 29.0 L RDW 23.6 H Plt Count 232 MPV 11.2 H Immature Gran % (Auto) 0.7 H Neut % (Auto) 74.2 H Lymph % (Auto) 12.7 L Crisp % (Auto) 4.8 Eos % (Auto) 7.0 H Baso % (Auto) 0.6 Lymph # (Auto) 0.85 L Crisp # (Auto) 0.3 Eos # (Auto) 0.5 H Baso # (Auto) 0.0 Abs Immat Gran (auto) 0.05 H Absolute Neuts (auto) 5.0 Absolute Nucleated RBC 0.000 Band Neutrophils % Not Reportable Nucleated RBC % 0.0 Platelet Estimate Adequate Hypochromasia 1+ Anisocytosis 2+ Ovalocytes 1+ Stomatocytes 1+ Schistocytes None seen Sodium 138 Potassium 3.1 L Chloride 105 Carbon Dioxide 28 Anion Gap 5 BUN 8 Creatinine 0.57 L Estim Creat Clear Calc 104 Estimated GFR > 60 Glucose 95 Calcium 7.8 L Total Bilirubin 0.3 AST 47 H ALT 43 H Alkaline Phosphatase 271 H Total Protein 6.0 L Albumin 2.7 L
[2024-12-21] MEDS: oxyCODONE HCL (*CRX) 5 MG TAB IR 10 MG PO ×2 (09:31→17:00)
[2024-12-21 09:41] VITALS: PULSE 65; RESP 14; O2SAT 95
[2024-12-21] MEDS: DOCUSATE SODIUM 100 MG CAPSULE PO ×2 (09:41→20:18)
[2024-12-21 12:00] VITALS: PULSE 65
--- NOTE | 2024-12-21 18:41 | PC.NURSE ---
Around 1030 am the rough rice tender notified this RN that cigarettes were noted on patient's couch. Cigarettes were placed in safe. This RN went to meet patient and found patient upset. Patient upset that her cigarettes were taken and that Dr. Bernard told her as long as a volunteer took her outside that she could go outside and get some fresh air . This RN educated patient that if she wanted to go outside and get some fresh air that a staff member could take her outside. This RN updated the patient that she has an order for nicotine gum. Patient refused and noted that does not work for her. This RN offered to call the occupational physician provider to see about getting nicotine gum order changed for a nicotine patch. Patient refused. 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 Bernard told patient as long as there was a volunteer present she could go outside and smoke. This RN educated patient that this a non smoking campus and offered nicotine gum again. Patient refused. Patient agreeable to nicotine patch. This RN notified Dr. Micaela strong. Dr. Hinojosa returned call. Notified MD of patient wanting to go outside and smoke. Order changed from nicotine gum to nicotine patch per occupational physician MD. During shift patient requested to speak with household cook. Patient noted to household cook that her pain was not being controlled. Dr. Hinojosa updated. New orders for pain regimen.
--- NOTE | 2024-12-21 19:07 | PC.NURSE ---
Pt was found to have cigarettes in her room. Pt was informed that I would need to place them in the safe and pt said she didn't understand why. Pt was educated that this was a non smoking campus and that we could not permit them in the room. I informed pt that I was going to get a bag and patient sticker to place cigarettes in and put them in the safe. Pt stated do what ever you have to do. I asked when her significant other (SO) would be up here and told pt that I would give them to him to take home when he arrived. I got bag and sticker, had patient verify that it was her sticker, then placed cigarettes in the bag and sealed bag with patient sticker. The bag of belongings was then placed in the safe and safe was then locked. Pt SO came up to visit pt and then attempted to take patient outside in wheel chair with IV pole. Pt and SO were told that she could not leave the unit, especially with IV running. Pt stated she was allowed to yesterday and was told by Dr. Bernard that she could go downstairs and smoke. Pt was then again educated that we are a nonsmoking campus and that she would not be allowed to leave the unit to do so. Pt and SO returned to her room. Pt SO came up to nurses station and asked for cigarettes and they were returned to SO. He then left the unit to take them to the car.
[2024-12-21] MEDS: oxyCODONE/ACETAMINOPHEN (*CRX) 10-325 MG TABLET 1 TAB PO (19:50)
[2024-12-21] MEDS: NICOTINE (*PBKC) 21 MG PATCH 1 PATCH TRANSDERM (20:18)
[2024-12-21 20:40] VITALS: BP 103/65; PULSE 66; RESP 16; TEMP 36.8; O2SAT 98
[2024-12-22 00:30] VITALS: BP 91/62; PULSE 72; RESP 16; TEMP 37.1; O2SAT 99
[2024-12-22] MEDS: oxyCODONE/ACETAMINOPHEN (*CRX) 10-325 MG TABLET 1 TAB PO ×3 (00:45→12:05)
[2024-12-22] MEDS: IBUPROFEN 600 MG TABLET PO ×3 (00:45→12:05)
[2024-12-22] MEDS: MORPHINE SULFATE (*CRX) 4 MG/ML INJ IV PUSH ×2 (01:45→03:39)
[2024-12-22] MEDS: PIPERACILLN/TAZ 3.375GM/NS50ML 3.375 GM/50 ML BAG IVPB ×3 (02:50→14:09)
[2024-12-22] MEDS: ONDANSETRON INJ 4 MG/2 ML VIAL IV PUSH (03:36)
[2024-12-22 04:00] VITALS: BP 101/68; PULSE 73; RESP 16; TEMP 36.7; O2SAT 97
[2024-12-22 06:04] LABS: Basophils Percent Auto 0.5 % (0.2-1.2); Eosinophils Absolute Auto 0.5 K/mm3 (0-0.3); Eosinophils Percent Auto 6.3 % (0-4.4); Hematocrit 29.2 % (37.0-47.0); Hemoglobin 8.6 g/dL (12.0-15.0); Immature Granulocyte Absolute 0.06 K/mm3 (0.00-0.031); Immature Granulocyte Percent A 0.7 % (0-0.5); Immature Platelet Fraction Pct 4.8 % (0.9-11.2); Lymphocytes Absolute Auto 1.28 K/mm3 (0.9-3.2); Lymphocytes Percent Auto 15.6 % (18.3-44.2); Mean Corpuscular HGB Conc 29.5 g/dl (32-36); Mean Corpuscular Hemoglobin 22.5 pg (26-34); Mean Corpuscular Volume 76.4 fl (80-100); Monocytes Absolute Auto 0.4 K/mm3 (0.1-0.6); Neutrophils Absolute Auto 5.9 K/mm3 (1.3-6.7); Neutrophils Percent Auto 71.9 % (45.5-73.1); Platelet Count Result 264 k/mm3 (150-375); Red Blood Count 3.82 M/mm3 (4.2-5.4); Red Cell Distribution Width 23.9 % (11.5-14.5); White Blood Count 8.2 K/mm3 (4.5-10.0)
[2024-12-22 06:14] LABS: Alanine Aminotransferase 34 U/L (6-35); Albumin Level 2.7 g/dL (3.5-5.1); Alkaline Phosphatase 262 U/L (38-126); Anion Gap 6 mmol/L (4-12); Aspartate Amino Transferase 25 U/L (14-36); Bilirubin,Total 0.2 mg/dL (0.2-1.3); Blood Urea Nitrogen 8 mg/dL (7-17); Calcium 7.8 mg/dL (8.4-10.2); Carbon Dioxide 28 mmol/L (22-30); Chloride 106 mmol/L (98-107); Estimated CRCL calculation 97 ml/min; Estimated Glomerular Filt Rate > 60; Glucose 101 mg/dL (65-110); Potassium 3.2 mmol/L (3.4-5.0); Sodium 140 mmol/L (137-145)
[2024-12-22] MEDS: LORazepam INJ (*CRX) 2 MG/ML VIAL 0.5 MG IV PUSH (06:22)
[2024-12-22 06:37] LABS: Anisocytosis 2+; Hypochromasia 1+; Ovalocytes 1+; Platelet Estimate Adequate (Adequate); Schistocytes None Seen; Target Cells 1+
[2024-12-22 08:00] VITALS: BP 92/63; PULSE 66; RESP 18; TEMP 35.9; O2SAT 99
[2024-12-22] MEDS: DOCUSATE SODIUM 100 MG CAPSULE PO (09:22)
[2024-12-22] MEDS: NICOTINE (*PBKC) 21 MG PATCH 1 PATCH TRANSDERM (09:23)
[2024-12-22] MEDS: ALPRAZolam (*CRX) 0.5 MG TABLET PO (11:56)
[2024-12-22] MEDS: NEOMYCIN/POLYMYXIN/BACITRACIN OINTMENT PACKET 1 PACKET (11:57)
[2024-12-22 12:00] VITALS: BP 111/71; PULSE 74; RESP 18; TEMP 35.8; O2SAT 100
--- NOTE | 2024-12-23 06:49 | PM.GYNPNOP ---
VICE PRESIDENT LENDING - A/P Postoperative Procedures: Procedures Operation Date: 12/19/24 12:00 Actual Procedure Side Surgeon p Computed Tomography Guided Abscess Catheter Placement Rubens Tapia MD Time Spent With Patient Time: Total time spent is greater than 50% in coordination of care (as documented) at patient's floor/unit and/or counseling patient: Time with patient: 15 - 25 minutes VICE PRESIDENT LENDING- PN:Subj Post-Op Subjective Date/time seen: 12/23/24 06:49 Pt tolerating regular diet and passing gas, minimal stool. No bloating or pain of significance. Overall feeling well and desires to go home. VSS afebrile abd soft/non distended. appropriately tender. incisions well healed. drain removed intact A. doing well s/p drainage and antibiotic treatment for postop abscess...discussed at length need for continued activity limitations due to potential weakness in vaginal cuff s/p abscess, though still needing to ambulate. States good understanding. Also reviewed need to obtain antibiotics after discharge and begin those tonight at home. Parameters are discussed for her to call office. P. discharge home to f/u next week as scheduled. (note from 12/22/2024 afternoon visit) Interval history: Alpa is still uncomfortable this AM. She was asleep when I entered the room. She has had minimal output from her drain overnight. She is tolerating PO. Her only required one dose of IV pain medications overnight. She denies any fevers, chills, nausea, vomiting. She is voiding and passing flatus. She is anxious to be discharged today. VICE PRESIDENT LENDING - PN: Obj Data Vital Signs Vital Signs: Vital Signs - 24 hr 12/22/24 08:00 12/22/24 12:00 Temperature 96.7 F L 96.4 F L Pulse Rate 66 74 Respiratory Rate 18 18 Blood Pressure 92/63 L 111/71 Pulse Oximetry 99 100 Intake/Output Intake/Output: Intake & Output 12/20/24 12/21/24 12/22/24 12/23/24 23:59 23:59 23:59 23:59 Intake Total 280 837 490 Output Total 50 40 30 Balance 230 797 460 Meds/Results Radiology Results: ITS Impressions Chest X-Ray 12/18/24 16:57 IMPRESSION: No acute cardiopulmonary pathology. Abdomen/Pelvis CT 12/18/24 18:03 IMPRESSION: Large pelvic abscess, within the operative bed, as detailed above. Catheter Placement CT 12/19/24 14:42 IMPRESSION: 1. Successful CT-guided pelvic abscess drainage catheter placement. 2. 50 mL fluid was sent for aerobic and anaerobic cultures. 3. The catheter will be managed by Dr. Bernard. Pelvis CT 12/21/24 09:35 IMPRESSION: 1. Significantly decreased size of left pelvic abscess compared with 12/18/2024. Pigtail catheter present. Labs 12/22/24 05:44 12/22/24 05:44
--- NOTE | 2024-12-23 06:55 | PM.DS ---
DS: Admitting Diagnosis Discharge Date 12/22/24 Admitting Diagnosis pelvic abscess DS: Discharge Diagnosis Discharge Diagnosis (1) Pelvic abscess in female: Code(s): N73.9 - Female pelvic inflammatory disease, unspecified Status: Acute DS: Summary Hospital Course Hospital Course: 49 y/o female admitted one week s/p RATLH with abscess. Placed on ab and drain placed. Responded well and will be d/c on augmentin and flagyl for organisms grown in culture. Time Spent with Patient Time attestation: Total time spent providing and/or coordinating discharge services: DS: Data Data Completed and Pending Labs on day of discharge: Preliminary micro results at discharge 12/19/24 13:54 Anaerobic Culture - Preliminary Abscess Bacteroides fragilis 12/18/24 18:59 Blood Culture - Preliminary Blood Bacteroides fragilis 12/18/24 18:56 Blood Culture - Preliminary Blood Discharge Plan Discharge Attending physician on discharge: Donato Ellison Discharging Clinician: Donato Ellison Patient Disposition: Home Activity: no straining, no driving, follow weight bearing status and pelvic rest Diet: as tolerated Patient Instructions: Antibiotic Form, Abscess (GEN) Patient Language: Bulgarian Stand Alone Forms: General Discharge Information Follow-up/Referrals: Donato Ellison MD [Physician] - 1 Week Discharge Medications: New oxycodone 5 mg Tablet 5 mg PO Q4H PRN (Reason: Pain Rated 4-6) Qty: 20 0RF metronidazole 500 mg tablet 500 mg PO Q8H Qty: 30 0RF amoxicillin-pot clavulanate 875-125 mg tablet 1 tablet PO Q8H Qty: 30 0RF Continued ibuprofen 800 mg tablet 800 mg PO TID Qty: 30 0RF oxycodone 5 mg Tablet 5 mg PO Q4H PRN (Reason: Pain Rated 4-6) Qty: 30 0RF Date of admission: 12/18/24 18:27 Primary Care Provider: Robert Dodge Admitting Provider: Sathish Hussein Attending physician on admission: Sathish Hussein Condition: Stable
== END 2024-12-22 15:00 | disposition home or self-care (01) | DRG 721 ==
LOC: ANHED 16:43 → ANH3MEDSUR 19:32
PROVIDERS: Obstetrics & Gynecology; Radiology Diagnostic Radiology; Admitting Provider Obstetrics & Gynecology; Emergency Provider Student in an Organized Health Care Education/Training Program; PCP Family Medicine; Visit Provider Obstetrics & Gynecology
PROC: 0W9J30Z Drainage of Pelvic Cavity with Drainage Device, Percutaneous Approach (ICD-10-PCS; CPT 75989; principal; 2024-12-19 12:00)
DX: T81.43XA Infection following a procedure, organ and space surgical site, initial encounter (principal); N73.0 Acute parametritis and pelvic cellulitis; Z90.710 Acquired absence of both cervix and uterus; K21.9 Gastro-esophageal reflux disease without esophagitis; G25.81 Restless legs syndrome; F17.210 Nicotine dependence, cigarettes, uncomplicated; Z90.49 Acquired absence of other specified parts of digestive tract
CPT/HCPCS: 36415; 71045; 72194; 74177; 75989; 80053; 80202; 81001; 82565; 83605; 85025; 85055; 87040; 87070; 87075; 87205; 87637; 96360; 99285; A9270; C1769; J1171; J1756; J2060; J2250; J2270; J2405; J2543; J3010; J3370; J7040; J7050; J7120; Q9967

== ENCOUNTER 2024-12-31 20:44 | Emergency (ER) | payer OTHER, SELFPAY ==
[2024-12-31] VITALS (8 sets, daily range): BP systolic 106–147; BP diastolic 70–90; PULSE 70–88; RESP 16–20; TEMP 36.5; O2SAT 98–100
--- NOTE | ~2024-12-31 | CT_ITS ---
CLINICAL INDICATION: Suprapubic pain. Hysterectomy on 12/11/2024 complicated by postoperative pelvic ab scess, post drainage and subsequent catheter removal now presents with suprapubic pain COMPARISON: CT examination of the pelvis 12/21/2024. TECHNIQUE: Multiple contiguous axial images of the abdomen and pelvis were performed following the ad ministration of with 100 mL Omnipaque-350 intravenous contrast The dose-length product (DLP) was 312.70 mGy-cm. Automated exposure control and iterative reconstruction technique were employed. FINDINGS/OBSERVATIONS: Visualized lower thorax: The bilateral lung bases are clear. The heart is of normal size, without pericardial effusion. Small hiatal hernia is present. Liver: The liver demonstrates homogeneous enhancement and is not enlarged. Gallbladder and biliary system: The gallbladder is surgically absent. Pancreas: The pancreas enhances homogeneously without ductal dilatation. Spleen: The spleen enhances homogeneously and is not enlarged. Kidneys: The bilateral kidneys enhance symmetrically without significant hydronephrosis or renal calculi. Adrenal glands: Unremarkable. Gastrointestinal tract: Fecal stasis within the colon. Appendix: The air-filled appendix is of normal caliber (axial series, images 122 through 135) Vasculature: Unremarkable. Lymph nodes: Scattered lymphadenopathy within the retroperitoneum and at the root of mesentery, likely reactive. Pelvic structures: Interval increase in the size of 2 rim-enhancing fluid collections. The first is within the right hemipelvis previously measuring 18 x 16 x 22 mm (anterior to posterior x medial to lateral x cranial to caudal dimension) now measuring 41 x 33 x 54 mm (anterior to posteri or x medial to lateral x cranial to caudal dimension). The second fluid collection is within the deep pelvis previously measuring 29 x 45 x 46mm (anterior t o posterior x medial to lateral x cranial to caudal dimension) on 12/21/2024, now measures 45 x 55 x 43 mm (anterior to posterior x medial to lateral x cranial to caudal dimension) on today's study. The bladder is minimally distended and demonstrates thickened hyperemic hendrix with surrounding inflam matory change for which cystitis is suspected. Body wall and musculoskeletal: No significant degenerative disease within the lower thoracic or lumbo sacral spine. IMPRESSION: Interval increase in size of 2 rim-enhancing fluid collections, one in the right hemipelvis and the s econd within the pelvis, as detailed above. Additional findings for which cystitis is suspected. Reviewed, dictated and finalized at location A. IMPRESSION: Interval increase in size of 2 rim-enhancing fluid collections, one in the righ t hemipelvis and the second within the pelvis, as detailed above. Additional findings for which cystitis is suspected.
--- OUTSIDE RECORDS SUMMARY | 2024-12-31 20:47 | XMS_ITS | Continuity of Care Document ---
Author Organization [facility] Address [address] [place] [address] Phone Care Team Providers Care Airfield Manager Name Role Phone Van Caraballo MD Unavailable Unavailable Advance Directives Directive Yes / No Effective Date File Name No Information Encounters Encounter Description Practice Location Reason(s) For Visit Diagnoses Date Provider Providers Copied on Encounter [facility], [address], [place], [address], tel:[phone] Van Caraballo No Information Ilya Araujo. [address] [place] [address], [address], [place]. tel:[phone] Referring Provider: Lauro Workman, [address], [place], [id number]. tel:[phone] Family History Family Member Type Diagnosis Age At Onset No Information Payers Payer name Insurance type Covered republican ID Authoriza titay(s) [facility] CI [id number] Social History Type Description Quantity Date Captured Comments Sex Female Smoking Status No Information Chief Complaint And Reason For Visit No Information History Of Present Illness Encounter Date Complaint History Of Prese nt Illness No Information Instructions Date Instruction Additional Infor mation No Information Assessments Type Assessment Date No Information
--- OUTSIDE RECORDS SUMMARY | 2024-12-31 20:47 | XMS_ITS | Patient Health Record ---
Author Organization [facility] Address [address] [place] [address] Care Team Providers Care Kelp Or Seagrass Gatherer Name Role Phone Mark Pickard Primary Care Provider [phone] Allergies No Known Allergies Reason For Referral [...] Coverage End Date [employer] [address] [address] [place] [address] [id number] Alpa Echevarria Self - patient is the insured Medical (General) History Medical History History ICD Code anemia fainting/dizzy spells endometriosis sever anxiety Surgical History Surgery Date(Month/Year) gall bladder removed 2020 tonsilectomy
--- OUTSIDE RECORDS SUMMARY | 2024-12-31 20:47 | XMS_ITS | Clinical Summary ---
Author Organization [facility] [employer] Address [address] [place] [address] Care Team Providers Care Chief Lock Operator Name Role Phone Unavailable Primary Care Provider Unavailabl e Source Comments [facility] [employer],non-owned Affiliates and Associated Physician Practices is amultiple site organization consisting of ambulatory clinics and hospital sitesin [place], [place], [place] and [place]. This disclosure is being madepursuant to the Care Everywhere program and may not contain all information available regarding this patient. 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
--- NOTE | 2024-12-31 20:56 | ED_ITS ---
HPI - Abdominal Pain General Chief Complaint: Abdominal Pain Stated Complaint: Post Op Pain Time Seen by Provider: 12/31/24 20:46 Source: patient Mode of arrival: ambulatory Limitations: no limitations History of Present Illness HPI narrative: 49-year-old female a history of smoking, GERD, RLS, anxiety, gallstones, fibroid uterus with metromenorrhagia, anemia had 12/11/2024--robotic assisted hysterectomy with right salpingectomy at [facility]. 12/12/2024-- discharged home 12/18/2024-- presented to ED with pain and fever. Patient was noted to have elevated white cell count and a CT of abdomen and pelvis [id number] cm pelvic abscess. 12/19/2024-- CT-guided drain placed. treated with Zosyn. 12/21/2024-- Repeat CT revealed decrease in the size of the abscess. Abscess grew Bacteroides and strep anginosus 12/22/2024-- Pelvic abscess drain was removed. 12/23/2024-- Patient discharged home on Augmentin and Flagyl. Today the patient presents to the ED with 2 day history of -- cramping suprapubic pain -- yellow/green colored vaginal discharge -- diarrhea no nausea or vomiting. No dysuria or hematuria no fever or chills MD elicited complaint: abdominal pain Pertinent past history: none ( status post robotic assisted hysterectomy, status post drainage of pelvic abscess) Onset (ago): day(s) ( 2 days) Pain Consistency: intermittent Location: suprapubic Severity: moderate Quality: cramping Radiation: none Migration to: no migration Exacerbating factors: nothing Relieving factors: nothing Associated symptoms: denies other symptoms and diarrhea Related Data Patient : No Allergies Allergy/AdvReac Type Severity Reaction Status Date / Time No Known Allergies Allergy Unknown Verified 12/31/24 23:02 Review of Systems 2 Review of Systems: All systems reviewed & are unremarkable except as noted in HPI and below Constitutional: Constitutional: Reports as per HPI and Reports no additional constitutional complaints Eyes: Eyes: Reports as per HPI and Reports no additional eye complaints ENT: Reports system reviewed and no additional complaints, except as documented and Reports as per HPI Cardiovascular: Cardiovascular: Reports as per HPI and Reports no additional cardiovascular complaints Respiratory: Respiratory: Reports as per HPI and Reports no additional respiratory complaints Gastrointestinal: Gastrointestinal: Reports as per HPI, Reports no additional gastrointestinal complaints, Reports abdominal pain and Reports diarrhea Genitourinary: Genitourinary: Reports no additional female genitourinary complaints and Reports as per HPI Musculoskeletal: Musculoskeletal: Reports no additional musculoskeletal complaints and Reports as per HPI Integumentary/Breasts: Skin/Breast: Reports system reviewed and no additional complaints, except as docu and Reports as per HPI Neurologic: Reports system reviewed and no additional complaints, except as documented and Reports as per HPI Psychiatric: Psychiatric: Reports no additional psychiatric complaints and Reports as per HPI Endocrine: Endocrine: Reports no additional endocrine complaints and Reports as per HPI Hematologic/Lymphatic: Hematologic/Lymphatic: Reports no additional hematologic/lymphatic complaints and Reports as per HPI Allergic/Immunologic: Allergic/Immunologic: Reports no additional allergic/immunologic complaints and Reports as per HPI [facility] Past Medical History Medical History GERD (gastroesophageal reflux disease) Uterine fibroid Screening mammogram, encounter for Edema Cellulitis Marijuana smoker Constipation Dysfunctional gallbladder (~06/2020) Right sided abdominal pain Leg pain Irritable bowel syndrome Mixed Tobacco abuse Restless leg syndrome Anxiety Smoker Cholelithiasis (Unknown) , ectopic, tubal History of irritable bowel syndrome History of endometriosis Surgical History Surgical History History of robot-assisted laparoscopic hysterectomy (12/11/24) Robotic assisted total laparoscopic hysterectomy with right salpingectomy (left fallopian tube surgically absent) History of hysteroscopy (06/17/15) H/O LEEP History of cholecystectomy History of shoulder surgery (04/13/13) right shoulder History of unilateral salpingectomy History of tonsillectomy History of laparoscopy Several last 1 being today 07/01/2020/ 05/13/2015 Laparoscopy - endocx polyp, right ovarian cys Family History Family History Father Diabetes mellitus Family history of alcoholism Family history of mental disorder Mother Hypertension Sibling Breast cancer Social History Social History Social History: The patient has 1 daughter. She has had a tubal in the past. She currently is unemployed. She resides with her boyfriend. 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 She smokes about half pack a cigarettes a day. She does smoke marijuana at night to help her rest. She denies any alcohol or other street drugs. Smoking packs per day: 0.5 Smoking cigarettes per day: 10.0 Years smoked: 15 Smoking pack-years: 7.50 Smoking status: Current every day smoker Tobacco type: cigarettes Second hand tobacco smoke exposure: Yes Alcohol intake: never Substance use: never Substance use type: marijuana Other substance usage details: occasional gummy/smoke marijuana for RLS at night Do You Feel Safe in your Home?: Yes Lack of Transportation: No Lack of Food: Sometimes True Current Housing: I Have Housing Concerned About Future Housing: No Difficulty Paying Gas/Electric Bills: YES Difficulty Paying for Meds: No Currently Unemployed: No Education: High School Diploma/GED Difficulty w/ Childcare or Family Care: No Living arrangements: with friend(s) Additional living arrangements comments: Lives with boyfriend and his sister Occupation/Education: unemployed Gender identity (if verbalized by the patient): Female Sexual Orientation (if Verbalized by the Patient): Straight or Heterosexual Spiritual care concerns: No Exam 2 Narrative: temperature 36.5?. Heart rate of 88. Blood pressure 147/90 Const: General: no acute distress Orientation/consciousness: patient oriented x3 Limitations: no limitations HENMT: Head: normal to inspection Ears: external ears normal F sharlene/Nose/Sinus: Normal external nose present Face and sinus: normal facial exam Mouth: Yes Normal oral and palatal mucosa present Throat: posterior oropharynx normal Eyes: Conjunctivae: conjunctivae normal Pupils: Equal, round and reactive pupils present EOM: EOMs intact bilaterally Direct Ophthalmoscopy: no photophobia Neck: Neck: normal visual inspection, no lymphadenopathy and no meningeal signs Chest: Chest palpation & inspection: normal inspection of the chest Resp: Effort & Inspection: normal respiratory effort Auscultation: d iminished lung sounds Cardio: Rate: regular rate Rhythm: regular rhythm GI: GI Palp: Yes Soft to palpation Other: suprapubic tenderness. No rigidity/ rebound. : General: Yes no CVA tenderness Back/Spine/Pelvis: Back: no CVA tenderness Skin: General skin exam: normal color Rashes: no rashes Wounds: no wounds Neuro: General: patient oriented x3, moves all extremities, no meningeal signs, no focal motor deficits and CN's II-XI intact bilaterally Cranial nerves: Yes Nystagmus not present Speech: normal speech Gait exam (Neuro): Normal gait present Extrem: General: normal to inspection and no clubbing, cyanosis or edema Psych: Mental Status: mental status grossly normal Affect: normal affect Attitude: cooperative Course Course Emergency Course: Two rim enhancing pelvic abscesses-- patient was initially treated with Zosyn and subsequently with Flagyl and Augmentin. Will Give a dose of vanc and meropenem. cystitis Vital Signs Vital signs: Vital Signs Temperature 36.5 C 12/31/24 20:44 Pulse Rate 88 12/31/24 20:44 Respiratory Rate 20 12/31/24 20:44 Blood Pressure 147/90 H 12/31/24 20:44 Pulse Oximetry 99 12/31/24 20:44 Oxygen Delivery Room Air 12/31/24 20:44 Temperature 36.5 C 12/31/24 20:44 Pulse Rate 67 01/01/25 02:01 Respiratory Rate 16 01/01/25 02:01 Blood Pressure 105/73 01/01/25 02:01 Pulse Oximetry 97 01/01/25 02:01 Oxygen Delivery Room Air 01/01/25 02:01 MDM - Abdominal Pain MDM Narrative Medical decision making narrative: Postoperative pelvic abscess Differential Diagnosis Differential diagnosis: Likely abdominal pain Medical Records Attestation: I reviewed the patient's medical records. Lab Data Attestation: I reviewed the patient's lab results. 12/31/24 21:26 12/31/24 21:25 Labs: Lab Results 12/31/24 12/31/24 12/31/24 Range/Units 21:25 21:26 21:38 WBC 6.3 (4.8-10.8) K/mm3 RBC 4.73 (4.20-5.40) M/mm3 Hgb 10.9 L (12.0-15.0) g/dL Hct 36.8 (35.0-49.0) % MCV 77.8 L (78.0-102.0) fL MCH 23.0 L (27.0-31.0) pg MCHC 29.6 L (32-36) g/dL RDW 25.2 H (11.6-14.4) % Plt Count 439 H (150-420) K/mm3 MPV 10.2 (9.2-11.8) fl Immature Gran % (Auto) 0.3 H (0.0-0.0) % Neut % (Auto) 51.9 (50.0-70.0) % Lymph % (Auto) 32.3 (18.0-42.0) % Leon % (Auto) 8.0 (2.0-11.0) % Eos % (Auto) 6.7 H (1.0-6.0) % Baso % (Auto) 0.8 (0.0-1.0) % Lymph # (Auto) 2.02 (1.10-4.50) K/mm3 Leon # (Auto) 0.50 (0.10-0.90) K/mm3 Eos # (Auto) 0.42 (0.02-0.50) K/mm3 Baso # (Auto) 0.05 (0.00-0.10) K/mm3 Abs Immat Gran (auto) 0.02 H (0.00-0.00) K/mm3 Absolute Neuts (auto) 3.24 (1.70-7.20) K/mm3 Absolute Nucleated RBC 0.00 (0.00-0.00) K/mm3 Nucleated RBC % 0.0 (0-0.0) % Sodium 138 (137-145) mmol/L Potassium 3.8 (3.4-5.0) mmol/L Chloride 106 (98-107) mmol/L Carbon Dioxide 26 (22-30) mmol/L Anion Gap 6 (4-12) mmol/L BUN 11 (7-17) mg/dL Creatinine 0.69 L (0.7-1.0) mg/dL Estim Creat Clear Calc 77 ml/min Estimated GFR > 60 (59 - ) Glucose 94 (65-110) mg/dL Calculated Osmolality 285 (285-295) mOsm/kg Lactic Acid 0.7 (0.4-2.0) mmol/L Calcium 8.7 (8.4-10.2) mg/dL Total Bilirubin 0.5 (0.2-1.3) mg/dL AST 17 (14-36) U/L ALT 13 (6-35) U/L Alkaline Phosphatase 114 (38-126) U/L C-Reactive Protein 7.3 H (<1.0) mg/dL Total Protein 7.6 (6.3-8.2) g/dL Albumin 3.8 (3.5-5.1) g/dL Lipase 141 (23-300) U/L Urine Color Yellow (Yellow) Urine Appearance Sl cloudy A (Clear) Urine pH 6.0 (5.0-8.0) Ur Specific [place]rie 1.025 H (1.010-1.020) Urine Protein 1+ H (Negative) Urine Glucose (UA) Negative (Negative) Urine Ketones Trace H (Negative) Ur Blood (Man) 3+ H (Negative) Urine Nitrate Negative (Negative) Urine Bilirubin 1+ H (Negative) Urine Urobilinogen 1.0 (0.2-1.0) mg/dL Leukocyte Esterase Rfl 1+ H (Negative) GERMÁN/UL Urine RBC 11-20 H (0-2) /hpf Urine WBC 51-75 H (0-3) /hpf Ur Squamous Epith Cells Few (Few) /hpf Urine Bacteria 1+ H (None) /hpf Urine Mucus Moderate H /lpf Imaging Data Radiologist's impression: ITS Impressions Abdomen/Pelvis CT 12/31/24 22:48 IMPRESSION: Interval increase in size of 2 rim-enhancing fluid collections, one in the right hemipelvis and the second within the pelvis, as detailed above. Additional findings for which cystitis is suspected. Discharge Plan Discharge Clinical Impression: Pelvic abscess in female Patient Disposition: Still a Patient Condition: Stable Additional Instructions: transfer patient to [facility]. Patient has been accepted by Patient Language: Chadian Prescriptions: No Action metronidazole 500 mg tablet 500 mg PO Q8H Qty: 30 0RF amoxicillin-pot clavulanate 875-125 mg tablet 1 tablet PO Q8H Qty: 30 0RF ibuprofen 800 mg tablet 800 mg PO TID Qty: 30 0RF oxycodone 5 mg Tablet 5 mg PO Q4H PRN (Reason: Pain Rated 4-6) Qty: 30 0RF Follow-up/Referrals: Robert Dodge DO [Primary Care Provider] - Time of Disposition: 02:32
[2024-12-31 21:29] LABS: Basophils Absolute Auto 0.05 K/mm3 (0.00-0.10); Basophils Percent Auto 0.8 % (0.0-1.0); Eosinophils Absolute Auto 0.42 K/mm3 (0.02-0.50); Eosinophils Percent Auto 6.7 % (1.0-6.0); Hematocrit 36.8 % (35.0-49.0); Hemoglobin 10.9 g/dL (12.0-15.0); Immature Granulocyte Absolute 0.02 K/mm3 (0.00-0.00); Immature Granulocyte Percent A 0.3 % (0.0-0.0); Lymphocytes Absolute Auto 2.02 K/mm3 (1.10-4.50); Lymphocytes Percent Auto 32.3 % (18.0-42.0); Mean Corpuscular HGB Conc 29.6 g/dL (32-36); Mean Corpuscular Volume 77.8 fL (78.0-102.0); Mean Platelet Volume 10.2 fl (9.2-11.8); Neutrophils Absolute Auto 3.24 K/mm3 (1.70-7.20); Neutrophils Percent Auto 51.9 % (50.0-70.0); Platelet Count Result 439 K/mm3 (150-420); Red Blood Count 4.73 M/mm3 (4.20-5.40); Red Cell Distribution Width 25.2 % (11.6-14.4); White Blood Count 6.3 K/mm3 (4.8-10.8)
[2024-12-31] MEDS: LACTATED RINGERS 1,000 ML 999 ML IV CONT (21:35)
[2024-12-31 21:39] LABS: Lactic Acid Reflex 0.7 mmol/L (0.4-2.0)
[2024-12-31 21:42] LABS: Add Urine Microscopic? YES; Appearance Urine Sl Cloudy (Clear); Bilirubin Urine 1+ (Negative); Blood Urine 3+ (Negative); Color Urine Yellow (Yellow); Glucose Urine UA Negative (Negative); Ketones Urine Trace (Negative); Leukocyte Esterase Ur 1+ LEU/UL (Negative); Nitrate Urine Negative (Negative); Protein Urine 1+ (Negative); Specific Grav Ur 1.025 (1.010-1.020)
[2024-12-31 21:43] LABS: Alanine Aminotransferase 13 U/L (6-35); Albumin Level 3.8 g/dL (3.5-5.1); Alkaline Phosphatase 114 U/L (38-126); Anion Gap 6 mmol/L (4-12); Aspartate Amino Transferase 17 U/L (14-36); Bilirubin,Total 0.5 mg/dL (0.2-1.3); Blood Urea Nitrogen 11 mg/dL (7-17); CRP 7.3 mg/dL (<1.0); Calcium 8.7 mg/dL (8.4-10.2); Carbon Dioxide 26 mmol/L (22-30); Chloride 106 mmol/L (98-107); Estimated CRCL calculation 77 ml/min; Estimated Glomerular Filt Rate > 60; Glucose 94 mg/dL (65-110); Lipase 141 U/L (23-300); Osmolality Calculated 285 mOsm/kg (285-295); Potassium 3.8 mmol/L (3.4-5.0); Sodium 138 mmol/L (137-145); Total Protein 7.6 g/dL (6.3-8.2)
--- OUTSIDE RECORDS SUMMARY | 2024-12-31 21:48 | XMS_ITS | Continuity of Care Document ---
Author Organization [facility] Address [address] [place] [address] Phone Care Team Providers Care Manufacturing Intern Name Role Phone Van Caraballo MD Unavailable Unavailable Advance Directives Directive Yes / No Effective Date File Name No Information Encounters Encounter Description Practice Location Reason(s) For Visit Diagnoses Date Provider Providers Copied on Encounter [facility], [address] [place], [place], [address], tel:[phone] Van Caraballo No Information Ilya Araujo. [address] [place] [address], [address], [place]. tel:[phone] Referring Provider: Lauro Workman, [address] [place], [place], [id number]. tel:[phone] Family History Family Member Type Diagnosis Age At Onset No Information Payers Payer name Insurance type Covered alliance party ID Authoriza titay(s) [facility] CI [id number] Social History Type Description Quantity Date Captured Comments Sex Female Smoking Status No Information Chief Complaint And Reason For Visit No Information History Of Present Illness Encounter Date Complaint History Of Prese nt Illness No Information Instructions Date Instruction Additional Infor mation No Information Assessments Type Assessment Date No Information
--- OUTSIDE RECORDS SUMMARY | 2024-12-31 21:48 | XMS_ITS | Clinical Summary ---
Author Organization [facility] [employer] Address [address] [address] Care Team Providers Care Pharmacy Associate Name Role Phone Unavailable Primary Care Provider Unavailabl e Source Comments [facility] [employer],non-owned Affiliates and Associated Physician Practices is amultiple site organization consisting of ambulatory clinics and hospital sitesin [place], [place], [place] and [place]. This disclosure is being madepursuant to the Care Everywhere program and may not contain all information available regarding this patient. 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 SELF PAY NO INSURANCE Member Subscriber Plan / Payer (Ef fective for All Dates) Name:DwyerFarida Member ID:Not on file Relation to Subscriber:Not on file Name:DWYERFARIDA Subscriber ID:Not on file (Home) Address: [address] [place] [address] Payer ID:Not on file Group ID:Not on file Type:Self Pay Address: [place], [place]
[2024-12-31 21:49] LABS: Bacteria Urine 1+ /hpf; Mucus Urine Moderate /lpf; Squamous Epithelial Cell Urine Few /hpf (Few); WBC Urine 51-75 /hpf (0-3)
--- NOTE | 2024-12-31 21:51 | PC.NURSE ---
PATIENT REQUESTED SOMETHING FOR PAIN. DR GARRIDO NOTIFIED
[2024-12-31] MEDS: ONDANSETRON INJ 4 MG/2 ML VIAL IV PUSH (22:07)
[2024-12-31] MEDS: MORPHINE SULFATE (*CRX) 2 MG/ML INJ IV PUSH (22:07)
[2025-01-01] VITALS (12 sets, daily range): BP systolic 93–125; BP diastolic 58–83; PULSE 64–70; RESP 14–18; O2SAT 97–100
--- NOTE | 2025-01-01 00:03 | PC.NURSE ---
PATIENT IS AWARE OF TRANSFER REQUEST BEING MADE TO [facility]. PATIENT IS TEARFUL. SCARED. BOYFRIEND IS AT HER SIDE.
[2025-01-01] MEDS: NICOTINE (*PBKC) 14 MG PATCH 1 PATCH TRANSDERM (01:23)
[2025-01-01] MEDS: LACTATED RINGERS 1,000 ML 150 ML IV CONT (01:23)
--- NOTE | 2025-01-01 01:27 | PC.NURSE ---
PATIENT IS CURRENTLY CRYING IN THE ROOM. UPSET ABOUT ALL EVENTS LEADING UP TO THIS ER VISIT.
--- NOTE | 2025-01-01 02:11 | PC.NURSE ---
APPEARS TO BE SLEEPING AT THIS TIME. RESP EVEN AND UNLABORED. CALL LIGHT IN REACH. LIGHTS TURNED OFF FOR COMFORT.
[2025-01-01] MEDS: MEROPENEM 1 GM/NS 100 ML 1 GM/100 ML BAG IVPB (02:32)
--- NOTE | 2025-01-01 03:00 | PC.NURSE ---
RESTING QUIETLY ON STRETCHER. APPEARS TO BE SLEEPING. RESP EVEN AND UNLABORED. CALL LIGHT IN REACH
[2025-01-01] MEDS: VANCOMYCIN 1,750 MG/NS 500 ML 1,750 MG/500 ML BAG 250 MG IVPB (03:49)
--- NOTE | 2025-01-01 04:00 | PC.NURSE ---
RESTING QUIETLY ON STRETCHER. WOKE UP BRIEFLY WHEN BEING CONNECTED TO ANTIBOTICS BUT THEN FELL BACK ASLEEP. RESP EVEN AND UNLABORED. CALL LIGHT IN REACH.
--- NOTE | 2025-01-01 05:16 | PC.NURSE ---
RESTING QUIETLY ON STRETCHER WITH BOYFRIEND BACK AT HER SIDE. APPEARS TO BE SLEEPING. RESP EVEN AND UNLABORED. UPDATED BOYFRIEND ON DELAY FOR TRANSPORT. VERBALIZED UNDERSTANDING
--- NOTE | 2025-01-01 06:17 | PC.NURSE ---
PATIENT RESTING ON STRETCHER. BOYFRIEND, JOCELYN, HAS LEFT. ASKED THAT WE CALL WHEN SHE IS BEING TRANSFERRED. PHONE NUMBER TAKEN DOWN.
--- NOTE | 2025-01-01 07:07 | PC.NURSE ---
Report Received From [facility]
[2025-01-01] MEDS: MORPHINE SULFATE (*CRX) 4 MG/ML INJ IV PUSH (07:23)
[2025-01-01] MEDS: ONDANSETRON HCL ODT 4 MG TABLET PO (07:31)
--- NOTE | 2025-01-01 07:34 | PC.NURSE ---
Pt transported by [facility] to [facility]. Pt given 4 morphine and 4 Zofran prior to transport.
--- NOTE | 2025-01-03 14:32 | PC.NURSE ---
PRELIMINARY BLOOD CULTURE REPORT; NO GROWTH TO DATE.
--- NOTE | 2025-01-03 14:32 | PC.NURSE ---
FINAL URINE CULTURE REPORT; NO GROWTH.
--- NOTE | 2025-01-08 13:36 | PC.NURSE ---
final blood cultures x2 reviewed. no growth after 5 days. no change in plan of care
== END 2025-01-01 07:35 | disposition short-term general hospital (02) ==
PROVIDERS: Emergency Provider Internal Medicine Critical Care Medicine; PCP Family Medicine
DX: T81.43XA Infection following a procedure, organ and space surgical site, initial encounter (principal); N73.9 Female pelvic inflammatory disease, unspecified; Y83.8 Other surgical procedures as the cause of abnormal reaction of the patient, or of later complication, without mention of misadventure at the time of the procedure; F17.210 Nicotine dependence, cigarettes, uncomplicated; F12.90 Cannabis use, unspecified, uncomplicated
CPT/HCPCS: 36415; 74177; 80053; 81001; 83605; 83690; 85025; 86140; 87040; 87086; 96361; 96365; 96366; 96367; 96375; 99285; A9270; J2185; J2270; J2405; J3370; J7120; Q9967

== ENCOUNTER 2025-01-01 03:07 | Inpatient (IN) | payer OTHER, SELFPAY ==
--- NOTE | ~2025-01-01 | CT_ITS ---
EXAMINATION: CT abdomen pelvis w con DATE: 01/06/2025 13:26 INDICATION: Pelvic abscess TECHNIQUE: Computed tomography (CT) of the abdomen and pelvis was performed with 100 mL Omnipaque-350 intravenous contrast. Automated exposure control and iterative reconstruction technique were employe d. The dose-length product was 293.58 mGy-cm. COMPARISON: 12/31/2024 FINDINGS: Very small right and trace left pleural effusions with minimal adjacent dependent atelectasis in the lower lobes. Heart size normal. No pericardial or pleural effusion. Cholecystectomy clips the gallbla dder fossa. Liver, pancreas, bilateral adrenal glands and kidneys are normal. A few small splenic cecile cific lesions consistent with old granulomatous disease. Bowels including appendix are unremarkable. Bladder is normal. Status post hysterectomy with interval decrease in size of a previously 5.5 x 4.4 x 4.3 cm abscess at the uterine fossa which currently measures 3.9 x 2.0 x 2.7 cm. There is also been interval decrease in size of a previously 4.1 x 3.3 x 5.4 cm lesion at the right adnexa was suggesti on of a dependently layering hematocrit level which currently measures 3.1 x 1.7 x 2.9 cm which could represent either a hemorrhagic ovarian cyst or additional improving abscess. There is likely reactiv e mild perirectal and presacral edema in the deep pelvis. No free intraperitoneal gas. No pathologica lly enlarged abdominal or pelvic lymphadenopathy. Mild scattered degenerative skeletal changes in the spine and pelvis. Sclerotic bone island at the left sacral ala. IMPRESSION: 1. Decrease in size of a previously 5.5 x 4.4 x 4.3 cm, currently 3.9 x 2.0 x 2.7 cm. Abscess at the uterine fossa post recent hysterectomy. 2. Decrease in size of a previously 4.1 x 3.3 x 5.4 cm, currently 3.1 x 1.7 x 2.9 cm complex fluid co llection at the right adnexa which could represent a resolving ovarian cyst versus second improving a bscess. Favor the former. 3. Very small right and trace left pleural effusions. Reviewed, dictated and finalized at location A. IMPRESSION: 1. Decrease in size of a previously 5.5 x 4.4 x 4.3 cm, currently 3.9 x 2.0 x 2 .7 cm. Abscess at the uterine fossa post recent hysterectomy. 2. Decrease in size of a previously 4.1 x 3.3 x 5.4 cm, currently 3.1 x 1.7 x 2 .9 cm complex fluid collection at the right adnexa which could represent a reso lving ovarian cyst versus second improving abscess. Favor the former. 3. Very small right and trace left pleural effusions.
--- OUTSIDE RECORDS SUMMARY | 2025-01-01 08:30 | XMS_ITS | Clinical Summary ---
Author Organization [facility] [employer] Address [address] [place] [address] Care Team Providers Care Director Food Safety Name Role Phone Unavailable Primary Care Provider Unavailabl e Source Comments [facility] [employer],non-owned Affiliates and Associated Physician Practices is amultiple site organization consisting of ambulatory clinics and hospital sitesin [place], [place], [place] and [place]. This disclosure is being madepursuant to the Care Everywhere program and may not contain all information available regarding this patient. 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
--- OUTSIDE RECORDS SUMMARY | 2025-01-01 08:31 | XMS_ITS | Patient Health Record ---
Author Organization [facility] Address [address] [place] [address] Care Team Providers Care Lone Lead Lineman Name Role Phone Mark Pickard Primary Care [...] Coverage End Date [employer] [address] [address] [place] [address] [id number] Alpa Echevarria Self - patient is the insured Medical (General) History Medical History History ICD Code anemia fainting/dizzy spells endometriosis sever anxiety Surgical History Surgery Date(Month/Year) gall bladder removed 2020 tonsilectomy
--- OUTSIDE RECORDS SUMMARY | 2025-01-01 08:31 | XMS_ITS | Continuity of Care Document ---
Author Organization [facility] Address [address] [place] [address] Phone Care Team Providers Care Post Anesthesia Room Nurse Name Role Phone Van Caraballo MD Unavailable Unavailable Advance Directives Directive Yes / No Effective Date File Name No Information Encounters Encounter Description Practice Location Reason(s) For Visit Diagnoses Date Provider Providers Copied on Encounter [facility], [address], [place], [address], tel:[phone] Van Caraballo No Information Ilya Araujo. [address] [place] [address], [address], [place]. tel:[phone] Referring Provider: Lauro Workman, [address], [place], [id number]. tel:[phone] Family History Family Member Type Diagnosis Age At Onset No Information Payers Payer name Insurance type Covered republican ID Authoriza titay(s) [facility] CI [id number] Social History Type Description Quantity Date Captured Comments Sex Female Smoking Status No Information Chief Complaint And Reason For Visit No Information History Of Present Illness Encounter Date Complaint History Of Prese nt Illness No Information Instructions Date Instruction Additional Infor mation No Information Assessments Type Assessment Date No Information
[2025-01-01 09:29] VITALS: BMI 25.3
--- NOTE | 2025-01-01 09:30 | ADMGEN ---
This patient, Alpa Echevarria, was admitted to Medical Room 255-. Patient/family oriented to hospital policies and general routines including ID bracelet, bed and alarms, visiting hours, pain management, procedures, bathroom and other care routines, personal items, smoking policy, room service/diet, and visiting hours. Information on how to activate the Rapid Response Team has been discussed. Patient/Family are encouraged to report perceived risks to care and to ask questions if they do not understand what they are told or what they should do.
[2025-01-01] MEDS: PIPERACILLIN/TAZ 4.5G/NS 100ML 4.5 GM/100 ML BAG IVPB ×3 (09:59→22:28)
[2025-01-01] MEDS: SODIUM CHLORIDE 0.9% IV 1,000 ML 100 ML IV CONT ×2 (10:00→19:36)
[2025-01-01] MEDS: HYDROcodone/acetaminophen (*CRX) 5-325 MG TABLET 1 TAB PO (10:18)
[2025-01-01] MEDS: LORazepam INJ (*CRX) 2 MG/ML VIAL 0.5 MG IV PUSH (10:21)
--- NOTE | 2025-01-01 11:17 | P.HP_ITS ---
H&P: HPI History of Present Illness Date/Time: 01/01/25 11:17 49-year-old female presents with postoperative abscess as a transfer from [facility]. She has had a very complicated postoperative course. Underwent robotic assisted hysterectomy due to fibroids and anemia December 11 and was discharged the next day without issue. Returned approximately 7 days postop with pelvic abscess. At that time was initiated on antibiotics, drain was placed, and patient did well and abscess essentially resolved. Was discharged home on oral antibiotics which she states she did take, has had increasing vaginal discharge over the past 2-3 days and presented to start on hospital last night with the above complaints. CT can shows 2cm right and 4cm left collection of fluid consistent with abscess. Also consistent with urinary tract infection. Has been tolerating regular diet though she has been bloated. No nausea vomiting of significance, stools have been loose but no watery diarrhea, and other than the pelvic bloating and fullness as noted above no other significant pain or discomfort. Chief Complaint: Postoperative pain/abscess Review of Systems Review of Systems: All systems reviewed & are unremarkable except as noted in HPI and below PMFSH Past Medical History Medical History GERD (gastroesophageal reflux disease) Uterine fibroid Screening mammogram, encounter for Edema Cellulitis Marijuana smoker Constipation Dysfunctional gallbladder (~06/2020) Right sided abdominal pain Leg pain Irritable bowel syndrome Mixed Tobacco abuse Restless leg syndrome Anxiety Smoker Cholelithiasis (Unknown) , ectopic, tubal History of irritable bowel syndrome History of endometriosis Surgical History Surgical History History of robot-assisted laparoscopic hysterectomy (12/11/24) Robotic assisted total laparoscopic hysterectomy with right salpingectomy (left fallopian tube surgically absent) History of hysteroscopy (06/17/15) H/O LEEP History of cholecystectomy History of shoulder surgery (04/13/13) right shoulder History of unilateral salpingectomy History of tonsillectomy History of laparoscopy Several last 1 being today 07/01/2020/ 05/13/2015 Laparoscopy - endocx polyp, right ovarian cys Family History Family History Father Diabetes mellitus Family history of alcoholism Family history of mental disorder Mother Hypertension Sibling Breast cancer Social History Social History Social History: The patient has 1 daughter. She has had a tubal in the past. She currently is unemployed. She resides with her boyfriend. 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 She smokes about half pack a cigarettes a day. She does smoke marijuana at night to help her rest. She denies any alcohol or other street drugs. Smoking packs per day: 0.5 Smoking cigarettes per day: 10.0 Years smoked: 15 Smoking pack-years: 7.50 Smoking status: Current every day smoker Tobacco type: cigarettes Second hand tobacco smoke exposure: Yes Alcohol intake: never Substance use: never Substance use type: marijuana Other substance usage details: occasional gummy/smoke marijuana for RLS at night Do You Feel Safe in your Home?: Yes Lack of Transportation: No Lack of Food: Sometimes True Current Housing: I Have Housing Concerned About Future Housing: No Difficulty Paying Gas/Electric Bills: YES Difficulty Paying for Meds: No Currently Unemployed: No Education: High School Diploma/GED Difficulty w/ Childcare or Family Care: No Living arrangements: with friend(s) Additional living arrangements comments: Lives with boyfriend and his sister Occupation/Education: unemployed Gender identity (if verbalized by the patient): Female Sexual Orientation (if Verbalized by the Patient): Straight or Heterosexual Spiritual care concerns: No Meds Home Medications and Allergies Home Medications ?Medication ?Instructions ?Recorded ?Confirmed ?Type ibuprofen 800 mg tablet 800 mg PO TID #30 tabs 11/18/24 01/01/25 Rx oxycodone 5 mg tablet 5 mg PO Q4H PRN Pain Rated 4-6 #30 12/12/24 01/01/25 Rx tabs amoxicillin 875 mg-potassium 1 tablet PO Q8H #30 tabs 12/22/24 01/01/25 Rx clavulanate 125 mg tablet metronidazole 500 mg tablet 500 mg PO Q8H #30 tabs 12/22/24 01/01/25 Rx Allergies Allergy/AdvReac Type Severity Reaction Status Date / Time surgical glue AdvReac Mild Rash Uncoded 01/01/25 09:42 Exam Const: General: cooperative and no acute distress GI: Inspection: normal to inspection and incision (Well-healed) GI Palp: Yes abdominal tenderness (Lower quadrants left greater than right) Percussion: No Fluid wave present and No tympanic to percussion Auscultation: Hypoactive bowel sounds present Rectal Exam: deferred : External Female Exam: normal external appearance Bimanual exam- vagina & uterus: uterus absent Other: Vaginal cuff intact by digital exam, no significant discharge noted. Tender at cuff left greater than right Assessment and Plan Assessment and plan (1) Pelvic abscess in female: Code(s): N73.9 - Female pelvic inflammatory disease, unspecified Status: Acute (2) Abdominal pain, suprapubic: Code(s): R10.2 - Pelvic and perineal pain Status: Acute Plan 1. Regular diet as tolerated 2. Pain medications as needed 3. Zosyn 4.5mg (discussed with Darius Ramirez) as single agent 4. monitor sx and progress
[2025-01-01 14:00] VITALS: BP 93/58; PULSE 66; RESP 18; TEMP 36.3; O2SAT 94
[2025-01-01] MEDS: HYDROcodone/acetaminophen (*CRX) 5-325 MG TABLET PO ×2 (14:09→19:33)
[2025-01-01 22:00] VITALS: BP 92/51; PULSE 72; RESP 18; TEMP 36.4; O2SAT 100
[2025-01-02] MEDS: PIPERACILLIN/TAZ 4.5G/NS 100ML 4.5 GM/100 ML BAG IVPB ×4 (03:21→21:55)
[2025-01-02 05:14] LABS: Basophils Absolute Auto 0.1 K/mm3 (0.0-0.1); Basophils Percent Auto 1.5 % (0.2-1.2); Eosinophils Absolute Auto 0.5 K/mm3 (0-0.3); Eosinophils Percent Auto 10.6 % (0-4.4); Hematocrit 36.6 % (37.0-47.0); Hemoglobin 10.6 g/dL (12.0-15.0); Immature Granulocyte Absolute 0.01 K/mm3 (0.00-0.031); Immature Granulocyte Percent A 0.2 % (0-0.5); Lymphocytes Percent Auto 45.7 % (18.3-44.2); Mean Corpuscular Hemoglobin 23.2 pg (26-34); Mean Corpuscular Volume 80.1 fl (80-100); Mean Platelet Volume 10.3 fl (7.4-10.4); Monocytes Absolute Auto 0.4 K/mm3 (0.1-0.6); Monocytes Percent Auto 7.5 % (2.6-8.5); Neutrophils Absolute Auto 1.7 K/mm3 (1.3-6.7); Neutrophils Percent Auto 34.5 % (45.5-73.1); Platelet Count Result 410 k/mm3 (150-375); Red Blood Count 4.57 M/mm3 (4.2-5.4); Red Cell Distribution Width 25.6 % (11.5-14.5); White Blood Count 4.8 K/mm3 (4.5-10.0)
[2025-01-02 05:39] LABS: Band Neutrophils Percent 0 % (0-6); Platelet Estimate Increased (Adequate)
[2025-01-02 05:40] LABS: Anisocytosis 1+; Burr Cells 1+; Ovalocytes 1+; Schistocytes None Seen
[2025-01-02 06:00] VITALS: BP 123/64; PULSE 64; RESP 18; TEMP 36.9; O2SAT 100
[2025-01-02] MEDS: HYDROcodone/acetaminophen (*CRX) 5-325 MG TABLET PO (09:27)
[2025-01-02] MEDS: LORazepam INJ (*CRX) 2 MG/ML VIAL 0.5 MG IV PUSH ×2 (09:28→22:08)
[2025-01-02] MEDS: NICOTINE (*PBKC) 14 MG PATCH 1 PATCH TRANSDERM (11:32)
[2025-01-02] MEDS: diphenhydrAMINE HCl CAP 25 MG CAPSULE 50 MG PO (11:33)
[2025-01-02] MEDS: HYDROmorphone HCL INJ (*CRX) 2 MG/ML VIAL 1 MG IV PUSH ×3 (11:34→23:28)
--- NOTE | 2025-01-02 12:20 | P.PNOB_ITS ---
COMMERCIAL DECORATOR - A/P Time Spent With Patient Time: Total time spent is greater than 50% in coordination of care (as documented) at patient's floor/unit and/or counseling patient: Time with patient: 15 - 25 minutes COMMERCIAL DECORATOR- PN:Sathish Post-Op Subjective Date/time seen: 01/02/25 12:20 S: still with lower pelvic pain. Diet tolerated. Feels better with nicotine patch. Still with itching on incision sites. Vaginal discharge less murky and less when in bed, increases with movement. O: VSS afebrile abd: soft less distension inc: c/d/i A: stable P: continue as current with IV ab...consider rescan sunday/sunday COMMERCIAL DECORATOR - PN: Obj Data Vital Signs Vital Signs: Vital Signs - 24 hr 01/01/25 14:00 01/01/25 22:00 01/02/25 06:00 Temperature 97.4 F L 97.6 F 98.4 F Pulse Rate 66 72 64 Respiratory Rate 18 18 18 Blood Pressure 93/58 L 92/51 L 123/64 Pulse Oximetry 94 100 100 Intake/Output Intake/Output: Intake & Output 12/30/24 12/31/24 01/01/25 01/02/25 23:59 23:59 23:59 23:59 Intake Total 2220 500 Balance 2220 500 Meds/Results Medications: Active Medications Generic Name Dose Route Start Last Admin Trade Name Freq PRN Reason Stop Dose Admin Acetaminophen 650 mg 01/01/25 03:07 Acetaminophen 325 Mg Tablet PO Q4H PRN Pain Rated 1-3 Hydrocodone Bitart/Acetaminophen 1 - 2 tab 01/01/25 11:18 01/02/25 09:27 Hydrocodone/Acetaminophen (*Crx) 5-325 Mg Tablet PO 2 tab Q4-6H PRN Administration Pain Rated 4-6 Diphenhydramine HCl 50 mg 01/02/25 11:17 01/02/25 11:33 Diphenhydramine Hcl Cap 25 Mg Capsule PO 50 mg Q6H PRN Administration Itching Hydromorphone HCl 1 mg 01/02/25 11:17 01/02/25 11:34 Hydromorphone Hcl Inj (*Crx) 2 Mg/Ml Vial IV PUSH 1 mg Q4-6H PRN Administration Pain Rated 7-10 Sodium Chloride 1,000 mls @ 100 mls/hr 01/01/25 03:10 01/01/25 19:36 Normal Saline Iv IV CONT 100 mls/hr .Q10H BARRY Administration Piperacillin Sod/Tazobactam Sod 4.5 gm in 100 mls @ 200 mls/hr 01/01/25 09:00 01/02/25 09:58 Zosyn 4.5 Gm/Ns 100 Ml IVPB Infused Q6H BARRY Infusion Lorazepam 0.5 mg 01/01/25 03:13 01/02/25 09:28 Lorazepam Inj (*Crx) 2 Mg/Ml Vial IV PUSH 0.5 mg Q6H PRN Administration Anxiety Nicotine 1 patch 01/02/25 11:20 01/02/25 11:32 Nicotine (*Pbkc) 14 Mg Patch TRANSDERM 1 patch DAILY BARRY Administration Ondansetron HCl 4 mg 01/01/25 03:13 Ondansetron Inj 4 Mg/2 Ml Vial IV PUSH Q6H PRN Nausea And Vomiting Labs 01/02/25 04:25 Labs: Laboratory Results - last 24 hr 01/02/25 04:25 WBC 4.8 RBC 4.57 Hgb 10.6 L Hct 36.6 L MCV 80.1 MCH 23.2 L MCHC 29.0 L RDW 25.6 H Plt Count 410 H D MPV 10.3 Immature Gran % (Auto) 0.2 Neut % (Auto) 34.5 L Lymph % (Auto) 45.[address] [place] % (Auto) 7.5 Eos % (Auto) 10.6 H Baso % (Auto) 1.5 H Lymph # (Auto) 2.20 [place] # (Auto) 0.4 Eos # (Auto) 0.5 H Baso # (Auto) 0.1 Abs Immat Gran (auto) 0.01 Absolute Neuts (auto) 1.7 Absolute Nucleated RBC 0.000 Band Neutrophils % 0 Nucleated RBC % 0.0 Platelet Estimate Increased Anisocytosis 1+ Ovalocytes 1+ Radha Cells 1+ Schistocytes None seen
[2025-01-02] MEDS: HYDROCORTISONE 1% 30 GM CREAM 1 APPLIC TOPICAL ×2 (13:47→21:04)
[2025-01-02 14:00] VITALS: BP 128/70; PULSE 62; RESP 18; TEMP 37; O2SAT 100
[2025-01-02] MEDS: SODIUM CHLORIDE 0.9% IV 1,000 ML 100 ML IV CONT ×2 (14:37→22:07)
[2025-01-02 20:03] VITALS: BP 96/58; PULSE 73; RESP 16; TEMP 36.5; O2SAT 99
[2025-01-03] MEDS: PIPERACILLIN/TAZ 4.5G/NS 100ML 4.5 GM/100 ML BAG IVPB ×4 (02:27→20:00)
[2025-01-03 04:53] VITALS: BP 107/70; PULSE 68; RESP 16; TEMP 36.3; O2SAT 97
[2025-01-03] MEDS: HYDROmorphone HCL INJ (*CRX) 2 MG/ML VIAL 1 MG IV PUSH ×4 (05:24→21:11)
[2025-01-03] MEDS: SODIUM CHLORIDE 0.9% IV 1,000 ML 100 ML IV CONT ×2 (05:49→17:07)
--- NOTE | 2025-01-03 08:05 | PM.GYNPNOP ---
ORDER FULFILLMENT SPECIALIST - A/P Time Spent With Patient Time: Total time spent is greater than 50% in coordination of care (as documented) at patient's floor/unit and/or counseling patient: Time with patient: 15 - 25 minutes ORDER FULFILLMENT SPECIALIST- PN:Sathish Post-Op Subjective Date/time seen: 01/03/25 08:05 S: No significant change, patient comfortable. States discharge only occurs with movement and does seem to be decreased though persists. O: VSS afebrile Abdomen: Incisions well healed nondistended. Labs: Noted A: Stable P: Continue IV antibiotics ORDER FULFILLMENT SPECIALIST - PN: Obj Data Vital Signs Vital Signs: Vital Signs - 24 hr 01/02/25 14:00 01/02/25 20:00 01/02/25 20:03 Temperature 98.6 F 97.7 F Pulse Rate 62 73 Respiratory Rate 18 16 Blood Pressure 128/70 96/58 L Pulse Oximetry 100 99 Oxygen Delivery Room Air 01/03/25 04:53 Temperature 97.4 F L Pulse Rate 68 Respiratory Rate 16 Blood Pressure 107/70 Pulse Oximetry 97 Oxygen Delivery Intake/Output Intake/Output: Intake & Output 12/31/24 01/01/25 01/02/25 01/03/25 23:59 23:59 23:59 23:59 Intake Total 2220 3074 1220 Output Total 500 Balance 2220 3074 720 Meds/Results Medications: Active Medications Generic Name Dose Route Start Last Admin Trade Name Freq PRN Reason Stop Dose Admin Acetaminophen 650 mg 01/01/25 03:07 Acetaminophen 325 Mg Tablet PO Q4H PRN Pain Rated 1-3 Hydrocodone Bitart/Acetaminophen 1 - 2 tab 01/01/25 11:18 01/02/25 09:27 Hydrocodone/Acetaminophen (*Crx) 5-325 Mg Tablet PO 2 tab Q4-6H PRN Administration Pain Rated 4-6 Diphenhydramine HCl 50 mg 01/02/25 11:17 01/02/25 11:33 Diphenhydramine Hcl Cap 25 Mg Capsule PO 50 mg Q6H PRN Administration Itching Hydrocortisone 1 applic 01/02/25 12:45 01/02/25 21:04 Hydrocortisone 1% 30 Gm Cream TOPICAL 1 applic Q12HR BARRY Administration Hydromorphone HCl 1 mg 01/02/25 11:17 01/03/25 05:24 Hydromorphone Hcl Inj (*Crx) 2 Mg/Ml Vial IV PUSH 1 mg Q4-6H PRN Administration Pain Rated 7-10 Sodium Chloride 1,000 mls @ 100 mls/hr 01/01/25 03:10 01/03/25 05:49 Normal Saline Iv IV CONT 100 mls/hr .Q10H BARRY Administration Piperacillin Sod/Tazobactam Sod 4.5 gm in 100 mls @ 200 mls/hr 01/01/25 09:00 01/03/25 02:27 Zosyn 4.5 Gm/Ns 100 Ml IVPB 200 mls/hr Q6H BARRY Administration Lorazepam 0.5 mg 01/01/25 03:13 01/02/25 22:08 Lorazepam Inj (*Crx) 2 Mg/Ml Vial IV PUSH 0.5 mg Q6H PRN Administration Anxiety Nicotine 1 patch 01/02/25 11:20 01/02/25 11:32 Nicotine (*Pbkc) 14 Mg Patch TRANSDERM 1 patch DAILY BARRY Administration Ondansetron HCl 4 mg 01/01/25 03:13 Ondansetron Inj 4 Mg/2 Ml Vial IV PUSH Q6H PRN Nausea And Vomiting Labs 01/02/25 04:25
[2025-01-03] MEDS: HYDROcodone/acetaminophen (*CRX) 5-325 MG TABLET PO (08:25)
[2025-01-03] MEDS: NICOTINE (*PBKC) 14 MG PATCH 1 PATCH TRANSDERM (08:28)
[2025-01-03] MEDS: HYDROCORTISONE 1% 30 GM CREAM 1 APPLIC TOPICAL ×2 (08:29→20:00)
[2025-01-03] MEDS: LORazepam INJ (*CRX) 2 MG/ML VIAL 0.5 MG IV PUSH ×2 (13:54→19:59)
[2025-01-03 14:00] VITALS: BP 96/66; PULSE 72; RESP 16; O2SAT 99
[2025-01-03 17:00] VITALS: BP 110/70
[2025-01-03 19:37] VITALS: BP 108/63; PULSE 70; RESP 20; TEMP 36.7; O2SAT 100
[2025-01-04] MEDS: SODIUM CHLORIDE 0.9% IV 1,000 ML 100 ML IV CONT ×2 (02:43→13:49)
[2025-01-04] MEDS: PIPERACILLIN/TAZ 4.5G/NS 100ML 4.5 GM/100 ML BAG IVPB ×4 (02:43→21:08)
[2025-01-04] MEDS: HYDROmorphone HCL INJ (*CRX) 2 MG/ML VIAL 1 MG IV PUSH ×3 (02:47→12:49)
[2025-01-04 04:18] VITALS: BP 99/62; PULSE 69; RESP 20; TEMP 36.6; O2SAT 96
[2025-01-04 05:22] LABS: Basophils Absolute Auto 0.1 K/mm3 (0.0-0.1); Basophils Percent Auto 1.1 % (0.2-1.2); Eosinophils Absolute Auto 0.6 K/mm3 (0-0.3); Hemoglobin 10.1 g/dL (12.0-15.0); Immature Granulocyte Absolute 0.01 K/mm3 (0.00-0.031); Immature Granulocyte Percent A 0.2 % (0-0.5); Lymphocytes Absolute Auto 2.06 K/mm3 (0.9-3.2); Lymphocytes Percent Auto 32.6 % (18.3-44.2); Mean Corpuscular HGB Conc 28.9 g/dl (32-36); Mean Corpuscular Hemoglobin 23.4 pg (26-34); Mean Corpuscular Volume 81.2 fl (80-100); Mean Platelet Volume 10.6 fl (7.4-10.4); Monocytes Absolute Auto 0.5 K/mm3 (0.1-0.6); Monocytes Percent Auto 7.9 % (2.6-8.5); Neutrophils Absolute Auto 3.1 K/mm3 (1.3-6.7); Neutrophils Percent Auto 48.2 % (45.5-73.1); Platelet Count Result 354 k/mm3 (150-375); Red Blood Count 4.31 M/mm3 (4.2-5.4); White Blood Count 6.3 K/mm3 (4.5-10.0)
[2025-01-04 06:59] LABS: Anisocytosis 1+; Hypochromasia 1+; Ovalocytes 1+; Platelet Estimate Adequate (Adequate); Schistocytes None Seen
[2025-01-04 08:49] VITALS: BP 107/64; PULSE 67; RESP 16; TEMP 36.4; O2SAT 100
[2025-01-04 08:52] VITALS: PULSE 67; RESP 16; O2SAT 100
[2025-01-04] MEDS: NICOTINE (*PBKC) 14 MG PATCH 1 PATCH TRANSDERM (08:52)
[2025-01-04] MEDS: LORazepam INJ (*CRX) 2 MG/ML VIAL 0.5 MG IV PUSH ×2 (12:08→20:04)
[2025-01-04 13:36] VITALS: BP 105/69; PULSE 68; RESP 12; O2SAT 99
--- NOTE | 2025-01-04 14:12 | PM.GYNPNOP ---
CENTRIFUGAL CASTING MACHINE TENDER - A/P Time Spent With Patient Time: Total time spent is greater than 50% in coordination of care (as documented) at patient's floor/unit and/or counseling patient: Time with patient: less than 15 minutes CENTRIFUGAL CASTING MACHINE TENDER- PN:Sathish Post-Op Subjective Date/time seen: 01/04/25 14:12 S: No sig change, overall doing well. Minimal d/c though has not been up as much last day or so, some bleeding (minimal/red). O: VSS afebrile exam unchanged labs noted A: stable P: continue ab/repeat CT Sunday (day 5 IV ab) to assess interval change. Patient aware of plan/questions answered. CENTRIFUGAL CASTING MACHINE TENDER - PN: Obj Data Vital Signs Vital Signs: Vital Signs - 24 hr 01/03/25 17:00 01/03/25 19:37 01/03/25 20:00 Temperature 98.0 F Pulse Rate 70 Respiratory Rate 20 Blood Pressure 110/70 108/63 Pulse Oximetry 100 Oxygen Delivery Room Air 01/04/25 04:18 01/04/25 08:49 01/04/25 08:52 Temperature 97.9 F 97.5 F L Pulse Rate 69 67 67 Respiratory Rate 20 16 16 Blood Pressure 99/62 L 107/64 Pulse Oximetry 96 100 100 Oxygen Delivery Room Air 01/04/25 13:36 Temperature Pulse Rate 68 Respiratory Rate 12 Blood Pressure 105/69 Pulse Oximetry 99 Oxygen Delivery Intake/Output Intake/Output: Intake & Output 01/01/25 01/02/25 01/03/25 01/04/25 23:59 23:59 23:59 23:59 Intake Total 2220 3074 4250 2600 Output Total 500 Balance 2220 3074 3750 2600 Meds/Results Medications: Active Medications Generic Name Dose Route Start Last Admin Trade Name Freq PRN Reason Stop Dose Admin Acetaminophen 650 mg 01/01/25 03:07 Acetaminophen 325 Mg Tablet PO Q4H PRN Pain Rated 1-3 Hydrocodone Bitart/Acetaminophen 1 - 2 tab 01/01/25 11:18 01/03/25 08:25 Hydrocodone/Acetaminophen (*Crx) 5-325 Mg Tablet PO 2 tab Q4-6H PRN Administration Pain Rated 4-6 Diphenhydramine HCl 50 mg 01/02/25 11:17 01/02/25 11:33 Diphenhydramine Hcl Cap 25 Mg Capsule PO 50 mg Q6H PRN Administration Itching Hydrocortisone 1 applic 01/02/25 12:45 01/04/25 10:11 Hydrocortisone 1% 30 Gm Cream TOPICAL Not Given Q12HR BARRY Hydromorphone HCl 1 mg 01/02/25 11:17 01/04/25 12:49 Hydromorphone Hcl Inj (*Crx) 2 Mg/Ml Vial IV PUSH 1 mg Q4-6H PRN Administration Pain Rated 7-10 Sodium Chloride 1,000 mls @ 100 mls/hr 01/01/25 03:10 01/04/25 13:49 Normal Saline Iv IV CONT 100 mls/hr .Q10H BARRY Administration Piperacillin Sod/Tazobactam Sod 4.5 gm in 100 mls @ 200 mls/hr 01/01/25 09:00 01/04/25 09:23 Zosyn 4.5 Gm/Ns 100 Ml IVPB Infused Q6H BARRY Infusion Lorazepam 0.5 mg 01/01/25 03:13 01/04/25 12:08 Lorazepam Inj (*Crx) 2 Mg/Ml Vial IV PUSH 0.5 mg Q6H PRN Administration Anxiety Nicotine 1 patch 01/02/25 11:20 01/04/25 08:52 Nicotine (*Pbkc) 14 Mg Patch TRANSDERM 1 patch DAILY BARRY Administration Ondansetron HCl 4 mg 01/01/25 03:13 Ondansetron Inj 4 Mg/2 Ml Vial IV PUSH Q6H PRN Nausea And Vomiting Labs 01/04/25 04:42 Labs: Laboratory Results - last 24 hr 01/04/25 04:42 WBC 6.3 RBC 4.31 Hgb 10.1 L Hct 35.0 L MCV 81.2 MCH 23.4 L MCHC 28.9 L RDW 25.0 H Plt Count 354 MPV 10.6 H Immature Gran % (Auto) 0.2 Neut % (Auto) 48.2 Lymph % (Auto) 32.6 [place] % (Auto) 7.9 Eos % (Auto) 10.0 H Baso % (Auto) 1.1 Lymph # (Auto) 2.06 [place] # (Auto) 0.5 Eos # (Auto) 0.6 H Baso # (Auto) 0.1 Abs Immat Gran (auto) 0.01 Absolute Neuts (auto) 3.1 Absolute Nucleated RBC 0.000 Band Neutrophils % Not Reportable Nucleated RBC % 0.0 Platelet Estimate Adequate Hypochromasia 1+ Anisocytosis 1+ Ovalocytes 1+ Schistocytes None seen
[2025-01-04] MEDS: HYDROcodone/acetaminophen (*CRX) 5-325 MG TABLET PO (14:25)
[2025-01-04] MEDS: ONDANSETRON INJ 4 MG/2 ML VIAL IV PUSH (17:10)
[2025-01-04] MEDS: MORPHINE SULFATE (*CRX) 2 MG/ML INJ IV PUSH (18:44)
[2025-01-04 20:03] VITALS: BP 116/73; PULSE 67; RESP 18; TEMP 36.4; O2SAT 99
[2025-01-04] MEDS: IBUPROFEN 400 MG TABLET PO (20:04)
[2025-01-04] MEDS: HYDROCORTISONE 1% 30 GM CREAM 1 APPLIC TOPICAL (21:08)
[2025-01-04] MEDS: ACETAMINOPHEN 325 MG TABLET 650 MG PO (21:08)
[2025-01-05] MEDS: SODIUM CHLORIDE 0.9% IV 1,000 ML 100 ML IV CONT ×3 (00:54→22:16)
[2025-01-05] MEDS: PIPERACILLIN/TAZ 4.5G/NS 100ML 4.5 GM/100 ML BAG IVPB ×4 (03:29→19:55)
[2025-01-05] MEDS: MORPHINE SULFATE (*CRX) 2 MG/ML INJ IV PUSH ×4 (03:34→21:49)
[2025-01-05] MEDS: LORazepam INJ (*CRX) 2 MG/ML VIAL 0.5 MG IV PUSH ×3 (03:41→17:58)
[2025-01-05 03:58] VITALS: BP 109/65; PULSE 64; RESP 20; TEMP 36.6; O2SAT 97
[2025-01-05 08:59] VITALS: PULSE 64; RESP 20; O2SAT 97
[2025-01-05] MEDS: NICOTINE (*PBKC) 14 MG PATCH 1 PATCH TRANSDERM (08:59)
[2025-01-05 14:00] VITALS: BP 113/72; PULSE 71; RESP 14; TEMP 36.1; O2SAT 100
[2025-01-05 19:36] VITALS: BP 122/75; PULSE 54; RESP 18; TEMP 36.6; O2SAT 98
[2025-01-05] MEDS: ACETAMINOPHEN 325 MG TABLET 650 MG PO (19:54)
[2025-01-05] MEDS: IBUPROFEN 400 MG TABLET PO (19:55)
[2025-01-05] MEDS: HYDROCORTISONE 1% 30 GM CREAM 1 APPLIC TOPICAL (20:00)
[2025-01-05] MEDS: ONDANSETRON INJ 4 MG/2 ML VIAL IV PUSH (21:53)
[2025-01-05] MEDS: CYCLOBENZAPRINE HCL 10 MG TABLET PO (22:16)
[2025-01-06] MEDS: IBUPROFEN 400 MG TABLET PO ×2 (04:05→20:27)
[2025-01-06] MEDS: PIPERACILLIN/TAZ 4.5G/NS 100ML 4.5 GM/100 ML BAG IVPB ×4 (04:06→20:27)
[2025-01-06] MEDS: ACETAMINOPHEN 325 MG TABLET 650 MG PO ×5 (04:06→20:27)
[2025-01-06 04:08] VITALS: BP 94/48; PULSE 50; RESP 18; TEMP 36.3; O2SAT 93
[2025-01-06] MEDS: NICOTINE (*PBKC) 14 MG PATCH 1 PATCH TRANSDERM (08:05)
[2025-01-06] MEDS: MORPHINE SULFATE (*CRX) 2 MG/ML INJ IV PUSH ×2 (08:14→14:23)
[2025-01-06] MEDS: SODIUM CHLORIDE 0.9% IV 1,000 ML 100 ML IV CONT ×2 (08:18→20:30)
[2025-01-06] MEDS: LORazepam INJ (*CRX) 2 MG/ML VIAL 0.5 MG IV PUSH ×4 (09:46→23:27)
[2025-01-06 14:00] VITALS: BP 115/75; PULSE 66; RESP 14; O2SAT 100
--- NOTE | 2025-01-06 15:41 | PM.GYNPNOP ---
CHEMICAL WEIGHER - A/P Time Spent With Patient Time: Total time spent is greater than 50% in coordination of care (as documented) at patient's floor/unit and/or counseling patient: Time with patient: less than 15 minutes CHEMICAL WEIGHER- PN:Subj Post-Op Subjective Date/time seen: 01/06/25 15:41 S: No significant change in symptoms. Still with some tsp sized spotting intermittently on pad, no bleeding with clots. Discharge also has not changed markedly, if anything has improved somewhat though persists. She is very tearful and anxious regarding her hospitalization and how her treatment is going. O: VSS afebrile Abdomen: Positive bowel sound soft without guarding or rebound Lab: CT results noted A: Improving pelvic abscess. Right adnexal abnormality more consistent with ovarian cyst. P: Continue IV antibiotics for 7 days total which will be 2 more days. At that point we will switch to oral antibiotics and discharge home. CHEMICAL WEIGHER - PN: Obj Data Vital Signs Vital Signs: Vital Signs - 24 hr 01/05/25 19:36 01/06/25 04:08 01/06/25 08:05 Temperature 97.9 F 97.3 F L Pulse Rate 54 L 50 L Respiratory Rate 18 18 Blood Pressure 122/75 94/48 L Pulse Oximetry 98 93 Oxygen Delivery Room Air 01/06/25 14:00 Temperature Pulse Rate 66 Respiratory Rate 14 Blood Pressure 115/75 Pulse Oximetry 100 Oxygen Delivery Intake/Output Intake/Output: Intake & Output 01/03/25 01/04/25 01/05/25 01/06/25 23:59 23:59 23:59 23:59 Intake Total 4250 4390 3890 1969 Output Total 500 Balance 3750 4390 3890 1969 Meds/Results Medications: Active Medications Generic Name Dose Route Start Last Admin Trade Name Freq PRN Reason Stop Dose Admin Acetaminophen 650 mg 01/04/25 17:00 01/06/25 12:30 Acetaminophen 325 Mg Tablet PO Not Given Q4H BARRY Diphenhydramine HCl 50 mg 01/02/25 11:17 01/02/25 11:33 Diphenhydramine Hcl Cap 25 Mg Capsule PO 50 mg Q6H PRN Administration Itching Hydrocortisone 1 applic 01/02/25 12:45 01/06/25 08:10 Hydrocortisone 1% 30 Gm Cream TOPICAL Not Given Q12HR BARRY Sodium Chloride 1,000 mls @ 100 mls/hr 01/01/25 03:10 01/06/25 08:18 Normal Saline Iv IV CONT 100 mls/hr .Q10H BARRY Administration Piperacillin Sod/Tazobactam Sod 4.5 gm in 100 mls @ 200 mls/hr 01/01/25 09:00 01/06/25 14:26 Zosyn 4.5 Gm/Ns 100 Ml IVPB 200 mls/hr Q6H BARRY Administration Ibuprofen 400 mg 01/04/25 20:00 01/06/25 12:30 Ibuprofen 400 Mg Tablet PO Not Given Q8H BARRY Lorazepam 0.5 mg 01/01/25 03:13 01/06/25 09:46 Lorazepam Inj (*Crx) 2 Mg/Ml Vial IV PUSH 0.5 mg Q6H PRN Administration Anxiety Morphine Sulfate 2 mg 01/04/25 16:04 01/06/25 14:23 Morphine Sulfate (*Crx) 2 Mg/Ml Inj IV PUSH 2 mg Q6H PRN Administration Pain Rated 7-10 Nicotine 1 patch 01/02/25 11:20 01/06/25 08:05 Nicotine (*Pbkc) 14 Mg Patch TRANSDERM 1 patch DAILY BARRY Administration Ondansetron HCl 4 mg 01/01/25 03:13 01/05/25 21:53 Ondansetron Inj 4 Mg/2 Ml Vial IV PUSH 4 mg Q6H PRN Administration Nausea And Vomiting Radiology Results: ITS Impressions Abdomen/Pelvis CT 01/06/25 13:42 IMPRESSION: 1. Decrease in size of a previously 5.5 x 4.4 x 4.3 cm, currently 3.9 x 2.0 x 2.7 cm. Abscess at the uterine fossa post recent hysterectomy. 2. Decrease in size of a previously 4.1 x 3.3 x 5.4 cm, currently 3.1 x 1.7 x 2.9 cm complex fluid collection at the right adnexa which could represent a resolving ovarian cyst versus second improving abscess. Favor the former. 3. Very small right and trace left pleural effusions. Labs 01/04/25 04:42
[2025-01-06] MEDS: HYDROCORTISONE 1% 30 GM CREAM 1 APPLIC TOPICAL (20:27)
[2025-01-06 22:00] VITALS: BP 119/73; PULSE 68; RESP 18; TEMP 36.2; O2SAT 99
[2025-01-07] MEDS: ONDANSETRON INJ 4 MG/2 ML VIAL IV PUSH (00:34)
[2025-01-07] MEDS: MORPHINE SULFATE (*CRX) 2 MG/ML INJ IV PUSH (00:34)
[2025-01-07] MEDS: ACETAMINOPHEN 325 MG TABLET 650 MG PO ×2 (00:39→05:02)
[2025-01-07] MEDS: PIPERACILLIN/TAZ 4.5G/NS 100ML 4.5 GM/100 ML BAG IVPB ×4 (02:05→21:17)
[2025-01-07] MEDS: IBUPROFEN 400 MG TABLET PO (05:02)
[2025-01-07 06:00] VITALS: BP 97/65; PULSE 60; RESP 18; TEMP 36.3; O2SAT 98
[2025-01-07] MEDS: SODIUM CHLORIDE 0.9% IV 1,000 ML 100 ML IV CONT ×2 (08:09→21:16)
[2025-01-07] MEDS: HYDROcodone/acetaminophen (*CRX) 5-325 MG TABLET 1 TAB PO ×4 (08:12→21:28)
[2025-01-07] MEDS: HYDROCORTISONE 1% 30 GM CREAM 1 APPLIC TOPICAL ×2 (08:13→21:32)
[2025-01-07] MEDS: NICOTINE (*PBKC) 14 MG PATCH 1 PATCH TRANSDERM (08:13)
[2025-01-07] MEDS: LORazepam INJ (*CRX) 2 MG/ML VIAL 0.5 MG IV PUSH ×3 (08:21→21:22)
--- NOTE | 2025-01-07 09:01 | P.PNOB_ITS ---
GROOVER RUNNER - A/P Time Spent With Patient Time: Total time spent is greater than 50% in coordination of care (as documented) at patient's floor/unit and/or counseling patient: Time with patient: 15 - 25 minutes GROOVER RUNNER- PN:Sathish Post-Op Subjective Date/time seen: 01/07/25 09:01 S: Continues to struggle with being in hospital and not being allowed to leave. She does state the discharge has not increased, and spotting that she has been having does seem to be decreasing as well. Pain somewhat tolerated would like her oral pain medication time changed. O: VSS afebrile Abdomen: Positive bowel sounds soft nondistended Labs: CT scan reviewed A: Doing well on current regimen. She is struggling from a psychological standpoint, hopefully will do better once home. Lengthy conversation in regard to these stay for another day of antibiotics intravenous prior to changes oral. Not particularly happy with this plan but does understand it would be best to decrease the chances of her coming back again. Also discussed at length the need to take oral antibiotics consistently once discharged. Also will send home on [employer] per patient request. Also discussed at length activity limitations as well as parameters for which she should call. P: 1. Continue IV antibiotics for 24 more hours 2. Discharged home on Levaquin and Flagyl as well as pain medications 3. CT scan will be scheduled on an outpatient basis in 2 weeks 4. Postop appointment in office will be scheduled in 2 weeks as well after CT scan has been performed GROOVER RUNNER - PN: Obj Data Vital Signs Vital Signs: Vital Signs - 24 hr 01/06/25 14:00 01/06/25 22:00 01/07/25 06:00 Temperature 97.2 F L 97.3 F L Pulse Rate 66 68 60 Respiratory Rate 14 18 18 Blood Pressure 115/75 119/73 97/65 L Pulse Oximetry 100 99 98 Intake/Output Intake/Output: Intake & Output 01/04/25 01/05/25 01/06/25 01/07/25 23:59 23:59 23:59 23:59 Intake Total 4390 3890 3900 1100 Balance 4390 3890 3900 1100 Meds/Results Medications: Active Medications Generic Name Dose Route Start Last Admin Trade Name Freq PRN Reason Stop Dose Admin Acetaminophen 650 mg 01/04/25 17:00 01/07/25 08:13 Acetaminophen 325 Mg Tablet PO Not Given Q4H [facility] Hydrocodone Bitart/Acetaminophen 1 tab 01/07/25 07:17 01/07/25 08:12 Hydrocodone/Acetaminophen (*Crx) 5-325 Mg Tablet PO 1 tab Q4H PRN Administration Pain Rated 4-6 Diphenhydramine HCl 50 mg 01/02/25 11:17 01/02/25 11:33 Diphenhydramine Hcl Cap 25 Mg Capsule PO 50 mg Q6H PRN Administration Itching Hydrocortisone 1 applic 01/02/25 12:45 01/07/25 08:13 Hydrocortisone 1% 30 Gm Cream TOPICAL 1 applic Q12HR BARRY Administration Sodium Chloride 1,000 mls @ 100 mls/hr 01/01/25 03:10 01/07/25 08:09 Normal Saline Iv IV CONT 100 mls/hr .Q10H BARRY Administration Piperacillin Sod/Tazobactam Sod 4.5 gm in 100 mls @ 200 mls/hr 01/01/25 09:00 01/07/25 08:12 Zosyn 4.5 Gm/Ns 100 Ml IVPB 200 mls/hr Q6H BARRY Administration Ibuprofen 400 mg 01/04/25 20:00 01/07/25 05:02 Ibuprofen 400 Mg Tablet PO 400 mg Q8H BARRY Administration Lorazepam 0.5 mg 01/01/25 03:13 01/07/25 08:21 Lorazepam Inj (*Crx) 2 Mg/Ml Vial IV PUSH 0.5 mg Q6H PRN Administration Anxiety Morphine Sulfate 2 mg 01/04/25 16:04 01/07/25 00:34 Morphine Sulfate (*Crx) 2 Mg/Ml Inj IV PUSH 2 mg Q6H PRN Administration Pain Rated 7-10 Nicotine 1 patch 01/02/25 11:20 01/07/25 08:13 Nicotine (*Pbkc) 14 Mg Patch TRANSDERM 1 patch DAILY BARRY Administration Ondansetron HCl 4 mg 01/01/25 03:13 01/07/25 00:34 Ondansetron Inj 4 Mg/2 Ml Vial IV PUSH 4 mg Q6H PRN Administration Nausea And Vomiting Radiology Results: ITS Impressions Abdomen/Pelvis CT 01/06/25 13:42 IMPRESSION: 1. Decrease in size of a previously 5.5 x 4.4 x 4.3 cm, currently 3.9 x 2.0 x 2.7 cm. Abscess at the uterine fossa post recent hysterectomy. 2. Decrease in size of a previously 4.1 x 3.3 x 5.4 cm, currently 3.1 x 1.7 x 2.9 cm complex fluid collection at the right adnexa which could represent a resolving ovarian cyst versus second improving abscess. Favor the former. 3. Very small right and trace left pleural effusions. Labs 01/04/25 04:42
[2025-01-07 14:00] VITALS: BP 108/68; PULSE 61; RESP 16; TEMP 36.9; O2SAT 98
--- NOTE | 2025-01-07 15:16 | PM.GYNPNOP ---
FIXED INCOME DIRECTOR - A/P Time Spent With Patient Time: Total time spent is greater than 50% in coordination of care (as documented) at patient's floor/unit and/or counseling patient: Time with patient: less than 15 minutes FIXED INCOME DIRECTOR- PN:Sathish Post-Op Subjective Date/time seen: 01/05/25 15:16 S: Diet well tolerated, minimal activity. Pain reasonably well controlled with multiple pain medications. Discharge continues with activity, also slight bleeding noted on pad. O: VSS afebrile Abdomen: Positive bowel sounds soft A: Continues to improve P: CT scan of abdomen and pelvis 01/06/2025 to assess for interval change This note is being placed on 01/07/2025, patient was seen on 01/05/2025 FIXED INCOME DIRECTOR - PN: Obj Data Vital Signs Vital Signs: Vital Signs - 24 hr 01/06/25 22:00 01/07/25 06:00 01/07/25 08:00 Temperature 97.2 F L 97.3 F L Pulse Rate 68 60 Respiratory Rate 18 18 Blood Pressure 119/73 97/65 L Pulse Oximetry 99 98 Oxygen Delivery Room Air 01/07/25 14:00 Temperature 98.5 F Pulse Rate 61 Respiratory Rate 16 Blood Pressure 108/68 Pulse Oximetry 98 Oxygen Delivery Intake/Output Intake/Output: Intake & Output 01/04/25 01/05/25 01/06/25 01/07/25 23:59 23:59 23:59 23:59 Intake Total 4390 3890 3900 1560 Balance 4390 3890 3900 1560 Meds/Results Medications: Active Medications Generic Name Dose Route Start Last Admin Trade Name Freq PRN Reason Stop Dose Admin Acetaminophen 650 mg 01/04/25 17:00 01/07/25 12:17 Acetaminophen 325 Mg Tablet PO Not Given Q4H BARRY Hydrocodone Bitart/Acetaminophen 1 tab 01/07/25 07:17 01/07/25 12:16 Hydrocodone/Acetaminophen (*Crx) 5-325 Mg Tablet PO 1 tab Q4H PRN Administration Pain Rated 4-6 Diphenhydramine HCl 50 mg 01/02/25 11:17 01/02/25 11:33 Diphenhydramine Hcl Cap 25 Mg Capsule PO 50 mg Q6H PRN Administration Itching Hydrocortisone 1 applic 01/02/25 12:45 01/07/25 08:13 Hydrocortisone 1% 30 Gm Cream TOPICAL 1 applic Q12HR BARRY Administration Sodium Chloride 1,000 mls @ 100 mls/hr 01/01/25 03:10 01/07/25 08:09 Normal Saline Iv IV CONT 100 mls/hr .Q10H BARRY Administration Piperacillin Sod/Tazobactam Sod 4.5 gm in 100 mls @ 200 mls/hr 01/01/25 09:00 01/07/25 15:06 Zosyn 4.5 Gm/Ns 100 Ml IVPB 200 mls/hr Q6H BARRY Administration Ibuprofen 400 mg 01/04/25 20:00 01/07/25 12:16 Ibuprofen 400 Mg Tablet PO Not Given Q8H BARRY Lorazepam 0.5 mg 01/01/25 03:13 01/07/25 15:06 Lorazepam Inj (*Crx) 2 Mg/Ml Vial IV PUSH 0.5 mg Q6H PRN Administration Anxiety Morphine Sulfate 2 mg 01/04/25 16:04 01/07/25 00:34 Morphine Sulfate (*Crx) 2 Mg/Ml Inj IV PUSH 2 mg Q6H PRN Administration Pain Rated 7-10 Nicotine 1 patch 01/02/25 11:20 01/07/25 08:13 Nicotine (*Pbkc) 14 Mg Patch TRANSDERM 1 patch DAILY BARRY Administration Ondansetron HCl 4 mg 01/01/25 03:13 01/07/25 00:34 Ondansetron Inj 4 Mg/2 Ml Vial IV PUSH 4 mg Q6H PRN Administration Nausea And Vomiting Radiology Results: ITS Impressions Abdomen/Pelvis CT 01/06/25 13:42 IMPRESSION: 1. Decrease in size of a previously 5.5 x 4.4 x 4.3 cm, currently 3.9 x 2.0 x 2.7 cm. Abscess at the uterine fossa post recent hysterectomy. 2. Decrease in size of a previously 4.1 x 3.3 x 5.4 cm, currently 3.1 x 1.7 x 2.9 cm complex fluid collection at the right adnexa which could represent a resolving ovarian cyst versus second improving abscess. Favor the former. 3. Very small right and trace left pleural effusions. Labs 01/04/25 04:42
[2025-01-07 21:19] VITALS: BP 146/81; PULSE 58; RESP 18; TEMP 36.7; O2SAT 100
[2025-01-08] MEDS: PIPERACILLIN/TAZ 4.5G/NS 100ML 4.5 GM/100 ML BAG IVPB ×2 (02:30→08:19)
[2025-01-08] MEDS: HYDROcodone/acetaminophen (*CRX) 5-325 MG TABLET 1 TAB PO ×2 (02:33→08:29)
[2025-01-08] MEDS: LORazepam INJ (*CRX) 2 MG/ML VIAL 0.5 MG IV PUSH (03:29)
[2025-01-08 05:34] VITALS: BP 116/64; PULSE 57; RESP 18; TEMP 36.6; O2SAT 99
[2025-01-08] MEDS: ACETAMINOPHEN 325 MG TABLET 650 MG PO (05:37)
[2025-01-08] MEDS: IBUPROFEN 400 MG TABLET PO (05:37)
--- NOTE | 2025-01-08 07:30 | PM.DS ---
DS: Admitting Diagnosis Discharge Date 01/08/2025 Admitting Diagnosis Abscess DS: Discharge Diagnosis Discharge Diagnosis (1) Pelvic abscess in female: Code(s): N73.9 - Female pelvic inflammatory disease, unspecified Status: Acute Assessment and Plan: 1. Discharge home on Levaquin and Flagyl 2. Repeat CT scan in 2 weeks which has scheduled for January 20 3. Follow-up in office January 22 DS: Summary Hospital Course Reason for hospitalization: Antibiotic and pain management Hospital Course: 49-year-old female admitted 522 with recurrent pelvic abscess. She has had a very long protracted course after undergoing robotic assisted hysterectomy on December 11. Was discharged on the 1st postoperative day without issue, returned on December 18 with large abscess in the pelvis which was treated with a drain as well as IV antibiotics. At this time pain was improved, she patient was afebrile, white count was normal and was discharged home on oral antibiotics consisting of Augmentin and Flagyl. Returned January 01 with increasing pain and CT scan showed increase in abscesses and admitted for IV antibiotics. During this hospitalization she also had some spotting which has lessened and was having a fair amount of vaginal discharge which also has become minimal to nonexistent. Repeat CT scan during this hospitalization revealed improving abscesses, and will be discharged home Levaquin and Flagyl. Time Spent with Patient Time attestation: Total time spent providing and/or coordinating discharge services: Time spent: Less than 30 minutes Discharge Plan Discharge Consulting providers: Donato Ellison Discharging Clinician: Donato Ellison Patient Disposition: Home Activity: may shower, no straining, no driving, follow weight bearing status and pelvic rest Diet: as tolerated Patient Instructions: Antibiotic Form Patient Language: Bahamian Stand Alone Forms: General Discharge Information Follow-up/Referrals: Donato Ellison MD [Physician] - 01/22/25 Discharge Medications: New hydrocodone-acetaminophen 5-325 mg Tablet 1 tablet PO Q4H PRN (Reason: Pain Rated 4-6) Qty: 30 0RF ibuprofen 400 mg Tablet 400 mg PO Q8H Qty: 30 0RF metronidazole 500 mg tablet 500 mg PO Q8H Qty: 30 0RF levofloxacin 750 mg tablet 750 mg PO DAILY Qty: 10 0RF Continued ibuprofen 800 mg tablet 800 mg PO TID Qty: 30 0RF Discontinued metronidazole 500 mg tablet 500 mg PO Q8H Qty: 30 0RF amoxicillin-pot clavulanate 875-125 mg tablet 1 tablet PO Q8H Qty: 30 0RF oxycodone 5 mg Tablet 5 mg PO Q4H PRN (Reason: Pain Rated 4-6) Qty: 30 0RF Date of admission: 01/01/25 09:30 Primary Care Provider: Robert Dodge Admitting Provider: Chidi Hinojosa Attending physician on admission: Chidi Hinojosa Condition: Stable
--- OUTSIDE RECORDS SUMMARY | 2025-01-09 12:58 | XMS_ITS | Clinical Summary ---
Author Organization [facility] Address [address] [place] [address] Care Team Providers Care Closer On Name Role Phone Unavailable Primary Care Provider Unavailabl e Source Comments [facility],non-owned Affiliates and Associated Physician Practices is amultiple site organization consisting of ambulatory clinics and hospital sitesin [place], [place], [place] and [place]. This disclosure is being madepursuant to the Care Everywhere program and may not contain all information available regarding this patient. 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 SELF PAY NO INSURANCE Member Subscriber Plan / Payer (Ef fective for All Dates) Name:DwyerFarida Member ID:Not on file Relation to Subscriber:Not on file Name:DWYERFARIDA Subscriber ID:Not on file (Home) Address: [address] [place] [address] Payer ID:Not on file Group ID:Not on file Type:Self Pay Address: [place], [place]
--- OUTSIDE RECORDS SUMMARY | 2025-01-09 12:58 | XMS_ITS | Patient Health Record ---
Author Organization [facility] Address [address] [place] [address] Care Team Providers Care Gym Attendant Name Role Phone Mark Pickard Primary Care [...] Coverage End Date [employer] [address] [address] [place] [phone] [id number] Alpa Echevarria Self - patient is the insured Medical (General) History Medical History History ICD Code anemia fainting/dizzy spells endometriosis sever anxiety Surgical History Surgery Date(Month/Year) gall bladder removed 2020 tonsilectomy
--- OUTSIDE RECORDS SUMMARY | 2025-01-09 12:58 | XMS_ITS | Continuity of Care Document ---
Author Organization [facility] Address [address] [place] [id number] Phone Care Team Providers Care Social Studies Teacher Name Role Phone Van Caraballo MD Unavailable Unavailable Advance Directives Directive Yes / No Effective Date File Name No Information Encounters Encounter Description Practice Location Reason(s) For Visit Diagnoses Date Provider Providers Copied on Encounter [facility], [address] [place], [place], [address], tel:[phone] Van Caraballo No Information Iyla Araujo. [address] [place] [address], [address], [place]. tel:[phone] Referring Provider: Lauro Workman, [address] [place], [place], [id number]. tel:[phone] Family History Family Member Type Diagnosis Age At Onset No Information Payers Payer name Insurance type Covered democrat ID Authoriza titay(s) [facility] CI [id number] Social History Type Description Quantity Date Captured Comments Sex Female Smoking Status No Information Chief Complaint And Reason For Visit No Information History Of Present Illness Encounter Date Complaint History Of Prese nt Illness No Information Instructions Date Instruction Additional Infor mation No Information Assessments Type Assessment Date No Information
--- OUTSIDE RECORDS SUMMARY | 2025-01-09 12:58 | XMS_ITS | Continuity of Care Document ---
Author Organization [facility] Address [address] [place] [id number] Phone Care Team Providers Care Project Administrator Name Role Phone Van Caraballo MD Unavailable Unavailable Advance Directives Directive Yes / No Effective Date File Name No Information Encounters Encounter Description Practice Location Reason(s) For Visit Diagnoses Date Provider Providers Copied on Encounter [facility], [address] [place], [place], [address], tel:[phone] Van Caraballo No Information Ilya Araujo. [address] [place] [address], [address], [place]. tel:[phone] Referring Provider: Lauro Workman, [address] [place], [place], [id number]. tel:[phone] Family History Family Member Type Diagnosis Age At Onset No Information Payers Payer name Insurance type Covered constitution party ID Authoriza titay(s) [facility] CI [id number] Social History Type Description Quantity Date Captured Comments Sex Female Smoking Status No Information Chief Complaint And Reason For Visit No Information History Of Present Illness Encounter Date Complaint History Of Prese nt Illness No Information Instructions Date Instruction Additional Infor mation No Information Assessments Type Assessment Date No Information
== END 2025-01-08 10:33 | disposition home or self-care (01) | DRG 531 ==
LOC: ANH2MED 01-09 12:56 → ANHLDR 01-09 12:56
PROVIDERS: Admitting Provider Student in an Organized Health Care Education/Training Program; PCP Family Medicine; Visit Provider Obstetrics & Gynecology
DX: N73.9 Female pelvic inflammatory disease, unspecified (principal); F17.210 Nicotine dependence, cigarettes, uncomplicated; G25.81 Restless legs syndrome; K21.9 Gastro-esophageal reflux disease without esophagitis; K58.9 Irritable bowel syndrome, unspecified; Z90.49 Acquired absence of other specified parts of digestive tract; Z90.710 Acquired absence of both cervix and uterus
CPT/HCPCS: 36415; 74177; 85025; A9270; J1171; J2060; J2270; J2405; J2543; J7030; Q9967

== ENCOUNTER 2025-01-20 07:57 | Outpatient (CLI) | payer OTHER, SELFPAY ==
--- NOTE | ~2025-01-20 | CT_ITS ---
CT of the Abdomen and Pelvis: Indication: Infection following a procedure Technique: 2.5 mm axial scans were obtained through the abdomen and pelvis following intravenous adm inistration of 100 cc of Omnipaque 350. Dose reduction technique was used on this scan by utilizing a utomated exposure control and iterative reconstruction technique. The dose-length product (DLP) was 3 70.47 mGy-cm. COMPARISON: 01/06/2025 Findings: Scans through the lung bases are unremarkable. The liver, spleen, pancreas, adrenals and kidneys are within normal limits. Cholecystectomy clips are present. No evidence of aortic aneurysm. No lymphadenopathy. No bowel obstruction or bowel wall thickening. There is no evidence to suggest acute appendicitis. Images through the pelvis were performed. Urinary bladder unremarkable. There are inflammatory change s in the pelvis suggests a recent hysterectomy. Decrease in right ovarian hemorrhagic cyst or abscess , now measuring 1.6 cm in diameter. Significant interval decrease of abscess of the vaginal cuff phani on.. Impression: Significant interval decrease in abscess at the vaginal cuff region. Additional significant interval decrease in right ovarian hemorrhagic cyst or abscess, which now measures 1.6 cm in diameter. Haziness in the pelvis compatible with postoperative changes related to recent hysterectomy. Reviewed, dictated and finalized at location . Impression: Significant interval decrease in abscess at the vaginal cuff region. Additional significant interval decrease in right ovarian hemorrhagic cyst or abscess, wh ich now measures 1.6 cm in diameter. Haziness in the pelvis compatible with postoperative changes related to recent hysterectomy.
--- OUTSIDE RECORDS SUMMARY | 2025-01-20 08:02 | XMS_ITS | Clinical Summary ---
Author Organization [facility] Address [address] [place] [address] Care Team Providers Care Plant And Instrument Engineer Name Role Phone Unavailable Primary Care Provider Unavailabl e Source Comments [facility],non-owned Affiliates and Associated Physician Practices is amultiple site organization consisting of ambulatory clinics and hospital sitesin [place], [place], [place] and [place]. This disclosure is being madepursuant to the Care Everywhere program and may not contain all information available regarding this patient. 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
--- OUTSIDE RECORDS SUMMARY | 2025-01-20 08:02 | XMS_ITS | Patient Health Record ---
Author Organization [facility] Address [address] [place] [address] Care Team Providers Care Health Care Liaison Name Role Phone Mark Pickard Primary Care [...] Coverage End Date [employer] [address] [address] [place] [phone] [id number] Alpa Echevarria Self - patient is the insured Medical (General) History Medical History History ICD Code anemia fainting/dizzy spells endometriosis sever anxiety Surgical History Surgery Date(Month/Year) gall bladder removed 2020 tonsilectomy
--- OUTSIDE RECORDS SUMMARY | 2025-01-20 08:02 | XMS_ITS | Continuity of Care Document ---
Author Organization [facility] Address [address] [place] [address] Phone Care Team Providers Care Maintenance Specialist Name Role Phone Van Caraballo MD Unavailable Unavailable Advance Directives Directive Yes / No Effective Date File Name No Information Encounters Encounter Description Practice Location Reason(s) For Visit Diagnoses Date Provider Providers Copied on Encounter [facility], [address] [place], [place], [address], tel:[phone] Van Caraballo No Information Ilya Araujo. [address] [place] [address], [address], [place]. tel:[phone] Referring Provider: Lauro Workman, [address], [place], [id number]. tel:[phone] Family History Family Member Type Diagnosis Age At Onset No Information Payers Payer name Insurance type Covered republican ID Authoriza titay(s) [facility] CI [id number] Social History Type Description Quantity Date Captured Comments Sex Female Smoking Status No Information Chief Complaint And Reason For Visit No Information History Of Present Illness Encounter Date Complaint History Of Prese nt Illness No Information Instructions Date Instruction Additional Infor mation No Information Assessments Type Assessment Date No Information
== END 2025-01-20 07:58 | disposition home or self-care (01) ==
PROVIDERS: PCP Family Medicine; Visit Provider Obstetrics & Gynecology
DX: N73.9 Female pelvic inflammatory disease, unspecified (principal); T81.49XA Infection following a procedure, other surgical site, initial encounter
CPT/HCPCS: 74177; Q9967